=== PATIENT | female | born 1980 | race Caucasian/White ===

== ENCOUNTER 2021-11-08 22:05 | Emergency (ER) | payer OTHER, SELFPAY ==
--- NOTE | ~2021-11-08 | XR_ITS ---
EXAMINATION: XR ankle RT min 3V DATE: 11/09/2021 00:34 INDICATION: Lateral right ankle pain. TECHNIQUE: 4 views of right ankle were obtained. COMPARISON: Right ankle radiographs 05/02/2007 FINDINGS: Bone alignment is normal. No fracture. There is mild midfoot osteoarthritis. There is a sma ll osteochondral lesion of lateral talar dome. There are enthesophytes at the posterior and plantar a spects of calcaneal tuberosity. Ankle soft tissue swelling is noted. IMPRESSION: 1. Polyarticular osteoarthritis. Reviewed, dictated and finalized at location A. TER TRIMMER
--- NOTE | ~2021-11-08 | XR_ITS ---
EXAMINATION: XR foot RT min 3V DATE: 11/09/2021 00:34 INDICATION: Right foot pain. TECHNIQUE: 4 views of right foot were obtained. COMPARISON: None. FINDINGS: There is dorsiflexion of all of the metatarsophalangeal joints. There is mild flattening of head of second metatarsal, consistent with osteonecrosis (Freiberg's infraction). There is mild midf oot osteoarthritis. There are enthesophytes at the posterior and plantar aspects of calcaneal tuberos ity. IMPRESSION: 1. Mild polyarticular osteoarthritis. 2. Freiberg's infraction. Reviewed, dictated and finalized at location A. [employer]
[2021-11-08 22:10] VITALS: BP 139/90; PULSE 104; RESP 18; TEMP 36.3; O2SAT 97
--- NOTE | 2021-11-09 00:51 | ED.GENADULT ---
HPI - General Adult General Chief complaint: Extremity Injury, Lower Stated complaint: Right foot pain Time Seen by Provider: 11/09/21 00:44 History of Present Illness HPI narrative: Patient 41-year-old female presents to emergency department with chief complaint of right foot pain patient states that she twisted her foot this morning reports that she has swelling in the middle aspect of her right foot. Patient states that the pain is worse with trying to put weight on it states that whenever she attempts to put weight on her right foot it hurts so bad that she is unable to put weight on it. Patient states there is an area of swelling on the medial aspect of the foot denies any numbness or tingling denies laceration. Patient denies any other injury Related Data Allergies Allergy/AdvReac Type Severity Reaction Status Date / Time ibuprofen Allergy Swelling Verified 11/08/21 22:09 Review of Systems Review of Systems: A 10 system review of systems was completed on the patient and is negative except for what is stated in the HPI. Nursing and ancillary documentation was reviewed. Exam Narrative: GENERAL: Well-appearing, well-nourished, and in no acute distress. HEAD: Normocephalic, atraumatic. EYES: PERRLA and EOMI. ENT: Nares clear, no rhinorrhea or epistaxis. Mucous membranes moist. NECK: Supple. CHEST: Clear to auscultation. No respiratory distress. HEART: Regular rate and rhythm. No murmur heard. Normal peripheral pulses. ABDOMEN: Soft, nontender, nondistended, normal active bowel sounds. EXTREMITIES: Normal range of motion. No edema. There is mild swelling in the medial aspect of the right foot at the calcaneal area there is swelling there is tenderness to palpation SKIN: Warm, dry, no rash. NEURO: No focal deficits. Alert and oriented x3. PSYCH: Normal mood and affect. Course Course Emergency Course: Plain film x-rays of the foot and ankle showed no evidence of fracture Vital Signs Vital signs: Vital Signs Temperature 36.3 C L 11/08/21 22:10 Pulse Rate 104 H 11/08/21 22:10 Respiratory Rate 18 11/08/21 22:10 Blood Pressure 139/90 11/08/21 22:10 Pulse Oximetry 97 11/08/21 22:10 Temperature 36.3 C L 11/08/21 22:10 Pulse Rate 104 H 11/08/21 22:10 Respiratory Rate 18 11/08/21 22:10 Blood Pressure 139/90 11/08/21 22:10 Pulse Oximetry 97 11/08/21 22:10 Medical Decision Making Vital Signs Vital Signs: Vital Signs Temperature 36.3 C L 11/08/21 22:10 Pulse Rate 104 H 11/08/21 22:10 Respiratory Rate 18 11/08/21 22:10 Blood Pressure 139/90 11/08/21 22:10 Pulse Oximetry 97 11/08/21 22:10 Temperature 36.3 C L 11/08/21 22:10 Pulse Rate 104 H 11/08/21 22:10 Respiratory Rate 18 11/08/21 22:10 Blood Pressure 139/90 11/08/21 22:10 Pulse Oximetry 97 11/08/21 22:10 Discharge Plan Discharge Clinical Impression: Right foot sprain Qualifiers: Encounter type: initial encounter Qualified Code(s): S93.601A - Unspecified sprain of right foot, initial encounter Patient Disposition: Home, Self-Care Condition: Stable Instructions: Antibiotic Form, Foot Sprain (ED), Crutch Instructions (ED) Follow-up/Referrals: Manny,MD Jvaan [Primary Care Provider] - Time of Disposition: 00:53
[2021-11-09] MEDS: HYDROcodone/acetaminophen (*CRX) 5-325 MG TABLET 1 TAB PO (01:01)
[2021-11-09 01:24] VITALS: PULSE 80; RESP 18; O2SAT 100
== END 2021-11-09 01:25 | disposition home or self-care (01) ==
PROVIDERS: Emergency Provider Emergency Medicine; PCP Internal Medicine
DX: S93.601A Unspecified sprain of right foot, initial encounter (principal); X50.9XXA Other and unspecified overexertion or strenuous movements or postures, initial encounter
CPT/HCPCS: 73610; 73630; 99283; A9270

== ENCOUNTER 2023-11-27 21:01 | Emergency (ER) | payer MEDICAID, SELFPAY ==
--- NOTE | ~2023-11-27 | CT_ITS ---
EXAMINATION: CT abdomen pelvis wo con DATE: 11/27/2023 23:35 INDICATION: Right flank pain TECHNIQUE: Computed tomography (CT) of the abdomen and pelvis was performed without intravenous contr ast. The dose-length product (DLP) was 868.17 mGy-cm. Automated exposure control and iterative recons truction technique were employed. COMPARISON: 03/06/2018 FINDINGS: The lung bases are clear. The heart size is normal. Changes of cholecystectomy are noted. T he liver, spleen, pancreas, and adrenal glands are normal. The kidneys are unremarkable. No stones ar e identified in the kidneys, ureters, or bladder. No hydronephrosis or hydroureter. No pathologically enlarged abdominal or pelvic lymph nodes are identified. No free intraperitoneal gas or evidence of bowel obstruction. The appendix is normal. IMPRESSION: 1. No CT correlate for the patient's symptoms. Reviewed, dictated and finalized at location F. CONSERVATION SPECIALIST
[2023-11-27 21:04] VITALS: BP 113/7; PULSE 98; RESP 20; TEMP 36.5; O2SAT 100
[2023-11-27] MEDS: HYDROcodone/acetaminophen (*CRX) 5-325 MG TABLET 1 TAB PO (23:22)
[2023-11-27] MEDS: diazePAM INJ (*CRX) 10 MG/2 ML SYRINGE 2 MG IM (23:22)
[2023-11-27 23:42] LABS: Basophils Percent Auto 0.5 % (0.2-1.2); Eosinophils Absolute Auto 0.4 K/mm3 (0-0.3); Eosinophils Percent Auto 4.5 % (0-4.4); Hematocrit 45.3 % (37.0-47.0); Hemoglobin 15.1 g/dL (12.0-15.0); Immature Granulocyte Absolute 0.01 K/mm3 (0.00-0.031); Immature Granulocyte Percent A 0.1 % (0-0.5); Lymphocytes Absolute Auto 4.23 K/mm3 (0.9-3.2); Lymphocytes Percent Auto 53.1 % (18.3-44.2); Mean Corpuscular HGB Conc 33.3 g/dl (32-36); Mean Corpuscular Volume 98.9 fl (80-100); Mean Platelet Volume 9.5 fl (7.4-10.4); Monocytes Absolute Auto 0.4 K/mm3 (0.1-0.6); Neutrophils Absolute Auto 2.9 K/mm3 (1.3-6.7); Neutrophils Percent Auto 36.8 % (45.5-73.1); Platelet Count Result 197 k/mm3 (150-375); Red Blood Count 4.58 M/mm3 (4.2-5.4); Red Cell Distribution Width 12.9 % (11.5-14.5)
[2023-11-27 23:47] LABS: Appearance Urine Clear (Clear); Bacteria Urine None Seen /hpf; Bilirubin Urine Negative (Negative); Blood Urine 1+ (Negative); Color Urine Yellow (Yellow); Glucose Urine UA Negative (Negative); Ketones Urine Negative (Negative); Leukocyte Esterase Ur Negative LEU/UL (Negative); Nitrate Urine Negative (Negative); Non Pathogenic Casts 0-2; Protein Urine Negative (Negative); Specific Grav Ur 1.006 (1.001-1.035); Squamous Epithelial Cell Urine None seen /hpf (Few); Urobilinogen Urine 0.2 mg/dL (<2.0); WBC Urine 0-5 /hpf; pH Urine 6.5 (5.0-9.0)
[2023-11-27 23:53] LABS: Add Urine Microscopic? YES
[2023-11-27 23:54] LABS: Anion Gap 10 mmol/L (8-16); Blood Urea Nitrogen 18 mg/dL (7-17); Calcium 9.7 mg/dL (8.4-10.2); Carbon Dioxide 27 mmol/L (22-30); Chloride 103 mmol/L (98-107); Estimated CRCL calculation 52 ml/min; Estimated Glomerular Filt Rate 41; Glucose 89 mg/dL (65-110); Potassium 4.1 mmol/L (3.4-5.0); Sodium 140 mmol/L (137-145)
--- NOTE | 2023-11-28 00:18 | ED.BACK ---
HPI - Back Pain/Injury General Chief Complaint: Back Pain/Injury Stated Complaint: R sided lower back pain Time Seen by Provider: 11/27/23 21:49 Source: patient Mode of arrival: ambulatory Limitations: no limitations History of Present Illness HPI Narrative: Patient is a 43 year old female who presents the ED with report of lower back pain. Patient reports she was bending over cleaning her bathtub tonight when she felt a pop in her lower back. This occurred approximately 3 hours ago. Pain has been present through her lower back, extends to her right flank region and mildly around to her right lower abdomen. Patient took Tylenol for the pain at home but denied improvement. Denies nausea, vomiting, numbness, saddle anesthesia, bowel or bladder incontinence. She does report mild dysuria. No previous history of kidney stones. Related Data Allergies Allergy/AdvReac Type Severity Reaction Status Date / Time ibuprofen Allergy Swelling Verified 11/27/23 21:07 Review of Systems Review of Systems: CONSTITUTIONAL: Denies fever, chills, or sweats. GASTROINTESTINAL: See HPI. GENITOURINARY: See HPI. MUSCULOSKELETAL: See HPI. NEUROLOGIC: Denies headache, dizziness, numbness, or weakness. All systems reviewed & are unremarkable except as noted in HPI and below Exam Narrative: GENERAL: Well appearing, obese with BMI of 37.7, non-toxic, in no acute distress. HEAD: Normocephalic, atraumatic. RESPIRATORY: Airway patent, respirations nonlabored. CARDIOVASCULAR: Regular rate and rhythm. ABDOMINAL: Soft, no significant tenderness throughout abdomen, nondistended. Normoactive BS. MUSCULOSKELETAL: Moves all extremities. No gross deformities. No significant appreciable midline lumbar spinal tenderness. Mild tenderness throughout right-sided paraspinal musculature extending to right lumbosacral region. Sensation intact. No palpable bony deformities. SKIN: Warm, dry, normal color. NEURO: A&O X3. Speech clear. Cranial nerves II-XII grossly intact. Steady gait. No ataxic movements. PSYCHIATRIC: Appropriate mood and affect. Normal interaction. Course Vital Signs Vital signs: Vital Signs Temperature 97.7 F 11/27/23 21:04 Pulse Rate 98 11/27/23 21:04 Respiratory Rate 20 11/27/23 21:04 Blood Pressure 113/7 L 11/27/23 21:04 Pulse Oximetry 100 11/27/23 21:04 Oxygen Delivery Room Air 11/27/23 21:04 Temperature 97.7 F 11/27/23 21:04 Pulse Rate 98 11/27/23 21:04 Respiratory Rate 20 11/27/23 21:04 Blood Pressure 113/7 L 11/27/23 21:04 Pulse Oximetry 100 11/27/23 21:04 Oxygen Delivery Room Air 11/27/23 21:04 MDM - Back Pain/Injury MDM Narrative Medical decision making narrative: Patient presented to ED with low back pain, radiating to right flank/right-sided abdomen. Vital stable upon arrival. Differential includes lumbar strain, MSK pain, UTI/pyelonephritis, kidney stone. Patient does admit to mild dysuria. Urinalysis with 6-10 WBC, no other evidence for infection. Patient denying hematuria. Laboratory studies obtained and unremarkable. No leukocytosis. Creatinine 1.4. No records to compare to. CT abdomen pelvis obtained with lumbar spine and without acute abnormality. No ureterolithiasis. Does show degenerative changes of spine, but no acute abnormalities. Patient updated on imaging findings. Discussed likelihood of muscular strain. Discussed management of such. Will send prescription for lidocaine patches and muscle relaxers. Patient advised to follow-up with primary care doctor for further evaluation. Given return precautions. Discharged in stable condition. Medical Records Attestation: I reviewed the patient's medical records. Lab Data Attestation: I reviewed the patient's lab results. 11/27/23 23:29 11/27/23 23:29 Labs: Lab Results 11/27/23 11/27/23 Range/Units 23:29 23:30 WBC 8.0 (4.5-10.0) K/mm3 RBC 4.58 (4.2-5.4) M/mm3 Hgb
== END 2023-11-28 00:30 | disposition home or self-care (01) ==
PROVIDERS: Emergency Provider Physician Assistant; PCP Internal Medicine
DX: S39.012A Strain of muscle, fascia and tendon of lower back, initial encounter (principal); Z90.49 Acquired absence of other specified parts of digestive tract; X50.9XXA Other and unspecified overexertion or strenuous movements or postures, initial encounter
CPT/HCPCS: 36415; 74176; 80048; 81001; 85025; 96372; 99284; A9270; J3360

== ENCOUNTER 2024-07-04 18:13 | Emergency (ER) | payer OTHER, SELFPAY ==
--- NOTE | ~2024-07-04 | CT_ITS ---
EXAMINATION: CT cervical spine wo con DATE: 07/04/2024 22:40 INDICATION: right sided neck pain TECHNIQUE: Computed tomography (CT) of the cervical spine was performed without intravenous contrast. Automated exposure control and iterative reconstruction technique were employed. The dose-length pro duct was 574.66 mGy-cm. COMPARISON: None. FINDINGS: Vertebral Body Alignment: Intact. Reversed cervical lordosis which can occur with positioning or musc le spasm. Craniocervical and atlantoaxial alignment: Mild degenerative change. Alignment intact. Osseous structures/fracture: No evidence of a lytic or blastic process in the visualized spine. No e vidence of acute fracture. Cervical soft tissues: The paraspinal soft tissues planes are maintained. Degenerative changes: Mild degenerative disc and facet changes, without severe neural foraminal or ce ntral canal narrowing. IMPRESSION: No acute fracture or traumatic malalignment in the cervical spine. Reviewed, dictated and finalized at location K.
--- NOTE | ~2024-07-04 | XR_ITS ---
EXAM: XR shoulder RT min 2V DATE: 07/04/2024 18:32 HISTORY: shoulder pain . COMPARISON: None available. FINDINGS: Normal mineralization. No fracture or dislocation. No lytic or blastic lesion. Mild degene rative change at the AC joint and glenohumeral joint. No erosion or periosteal change. Soft tissues w ithin normal limits. IMPRESSION: No acute osseous finding in the right shoulder. Reviewed, dictated and finalized at location K.
[2024-07-04 18:22] VITALS: BP 141/93; PULSE 103; RESP 14; TEMP 36.4; O2SAT 100
--- NOTE | 2024-07-04 18:23 | ED.UPPEXIN ---
HPI - Extremity Injury (Upper) General Chief Complaint: Extremity Injury, Upper <Samuel Moon APRN - Last Filed: 07/04/24 18:25> Stated Complaint: right shoulder and arm pain <Samuel Moon APRN - Last Filed: 07/04/24 18:25> Time Seen by Provider: 07/04/24 18:24 <Samuel Moon APRN - Last Filed: 07/04/24 18:25> Focused HPI: Akin is a 43-year-old female patient presenting to the ER today with complaints of posterior cervical neck, shoulder, and arm pain. She reports she was reaching her arm up to grab out something from the overhead covered and felt a pop in her shoulder and had instant pain. Has tingling pain going down her right arm. GENERAL: Well-appearing, well-nourished, and in no acute distress. HEAD: Normocephalic, atraumatic. CHEST: Clear to auscultation. No respiratory distress. HEART: Regular rate and rhythm. NEURO: Alert and oriented x3. Patient screened in triage and initial orders placed. Additional care and disposition to be based upon diagnostic testing and treatment. <Samuel Moon APRN - Last Filed: 07/04/24 18:25> Source: patient <Samuel Moon APRN - Last Filed: 07/04/24 18:25> Mode of arrival: ambulatory <Samuel Moon APRN - Last Filed: 07/04/24 18:25> Limitations: no limitations <Samuel Moon APRN - Last Filed: 07/04/24 18:25> Related Data Allergies/Adverse Reactions: Allergies Allergy/AdvReac Type Severity Reaction Status Date / Time ibuprofen Allergy Swelling Verified 07/04/24 18:13 <Samuel Moon APRN - Last Filed: 07/04/24 18:25> Review of Systems Review of Systems: CONSTITUTIONAL: Denies fever MUSCULOSKELETAL: Reports joint pain, and myalgia. NEUROLOGIC: Denies weakness. <Venice Lea PA-C - Last Filed: 07/04/24 23:19> All systems reviewed & are unremarkable except as noted in HPI and below <Venice Lea PA-C - Last Filed: 07/04/24 23:19> [facility] Past Medical History Medical History: Medical History (Updated 07/04/24 @ 23:12 by Venice Lea PA-C) History of diabetes mellitus History of hyperlipidemia History of hypertension History of hypothyroidism <Samuel Moon APRN - Last Filed: 07/04/24 18:25> Social History Social History: Social History (Updated 07/04/24 @ 22:42 by Venice Lea PA-C) Substance use: never <Samuel Moon APRN - Last Filed: 07/04/24 18:25> Comments At the time of my signature, I reviewed and agree with the nursing past medical, surgical, social, and family history. There is no relevant family history pertinent to the patient complaint. <Samuel Moon APRN - Last Filed: 07/04/24 18:25> Exam Narrative: GENERAL: Well-appearing, well-nourished, and in no acute distress. HEAD: Normocephalic, atraumatic. EYES: EOMI. NECK: Supple. No adenopathy or masses. Tender to palpation of right trapezius musculature CHEST: Clear to auscultation. No respiratory distress. No wheezes rales or rhonchi HEART: Regular rate and rhythm. No murmur heard. Normal peripheral pulses. EXTREMITIES: Normal range of motion. No edema. Normal radial pulse. Normal strength SKIN: Warm, dry, no rash. NEURO: No focal deficits. Alert and oriented x3. PSYCH: Normal mood and affect <Venice Lea PA-C - Last Filed: 07/04/24 23:19> Course Course Emergency Course: Portions of this record may have been created with voice recognition software. <Samuel Moon APRN - Last Filed: 07/04/24 18:25> Portions of this record may have been created with voice recognition software. patient updated on workup and agrees with plan of care <Venice Lea PA-C - Last Filed: 07/04/24 23:19> Vital Signs Vital signs: Vital Signs Temperature 97.5 F L 07/04/24 18:22 Pulse Rate 103 H 07/04/24 18:22 Respiratory Rate 14 07/04/24 18:22 Blood Pressure 141/93 H 07/04/24 18:22 Pulse Oximetry 100 07/04/24 18:22 O
[2024-07-04] MEDS: ACETAMINOPHEN 500 MG TABLET 1000 MG PO (22:13)
[2024-07-04] MEDS: CYCLOBENZAPRINE HCL 10 MG TABLET PO (22:13)
[2024-07-04 22:15] VITALS: BP 138/72; PULSE 90; RESP 18; TEMP 36.8; O2SAT 99
== END 2024-07-04 23:21 | disposition home or self-care (01) ==
PROVIDERS: Emergency Provider Physician Assistant; PCP Internal Medicine
DX: M54.2 Cervicalgia (principal); I10 Essential (primary) hypertension; E11.9 Type 2 diabetes mellitus without complications; E78.5 Hyperlipidemia, unspecified; E03.9 Hypothyroidism, unspecified
CPT/HCPCS: 72125; 73030; 99284; A9270

== ENCOUNTER 2025-04-15 17:53 | Emergency (ER) | payer OTHER, SELFPAY ==
--- NOTE | ~2025-04-15 | XR_ITS ---
XR shoulder RT min 2V Ordering provider: Chel Tomas APRN History: . R shoulder injury . Comparison: July 04, 2024 FINDINGS: BONES: Highly suggestive undisplaced fracture at the junction of the distal one third and proximal tw o thirds. Follow-up advised. JOINT SPACES: The acromioclavicular joint is normal. The glenohumeral joint is normal. SOFT TISSUES: Normal. IMPRESSION: Highly suggestive undisplaced fracture at the junction of the proximal two thirds and distal one thir d of the right clavicle. Clinical correlation and follow-up advised. Reviewed, dictated and finalized at location A. IMPRESSION: Highly suggestive undisplaced fracture at the junction of the proximal two thir ds and distal one third of the right clavicle. Clinical correlation and follow- up advised.
--- OUTSIDE RECORDS SUMMARY | 2025-04-15 17:55 | XMS_ITS | Patient Health Record ---
Author Organization [facility] Billing Info Address [address] [place] [id number] Care Team Providers Care Systems Support Specialist Name Role Phone Andres Taverasuq Primary Care Provider MAHESH Pisano Unavailable [phone] Allergies Allergen (clinical drug ingredient) Drug/Non Drug Allergy documented on EMR Reaction Allergy Type Onset Date Status ibuprofen Ibuprofen Unknown Drug Allergy Active Reason For Referral No Information Medications Medication SIG (Take, Route, Frequency, Duration) Notes Start Date End Date Status Levothyroxine Sodium 75 MCG TAKE 1 TABLET BY MOUTH ONCE DAILY IN THE MORNING ON AN EMPTY STOMACH FOR 90 DAYS for 90 Active Irbesartan 300 MG 1 tablet Orally Once a day for 90 days Active BuPROPion HCl ER (Smoking Det) 150 MG 1 tablet in the morning Orally twice a day for 30 day(s) 12/01/2022 Not-Taking Simvastatin 40 MG 1 tablet in the evening Orally Once a day for 90 days Active Calcium + Vitamin D3 600-10 MG-MCG 1 tablet with a meal Orally Once a day for 90 days Active Spironolactone 25 MG 1 tablet Orally Onc e a day for 90 days Active Aspir-Low 81 MG 1 tablet Orally Once a day for 30 day(s) Active Omeprazole 20 MG 1 capsule 30 minutes before morning meal Orally Once a day for 30 day(s) Active Spironolactone 50 MG 1 tablet Orally Onc e a day for 30 days Active Voltaren 1 % Apply 4 grams to affected area as needed Externally Twice a day 03/09/2023 Active Ziprasidone HCl 20 MG TAKE 1 CAPSULE BY MOUTH EVERY DAY WITH FOOD FOR 30 DAYS for 30 Active Allopurinol 300 MG 1 tablet Orally Once a day for 90 days Active Atorvastatin Calcium 40 MG 1 tablet Oral ly Once a day for 30 days Active Narcan 4 MG/0.1ML as directed Nasally single dose in one nostril; may repeat every 2 to 3 minutes in alternating nostrils until medical assistance becomes available PRN sedation for 30 day(s) 02/01/2023 Not-Taking Immunizations Vaccine Route Administration Date Status Comme nts PNEUMOCOCCAL (Past vaccine o f unknown type) Unknown 08/12/2022 Administered COVID-19 (Past vaccine of un known type) Unknown 12/03/2021 Administered COVID-19 (Past vaccine of un known type) Unknown 04/09/2022 Administered COVID-19 (Past vaccine of un known type) Unknown 08/25/2022 Administered Social History Tobacco Use: Social History Observation Description Date Details (start date - stop date) Current Smoker NA - NA Tobacco Status: Question Answer Notes Patient is a current every day smoker Smoke s 1/2 PPD Problems Problem Type SNOMED Code ICD Code Onset Dates Problem Status W/U Status Risk Notes Problem 796731438 Mixed hyperlipidemia (E78.2) Active confirmed Problem 337306626 Ventral hernia without obstruction or gangrene (K43.9) Active confirmed Problem 78088004 Essential hypertension (I10) Active confirmed Problem 74219128 BRENDON (obstructive sleep apnea) (G47.33) Active confirmed Problem 782101219 Seasonal allergi es (J30.2) Active confirmed Problem 920114633 Plantar fasciiti s (M72.2) Active confirmed Problem History of migraine (632138542) History of migraine (Z86.69) Active confirmed Problem Thyroid disorder (83000217) Thyroid disorder (E07.9) Active confirmed Problem 54980211 Anxiety (F41.9) Active confirmed Problem 91382084 Primary hypertension (I10) Active confirmed Problem 57652277 Hypothyroidism, unspecified type (E03.9) Active confirmed Problem 290565709 Cardiac arrhythmia, unspecified cardiac arrhythmia type (I49.9) Active confirmed Problem 85885749 Chronic gout of multiple sites, unspecified cause (M1A.09X0) Active confirmed Problem 24924602 Intracranial mas s (R90.0) Active confirmed Problem 93996634 Chronic congesti ve heart failure, unspecified heart failure type (I50.9) Active confirmed Problem 94852923 Depression, unspecified depression type (F32.A) Active confirmed Problem 348022145 Acute right-side d low back pain without sciatica (M54.50) Active confirmed Plan Of Treatment Pending Test Test Name Order Date MRI- MR LOWER EXTREMITY JOINT-RT ([id number]) ([id number]) 02/15/2023 CT- ABD AND PELVIS W/O CONT ()([facility]) 04/13/2023 MRI- MR LOWER EXTREMITY-RT ([id number])([facility]- EXTLO-RT) 02/01/2023 MRI HEAD/BRAIN W/WO CONTRAST([facility]) 11/24/2022 SCREENING MAMMO WITH ADDL VIEWS AND/OR U S FOR INCONCLUSIVE MAMMO (G0202) 11/24/2022 CALCIUM, IONIZED([id number]-[id number]) 12/01/2022 XRAY - KNEE 3 VIEWS RIGHT ([id number]) 2022 Medical (General) History Medical History History ICD Code Primary hypertension I10 Seasonal allergies J30.2 Anxiety F41.9 Depression Hypothyroidism Hyperlipidemia Cardiac Arrthymias Anxiety Congestive Heart Failure Gout Intracranial Mass Plantar Fascitis BRENDON Surgical History Surgery Date(Month/Year) Hysterectomy 2001 Tonsillectomy Cholecystectomy 2001 Hospitalization History Reason Date(Month/Year)
--- OUTSIDE RECORDS SUMMARY | 2025-04-15 17:55 | XMS_ITS | Data Portability ---
Author Organization [place] [facility] [employer], Main Office Address [address] [place] [address] Care Team Providers Care Telecom Coordinator Name Role Phone KAILEE BRYANT Primary Care Provider [phone] KAILEE BRYANT Referring Provider [phone] KAILEE BRYANT Primary Care Provider Assessment Encounter Date Assessment Date Assessment LastModified by Organization Details LastModified Time 12/21/2023 12/21/2023 Periumbilical pain with possible mass. Unremarkable physical exam, CT scan from outside facility does not comment on a ventral hernia. We will obtain images from outside facility to evaluate here and patient will follow up afterwards Not available 12/21/2023 11:13:14 12/28/2023 12/28/2023 No hernias palpable on physical exam, very small periumbilical hernia visualized on CT scan, but sx of nausea/diarrhea/ constipation likely not attributed to this. Recommended f/u with GI and f/u here if bulge re-presents or concerns arise. Pt agreeable. [email or web address] Not available 12/28/2023 13:37:18 05/18/2024 05/18/[address] scan 6 months ago revealed that small fat containing umbilical hernia that I do not believe his source of the issues. we will repeat CT scan to further evaluate Not available 05/18/2024 11:14:05 06/06/2024 06/06/[address] scan shows ventral hernia without significant change compared to 6 months ago. I do not believe this is the source of the GI symptoms. Did inform of hepatic steatosis per CT and patient plans to discuss further with PCP. Recommended f/u with GI as scheduled on Jun 28. [email or web address] Not available 06/06/2024 12:47:24 Plan of Treatment Reminders Order Date Submit Date Provider Last Modified By Organization Details Last Modified Time Details Appointments None record ed. Lab None record ed. Referral None record ed. Procedures None record ed. Surgeries None record ed. Imaging None record ed. Medication Orders None record ed. Patient TargetsNo targets recorded. Patient InstructionsNo instructions recorded. Reason for Referral None Reported. Results Created Date Observation Date Name Description Value Unit Range Abnormal Flag Note LastModifiedBy Organization Detail LastModifiedTime 04/02/20 22 04/02/2022 HEMOG LOBIN A1C HA1C 5.3 % 4.0-6. 0 Diabe modesto Scree eitan Crite chica: <5.7% Consi stent with absen ce of diabe modesto 5.7-6 .4% Consi stent with incre ased risk for diabe modesto (pred iabet es) >OR=6 .5% Consi stent with diabe modesto REFER ENCE: Diabe modesto Care 2016, 39(Mena ppl.1 ):s13 -s22 Not Available [facility] (Lab) [address] [place], [address], 04/02/2022 21:22:14 04/02/20 22 04/02/2022 LIPID PANEL triglyceride s 266 mg/dL 0-150 high NIH EVITA NSUS REPOR T RECOM MENDA TION FOR TRIGL YCERI СЕРГЕЙ: ADULT CHILD LOW RISK: <150 ----- BODER LINE: 150-1 99 ----- HIGH RISK: >200 ----- Not Available [facility] (Lab) [address] [place], [address], 04/02/2022 15:48:40 04/02/20 22 04/02/2022 LIPID PANEL HDL cholesterol 33 mg/dL 40- low Not Available [facility] (Lab) [address] [place], [address], 04/02/2022 15:48:40 04/02/20 22 04/02/2022 LIPID PANEL LDL cholesterol, calculated 68 mg/dL 0-130 NIH EVITA NSUS REPOR T RECOM MENDA TIONS FOR LDL: ADULT CHILD LOW RISK <130 <110 (OPTI MAL LDL) <100 ----- BORDE RLINE : 130-1 59 ----- HIGH RISK: >160 >130 A TRIGL YCERI DE RESUL T >400 INVAL IDATE S THE CALCU LATIO N FOR LDL FRACT IONAT ION - THE LDL RESUL T WILL NOT BE REPOR DINA. Not Available [facility] (Lab) [address] [place], [address], 04/02/2022 15:48:40 04/02/20 22 04/02/2022 LIPID PANEL cholesterol 154 mg/dL 140-19 9 NIH EVITA NSUS RECOM MENDA TION FOR CAMI STERO L: ADULT CHILD LOW RISK: <200 <170 BORDE RLINE : <200- 239 ----- HIGH RISK: >240 >200 Not Available [facility] (Lab) [address] [place], [address], 04/02/2022 15:48:40 04/02/20 22 04/02/2022 COMPR EHENS JULIANNA METAB OLIC PANEL sodium 138 mmol/ L 137-14 5 Not Available [facility] (Lab) [address] [place], [address], 04/02/2022 15:48:34 04/02/20 22 04/02/2022 COMPR EHENS JULIANNA METAB OLIC PANEL potassium 4.2 mmol/ L 3.5-5. 1 Not Available [facility] (Lab) [address] [place], [address], 04/02/2022 15:48:34 04/02/20 22 04/02/2022 COMPR EHENS JULIANNA METAB OLIC PANEL chloride 99 mmol/ L 98-107 Not Available [facility] (Lab) [address] [place], [address], 04/02/2022 15:48:34 04/02/20 22 04/02/2022 COMPR EHENS JULIANNA METAB OLIC PANEL carbon dioxide 35 mmol/ L 22-30 high Not Available [facility] (Lab) [address] [place], [address], 04/02/2022 15:48:34 04/02/20 22 04/02/2022 COMPR EHENS JULIANNA METAB OLIC PANEL anion gap 8.2 mmol/ L 14-22 low Not Available [facility] (Lab) [address] [place], [address], 04/02/2022 15:48:34 04/02/20 22 04/02/2022 COMPR EHENS JULIANNA METAB OLIC PANEL glucose 97 mg/dL 70-99 Not Available [facility] (Lab) [address] [place], [address], 04/02/2022 15:48:34 04/02/20 22 04/02/2022 COMPR EHENS JULIANNA METAB OLIC PANEL BUN 16 mg/dL 8-19 Not Available [facility] (Lab) [address] [place], [address], 04/02/2022 15:48:34 04/02/20 22 04/02/2022 COMPR EHENS JULIANNA METAB OLIC PANEL creatinine 1.45 mg/dL 0.66-1 .25 high Not Available [facility] (Lab) [address] [place], [address], 04/02/2022 15:48:34 04/02/20 22 04/02/2022 COMPR EHENS JULIANNA METAB OLIC PANEL GFR 39 Refer ence Range : [place] ge GFR Healt hy Adult : >60 mL/mi n/1.7 3 m2 Chron ic Kidne y Disea se: 15-60 mL/mi n/1.7 3 m2 Kidne y Failu re: <15/m L/min /1.73 m2 www.n iddk. nih.g ov The MDRD study equat ion has not been valid ated in child timmy <18 years of age; pregn ant women ; the elder ly >85 years of age; or in some racia l or ethni c subgr oups, such as Hispa nics. Outsi de the valid ated william eters , estim ated GFR is less accur ate, requi ring clini perry judgm ent on a case- by-ca se basis . Clini perry inter preta tion for other races and ages must be made by the clini clare. The MDRD study equat ion has not been valid ated for the evalu ation of serum creat inine relat ed to nutri dylon l statu s or medic ation usage . For perso ns <18 years of age, a pedia tric GFR calcu lator is avail able on the [facility] websi te: https ://courtney w.idris gale.o alejandro/pr ofess ional s/kdo qi/gf r_cal culat or Not Available [facility] (Lab) [address] [place], [address], 04/02/2022 15:48:34 04/02/20 22 04/02/2022 COMPR EHENS JULIANNA METAB OLIC PANEL alkaline phosphatase 49 U/L 38-126 Not Available [facility] (Lab) [address] [place], [address], 04/02/2022 15:48:34 04/02/20 22 04/02/2022 COMPR EHENS JULIANNA METAB OLIC PANEL alanine aminotransfe rase 20 U/L 0-35 Not Available [facility] (Lab) [address] [place], [address], 04/02/2022 15:48:34 04/02/20 22 04/02/2022 COMPR EHENS JULIANNA METAB OLIC PANEL aspartate aminotransfe rase 29 U/L 15-37 Not Available [facility] (Lab) [address] [place], [address], 04/02/2022 15:48:34 04/02/20 22 04/02/2022 COMPR EHENS JULIANNA METAB OLIC PANEL bilirubin, total 0.40 mg/dL 0.20-1 .30 Not Available [facility] (Lab) [address] [place], [address], 04/02/2022 15:48:34 04/02/20 22 04/02/2022 COMPR EHENS JULIANNA METAB OLIC PANEL calcium 10.7 mg/dL 8.4-10 .2 high Not Available [facility] (Lab) [address] [place], [address], 04/02/2022 15:48:34 04/02/20 22 04/02/2022 COMPR EHENS JULIANNA METAB OLIC PANEL total protein 6.8 g/dL 6.3-8. 2 Not Available [facility] (Lab) [address] [place], [address], 04/02/2022 15:48:34 04/02/20 22 04/02/2022 COMPR EHENS JULIANNA METAB OLIC PANEL albumin 4.1 g/dL 3.4-5. 0 Not Available [facility] (Lab) [address] [place], [address], 04/02/2022 15:48:34 04/02/20 22 04/02/2022 COMPR EHENS JULIANNA METAB OLIC PANEL globulin 2.7 g/dL 2.6-4. 2 Not Available [facility] (Lab) [address] [place], [address], 04/02/2022 15:48:34 04/02/20 22 04/02/2022 COMPR EHENS JULIANNA METAB OLIC PANEL A/G ratio 1.5 ratio 1.0-2. 0 Not Available [facility] (Lab) [address] [place], [address], 04/02/2022 15:48:34 04/02/20 22 04/02/2022 CBC/C OMPLE TE BLD COUNT W/DIF F hematocrit 49.9 % 35.7-4 5.7 high Not Available [facility] (Lab) [address] [place], [address], 04/02/2022 15:11:52 04/02/20 22 04/02/2022 CBC/C OMPLE TE BLD COUNT W/DIF F white blood cells 7.1 x10'3 /uL 4.2-10 .8 Not Available [facility] (Lab) [address] [place], [address], 04/02/2022 15:11:52 04/02/20 22 04/02/2022 CBC/C OMPLE TE BLD COUNT W/DIF F red blood cells 4.98 x10'6 /uL 3.80-5 .20 Not Available [facility] (Lab) [address] [place], [address], 04/02/2022 15:11:52 04/02/20 22 04/02/2022 CBC/C OMPLE TE BLD COUNT W/DIF F hemoglobin 16.7 g/dL 12.0-1 5.6 high Not Available [facility] (Lab) [address] [place], [address], 04/02/2022 15:11:52 04/02/20 22 04/02/2022 CBC/C OMPLE TE BLD COUNT W/DIF F mean red cell volume 100.2 fL 82.0-9 9.0 high Not Available [facility] (Lab) [address] [place], [address], 04/02/2022 15:11:52 04/02/20 22 04/02/2022 CBC/C OMPLE TE BLD COUNT W/DIF F mean red cell hemoglobin 33.5 pg 27.0-3 3.0 high Not Available [facility] (Lab) [address] [place], [address], 04/02/2022 15:11:52 04/02/20 22 04/02/2022 CBC/C OMPLE TE BLD COUNT W/DIF F mean RBC HGB concentratio n 33.5 g/dL 31.0-3 6.0 Not Available [facility] (Lab) [address] [place], [address], 04/02/2022 15:11:52 04/02/20 22 04/02/2022 CBC/C OMPLE TE BLD COUNT W/DIF F red cell distribution width 13.0 % 11.8-1 5.5 Not Available [facility] (Lab) [address] [place], [address], 04/02/2022 15:11:52 04/02/20 22 04/02/2022 CBC/C OMPLE TE BLD COUNT W/DIF F platelets 187 x10'3 /uL 150-40 0 Not Available [facility] (Lab) [address] [place], [address], 04/02/2022 15:11:52 04/02/20 22 04/02/2022 CBC/C OMPLE TE BLD COUNT W/DIF F mean platelet volume 10.1 fL 9.0-12 .4 Not Available [facility] (Lab) [address] [place], [address], 04/02/2022 15:11:52 04/02/20 22 04/02/2022 CBC/C OMPLE TE BLD COUNT W/DIF F neutrophils 46.7 % 39.0-7 2.0 Not Available [facility] (Lab) [address] [place], [address], 04/02/2022 15:11:52 04/02/20 22 04/02/2022 CBC/C OMPLE TE BLD COUNT W/DIF F lymphocytes 41.8 % 16.0-4 7.0 Not Available [facility] (Lab) [address] [place], [address], 04/02/2022 15:11:52 04/02/20 22 04/02/2022 CBC/C OMPLE TE BLD COUNT W/DIF F monocytes 5.2 % 5.0-12 .0 Not Available [facility] (Lab) [address] [place], [address], 04/02/2022 15:11:52 04/02/20 22 04/02/2022 CBC/C OMPLE TE BLD COUNT W/DIF F eosinophils 5.8 % 1.0-7. 0 Not Available [facility] (Lab) [address] [place], [address], 04/02/2022 15:11:52 04/02/20 22 04/02/2022 CBC/C OMPLE TE BLD COUNT W/DIF F basophils 0.4 % 0.0-2. 0 Not Available [facility] (Lab) [address] [place], [address], 04/02/2022 15:11:52 04/02/20 22 04/02/2022 CBC/C OMPLE TE BLD COUNT W/DIF F immature granulocytes 0.1 % 0.00-0 .50 Not Available [facility] (Lab) [address] [place], [address], 04/02/2022 15:11:52 04/02/20 22 04/02/2022 CBC/C OMPLE TE BLD COUNT W/DIF F neutrophils, absolute count 3.29 x10'3 /uL 1.5-8. 0 Not Available [facility] (Lab) [address] [place], [address], 04/02/2022 15:11:52 04/02/20 22 04/02/2022 CBC/C OMPLE TE BLD COUNT W/DIF F lymphocytes, absolute count 2.95 x10'3 /uL 1.07-3 .43 Not Available [facility] (Lab) [address] [place], [address], 04/02/2022 15:11:52 04/02/20 22 04/02/2022 CBC/C OMPLE TE BLD COUNT W/DIF F monocytes, absolute count 0.37 x10'3 /uL 0.29-0 .99 Not Available [facility] (Lab) [address] [place], [address], 04/02/2022 15:11:52 04/02/20 22 04/02/2022 CBC/C OMPLE TE BLD COUNT W/DIF F eosinophils, absolute count 0.41 x10'3 /uL 0.02-0 .53 Not Available [facility] (Lab) [address] [place], [address], 04/02/2022 15:11:52 04/02/20 22 04/02/2022 CBC/C OMPLE TE BLD COUNT W/DIF F basophils, absolute count 0.03 x10'3 /uL 0.01-0 .08 Not Available [facility] (Lab) [address] [place], [address], 04/02/2022 15:11:52 04/02/20 22 04/02/2022 CBC/C OMPLE TE BLD COUNT W/DIF F immature granulocytes ,absolute 0.01 x10'3 /uL 0.00-0 .05 Not Available [facility] (Lab) [address] [place], [address], 04/02/2022 15:11:52 04/02/20 22 04/02/2022 CBC/C OMPLE TE BLD COUNT W/DIF F nucleated red blood cells 0.0 % -0 Not Available [facility] (Lab) [address] [place], [address], 04/02/2022 15:11:52 04/02/20 22 04/02/2022 CBC/C OMPLE TE BLD COUNT W/DIF F NRBC# 0.00 x10'3 /uL Not Available [facility] (Lab) [address] [place], [address], 04/02/2022 15:11:52 03/16/20 22 03/16/2022 MR, angio gram, brain , w/o contr ast [facility] [address], [place] [address] [phone] Marissa t Name: VAUGHN GOLDBERG Access ion #: [id number] Sex: F : 1979 6 Locati on: RAD Attend ing Physic stephenie: EVANS BRYANT Orderi ng Physic stephenie: EVANS BRYANT Exam Date: 12:56 PM Exam Name: MRA HEAD WO Admitt ing Diagno sis(es ): RADIOL OGY REPORT - FINAL EXAM: MRA HEAD WO HISTOR Y: muscle twitch es headac he 41-yea r-old female with family histor y of AVM. COMPAR ESTELLA: Noncon trast CT scan of the head dated 2018. TECHNI QUE: Noncon trast 3D time-o f-flig ht gradie nt echo MRA images of the [place] were perfor med. 3D MIP rotati onal images were obtain ed. FINDIN GS: See below. IMPRES LINDSEY: 1. No signif icant stenos is or aneury smal dilata tion about the [place] of [place] . Page 1 of 2 [facility] Marissa t Name: VAUGHN GOLDBERG Access ion #: [id number] Sex: F : 1979 6 Exam Date: 12:56 PM Exam Name: MRA HEAD WO Admitt ing Diagno sis(es ): 2. No MRA eviden ce cerebr al AVM. Create d and electr onical ly signed by: Yung hernandez MD Signed Date: 1:28 PM (CT) Dictat ed by: Yung hernandez MD DD: 1:28 PM (CT) DT: 1:28 PM (CT) Page 2 of 2 [id number] [facility] (Imaging) [address] [facility] [place], [place], [address], 01/20/2023 01:59:39 04/09/20 22 04/09/2022 XR, foot No observ ation record ed. MIGRATION. [facility] [place] [address], [place], [address], 01/20/2023 01:59:39 05/06/20 22 05/05/2022 elect roenc ephal ogram No observ ation record ed. [id number] Not Available 01/20/2023 01:59:39 05/07/20 22 05/05/2022 elect roenc ephal ogram No observ ation record ed. [id number] Not Available 01/20/2023 01:59:39 11/28/19 24 11/27/2023 CT, abdom en + pelvi s, w/o contr ast No observ ation record ed. [facility] [address], [place], [address], 11/28/2023 19:03:02 04/04/20 24 04/04/2024 scree eitan breas t adrianna, bilat [facility] [address] [place] [address] [phone] Patien t Name: KIMBERLY GOLDBERGN Access ion #: [id number] Sex: F : 1979 2 Dictat ed By: Mirta Duffy Attend ing Physic stephenie: EVANS BRYANT Orderi Physic stephenie: EVANS BRYANT Exam Date: 2023 07:29 AM Exam Name: MG SCRN BREAST ADRIANNA BILAT Admitt ing Diagno sis(es ): SCREEN ING MAMMOG RICHA WITH TOMOSY NTHESI S: REASON FOR EXAM: screen ing mammog richa COMPAR ESTELLA: 02/29/20 19 TECHNI QUE: Bilate ral CC and MLO views obtain ed. Images were obtain ed using a Digita l Tomosy nthesi s Unit. Standa rd 2D and 3D Tomosy nthesi s images were review ed. FINDIN GS: BREAST COMPOS ITION: The bilate ral breast s are almost entire ly fatty. In the right breast , no asymme trical parenc hymal patter n, urszula ectura l distor tion, pleomo rphic microc alcifi cation s or masses . In the left breast , no asymme trical parenc hymal patter n, urszula ectura l distor tion, pleomo rphic microc alcifi cation s or masses . IMPRES LINDSEY: No findin gs of malign kam. Recomm end annual mammog richa. BIRADS : 1 - Negati ve Electr onical ly Signed by: Mirta Duffy at 2023 10:07: 35 AM Page 1 [email or web address] [facility] (Imaging) [address] [place] [address], [address], 06/06/2024 10:01:57 05/30/20 24 05/29/2024 CT, abdom en + pelvi s, w/ contr ast [facility] [address] [place], [place] [id number] Patien t Name: VAUGHN GOLDBERG Access ion #: [id number] Sex: F : 1979 7 Dictat ed By: Evans knowles Attend ing Physic stephenie: JOSIAS STEWART Orderi Physic stephenie: JOSIAS STEWART Exam Date: 2023 15:14 PM Exam Name: CT ABDOME N PELVIS W Admitt ing Diagno sis(es ): CLINIC AL INFORM ATION: 43 years old, Female ; abd pain. TECHNI QUE: Axial CT images of the abdome n and pelvis were obtain ed after the uneven tful admini strati on of 100 mL Omnipa que [address] Krueger l and sagitt al reform atted images were obtain ed, review ed, and stored . All CT [facility] are perfor med using dose modula tion techni ques as approp riate to a perfor med exam includ ing the follow ing: Automa dina exposu re contro l was utiliz ed; adjust ment of the MA and/or KV accord ing to patien t size; and use of iterat julianna recons tructi on techni que. CTDIvo l = 27.99 mGy DLP = 1468.7 mGy-cm COMPAR ESTELLA: Prior CT dated 2023. FINDIN GS: Lung bases: Lung bases are clear. Liver: Hepati c steato sis. Liver measur es 16.2 cm in cranio caudal dimens ion at approx imatel y the mid clavic ular line, at the upper limits of normal . Biliar y: No calcif ied gallst ones or biliar y ductal dilata tion. Spleen : Cholec ystect keshav. Pancre as: Unrema rkable . No inflam matory change s, ductal dilata tion, or mass identi fied. Adrena l glands : Unrema rkable . No mass. Kidney s: No hydron ephros is or mass. Page 1 [facility] [address] [place] [address] Patien t Name: VAUGHN GOLDBERG Access ion #: [id number] Sex: F : 1979 7 Dictat ed By: Evans knowles Attend ing Physic stephenie: GABRIELA CANTU [facility] Physic stephenie: JOSIAS STEWART Exam Date: 2023 15:14 PM Exam Name: CT ABDOME N PELVIS W Admitt ing Diagno sis(es ): Aorta/ Vascul ar: Scatte red athero sclero tic calcif icatio n. No abdomi nal aortic aneury sm. Retrop eriton eum: No mass or lympha denopa thy. Bowel/ mesent berry: No small bowel obstru ction. No free air or free fluid. Append ix is visual ized and appear s unrema rkable . Pelvic organs : Uterus is surgic ally absent . Bladde r: Unrema rkable . No mass. Abdomi nal wall: Small fat contai eitan ventra l hernia just above the level of the umbili cus measur ing up to 2.6 [address] [facility] ion. Bones: No acute fractu re or focal intrao sseous lesion . IMPRES LINDSEY: 1. Hepati c steato sis. 2. Small fat contai eitan ventra l hernia just above the level of the umbili cus, unchan ged. 3. Otherw ise, no acute abnorm ality identi fied in the abdome n or pelvis . Electr onical ly Signed by: Evans knowles at 2023 07:38: 20 AM Page [address] (Imaging) [address] [place], [address], 05/31/2024 08:50:42 05/30/20 24 05/29/2024 CT, abdom en + pelvi s, w/ contr ast No observ ation record ed. [address] [place], [address], 05/31/2024 08:50:23 11/10/20 24 11/10/2024 XR, chest , 2 view [facility] [address] [place] [address] [phone] Patien t Name: VAUGHN GOLDBERG [facility] ion #: [id number] Sex: F : 1979 1 Dictat ed By: Kennedy Patel Attend ing Physic stephenie: EVANS BRYANT Orderi Physic stephenie: EVANS BRYANT Exam Date: 2023 11:35 AM Exam Name: XR CHEST 2V Admitt ing Diagno sis(es ): XR CHEST 2V CLINIC AL HISTOR Y: Bronch itis COMPAR ESTELLA: XR CHEST 1V on DOS: 4, XR CHEST 1V on DOS: 4, XR CHEST 1V on DOS: 4 TECHNI QUE: Fronta l and latera l view of the chest was obtain ed FINDIN GS: Lines and Tubes: None Lungs: No focal consol idatio n. Pleura : No effusi on. No pneumo thorax . Cardio medias tinal contou rs: Unrema rkable Bones: No acute osseou s abnorm ality. IMPRES LINDSEY: No acute cardio pulmon alisha diseas e. Electr onical ly Signed by: Kennedy Patel at 2023 11:57: 35 AM Page 1 INTERFACE [facility] ([facility]) [address] [place], [address], 11/10/2024 12:59:44 Result Notes None recorded. Problems Name Problem SNOMED Code Status Onset Date Resolution Date Notes Provider Name and Address Organization Details Recorded Time Metatarsal tani 09912459 Active 2021 Not Available [facility] 4 01:21:41 Plantar fasciitis of right foot 2424560703655 9101 Active 2018 Not Available [facility] 4 01:21:41 Plantar fascial fibromatos is 79904559 Active Not Available [facility] 4 01:21:41 Pain in both feet 6158994778220 9102 Active 2021 Not Available [facility] 4 01:21:41 Acute sinusitis 46549317 Active Not Available [facility] 4 01:21:41 Otalgia 72324763 Active Not Available [facility] 4 01:21:41 Right flank pain 799791976 Active Not Available [facility] 4 01:21:41 Asthma 484057876 Active 2018 Not Available [facility] 4 01:21:41 Pain of joint of wrist 301724199 Active Not Available [facility] 4 01:21:41 Tibialis posterior tendinitis 726724155 Active 2020 Not Available [facility] 4 01:21:42 Abdominal pain 55342127 Active Not Available [facility] 4 01:21:42 Gastroesop hageal reflux disease 000369751 Active Not Available [facility] 4 01:21:42 Long-term drug therapy Active 2021 Not Available [facility] 4 01:21:42 Pure hyperchole sterolemia 108375706 Active Not Available [facility] 4 01:21:42 Eruption 002319363 Active Not Available [facility] 4 01:21:42 Hypertrigl yceridemia 007298935 Active Not Available [facility] 4 01:21:42 Type 2 diabetes mellitus without complicati on 231722907 Active 2020 Not Available [facility] 4 01:21:42 Pain in right hand 2071327855477 09 Active Not Available [facility] 4 01:21:42 Blood in urine 51473993 Active Not Available [facility] 4 01:21:42 Sinusitis 48146317 Active 2021 Not Available [facility] 4 01:21:42 Migraine 47599579 Active Not Available [facility] 4 01:21:42 Neuropathy 559692310 Active 2020 Not Available [facility] 4 01:21:42 Hypothyroi dism 86532983 Active Not Available [facility] 4 01:21:42 Obesity 370316724 Active 2017 Not Available [facility] 4 01:21:42 Acute urinary tract infection 048624257 Active 2021 Not Available [facility] 4 01:21:42 Chronic diastolic heart failure 345837843 Active 2020 Not Available [facility] 4 01:21:42 Foot pain 15061285 Active 2021 Not Available [facility] 4 01:21:42 Foot pain 29978665 Active Not Available [facility] 4 01:21:42 Dysuria 52017054 Active 2021 Not Available [facility] 4 01:21:42 Upper respirator y infection 38378524 Active 2021 Not Available [facility] 4 01:21:42 Pain of wrist region 41155068 Active Not Available [facility] 4 01:21:42 Dysfunctio n of eustachian tube 41786891 Active Not Available [facility] 4 01:21:42 Carpal tunnel syndrome 85456875 Active Not Available [facility] 4 01:21:42 Essential hypertensi on 51209641 Active 2016 Not Available [facility] 4 01:21:42 Muscle twitch 16347323 Active 2021 Not Available [facility] 4 01:21:42 Rhinitis 93416813 Active Not Available [facility] [facility] 4 01:21:42 Obstructiv e sleep apnea syndrome [id number] Active 2018 Not Available [facility] 4 01:21:42 Ex-smoker [id number] Active 2019 Not Available [facility] 4 01:21:42 Umbilical hernia [id number] Active 2023 Not Available [facility] 4 01:21:42 Bronchitis [id number] Active 2023 Not Available [facility] 4 01:21:42 Notes:Medical History: Depre ssion Migraine headaches Rhinosinusitis Erythrocytosis Obesity with BRENDON Hypothyroidism Mixed hyperlipidemia Hypertension Diastolic CHF T2DM with neuropathy QUOC Urge urinary incontinence Vit D deficiency Gout Right plantar fasciitis Some problems listed in Document: #[id number] could not be added to this patient's chart. Please review this document and add these problems to the patient's chart manually as needed. Problem Notes None recorded. Procedures Surgical History Date Name Laterality Status Provider Name and Address Organization Details Recorded Time 03/12/20 21 Cardiac Cath completed Not Available [facility] 023 01:18:24 02/08/20 18 Exc [id number] 0.6-1 completed Not Available [facility] 01/20/2023 01:18:24 Gallbladder Surgery completed ESDRAS Garcia [place] [facility] 12/21/2023 10:36:42 Hysterectomy completed ESDRAS Garcia [place] [facility] 12/21/2023 10:36:59 Tonsillectomy completed [facility]RAS Garcia [place] [facility] 12/21/2023 10:37:07 Imaging Results Imaging Date Name Status LastModified by Organization Details LastModified Time 03/16/2022 MR, angiogram, brain , w/o contrast completed [id number] [facility] (Imaging) [address] [place], [address], 01/20/2023 01:59:39 04/09/2022 XR, foot completed [id number] [facility] [place] [address], [place], [address], 01/20/2023 01:59:39 05/05/2022 electroencephalogram completed [id number] Information not available 01/20/2023 01:59:39 05/05/2022 electroencephalogram completed [id number] Information not available 01/20/2023 01:59:39 11/27/2023 CT, abdomen + pelvis , w/o contrast completed [facility] [address], [place], [address], 11/28/2023 19:03:02 04/04/2024 screening breast clay[place] o, bilat completed [email or web address] [facility] (Imaging) [address] [place], [address], 06/06/2024 10:01:57 05/29/2024 CT, abdomen + pelvis , w/ contrast completed [address] (Imaging) [address] [place], [address], 05/31/2024 08:50:42 05/29/2024 CT, abdomen + pelvis , w/ contrast completed [address] [place], [address], 05/31/2024 08:50:23 11/10/2024 XR, chest, 2 view active INTERFACE [facility] (Imaging) [address] [place], [address], 11/10/2024 12:59:44 Procedure Notes None recorded. Medical Equipment None Reported. Allergies Allergen ID Allergen Name Allergen Category Reaction Reaction Severity Criticality Documentation Date Start Date Code Code System Note Provider Name and Address Organization Details Recorded Time 3095 ibuprofen medicatio n edema Not available Not available 01/20/2023 5640 RxNorm legs and ankle s Not Available [facility] 3 01:58:48 Medications Name Sig Start Date Stop Date Status Note LastModified by Organization Details LastModified Time losartan 50 mg tablet 08/06 completed Not Available Not Available Not Available cyclobenz aprine 10 mg tablet TAKE 1 TABLET BY MOUTH EVERY 8 HOURS active Not Available Not Available No t Available ziprasido ne 80 mg capsule Take 1 capsule every day by oral route at bedtime. active Not Available Not Available No t Available amoxicill in 500 mg capsule TAKE 1 CAPSULE BY MOUTH EVERY 8 HOURS FOR 7 DAYS 06/26 completed Not Available Not Available Not Available atorvasta tin 40 mg tablet TAKE 1 TABLET BY MOUTH ONCE DAILY FOR 30 DAYS 12/21 completed Not Available Not Available Not Available metformin 500 mg tablet TAKE 1 TABLET BY MOUTH TWICE A DAY 03/25 completed Not Available Not Available Not Available doxepin 50 mg capsule once daily active Not Available Not Available No t Available prednison e 10 mg tablet PLEASE SEE ATTACHED FOR DETAILED DIRECTIO NS active Not Available Not Available No t Available doxycycli ne hyclate 100 mg capsule TAKE 1 CAPSULE BY MOUTH TWICE A DAY FOR 7 DAYS 06/26 completed Not Available Not Available Not Available venlafaxi ne 75 mg tablet TK 1 T PO TID 07/18 completed Not Available Not Available Not Available nicotine 14 mg/24 hr daily transderm al patch APPLY 1 PATCH EVERY DAY active Not Available Not Available No t Available ipratropi um 0.5 mg-albute rol 3 mg (2.5 mg base)/3 mL nebulizat ion soln Inhale 3 mL 4 times a day by nebuliza tion route for 30 days. 06/19 completed Not Available Not Available Not Available clindamyc in HCl 300 mg capsule 09/20 completed Not Available Not Available Not Available atorvasta tin 10 mg tablet Take 1 tablet every day by oral route. active Not Available Not Available No t Available oxybutyni n chloride ER 10 mg tablet,ex tended release 24 hr Take 2 tablets every day by oral route. 11/04 completed Not Available Not Available Not Available azithromy kwasi 250 mg tablet TAKE 2 TABLETS BY MOUTH TODAY, THEN TAKE 1 TABLET DAILY FOR 4 DAYS DIRECTED active Not Available Not Available No t Available ibuprofen 800 mg tablet Take 1 tablet 3 times a day by oral route. 11/04 completed Not Available Not Available Not Available Lidocaine Viscous 2 % mucosal solution 09/20 completed Not Available Not Available Not Available fluconazo le 150 mg tablet 03/26 completed Not Available Not Available Not Available benzonata te 200 mg capsule TAKE 1 CAPSULE BY MOUTH THREE TIMES A DAY FOR 10 DAYS 06/26 completed Not Available Not Available Not Available doxepin 25 mg capsule 02/25 completed Not Available Not Available Not Available tolterodi ne ER 4 mg capsule,e xtended release 24 hr Take 1 capsule every day by oral route. 11/04 completed Not Available Not Available Not Available hydrocodo ne 5 mg-acetam inophen 325 mg tablet TAKE 1 TABLET BY MOUTH EVERY 6 HOURS NEEDED active Not Available Not Available No t Available meloxicam 15 mg tablet TAKE 1 TABLET BY MOUTH EVERY DAY NEEDED 12/21 completed Not Available Not Available Not Available naltrexon e 50 mg tablet 01/10 completed Not Available Not Available Not Available phenazopy ridine 200 mg tablet 05/08 completed Not Available Not Available Not Available metronida zole 0.75 % (37.5 mg/5 gram) vaginal gel INSERT 1 APPLICAT ORFUL VAGINALL Y ONCE DAILY FOR 5 DAYS active Not Available Not Available No t Available ondansetr on HCl 4 mg tablet 08/16 completed Not Available Not Available Not Available prednison e 20 mg tablet TAKE 1 TABLET BY MOUTH EVERY DAY FOR 7 DAYS active Not Available Not Available No t Available doxepin 75 mg capsule 01/01 completed Not Available Not Available Not Available sertralin e 100 mg tablet TK 1 T PO BID 11/24 completed Not Available Not Available Not Available terconazo le 0.8 % vaginal cream 03/21 completed Not Available Not Available Not Available clindamyc in HCl 150 mg capsule TK 2 C PO Q 6 H TAT 07/18 completed Not Available Not Available Not Available sumatript an 50 mg tablet TAKE 1 TABLET BY MOUTH AT ONSET FOR HEADACHE MAY REPEAT IN 2 HOURS IF NEEDED. MAX 2TABS/24 HOURS. 12/21 completed Not Available Not Available Not Available topiramat e 25 mg tablet TAKE 1 TABLET BY MOUTH TWICE A DAY active Not Available Not Available No t Available metronida zole 500 mg tablet 08/06 completed Not Available Not Available Not Available acetamino phen 300 mg-codein e 30 mg tablet TAKE 1 TABLET BY MOUTH EVERY 6 HOURS NEEDED FOR PAIN 12/21 completed Not Available Not Available Not Available ciproflox acin 250 mg tablet TAKE 1 TABLET BY MOUTH TWICE A DAY FOR 7 DAYS 12/20 completed Not Available Not Available Not Available amlodipin e 5 mg tablet TAKE 1 TABLET BY MOUTH EVERY DAY 08/16 completed Not Available Not Available Not Available sulfameth oxazole 800 mg-trimet hoprim 160 mg tablet 01/24 completed Not Available Not Available Not Available hydrocodo ne 10 mg-acetam inophen 325 mg tablet TAKE 1 TABLET BY MOUTH EVERY 6 HOURS FOR PAIN active Not Available Not Available No t Available aspirin 81 mg tablet,de layed release TAKE 1 TABLET BY MOUTH EVERY DAY active Not Available Not Available No t Available tramadol 50 mg tablet TAKE 1 TABLET BY MOUTH EVERY 6 HOURS NEEDED FOR PAIN active Not Available Not Available No t Available triamcino lone acetonide 0.1 % topical cream APPLY TO RASH ON LEGS ONCE DAILY 12/21 completed Not Available Not Available Not Available spironola ctone 25 mg tablet TAKE 1 TABLET BY MOUTH ONCE DAILY 12/21 completed Not Available Not Available Not Available bupropion HCl SR 100 mg tablet,12 hr sustained -release TAKE 1 TABLET BY MOUTH EVERY DAY active Not Available Not Available No t Available butalbita l-acetami nophen-ca ffeine 50 mg-325 mg-40 mg tablet 08/16 completed Not Available Not Available Not Available simvastat in 40 mg tablet TAKE 1 TABLET BY MOUTH EVERY DAY active Not Available Not Available No t Available acyclovir 800 mg tablet 03/21 completed Not Available Not Available Not Available guaifenes in 200 mg tablet 09/27 completed Not Available Not Available Not Available levothyro xine 25 mcg tablet Take 1 tablet every day by oral route. 01/10 completed Not Available Not Available Not Available levothyro xine 75 mcg tablet TAKE 1 TABLET BY MOUTH EVERY DAY active Not Available Not Available No t Available meloxicam 7.5 mg tablet TAKE 1 TABLET BY MOUTH ONCE DAILY NEEDED 12/21 completed Not Available Not Available Not Available oxycodone -acetamin ophen 5 mg-325 mg tablet 02/25 completed Not Available Not Available Not Available ziprasido ne 20 mg capsule TAKE 1 CAPSULE BY MOUTH WITH FOOD TWICE DAILY FOR 30 DAYS 12/21 completed Not Available Not Available Not Available famotidin e 20 mg tablet TAKE 1 TABLET BY MOUTH EVERY DAY 12/21 completed Not Available Not Available Not Available tolterodi ne 2 mg tablet Take 1 tablet twice a day by oral route. 11/04 completed Not Available Not Available Not Available methocarb ji 750 mg tablet 01/14 completed Not Available Not Available Not Available tamsulosi n 0.4 mg capsule 01/14 completed Not Available Not Available Not Available trazodone 100 mg tablet 01/10 completed Not Available Not Available Not Available meclizine 25 mg tablet 08/16 completed Not Available Not Available Not Available benzonata te 100 mg capsule TAKE 1 CAPSULE BY MOUTH EVERY 8 HOURS NEEDED 06/26 completed Not Available Not Available Not Available levothyro xine 50 mcg tablet TAKE 1 TABLET BY MOUTH EVERY DAY 08/16 completed Not Available Not Available Not Available hydrocodo ne 7.5 mg-acetam inophen 325 mg tablet TAKE 1 TABLET BY MOUTH EVERY 6 HOURS FOR PAIN active Not Available Not Available No t Available cephalexi n 500 mg capsule Take 1 capsule 3 times a day by oral route for 7 days. active Not Available Not Available No t Available simvastat in 20 mg tablet Take 1 tablet every day by oral route. 07/08 completed Not Available Not Available Not Available ferrous sulfate 325 mg (65 mg iron) tablet TAKE 1 TABLET BY MOUTH EVERY DAY 12/21 completed Not Available Not Available Not Available Cipro 500 mg tablet Take 1 tablet every 12 hours by oral route. 01/14 completed Patient tolerate d well with no complain ts Not Available Not Available Not Available ranitidin e 150 mg tablet 08/16 completed Not Available Not Available Not Available hydrocodo ne 7.5 mg-acetam inophen 750 mg tablet TK ONE T PO ONCE A WEEK 12/25 completed Not Available Not Available Not Available prednison e 50 mg tablet 08/16 completed Not Available Not Available Not Available promethaz ine 25 mg tablet 01/10 completed Not Available Not Available Not Available zinc 25 mg tablet Take by oral route. active Not Available Not Available No t Available losartan 25 mg tablet TAKE 1 TABLET BY MOUTH EVERY DAY active Not Available Not Available No t Available nicotine 21 mg/24 hr daily transderm al patch APPLY 1 PATCH DIRECTED ONCE DAILY. 08/06 completed Not Available Not Available Not Available butalbita l-aspirin -caffeine 50 mg-325 mg-40 mg capsule TAKE 1 TO 2 CAPSULES BY MOUTH EVERY 4 HOURS NEEDED 06/19 completed Not Available Not Available Not Available diclofena c potassium 50 mg tablet 08/16 completed Not Available Not Available Not Available gabapenti n 300 mg capsule TAKE 1 CAPSULE BY MOUTH THREE TIMES A DAY active Not Available Not Available No t Available omeprazol e 20 mg capsule,d elayed release Take 1 capsule every day by oral route. active Not Available Not Available No t Available diclofena c sodium 75 mg tablet,de layed release TAKE 1 TABLET BY MOUTH TWICE A DAY NEEDED FOR PAIN 11/05 completed Not Available Not Available Not Available allopurin ol 300 mg tablet TAKE 1 TABLET BY MOUTH ONCE DAILY FOR 90 DAYS 12/21 completed Not Available Not Available Not Available Detrol LA 2 mg capsule,e xtended release Take 1 capsule every day by oral route. 11/04 completed Not Available Not Available Not Available diclofena c sodium 50 mg tablet,de layed release 08/16 completed Not Available Not Available Not Available furosemid e 20 mg tablet TAKE 1 TABLET BY MOUTH EVERY DAY active Not Available Not Available No t Available fluvoxami ne 50 mg tablet 11/24 completed Not Available Not Available Not Available ziprasido ne 40 mg capsule active Not Available Not Available Not Available gabapenti n 100 mg capsule TAKE 2 CAPSULES BY MOUTH EVERY MORNING 1 CAPSULE AT NOON & 2 AT BEDTIME 08/18 completed Not Available Not Available Not Available ergocalci ferol (vitamin D2) 1,250 mcg (50,000 unit) capsule TAKE 1 CAPSULE BY MOUTH ONE TIME PER WEEK active Not Available Not Available No t Available irbesarta n 150 mg tablet TAKE 1 TABLET BY MOUTH EVERY DAY 02/25 completed Not Available Not Available Not Available lorazepam 1 mg tablet 12/26 completed Not Available Not Available Not Available ibuprofen 600 mg tablet 01/24 completed Not Available Not Available Not Available cefuroxim e axetil 500 mg tablet TAKE 1 TABLET BY MOUTH EVERY 12 HOURS FOR 21 DAYS active Not Available Not Available No t Available levofloxa kawsi 500 mg tablet TAKE 1 TABLET BY MOUTH EVERY DAY FOR 7 DAYS 06/26 completed Not Available Not Available Not Available zolpidem 10 mg tablet TK 1 T PO QHS 11/07 completed Not Available Not Available Not Available methylpre dnisolone 4 mg tablets in a dose pack take decreasi ng doses as directed 12/20 completed Not Available Not Available Not Available albuterol sulfate HFA 90 mcg/actua tion aerosol inhaler INHALE 2 PUFFS BY MOUTH EVERY 4 HOURS NEEDED active Not Available Not Available No t Available colchicin e 0.6 mg tablet TAKE 1 TABLET BY MOUTH EVERY DAY 08/16 completed Not Available Not Available Not Available propranol ol 20 mg tablet TAKE 1 TABLET BY MOUTH TWICE A DAY active Not Available Not Available No t Available oxybutyni n chloride 5 mg tablet 11/04 completed Not Available Not Available Not Available ziprasido ne 60 mg capsule 01/14 completed Not Available Not Available Not Available ondansetr on 4 mg disintegr ating tablet DISSOLVE 1 TABLET IN MOUTH EVERY 6 HOURS NEEDED FOR NAUSEA 12/21 completed Not Available Not Available Not Available cefdinir 300 mg capsule Take 1 capsule twice a day by oral route for 7 days. active Not Available Not Available No t Available fluoxetin e 20 mg capsule bid active Not Available Not Available Not Available fluticaso ne propionat e 50 mcg/actua tion nasal spray,blake pension SPRAY TWICE IN EACH NOSTRIL EVERY DAY 11/24 completed Not Available Not Available Not Available doxycycli ne hyclate 100 mg tablet TAKE 1 TABLET BY MOUTH TWICE A DAY X5 DAYS 06/26 completed Not Available Not Available Not Available irbesarta n 300 mg tablet TAKE 1 TABLET BY MOUTH ONCE DAILY FOR 90 DAYS 12/21 completed Not Available Not Available Not Available naproxen 500 mg tablet TAKE 1 TABLET BY MOUTH TWICE A DAY WITH FOOD 08/22 completed Not Available Not Available Not Available spironola ctone 50 mg tablet TAKE 1 TABLET BY MOUTH ONCE DAILY FOR 30 DAYS 12/21 completed Not Available Not Available Not Available metoclopr amide 10 mg tablet TAKE 1 TABLET BY MOUTH EVERY 6 HOURS NEEDED TAKE 30 MINUTES BEFORE MEALS AND AT BEDTIME 06/26 completed Not Available Not Available Not Available amoxicill in 875 mg-potass ium clavulana te 125 mg tablet TAKE 1 TABLET BY MOUTH EVERY 12 HOURS FOR 5 DAYS 12/21 completed Not Available Not Available Not Available hydroxyzi ne pamoate 25 mg capsule 12/21 completed Not Available Not Available Not Available Benadryl 25 mg capsule Take 1 capsule every 4 hours by oral route. active Not Available Not Available No t Available Daily-Vit e tablet TAKE 1 TABLET BY MOUTH EVERY DAY 10/24 completed duplicat e Not Available Not Available Not Available cyclobenz aprine 5 mg tablet TAKE 1 TABLET BY MOUTH THREE TIMES A DAY NEEDED FOR MUSCLE SPASM 12/21 completed Not Available Not Available Not Available Premarin 1.25 mg tablet TK ONE T PO D 11/07 completed Not Available Not Available Not Available rosuvasta tin 40 mg tablet TAKE 1 TABLET BY MOUTH EVERY DAY active Not Available Not Available No t Available nitrofura ntoin monohydra te/macroc rystals 100 mg capsule TAKE 1 CAPSULE BY MOUTH EVERY 12 HOURS FOR 7 DAYS active Not Available Not Available No t Available duloxetin e 20 mg capsule,d elayed release active Not Available Not Available Not Available duloxetin e 30 mg capsule,d elayed release 10/24 completed Not Available Not Available Not Available duloxetin e 60 mg capsule,d elayed release 01/01 completed Not Available Not Available Not Available solifenac in 5 mg tablet TAKE 1 TABLET BY MOUTH EVERY DAY 12/21 completed Not Available Not Available Not Available Contour Test Strips Take 1 strip every day by miscell. route. active Not Available Not Available No t Available calcium 600 mg (as carbonate )-vitamin D3 10 mcg (400 unit) tablet TAKE 1 TABLET BY MOUTH TWICE A DAY active Not Available Not Available No t Available omeprazol e 20 mg tablet,de layed release Take 1 tablet(s ) every day by oral route. 05/08 completed Not Available Not Available Not Available diclofena c 1 % topical gel TO AFFECTED AREA APPLY 4 GRAMS NEEDED TWICE DAILY 12/21 completed Not Available Not Available Not Available Mimvey 1 mg-0.5 mg tablet TAKE 1 TABLET BY MOUTH EVERY DAY 01/14 completed Not Available Not Available Not Available butalbita l-acetami nophen-ca ffeine 50 mg-300 mg-40 mg capsule TAKE 1 CAPSULE BY MOUTH EVERY 4 HOURS NEEDED FOR HEADACHE 12/21 completed Not Available Not Available Not Available Dulera 100 mcg-5 mcg/actua tion HFA aerosol inhaler TAKE 2 PUFFS BY MOUTH TWICE A DAY 12/21 completed Response Requeste d Product on backorde r/unavai lable [facility] pharmacy Not Available Not Available Not Available Banophen 50 mg capsule 08/16 completed Not Available Not Available Not Available Breo Ellipta 100 mcg-25 mcg/dose powder for inhalatio n Inhale 1 puff every day by inhalati on route. 12/11 completed Not Available Not Available Not Available Jardiance 10 mg tablet 12/21 completed Not Available Not Available Not Available naloxone 4 mg/actuat ion nasal spray PLEASE SEE ATTACHED FOR DETAILED DIRECTIO NS 12/21 completed Not Available Not Available Not Available fluticaso ne 113 mcg-salme terol 14 mcg/actua tion breath activated powdr INHALE 1 PUFF BY MOUTH TWICE A DAY 01/14 completed Not Available Not Available Not Available magnesium 400 mg (as magnesium oxide) tablet Take by oral route. active Not Available Not Available No t Available Daily-Vit e (with folic acid) 400 mcg tablet TAKE 1 TABLET BY MOUTH EVERY DAY 06/26 completed Not Available Not Available Not Available Inpefa 200 mg tablet TAKE 1 TABLET BY MOUTH EVERY DAY active Not Available Not Available No t Available Vitals Date Recorded Body mass index (BMI) Body height Body weight Provider Name and Address Organization Details Last Updated DateTime 04/09/2022 43.3 kg/m2 162.56 cm 725591.28 g Not Available [facility] 01/20/2023 01:29:38 Date Recorded Body height Body mass index (BMI) Body weight Respiratory rate Heart rate Body temperature Oxygen saturation Oxygen saturation in Arterial blood by Pulse oximetry Provider Name and Address Organization Details Last Updated DateTime 4 162.56 cm 48.9 kg/m2 782669. 83 g 14 /min 133 /min 98.6 [degF] 97 % 97 % Edna Ott [facility] [employer] [facility] 4 10:34:05 Date Recorded Body height Body mass index (BMI) Body weight Body temperature Heart rate Respiratory rate Oxygen saturation Oxygen saturation in Arterial blood by Pulse oximetry Provider Name and Address Organization Details Last Updated DateTime 4 162.56 cm 48.9 kg/m2 336364. 83 g 98.6 [degF] 100 /min 14 /min 97 % 97 % Jackie Adlernshaw [employer] 4 12:19:47 Date Recorded Body height Body mass index (BMI) Body weight Heart rate Body temperature Respiratory rate Oxygen saturation Oxygen saturation in Arterial blood by Pulse oximetry Systolic blood pressure Diastolic blood pressure Provider Name and Address Organization Details Last Updated DateTime 4 162.56 cm 48.9 kg/m2 481502. 83 g 90 /min 97.4 [degF] 16 /min 97 % 97 % 120 mm[Hg] 80 mm[Hg] Jackie Adlernshaw [employer] 4 10:35:11 Date Recorded Body height Body mass index (BMI) Body weight Body temperature Heart rate Respiratory rate Oxygen saturation Oxygen saturation in Arterial blood by Pulse oximetry Systolic blood pressure Diastolic blood pressure Provider Name and Address Organization Details Last Updated DateTime 4 162.56 cm 48.9 kg/m2 105175. 83 g 97.4 [degF] 90 /min 14 /min 97 % 97 % 120 mm[Hg] 80 mm[Hg] Jackie Adlernshaw [employer] 4 12:38:43 Social History Question Answer Notes LastModified by Organizat ion Details LastModified Time Tobacco Smoking Status Current Every Day Smoker 1/2 cigarettes/d ay; quit 10/11/21; restarted Edna Ott [facility] [employer] [facility] [employer] [facility] 12/21/2023 10:36:08 Do You Have An Advance Directive? No [id number] Information not available 01/20/2023 If You Are , What Was Your Level Of Alcohol Consumption Prior To ? None [id number] Information not available 01/20/2023 What Is Your Level Of Caffeine Consumption? Moderate [id number] Information not available 01/20/2023 How Much Tobacco Do You Chew? None [id number] Information not available 01/20/2023 In The 14 Days Before Symptom Onset, Have You Had Close Contact With A Laboratory-confi rmed COVID-19 While That Case Was Ill? No [id number] Information not available 01/20/2023 In The 14 Days Before Symptom Onset, Have You Had Close Contact With A Person Who Is Under Investigation For COVID-19 While That Person Was Ill? No [id number] Information not available 01/20/2023 What Type Of Diet Are You Following? REGULAR [id number] Information not available 01/20/2023 Which Illicit Or Recreational Drugs Have You Used? None [id number] Information not available 01/20/2023 What Is The Highest Grade Or Level Of School You Have Completed Or The Highest Degree You Have Received? [id number] Information not available 01/20/2023 Have There Been Any Changes To Your Family Or Social Situation? No [id number] Information not available 01/20/2023 What Is The Fluoride Status Of Your Home? Unknown [id number] Information not available 01/20/2023 Are There Any Guns Present In Your Home? No [id number] Information not available 01/20/2023 Do You Use Insect Repellent Routinely? No [id number] Information not available 01/20/2023 [address] Do You Live? Apartment [id number] Information not available 01/20/2023 Do You Have A Medical Power Of Microstrategy Developer? No [id number] Information not available 01/20/2023 What Was The Date Of Your Most Recent Tobacco Screening? 02/25/2022 [id number] Information not available 01/20/2023 Do You Have Any Pets? Yes MIGRATION.45661 47326 Information not available 01/20/2023 Do You Use Your Seat Belt Or Car Seat Routinely? Yes MIGRATION.45871 17225 Information not available 01/20/2023 Do You Have Smoke And Carbon Monoxide Detectors In Your Home? Yes MIGRATION.25588 56789 Information not available 01/20/2023 At What Age Did You Start Smoking Tobacco? 14 MIGRATION.79078 28903 Information not available 01/20/2023 Are You Passively Exposed To Smoke? No MIGRATION.13293 58983 Information not available 01/20/2023 Are There Any Smokers In Your House? Yes MIGRATION.29445 82740 Information not available 01/20/2023 How Much Tobacco Do You Smoke? 1 PPW MIGRATION.70408 04524 Information not available 01/20/2023 What Types Of Sporting Activities Do You Participate In? None MIGRATION.39471 21773 Information not available 01/20/2023 Do You Use Sunscreen Routinely? Yes MIGRATION.14230 47188 Information not available 01/20/2023 Have You Recently Traveled Abroad? No MIGRATION.27069 34835 Information not available 01/20/2023 Do You Have Any Dietary Restrictions? No MIGRATION.06228 37811 Information not available 01/20/2023 Sex: Female Functional Status Question Answer Note LastModified by [facility] ion Details LastModified Time Do you use any illicit or recreational drugs? No MIGRATION.025301 3934 Information not available 01/20/2023 Do you or have you ever used any other forms of tobacco or nicotine? No MIGRATION.873766 5192 Information not available 01/20/2023 What is your level of alcohol consumption? None MIGRATION.932078 6034 Information not available 01/20/2023 Do you or have you ever used smokeless tobacco? 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 Never used electronic cigarettes MIGRATION.476421 7666 Information not available 01/20/2023 What is your exercise level? Occasional MIGRATION.773301 3511 Information not available 01/20/2023 Mental Status Question Answer Note LastModified by [facility] ion Details LastModified Time Do you feel stressed (tense, restless, nervous, or anxious, or unable to sleep at night)? [id number] [id number] Information not available 01/20/2023 Family History Relationship Description Onset Age of this Age Resolved Age Notes LastModified by Organization Details LastModified Time Mother Heart disease [id number] Not available 01/20/2023 01:18:32 Medical History Condition Response NERVE DISEASE N CYSTITIS N BLINDNESS N RHEUMATIC FEVER N KIDNEY STONES N BLADDER PROBLEMS N Enlarged Prostate N MRSA N OTHER # 1 N POLIO N LUNG DISEASE/DISORDER N HISTORY OF DRUG ABUSE N RADIATION / CHEMOTHERAPY N COPD N Other # 2 N BLOOD DISEASES N SURGERY N EAR OR HEARING PROBLEMS N MUMPS N SHINGLES N DEPRESSION (INCLUDING POST ) Y BOWEL PROBLEMS N STROKE/TIA N THYROID DISEASE N ULCERS N BENIGN PROSTATIC HYPERPLASIA N MEASLES N MYOCARDIAL INFARCTION N OBESITY N GERD/NAUSEA Y ANEURYSM Y URINARY/BLADDER/KIDNEY PROBLEMS Y Increased Urination N INPATIENT PSYCH CARE N CORONARY ARTERY DISEASE (CAD) N ADDICTION CONCERNS N Impotence N ENDOMETRIOSIS N USE OF BLOOD THINNERS N SKIN PROBLEMS Y EMPHYSEMA N GASTROINTESTINAL DISORDER N PERIPHERAL VASCULAR DISEASE N MUSCLE,JOINT OR BONE PROBLEMS N GASTROINTESTINAL BLEEDING N BLOOD CLOTS N Difficulty Urinating N ASTHMA Y CATARACTS N Abdominal Pain Y ERECTILE DYSFUNCTION N VARICOSITIES N GI PROBLEMS N Low Testosterone N INFERTILITY N AIDS/HIV N LIVER DISEASE N MALE HYPOGONADISM N HYPERTENSION Y Deficiency N TOURETTE'S N ANXIETY DISORDER Y BLOOD TRANSFUSION N ANEMIA/BLOOD DISORDER N CHRONIC EAR INFECTIONS N BRONCHITIS Y TUBERCULOSIS N GLAUCOMA N FOOT PROBLEM Y DIVERTICULITIS N SLEEP APNEA Y CHICKENPOX N INFECTIOUS DISEASE N PROSTATE N HEART ARRHYTHMIA N INSOMNIA N HIGH CHOLESTEROL / HYPERLIPIDEMIA Y EYE PROBLEMS N HYPERTHYROIDISM N UTI N NEUROLOGICAL PROBLEMS N EDEMA N CHRONIC PAIN SYNDROME N HYPOTHYROIDISM Y CAROTID BLOCKAGE N CONSTIPATION N BACK / NECK PROBLEMS N HAVE YOU BEEN HOSPITALIZED OR SEEN IN [facility] IN THE PAST YEAR ? Y MIGRAINES Y ATHEROSCLEROSIS N BREAST PROBLEMS N DIALYSIS N ECZEMA N OSTEOPOROSIS N ARTHRITIS N NO SIGNIFICANT PAST MEDICAL HISTORY N APPENDICITIS N DIABETES, TYPE N BAD TEETH N PARKINSON N ENT N HEARTBURN / REFLUX N AUTISM SPECTRUM DISORDER (ASD) N HEPATITIS / LIVER DISEASE N PULMONARY DISEASE N GOUT N SLEEP DISORDER N ALZHEIMER'S DISEASE N Brain Problems N DEMENTIA N HERPES N SEIZURES/EPILEPSY N HEADACHES/MIGRAINES Y VASCULAR DISEASE N PACEMAKER N HEART MURMUR N Blood Disorder N DIZZINESS N HEART DISEASE/HEART PROBLEMS N KIDNEY DISEASE N MULTIPLE SCLEROSIS N CANCER: SPECIFY Y CARDIAC ARRHYTHMIA N ANESTHESIA COMPLICATIONS N ATRIAL FIBRILLATION N Gall Stones N PULMONARY EMBOLISM N AUTOIMMUNE DISEASE N Gynecological History Statement/Question Response Date of Last Pap Obstetrics History GPAL:G 1 P 1 0 0 1 Type Value Full Term 1 Living 1 Total 1 Immunizations Vaccine Type Date Status Note Provider Nam e and Address Organization Details Recorded Time COVID-19, mRNA, LNP-S, PF, 100 mcg/0.5mL dose or 50 mcg/0.25mL dose 1 completed Not Available [facility] 12/31/2023 01:21:44 COVID-19, mRNA, LNP-S, PF, 100 mcg/0.5mL dose or 50 mcg/0.25mL dose 1 completed Not Available [facility] 12/31/2023 01:21:44 Influenza, split virus, trivalent, preservative 1 completed Not Available [facility] 12/31/2023 01:21:44 COVID-19, mRNA, LNP-S, PF, 30 mcg/0.3 mL dose 1 completed Not Available [facility] 12/31/2023 01:21:44 pneumococcal polysaccharide PPV23 1 completed Not Available [facility] 12/31/2023 01:21:44 Past Encounters Encounter ID Performer Location Encounter Start Date Encounter Closed Date Diagnosis/Indication Diagnosis SNOMED-CT Code Diagnosis ICD10 Code Diagnosis Note [id number] Kailee Bryant MD S_[facility] Internal Med [facility] [address] [address] 01/21/2021 00:00:00 02/09/2021 11:25:01 [id number] [facility] Pod[facility] [place] [address] [place] [address] 02/17/2021 00:00:00 02/18/2021 10:33:43 [id number] Kailee Bryant MD [facility] Internal Med [facility] 15 [address] [place] [address] 02/25/2021 00:00:00 03/09/2021 10:36:55 [id number] [facility] Pod[facility] [place] [address] [place] [address] 03/17/2021 00:00:00 03/17/2021 14:29:40 [id number] Kailee Bryant MD [facility] Internal Med [facility] [address] [facility] [address] [address] 03/25/2021 00:00:00 03/25/2021 22:26:44 [id number] Kailee Bryant MD [facility] [address] [facility] [place] [address] 04/15/2021 00:00:00 04/15/2021 23:09:28 [id number] Kailee Bryant MD [facility] Internal Med [facility] [address] [address] 05/07/2021 00:00:00 05/11/2021 21:21:02 [id number] [facility] Pulmonolo gy [place] [address] [address], [address] [place] [address] 05/16/2021 00:00:00 05/16/2021 17:02:47 [id number] Kailee Bryant MD [facility] Internal Med [facility] [address] [address] 06/02/2021 00:00:00 06/15/2021 15:07:35 [id number] [facility] Pulmonolo gy [place] [address] [address], [address] [place] [address] 08/18/2021 00:00:00 08/18/2021 21:40:19 [id number] Kailee Bryant MD [facility] Internal Med [facility] 2043 [facility], [address] [address] 08/22/2021 00:00:00 08/23/2021 15:33:42 [id number] Kailee Bryant MD [facility] Internal Med [facility] 2043 [facility], [address] [address] 10/24/2021 00:00:00 11/17/2021 21:57:11 [id number] Marvin Heaton MD AHS[facility] [address] [place] [address] 11/06/2021 00:00:00 11/06/2021 12:51:44 [id number] Kailee Bryant MD [facility] Internal Med [facility] [address] [place] [address] 12/22/2021 00:00:00 12/25/2021 20:32:54 [id number] Kailee Bryant MD [facility] Internal Med [facility] [address] [place] [address] 1 12/31/2021 00:00:00 01/06/2022 21:23:13 [id number] Marvin Heaton MD [facility] [address] [address] 01/01/2022 00:00:00 01/01/2022 11:28:37 [id number] Kailee Bryant MD [facility] Internal Med [facility] [address] [place] [address] 01/14/2022 00:00:00 01/17/2022 21:42:51 [id number] Kailee Bryant MD [facility] Internal Med [facility] [address] [place] [address] 1 02/25/2022 00:00:00 03/08/2022 12:25:19 [id number] Kailee Bryant MD [facility] Internal Med [facility] [address] [place] [address] 1 03/25/2022 00:00:00 04/12/2022 18:47:18 [id number] [facility] Podiatry [place] [address] [place] [address] 04/09/2022 00:00:00 04/12/2022 13:50:10 [id number] Aakash freeman MD [facility] General Surgery [address] [place] [address] 1 12/21/2023 09:31:36 12/21/2023 12:30:15 [id number] Aakash freeman MD [facility] General Surgery [address] [address] 12/28/2023 11:13:00 12/28/2023 16:18:51 Umbilical hernia [id number] K42.9 [id number] Aakash freeman MD [facility] General Surgery [address] [address] 05/18/2024 10:31:22 06/19/2024 14:51:33 Abdominal pain [id number] R10.9 [id number] Aakash freeman MD [facility] General Surgery [address] [address] 06/06/2024 12:36:56 06/08/2024 11:28:29 Abdominal pain [id number] R10.9 Health Concerns Section Related Observation LastModified by Organization Detai ls LastModified Time None Recorded Concern Status LastModified by Organization Details LastModified Time None Recorded Advance Directives Directive N: Payers Encounter Date Sequence Insurance Name Policy Number Policy Crenshaw Covered Member ID Crenshaw Member ID Guarantor Name 12/21/2023 2 [place] [employer] Vaughn Goldberg [id number] Vaughn Goldberg 12/28/2023 2 [place] [employer] Vaughn Goldberg [id number] Vaughn Goldberg 12/28/2023 1 [facility] (MEDICAID HMO) [id number] Vaughn Goldberg [id number] Vaughn Goldberg 05/18/2024 2 [place] [employer] Vaughn Goldberg [id number] Vaughn Goldberg 05/18/2024 1 [facility] (MEDICAID HMO) [id number] Vaughn Goldberg [id number] Vaughn Goldberg 06/06/2024 2 [place] [employer] Vaughn Goldberg [id number] Vaughn Goldberg 06/06/2024 1 [facility] (MEDICAID HMO) [id number] Vaughn Goldberg [id number] Vaughn Goldberg Notes Date Note Type Note Provider Name and Address Organization Details Recorded Time 12/21/2023 text/html Patient complain s of pain around her umbilicus for the last several months. Feels a lump at times but not today. Denies nausea or vomiting. Does admit to constipation. No fevers or chills. Aakash Palm MD [address], [place], [address], [employer] 12/21/2023 11:13:18 12/28/2023 text/html Patient complain s of pain around her umbilicus and nausea/diarrhea intermittently for the last several months. States she feels a lump at times but not today. Does admit to constipation at times also. No fevers or chills. Aakash Palm MD [address], [place], [address], [employer] 12/29/2023 12:15:34 05/18/2024 text/html patient continue s to have mid abdominal pain occasional nausea. Has small fat containing umbilical hernia seen on CT 6 months ago. Denies other constitutional symptoms Aakash Palm MD [address], [place], [address], [employer] 05/18/2024 14:53:26 06/06/2024 text/html patient continue s to have mid abdominal pain occasional nausea. Has small fat containing umbilical hernia seen on CT 6 months ago. Denies other constitutional symptoms Aakash Palm MD [address], [place], [address], [employer] 06/08/2024 13:01:15 OBGyn Episode No OBEpisode recorded.
--- OUTSIDE RECORDS SUMMARY | 2025-04-15 17:56 | XMS_ITS | Data Portability ---
Author Organization [facility]ITALRaineluis alberto Carter Address [address] [place] [address] Care Team Providers Care Delivery Director Name Role Phone KAILEE BRYANT Primary Care Provider ДМИТРИЙ KWAN Alarm Signaler Assessment Encounter Date Assessment Date Assessment LastModified by Organization Details LastModified Time 02/10/2024 02/10/2024 Mammogram colonoscopy will continue current therapy weight reduction strategies have been hard incomplete database get records she needs to bring an accurate medication list and see me in 3 months [email or web address] Not available 02/10/2024 21:01:15 06/06/2024 06/06/2024 handout for obesity discussed blood work ordered tobacco cessation highly recommended tobacco cessation care instructions follow up 4 months [email or web address] Not available 06/11/2024 13:22:42 10/10/2024 10/10/2024 bronchitis resolving. Reviewed her chest x-ray we will repeat that in about 3-4 weeks. Smoker she denies that right now but I think that is because of her acute illness we will get quitting tobacco care instructions obesity healthy lifestyle care instructions continue with her thyroid medication follow up with me in 3 months [email or web address] Not available 10/10/2024 20:18:09 01/30/2025 01/30/2025 nerve conduction test EMG legs continue with the gabapentin. Increase propranolol 20 b.i.d. follow up 6 weeks. Needs colonoscopy [email or web address] Not available 01/30/2025 22:07:59 Plan of Treatment Reminders Order Date Submit Date Provider Last Modified By Organization Details Last Modified Time Details Appointments None record ed. Lab cytolo gy report , thin prep, smear or scrapi ng, cervic al or vagina l 2023 024 [facility], [address], [place], [address], 4 14:08:13 urinal ysis, dipsti ck 2023 024 In-Office Order, Internal Use Only DO Not Attach Compendium DO Not Attach Compendium, Do Not Delete/merge, [id number] 4 12:29:32 vagina l pathog ens panel, KO+pr obe, vagina l fluid 2023 024 [facility], [address], [place], [address], 4 07:07:38 lipid panel, serum 2023 024 [facility], [address], [place], [address], 4 13:13:12 CBC w/ auto diff 2023 024 [facility], [address], [place], [address], 4 13:13:15 CMP, serum or plasma 2023 024 [facility], [address], [place], [address], 4 13:13:13 HbA1c (hemog lobin A1c), blood 2023 024 [facility], [address], [place], [address], 4 13:13:14 T4, free, serum 2023 024 [facility], [address], [place], [address], 4 13:13:17 T3, free, serum or plasma 2023 024 [facility], [address], [place], [address], 4 13:13:16 TSH, ultra- sensit julianna, serum 2023 024 [facility], [address], [place], [address], 4 13:13:14 BMP, serum or plasma 2023 024 [facility], [address], [place], [address], 4 08:22:27 Referral None record ed. Procedures nerve conduc tion study/ EMG, lower extrem ity (PROC) - B/L lower extrem ity 2024 025 [facility] (Cardiology & Emg), [address], [place], [address], 5 12:37:11 colono scopy screen ing (PROC) 2024 025 [email or web address] Colten Bush MD, [address] [facility], [address], [place], [address], 5 09:55:45 colono scopy screen ing (PROC) 2023 024 [email or web address], [address] [facility], [address], [place], [address], 5 10:46:17 Surgeries None record ed. Imaging XR, chest, 2 view 2023 024 [facility] ([facility]), [address] [place], [address], 4 13:03:49 MAMMO, screen ing, digita l, bilate ral 2023 024 [facility] ([facility]), [address], [place], [address], 4 11:17:05 Medication Orders gabape ntin 300 mg capsul e [address]/[facility] #[id number], [address], [place], [address], 5 12:03:16 propra nolol 20 mg tablet [address]/Pharmacy #[id number], [address], [place], [address], 5 12:03:16 buprop ion HCl SR 100 mg tablet ,12 hr sustai rogerio-re lease 2023 024 [facility]/Pharmacy #[id number], [address], [place], [address], 4 12:29:30 Patient TargetsNo targets recorded. Patient Instructions Encounter Date Encounter Id Patient Instructions Last Modified By Organization Details Last Modified Time 06/06/2024 [id number] A healthy lifest yle: care instructions [email or web address] Not available 06/06/2024 15:01:56 Quitting Tobacco : Care Instructions [email or web address] Not available 06/06/2024 15:01:56 07/20/2024 [id number] hot flashes duri ng menopause: care instructions Not available 07/20/2024 12:29:28 gastroesophageal reflux disease (GERD): care instructions [email or web address] Not available 07/24/2024 21:12:11 chronic obstruct julianna pulmonary disease (COPD): care instructions Not available 07/20/2024 12:29:29 learning about c opd and how to prevent lung infections Not available 07/20/2024 12:29:28 high cholesterol : care instructions Not available 07/20/2024 12:29:29 When You Want to Lose Weight: Care Instructions Not available 07/20/2024 12:29:28 learning about h igh blood pressure Not available 07/20/2024 12:29:29 migraine aura without a headache: care instructions Not available 07/20/2024 12:29:28 learning about m ood disorders Not available 07/20/2024 12:29:28 hypothyroidism: care instructions Not available 07/20/2024 12:29:29 On the date of t his encounter, I saw and examined the patient, personally verifying the freeman and critical findings in the resident s note. I reviewed and agree with the resident/fellow s findings and plan. ~MD jimmy [email or web address] Not available 07/25/2024 10:28:02 10/10/2024 [id number] Quitting Tobacco : Care Instructions [email or web address] Not available 10/10/2024 19:52:47 A healthy lifest yle: care instructions [email or web address] Not available 10/10/2024 19:52:47 Reason for Referral None Reported. Results Created Date Observation Date Name Description Value Unit Range Abnormal Flag Note LastModifiedBy Organization Detail LastModifiedTime 02/11/20 24 02/12/2024 BASIC METAB OLIC PANEL (8) glucose 107 mg/dL 70-99 above high normal Not Available [facility] ([facility]) [address] [place], [address], 02/12/2024 08:22:27 02/11/2002/12/2024 BASIC METAB OLIC PANEL (8) BUN 17 mg/dL 6-24 Not Available [facility] ([facility]) [address] [place], [address], 02/12/2024 08:22:27 02/11/20 24 02/12/2024 BASIC METAB OLIC PANEL (8) creatinine 1.35 mg/dL 0.57-1 .00 above high normal Not Available [facility] ([facility]) [address] [place], [address], 02/12/2024 08:22:27 02/11/20 24 02/12/2024 BASIC METAB OLIC PANEL (8) eGFR 49 mL/mi n/1.7 3 >59 below low normal Not Available [facility] ([facility]) [address] [facility], [place], [address], 02/12/2024 08:22:27 02/11/20 24 02/12/2024 BASIC METAB OLIC PANEL (8) BUN/creatini ne ratio 13 9-23 Not Available [facility] ([facility]) [address] [facility], [place], [address], 02/12/2024 08:22:27 02/11/20 24 02/12/2024 BASIC METAB OLIC PANEL (8) sodium 144 mmol/ L 134-14 4 Not Available [facility] ([facility]) [address] [facility], [place], [address], 02/12/2024 08:22:27 02/11/20 24 02/12/2024 BASIC METAB OLIC PANEL (8) potassium 4.3 mmol/ L 3.5-5. 2 Not Available [facility] ([facility]) [address] [facility], [place], [address], 02/12/2024 08:22:27 02/11/20 24 02/12/2024 BASIC METAB OLIC PANEL (8) chloride 102 mmol/ L 96-106 Not Available [facility] ([facility]) [address] [facility], [place], [address], 02/12/2024 08:22:27 02/11/20 24 02/12/2024 BASIC METAB OLIC PANEL (8) carbon dioxide, total 28 mmol/ L 20-29 Not Available [facility] ([facility]) [address] [facility], [place], [address], 02/12/2024 08:22:27 02/11/20 24 02/12/2024 BASIC METAB OLIC PANEL (8) calcium 9.7 mg/dL 8.7-10 .2 Not Available [facility] ([facility]) [address] [place], [address], 02/12/2024 08:22:27 06/06/20 24 06/07/2024 LIPID PANEL cholesterol, total 185 mg/dL 100-19 9 Not Available [facility] ([facility]) [address] [place], [address], 06/07/2024 13:13:12 06/06/20 24 06/07/2024 LIPID PANEL triglyceride s 259 mg/dL 0-149 above high normal Not Available [facility] ([facility]) [address] [place], [address], 06/07/2024 13:13:12 06/06/20 24 06/07/2024 LIPID PANEL HDL cholesterol 37 mg/dL >39 below low normal Not Available [facility] ([facility]) [address] [place], [address], 06/07/2024 13:13:12 06/06/20 24 06/07/2024 LIPID PANEL VLDL cholesterol perry 44 mg/dL 5-40 above high normal Not Available [facility] ([facility]) [address] [place], [address], 06/07/2024 13:13:12 06/06/20 24 06/07/2024 LIPID PANEL LDL chol calc ([facility]) 104 mg/dL 0-99 above high normal Not Available [facility] ([facility]) [address] [place], [address], 06/07/2024 13:13:12 06/06/20 24 06/07/2024 COMP. METAB OLIC PANEL (14) glucose 65 mg/dL 70-99 below low normal Not Available [facility] ([facility]) [address] [place], [address], 06/07/2024 13:13:13 06/06/20 24 06/07/2024 COMP. METAB OLIC PANEL (14) BUN 14 mg/dL 6-24 Not Available [facility] ([facility]) [address] [place], [address], 06/07/2024 13:13:13 06/06/20 24 06/07/2024 COMP. METAB OLIC PANEL (14) creatinine 1.32 mg/dL 0.57-1 .00 above high normal Not Available [facility] ([facility]) [address] [facility], [place], [address], 06/07/2024 13:13:13 06/06/20 24 06/07/2024 COMP. METAB OLIC PANEL (14) eGFR 51 mL/mi n/1.7 3 >59 below low normal Not Available [facility] ([facility]) [address] [facility], [place], [address], 06/07/2024 13:13:13 06/06/20 24 06/07/2024 COMP. METAB OLIC PANEL (14) BUN/creatini ne ratio 11 9-23 Not Available [facility] ([facility]) [address] [facility], [place], [address], 06/07/2024 13:13:13 06/06/20 24 06/07/2024 COMP. METAB OLIC PANEL (14) sodium 141 mmol/ L 134-14 4 Not Available [facility] ([facility]) [address] [place], [address], 06/07/2024 13:13:13 06/06/20 24 06/07/2024 COMP. METAB OLIC PANEL (14) potassium 4.6 mmol/ L 3.5-5. 2 Not Available [facility] ([facility]) [address] [place], [address], 06/07/2024 13:13:13 06/06/20 24 06/07/2024 COMP. METAB OLIC PANEL (14) chloride 102 mmol/ L 96-106 Not Available [facility] ([facility]) [address] [place], [address], 06/07/2024 13:13:13 06/06/20 24 06/07/2024 COMP. METAB OLIC PANEL (14) carbon dioxide, total 24 mmol/ L 20-29 Not Available [facility] ([facility]) [address] [place], [address], 06/07/2024 13:13:13 06/06/20 24 06/07/2024 COMP. METAB OLIC PANEL (14) calcium 9.7 mg/dL 8.7-10 .2 Not Available [facility] ([facility]) [address] [place], [address], 06/07/2024 13:13:13 06/06/20 24 06/07/2024 COMP. METAB OLIC PANEL (14) protein, total 6.6 g/dL 6.0-8. 5 Not Available [facility] ([facility]) [address] [place], [address], 06/07/2024 13:13:13 06/06/20 24 06/07/2024 COMP. METAB OLIC PANEL (14) albumin 4.5 g/dL 3.9-4. 9 Not Available [facility] ([facility]) [address] [place], [address], 06/07/2024 13:13:13 06/06/20 24 06/07/2024 COMP. METAB OLIC PANEL (14) globulin, total 2.1 g/dL 1.5-4. 5 Not Available [facility] ([facility]) [address] [place], [address], 06/07/2024 13:13:13 06/06/20 24 06/07/2024 COMP. METAB OLIC PANEL (14) bilirubin, total <0.2 mg/dL 0.0-1. 2 Not Available [facility] ([facility]) [address] [place], [address], 06/07/2024 13:13:13 06/06/20 24 06/07/2024 COMP. METAB OLIC PANEL (14) alkaline phosphatase 58 IU/L 44-121 Not Available [facility] ([facility]) [address] [facility], [place], [address], 06/07/2024 13:13:13 06/06/20 24 06/07/2024 COMP. METAB OLIC PANEL (14) AST (SGOT) 17 IU/L 0-40 Not Available [facility] ([facility]) [address] [facility], [place], [address], 06/07/2024 13:13:13 06/06/20 24 06/07/2024 COMP. METAB OLIC PANEL (14) ALT (SGPT) 17 IU/L 0-32 Not Available [facility] ([facility]) [address] [facility], [place], [address], 06/07/2024 13:13:13 06/06/20 24 06/07/2024 HEMOG LOBIN A1C hemoglobin A1C 5.5 % 4.8-5. 6 Predi abete s: 5.7 - 6.4 Diabe modesto: >6.4 Glyce merrick contr ol for adult s with diabe modesto: <7.0 Not Available [facility] ([facility]) [address] [facility], [place], [address], 06/07/2024 13:13:14 06/06/20 24 06/07/2024 TSH TSH 1.650 uIU/m L 0.450- 4.500 Not Available [facility] ([facility]) [address] [facility], [place], [address], 06/07/2024 13:13:14 06/06/20 24 06/07/2024 CBC WITH DIFFE RENTI AL/PL ATELE T WBC 7.0 x10e3 /uL 3.4-10 .8 Not Available [facility] ([facility]) [address] [facility], [place], [address], 06/07/2024 13:13:15 06/06/20 24 06/07/2024 CBC WITH DIFFE RENTI AL/PL ATELE T RBC 4.96 x10e6 /uL 3.77-5 .28 Not Available [facility] ([facility]) [address] [facility], [place], [address], 06/07/2024 13:13:15 06/06/20 24 06/07/2024 CBC WITH DIFFE RENTI AL/PL ATELE T hemoglobin 15.7 g/dL 11.1-1 5.9 Not Available [facility] ([facility]) [address] [place], [address], 06/07/2024 13:13:15 06/06/20 24 06/07/2024 CBC WITH DIFFE RENTI AL/PL ATELE T hematocrit 46.1 % 34.0-4 6.6 Not Available [facility] ([facility]) [address] [place], [address], 06/07/2024 13:13:15 06/06/20 24 06/07/2024 CBC WITH DIFFE RENTI AL/PL ATELE T MCV 93 fL 79-97 Not Available [facility] ([facility]) [address] [place], [address], 06/07/2024 13:13:15 06/06/20 24 06/07/2024 CBC WITH DIFFE RENTI AL/PL ATELE T MCH 31.7 pg 26.6-3 3.0 Not Available [facility] ([facility]) [address] [place], [address], 06/07/2024 13:13:15 06/06/20 24 06/07/2024 CBC WITH DIFFE RENTI AL/PL ATELE T MCHC 34.1 g/dL 31.5-3 5.7 Not Available [facility] ([facility]) [address] [facility], [place], [address], 06/07/2024 13:13:15 06/06/20 24 06/07/2024 CBC WITH DIFFE RENTI AL/PL ATELE T RDW 14.2 % 11.7-1 5.4 Not Available [facility] ([facility]) [address] [facility], [place], [address], 06/07/2024 13:13:15 06/06/20 24 06/07/2024 CBC WITH DIFFE RENTI AL/PL ATELE T platelets 246 x10e3 /uL 150-45 0 Not Available [facility] ([facility]) [address] [facility], [place], [address], 06/07/2024 13:13:15 06/06/20 24 06/07/2024 CBC WITH DIFFE RENTI AL/PL ATELE T neutrophils 44 % notest ab. Not Available [facility] ([facility]) [address] [facility], [place], [address], 06/07/2024 13:13:15 06/06/20 24 06/07/2024 CBC WITH DIFFE RENTI AL/PL ATELE T lymphs 43 % notest ab. Not Available [facility] ([facility]) [address] [facility], [place], [address], 06/07/2024 13:13:15 06/06/20 24 06/07/2024 CBC WITH DIFFE RENTI AL/PL ATELE T monocytes 7 % notest ab. Not Available [facility] ([facility]) [address] [facility], [place], [address], 06/07/2024 13:13:15 06/06/20 24 06/07/2024 CBC WITH DIFFE RENTI AL/PL ATELE T eos 5 % notest ab. Not Available [facility] ([facility]) [address] [facility], [place], [address], 06/07/2024 13:13:15 06/06/20 24 06/07/2024 CBC WITH DIFFE RENTI AL/PL ATELE T basos 1 % notest ab. Not Available [facility] ([facility]) [address] [facility], [place], [address], 06/07/2024 13:13:15 06/06/20 24 06/07/2024 CBC WITH DIFFE RENTI AL/PL ATELE T neutrophils (absolute) 3.1 x10e3 /uL 1.4-7. 0 Not Available [facility] ([facility]) [address] [facility], [place], [address], 06/07/2024 13:13:15 06/06/20 24 06/07/2024 CBC WITH DIFFE RENTI AL/PL ATELE T lymphs (absolute) 3.0 x10e3 /uL 0.7-3. 1 Not Available [facility] ([facility]) [address] [facility], [place], [address], 06/07/2024 13:13:15 06/06/20 24 06/07/2024 CBC WITH DIFFE RENTI AL/PL ATELE T monocytes(ab solute) 0.5 x10e3 /uL 0.1-0. 9 Not Available [facility] ([facility]) [address] [facility], [place], [address], 06/07/2024 13:13:15 06/06/20 24 06/07/2024 CBC WITH DIFFE RENTI AL/PL ATELE T eos (absolute) 0.3 x10e3 /uL 0.0-0. 4 Not Available [facility] ([facility]) [address] [facility], [place], [address], 06/07/2024 13:13:15 06/06/20 24 06/07/2024 CBC WITH DIFFE RENTI AL/PL ATELE T baso (absolute) 0.0 x10e3 /uL 0.0-0. 2 Not Available [facility] ([facility]) [address] [place], [address], 06/07/2024 13:13:15 06/06/20 24 06/07/2024 CBC WITH DIFFE RENTI AL/PL ATELE T immature granulocytes 0 % notest ab. Not Available [facility] ([facility]) [address] [place], [address], 06/07/2024 13:13:15 06/06/20 24 06/07/2024 CBC WITH DIFFE RENTI AL/PL ATELE T immature grans (abs) 0.0 x10e3 /uL 0.0-0. 1 Not Available [facility] ([facility]) [address] [place], [address], 06/07/2024 13:13:15 06/06/20 24 06/07/2024 TRIIO DOTHY PUSHPA E (T3), FREE triiodothyro nine (T3), free 2.4 pg/mL 2.0-4. 4 Not Available [facility] ([facility]) [address] [place], [address], 06/07/2024 13:13:16 06/06/20 24 06/07/2024 T4,FR EE(DI RECT) T4,free(dire ct) 1.13 NG/dL 0.82-1 .77 Not Available [facility] ([facility]) [address] [place], [address], 06/07/2024 13:13:17 07/20/20 24 07/22/2024 NUSWA B VAGIN ITIS PLUS (VG+) atopobium vaginae LOW - 0 score Not Available [facility] ([facility]) [address] [place], [address], 07/23/2024 07:07:38 07/20/20 24 07/22/2024 NUA B VAGIN ITIS PLUS (VG+) bvab 2 LOW - 0 score Not Available [facility] ([facility]) [address] [place], [address], 07/23/2024 07:07:38 07/20/20 24 07/22/2024 NUA B VAGIN ITIS PLUS (VG+) megasphaera 1 LOW - 0 score Calcu late total score by shade mckenna the 3 indiv idual bacte rial vagin osis (BV) marke r score s toget her. Total score is inter prete d as follo ws: Total score 0-1: Indic ates the absen ce of BV. Total score 2: Indet ermin ate for BV. Addit ional clini perry data shoul d be evalu ated to estab kamron a diagn osis. Total score 3-6: Indic ates the prese nce of BV. Not Available [facility] ([facility]) [address] [facility], [place], [address], 07/23/2024 07:07:38 07/20/20 24 07/22/2024 NUA B VAGIN ITIS PLUS (VG+) matthieu albicans, KO NEGATI VE negati ve Not Available [facility] ([facility]) [address] [place], [address], 07/23/2024 07:07:38 07/20/20 24 07/22/2024 NUA B VAGIN ITIS PLUS (VG+) matthieu glabrata, KO NEGATI VE negati ve Not Available [facility] ([facility]) [address] [place], [address], 07/23/2024 07:07:38 07/20/20 24 07/23/2024 NUA B VAGIN ITIS PLUS (VG+) trich vag by KO NEGATI VE negati ve Not Available [facility] ([facility]) [address] [place], [address], 07/23/2024 07:07:38 07/20/20 24 07/23/2024 NUSWA B VAGIN ITIS PLUS (VG+) chlamydia trachomatis, KO NEGATI VE negati ve Not Available [facility] ([facility]) [address] [facility], [place], [address], 07/23/2024 07:07:38 07/20/20 24 07/23/2024 NUSWA B VAGIN ITIS PLUS (VG+) neisseria gonorrhoeae, KO NEGATI VE negati ve Not Available [facility] ([facility]) [address] [facility], [place], [address], 07/23/2024 07:07:38 07/20/20 24 07/21/2024 IGP, APTIM A HPV, RFX 16/18 ,45 HPV aptima NEGATI VE negati ve This nucle ic acid ampli ficat ion test detec ts fourt een high- risk HPV types (16,1 8,31, 33,35 ,39,4 5,51, 52,56 ,58,5 9,66, 68) witho ut diffe renti ation . Not Available [facility] ([facility]) [address] [facility], [place], [address], 07/24/2024 14:08:13 07/20/20 24 07/24/2024 IGP, APTIM A HPV, RFX 16/18 ,45 diagnosis: COMMEN T NEGAT JULIANNA FOR INTRA EPITH ELIAL LESIO N OR MALSHA TIPTON . Not Available [facility] ([facility]) [address] [facility], [place], [address], 07/24/2024 14:08:13 07/20/2007/24/2024 IGP, APTIM A HPV, RFX 16/18 ,45 specimen adequacy: COMMEN T Satis facto ry for evalu ation . No endoc ervic al compo nent is ident ified . Not Available [facility] ([facility]) [address] [place], [address], 07/24/2024 14:08:13 07/20/20 24 07/24/2024 IGP, APTIM A HPV, RFX 16/18 ,45 clinician provided ICD10: AVIVA Whitley Z01.4 19 Not Available [facility] ([facility]) [address] [place], [address], 07/24/2024 14:08:13 07/20/20 24 07/24/2024 IGP, APTIM A HPV, RFX 16/18 ,45 performed by: Michael Isaacs (ASCP ) Not Available [facility] ([facility]) [address] [place], [address], 07/24/2024 14:08:13 07/20/20 24 07/24/2024 IGP, APTIM A HPV, RFX 16/18 ,45 . . Not Available [facility] ([facility]) [address] [place], [address], 07/24/2024 14:08:13 07/20/20 24 07/24/2024 IGP, APTIM A HPV, RFX 16/18 ,45 note: AVIVA Whitley The Pap smear is a scree eitan test desig rogerio to aid in the detec tion of karolina ligna nt and malig nant condi tions of the uteri ne cervi x. It is not a diagn ostic proce dure and shoul d not be used as the sole means of detec ting cervi perry cance r. Both false -posi tive and false -nega tive repor ts do occur . Not Available [facility] ([facility]) [address] [place], [address], 07/24/2024 14:08:13 07/20/20 24 07/24/2024 IGP, APTIM A HPV, RFX 16/18 ,45 test methodology: AVIVA Whitley This liqui d based ThinP rep(R ) pap test was scree rogerio with the use of an image guide jessica burgos. Not Available [facility] ([facility]) [address] [facility], [place], [address], 07/24/2024 14:08:13 07/20/20 24 07/24/2024 IGP, APTIM A HPV, RFX 16/18 ,45 HPV genotype reflex COMMEN T Crite chica not met, HPV Genot ype not perfo rmed. Not Available [facility] ([facility]) [address] [facility], [place], [address], 07/24/2024 14:08:13 07/20/20 24 07/20/2024 urina lysis , dipst ick Leukocytes Negati ve Not Available In-Office Order Internal Use Only DO Not Attach Compendium DO Not Attach Compendium, Do Not Delete/merge, 07/20/2024 10:51:20 07/20/20 24 07/20/2024 urina lysis , dipst ick Nitrite negati ve Not Available In-Office Order Internal Use Only DO Not Attach Compendium DO Not Attach Compendium, Do Not Delete/merge, 07/20/2024 10:51:20 07/20/20 24 07/20/2024 urina lysis , dipst ick Urobilinogen .2 Not Available In-Of fice Order Internal Use Only DO Not Attach Compendium DO Not Attach Compendium, Do Not Delete/merge, 07/20/2024 10:51:20 07/20/20 24 07/20/2024 urina lysis , dipst ick Protein Negati ve Not Available In-Office Order Internal Use Only DO Not Attach Compendium DO Not Attach Compendium, Do Not Delete/merge, 07/20/2024 10:51:20 07/20/20 24 07/20/2024 urina lysis , dipst ick pH 6.0 Not Available In-Office Order Internal Use Only DO Not Attach Compendium DO Not Attach Compendium, Do Not Delete/merge, 07/20/2024 10:51:20 07/20/20 24 07/20/2024 urina lysis , dipst ick Blood Modera te Not Available In-Office Order Internal Use Only DO Not Attach Compendium DO Not Attach Compendium, Do Not Delete/merge, 07/20/2024 10:51:20 07/20/20 24 07/20/2024 urina lysis , dipst ick Specific [place] 1.030 Not Available In-Off ice Order Internal Use Only DO Not Attach Compendium DO Not Attach Compendium, Do Not Delete/merge, 07/20/2024 10:51:20 07/20/20 24 07/20/2024 urina lysis , dipst ick Ketone Negati ve Not Available In-Office Order Internal Use Only DO Not Attach Compendium DO Not Attach Compendium, Do Not Delete/merge, 07/20/2024 10:51:20 07/20/20 24 07/20/2024 urina lysis , dipst ick Bilirubin Negati ve Not Available In-Office Order Internal Use Only DO Not Attach Compendium DO Not Attach Compendium, Do Not Delete/merge, 07/20/2024 10:51:20 07/20/20 24 07/20/2024 urina lysis , dipst ick Glucose Negati ve Not Available In-Office Order Internal Use Only DO Not Attach Compendium DO Not Attach Compendium, Do Not Delete/merge, 07/20/2024 10:51:20 01/28/20 25 01/27/2025 Eryth rocyt e sedim entat ion rate erythrocyte sedimentatio n rate 5 mm/HR low: 0mm/HR high: 20mm/H R normal Not Available Not Available 01/27/2025 02:05:20 02/07/20 25 02/06/2025 CBC W Auto Diffe renti al panel - Blood leukocytes [#/volume] in blood by automated count 8 x10'3 /uL low: 4.2x10 '3/uLh igh: 10.8x1 0'3/uL normal Not Available Not Available 02/07/2025 04:06:45 02/07/20 25 02/06/2025 CBC W Auto Diffe renti al panel - Blood erythrocytes [#/volume] in blood by automated count 4.65 x10'6 /uL low: 3.8x10 '6/uLh igh: 5.2x10 '6/uL normal Not Available Not Available 02/07/2025 04:06:45 02/07/2002/06/2025 CBC W Auto Diffe renti al panel - Blood hemoglobin [mass/volume ] in blood 14.8 g/dL low: 12g/dL high: 15.6g/ dL normal Not Available Not Available 02/07/2025 04:06:45 02/07/2002/06/2025 CBC W Auto Diffe renti al panel - Blood hematocrit [volume fraction] of blood by automated count 44 % low: 35.7%h igh: 45.7% normal Not Available Not Available 02/07/2025 04:06:45 02/07/2002/06/2025 CBC W Auto Diffe renti al panel - Blood MCV [entitic volume] by automated count 94.6 fL low: 82fLhi gh: 99fL normal Not Available Not Available 02/07/2025 04:06:45 02/07/2002/06/2025 CBC W Auto Diffe renti al panel - Blood MCH [entitic mass] by automated count 31.8 pg low: 27pghi gh: 33pg normal Not Available Not Available 02/07/2025 04:06:45 02/07/2002/06/2025 CBC W Auto Diffe renti al panel - Blood MCHC [mass/volume ] by automated count 33.6 g/dL low: 31g/dL high: 36g/dL normal Not Available Not Available 02/07/2025 04:06:45 02/07/2002/06/2025 CBC W Auto Diffe renti al panel - Blood erythrocyte distribution width [ratio] 14.7 % low: 11.8%h igh: 15.5% normal Not Available Not Available 02/07/2025 04:06:45 02/07/2002/06/2025 CBC W Auto Diffe renti al panel - Blood platelets [#/volume] in blood by automated count 217 x10'3 /uL low: 150x10 '3/uLh igh: 400x10 '3/uL normal Not Available Not Available 02/07/2025 04:06:45 02/07/2002/06/2025 CBC W Auto Diffe renti al panel - Blood platelet mean volume [entitic volume] in blood by automated count 9.6 fL low: 9fLhig h: 12.4fL normal Not Available Not Available 02/07/2025 04:06:45 02/07/2002/06/2025 CBC W Auto Diffe renti al panel - Blood neutrophils/ 100 leukocytes in blood 44 % low: 39%hig h: 72% normal Not Available Not Available 02/07/2025 04:06:45 02/07/2002/06/2025 CBC W Auto Diffe renti al panel - Blood lymphocytes/ 100 leukocytes in blood 46.7 % low: 16%hig h: 47% normal Not Available Not Available 02/07/2025 04:06:45 02/07/2002/06/2025 CBC W Auto Diffe renti al panel - Blood monocytes/10 0 leukocytes in blood 5.5 % low: 5%high : 12% normal Not Available Not Available 02/07/2025 04:06:45 02/07/2002/06/2025 CBC W Auto Diffe renti al panel - Blood eosinophils [#/volume] in blood 3.1 % low: 1%high : 7% normal Not Available Not Available 02/07/2025 04:06:45 02/07/2002/06/2025 CBC W Auto Diffe renti al panel - Blood basophils/10 0 leukocytes in blood 0.4 % low: 0%high : 2% normal Not Available Not Available 02/07/2025 04:06:45 02/07/2002/06/2025 CBC W Auto Diffe renti al panel - Blood immature granulocytes /100 leukocytes in blood 0.3 % low: 0%high : 0.5% normal Not Available Not Available 02/07/2025 04:06:45 02/07/2002/06/2025 CBC W Auto Diffe renti al panel - Blood neutrophils [#/volume] in blood 3.52 x10'3 /uL low: 1.5x10 '3/uLh igh: 8x10'3 /uL normal Not Available Not Available 02/07/2025 04:06:45 02/07/2002/06/2025 CBC W Auto Diffe renti al panel - Blood lymphocytes [#/volume] in blood 3.73 x10'3 /uL low: 1.07x1 0'3/uL high: 3.43x1 0'3/uL high Not Available Not Available 02/07/2025 04:06:45 02/07/2002/06/2025 CBC W Auto Diffe renti al panel - Blood monocytes [#/volume] in blood 0.44 x10'3 /uL low: 0.29x1 0'3/uL high: 0.99x1 0'3/uL normal Not Available Not Available 02/07/2025 04:06:45 02/07/2002/06/2025 CBC W Auto Diffe renti al panel - Blood eosinophils [#/volume] in blood 0.25 x10'3 /uL low: 0.02x1 0'3/uL high: 0.53x1 0'3/uL normal Not Available Not Available 02/07/2025 04:06:45 02/07/20 25 02/06/2025 CBC W Auto Diffe renti al panel - Blood basophils [#/volume] in blood 0.03 x10'3 /uL low: 0.01x1 0'3/uL high: 0.08x1 0'3/uL normal Not Available Not Available 02/07/2025 04:06:45 02/07/2002/06/2025 CBC W Auto Diffe renti al panel - Blood immature granulocytes [#/volume] in blood 0.02 x10'3 /uL low: 0x10'3 /uLhig h: 0.05x1 0'3/uL normal Not Available Not Available 02/07/2025 04:06:45 02/07/20 25 02/06/2025 CBC W Auto Diffe renti al panel - Blood nucleated erythrocytes /100 leukocytes [ratio] in blood 0 % high: 0% normal Not Available Not Available 02/07/2025 04:06:45 02/07/2002/06/2025 CBC W Auto Diffe renti al panel - Blood nucleated erythrocytes [#/volume] in blood by automated count 0 x10'3 /uL normal Not Available Not Available 02/08/20 04:06:45 02/08/20 25 02/07/2025 Lacta te [Mole s/vol ume] in Serum or Plasm a lactate [moles/volum e] in serum or plasma 0.8 mmol/ L low: 0.7mmo l/Lhig h: 1.9mmo l/L normal Not Available Not Available 02/07/2025 04:06:46 02/08/20 25 02/07/2025 Drugs ident ified in Urine by Scree n metho d amphetamines [presence] in urine Negati ve normal Not Available Not Available 04:06:46 02/08/20 25 02/07/2025 Drugs ident ified in Urine by Scree n metho d barbiturates [presence] in urine Negati ve normal Not Available Not Available 04:06:46 02/08/20 25 02/07/2025 Drugs ident ified in Urine by Scree n metho d benzodiazepi layo [presence] in urine Negati ve normal Not Available Not Available 04:06:46 02/08/20 25 02/07/2025 Drugs ident ified in Urine by Scree n metho d cocaine [presence] in urine Negati ve normal Not Available Not Available 04:06:46 02/08/20 25 02/07/2025 Drugs ident ified in Urine by Scree n metho d fentanyl Negati ve normal Not Available Not Available 04:06:46 02/08/20 25 02/07/2025 Drugs ident ified in Urine by Scree n metho d methadone [presence] in urine Negati ve normal Not Available Not Available 04:06:46 02/08/20 25 02/07/2025 Drugs ident ified in Urine by Scree n metho d opiates [presence] in urine Negati ve normal Not Available Not Available 04:06:46 02/08/20 25 02/07/2025 Drugs ident ified in Urine by Scree n metho d oxycodone [presence] in urine Negati ve normal Not Available Not Available 04:06:46 02/08/20 25 02/07/2025 Drugs ident ified in Urine by Scree n metho d phencyclidin e [presence] in urine Negati ve normal Not Available Not Available 04:06:46 02/08/20 25 02/07/2025 Drugs ident ified in Urine by Scree n metho d cannabinoids [presence] in urine Negati ve normal Not Available Not Available 04:06:46 02/08/20 25 02/07/2025 Natri ureti c pepti de.B proho rmone N-Ter frances [Mass /volu me] in Serum or Plasm a natriuretic peptide.B prohormone N-terminal [mass/volume ] in serum or plasma 57.8 pg/mL low: 0pg/mL high: 95.3pg /mL normal Not Available Not Available 02/07/2025 04:06:46 02/08/20 25 02/07/2025 Tropo itzel I.car diac [Mass /volu me] in Serum or Plasm a by Detec tion limit <= 0.01 ng/mL troponin I.cardiac [mass/volume ] in serum or plasma by detection limit <= 0.01 NG/mL <0.012 low: 0NG/mL high: 0.034N G/mL normal Not Available Not Available 02/07/2025 04:06:46 02/08/20 25 02/07/2025 Compr ehens julianna metab olic 1999 panel - Serum or Plasm a sodium [moles/volum e] in blood 139 mmol/ L low: 137mmo l/Lhig h: 145mmo l/L normal Not Available Not Available 02/07/2025 04:06:46 02/08/20 25 02/07/2025 Compr ehens julianna metab olic 1999 panel - Serum or Plasm a potassium [moles/volum e] in serum or plasma 4 mmol/ L low: 3.5mmo l/Lhig h: 5.1mmo l/L normal Not Available Not Available 02/07/2025 04:06:46 02/08/20 25 02/07/2025 Compr ehens julianna metab olic 1999 panel - Serum or Plasm a chloride [moles/volum e] in serum or plasma 109 mmol/ L low: 98mmol /Lhigh : 107mmo l/L high Not Available Not Available 02/07/2025 04:06:46 02/08/20 25 02/07/2025 Compr ehens julianna metab olic 1999 panel - Serum or Plasm a carbon dioxide, total [moles/volum e] in serum or plasma 29 mmol/ L low: 22mmol /Lhigh : 30mmol /L normal Not Available Not Available 02/07/2025 04:06:46 02/08/20 25 02/07/2025 Compr ehens julianna metab olic 1999 panel - Serum or Plasm a anion gap in serum or plasma 5 mmol/ L low: 14mmol /Lhigh : 22mmol /L low Not Available Not Available 02/07/2025 04:06:46 02/08/20 25 02/07/2025 Compr [employer] julianna metab olic 1999 panel - Serum or Plasm a glucose [mass/volume ] in serum or plasma 107 mg/dL low: 70mg/d Lhigh: 99mg/d L high Not Available Not Available 02/07/2025 04:06:46 02/08/20 25 02/07/2025 Compr ehens julianna metab olic 1999 panel - Serum or Plasm a urea nitrogen [mass or moles/volume ] in serum or plasma 17 mg/dL low: 8mg/dL high: 19mg/d L normal Not Available Not Available 02/07/2025 04:06:46 02/08/20 25 02/07/2025 Compr ehens julianna metab olic 1999 panel - Serum or Plasm a creatinine [mass/volume ] in serum or plasma 1.29 mg/dL low: 0.66mg /dLhig h: 1.25mg /dL high Not Available Not Available 02/07/2025 04:06:46 02/08/20 25 02/07/2025 Compr ehens julianna metab olic 2000 panel - Serum or Plasm a glomerular filtration rate/1.73 sq M.predicted [volume rate/area] in serum, plasma or blood 44 1 normal Not Available Not Available 01/20 04:06:46 02/08/20 25 02/07/2025 Compr ehens julianna metab olic 2000 panel - Serum or Plasm a alkaline phosphatase [enzymatic activity/vol ume] in serum or plasma 51 U/L low: 38U/Lh igh: 126U/L normal Not Available Not Available 02/07/2025 04:06:46 02/08/20 25 02/07/2025 [facility] [employer] julianna [employer] [facility] 1999 panel - Serum or Plasm a alanine aminotransfe rase [enzymatic activity/vol ume] in serum or plasma 33 U/L low: 0U/Lhi gh: 35U/L normal Not Available Not Available 02/07/2025 04:06:46 02/08/20 25 02/07/2025 [facility] [employer] julianna [employer] [facility] 1999 panel - Serum or Plasm a aspartate aminotransfe rase [enzymatic activity/vol ume] in serum or plasma 42 U/L low: 15U/Lh igh: 37U/L high Not Available Not Available 02/07/2025 04:06:46 02/08/20 25 02/07/2025 [facility] [employer] [facility] 1999 panel - Serum or Plasm a bilirubin.to len [mass/volume ] in serum or plasma 0.6 mg/dL low: 0.2mg/ dLhigh : 1.3mg/ dL normal Not Available Not Available 02/07/2025 04:06:46 02/08/20 25 02/07/2025 [facility] [employer] [facility] 1999 panel - Serum or Plasm a calcium [mass/volume ] in serum or plasma 9.8 mg/dL low: 8.4mg/ dLhigh : 10.2mg /dL normal Not Available Not Available 02/07/2025 04:06:46 02/08/2002/07/2025 [facility] [employer] [facility] 1999 panel - Serum or Plasm a protein [mass/volume ] in serum or plasma 6.6 g/dL low: 6.3g/d Lhigh: 8.2g/d L normal Not Available Not Available 02/07/2025 04:06:46 02/08/20 25 02/07/2025 [facility] [employer]ianna [employer] [facility] 1999 panel - Serum or Plasm a albumin [mass/volume ] in serum or plasma 4.4 g/dL low: 3.4g/d Lhigh: 5g/dL normal Not Available Not Available 02/07/2025 04:06:46 02/08/20 25 02/07/2025 Compr ehens julianna metab olic 1999 panel - Serum or Plasm a globulin [mass/volume ] in serum 2.2 g/dL low: 2.6g/d Lhigh: 4.2g/d L low Not Available Not Available 02/07/2025 04:06:46 02/08/20 25 02/07/2025 Compr ehens julianna metab olic 1999 panel - Serum or Plasm a albumin/glob ulin [mass ratio] in serum or plasma 2 ratio low: 1ratio high: 2ratio normal Not Available Not Available 02/07/2025 04:06:46 02/08/20 25 02/07/2025 Urina lysis compl ete W Refle x Cultu re panel - Urine color of urine by auto Color of urine normal Not Available Not Available 04:06:46 02/08/2002/07/2025 Urina lysis compl ete W Refle x Cultu re panel - Urine appearance of urine Urine specim en Not Available Not Available 04:06:46 02/08/20 25 02/07/2025 Urina lysis compl ete W Refle x Cultu re panel - Urine specific gravity of urine by test strip 1.01 1 low: 1.001h igh: 1.03 normal Not Available Not Available 02/07/2025 04:06:46 02/08/20 25 02/07/2025 Urina lysis compl ete W Refle x Cultu re panel - Urine pH of urine by test strip 6.5 pH_un its low: 5pH unitsh igh: 9pH units normal Not Available Not Available 02/07/2025 04:06:46 02/08/2002/07/2025 Urina lysis compl ete W Refle x Cultu re panel - Urine leukocytes [#/volume] in urine by test strip Leukoc yte estera se measur ement text: negati ve normal Not Available Not Available 02/07/2025 04:06:46 02/08/20 25 02/07/2025 Urina lysis compl ete W Refle x Cultu re panel - Urine nitrite [presence] in urine by test strip Labora tory test findin g text: negati ve normal Not Available Not Available 02/07/2025 04:06:46 02/08/2002/07/2025 Urina lysis compl ete W Refle x Cultu re panel - Urine protein [mass/volume ] in urine by test strip 10 mg/dL text: negati ve Not Available Not Available 02/07/2025 04:06:46 02/08/20 25 02/07/2025 Urina lysis compl ete W Refle x Cultu re panel - Urine glucose [moles/volum e] in urine by test strip 50 mg/dL text: normal Not Available Not Available 02/07/2025 04:06:46 02/08/20 25 02/07/2025 Urina lysis compl ete W Refle x Cultu re panel - Urine ketones [moles/volum e] in urine by test strip Labora tory test findin g text: negati ve normal Not Available Not Available 02/07/2025 04:06:46 02/08/20 25 02/07/2025 Urina lysis compl ete W Refle x Cultu re panel - Urine urobilinogen [mass/volume ] in urine by test strip Urobil inogen measur ement, urine text: normal normal Not Available Not Available 02/07/2025 04:06:46 02/08/20 25 02/07/2025 Urina lysis compl ete W Refle x Cultu re panel - Urine bilirubin.to len [mass/volume ] in urine by test strip Urine dipsti ck for biliru bin text: negati ve normal Not Available Not Available 02/07/2025 04:06:46 02/08/20 25 02/07/2025 Urina lysis compl ete W Refle x Cultu re panel - Urine erythrocytes [#/volume] in urine by test strip 0.5 mg/dL text: negati ve Not Available Not Available 02/07/2025 04:06:46 02/08/20 25 02/07/2025 Urina lysis compl ete W Refle x Cultu re panel - Urine leukocytes [#/area] in urine sediment by automated count Leukoc ytes in urine low: 0/[hpf ]high: 8/[hpf ] normal Not Available Not Available 02/07/2025 04:06:46 02/08/20 25 02/07/2025 Urina lysis compl ete W Refle x Cultu re panel - Urine erythrocytes [#/area] in urine sediment by automated count Blood in urine low: 0/[hpf ]high: 4/[hpf ] Not Available Not Available 02/07/2025 04:06:46 02/08/20 25 02/07/2025 Urina lysis compl ete W Refle x Cultu re panel - Urine bacteria [presence] in urine by automated Urine findin g Not Available Not Available 04:06:46 02/08/2002/07/2025 Urina lysis compl ete W Refle x Cultu re panel - Urine mucus [#/area] in urine sediment by automated count Urine findin g Not Available Not Available 04:06:46 02/08/20 25 02/07/2025 Urina lysis compl ete W Refle x Cultu re panel - Urine epithelial cells.[place] us [#/area] in urine sediment by automated count Urine findin g Not Available Not Available 04:06:46 02/08/2002/07/2025 Urina lysis compl ete W Refle x Cultu re panel - Urine crystals [#/area] in urine sediment by automated count Urine findin g Not Available Not Available 04:06:46 02/08/20 25 02/07/2025 Proth rombi n time (PT) prothrombin time (PT) 10.3 secon ds low: 9.7sec ondshi gh: 12.2se conds normal Not Available Not Available 02/07/2025 04:06:46 02/08/20 25 02/07/2025 Proth rombi n time (PT) INR in platelet poor plasma by coagulation assay 0.9 1 normal Not Available Not Available 01/20 04:06:46 02/08/20 25 02/07/2025 aPTT in Plate let poor plasm a by Coagu latio n assay APTT in platelet poor plasma by coagulation assay 24.6 secon ds low: 22.7se condsh igh: 30.2se conds normal Not Available Not Available 02/07/2025 04:06:46 02/08/20 24 02/08/2024 XR, chest No observ ation record ed. [facility] [address] [place], [address], 02/14/2024 15:00:35 02/11/20 24 02/10/2024 US, echoc ardio gram No observ ation record ed. [facility] [address], [place], [address], 02/14/2024 15:02:39 02/15/20 24 02/15/2024 jesus r monit or No observ ation record ed. [facility] [address], [place], [address], 02/21/2024 09:00:22 04/04/20 24 04/04/2024 MAMMO , scree eitan, digit al, bilat eral No observ ation record ed. [facility] [address] [place], [address], 04/06/2024 16:53:50 04/21/20 24 04/21/2024 XR, chest No observ ation record ed. [email or web address] [facility] [address] [place], [address], 04/24/2024 22:32:38 05/05/20 24 05/04/2024 CT, abdom en + pelvi s, w/ contr ast No observ ation record ed. [facility] [address] [place], [address], 05/12/2024 11:59:50 05/30/20 24 05/29/2024 CT, abdom en + pelvi s, w/ contr ast No observ ation record ed. [facility] [address] [place], [address], 06/06/2024 17:13:36 06/08/20 24 06/08/2024 XR, chest No observ ation record ed. [facility] [address] [place], [address], 06/09/2024 16:28:34 06/13/20 24 06/09/2024 NM, myoca rdial perfu evert scan No observ [facility]. [facility] [address], [place], [address], 06/23/2024 09:55:22 07/04/20 24 07/04/2024 XR, shoul margaret, 2 or more view No observ ation record ed. [address], [place], [address], 07/10/2024 17:21:37 07/04/20 24 07/04/2024 CT, cervi perry spine , w/o contr ast No observ ation record ed. [address], [place], [address], 07/10/2024 17:22:41 09/03/20 24 09/03/2024 XR, ankle No observ ation record ed. [facility] [address] [place], [address], 09/04/2024 17:30:08 09/03/20 24 09/03/2024 XR, foot No observ ation record ed. [facility] [address] [place], [address], 09/04/2024 17:30:20 09/25/20 24 09/25/2024 XR, chest No observ ation record ed. [facility] [address] [place], [address], 09/27/2024 12:15:10 10/06/20 24 10/05/2024 XR, chest , 2 view No observ ation record ed. [address] [place], [address], 10/10/2024 13:49:32 10/17/20 24 10/17/2024 PFT, compl ete No observ ation record ed. [facility] [address], [place], [address], 10/18/2024 13:25:20 11/10/20 24 11/10/2024 XR, chest , 2 view No observ ation record ed. [facility] [address] [place], [address], 11/29/2024 22:44:03 02/03/20 25 02/02/2025 XR, ankle No observ ation record ed. [address] [place], [address], 02/07/2025 15:30:39 02/08/20 25 02/06/2025 CT, abdom en + pelvi s, w/ contr ast No observ ation record ed. [address] [place], [address], 02/07/2025 16:27:53 02/17/20 25 02/15/2025 XR, ribs, unila teral No observ ation record ed. [facility] [address] [place], [address], 02/19/2025 10:58:03 Result Notes None recorded. Problems Name Problem SNOMED Code Status Onset Date Resolution Date Notes Provider Name and Address Organization Details Recorded Time Anxiety 57670045 Active 2017 Reva Swift MD Attn: Accounting, [address] [facility], [place], [address], [facility] 4 20:21:54 Depressive disorder 49313075 Active 2017 Reva Swift MD Attn: Accounting, [address] [facility], [place], [address], [facility] 4 20:21:36 Bacterial vaginosis 574912356 Active 2018 Дмитрий Kwan MD Attn: Accounting, [address] [facility], [place], [place], [address] [place] [address], [place] - [facility] 9 14:55:16 Candidiasis of vagina 13691409 Active 2018 Дмитрий Kwan MD Attn: Accounting, [address] [facility], [place], [place], [address] [place] [address], [place] - [facility] 9 14:55:23 Essential hypertension 32309435 Active 2023 Reva Swift MD Attn: Accounting, [address] [facility], [place], [place], [address] [place] [address], [place] [facility] 4 20:21:32 Screening mammography Active 2023 [place], [place] - [facility] 4 14:20:33 Screening for malignant neoplasm of colon Active 2023 [place], [place] - [facility] 4 14:20:34 Hypothyroidi sm 93744165 Active 2023 Reva Swift MD Attn: Accounting, [address] [facility], [place], [place], [address] [place] [address], [place] - [facility] 4 20:21:49 Obesity 016728467 Active 2023 Reva Swift MD Attn: Accounting, [address] [facility], [place], [place], [address] [place] [address], [place] - [facility] 4 20:21:44 Paresthesia of lower extremity 921719703 Active 2024 [place], [place] - [facility] 5 10:51:59 Notes:Some problems listed i n Documents: #[id number], #[id number], #[id number] could not be added to this patient's chart. Please review these documents and add these problems to the patient's chart manually as needed. Problem Notes None recorded. Procedures Surgical History Date Name Laterality Status Provider Name and Address Organization Details Recorded Time 03/15/20 17 Date of Last Pap Smear completed Paradise Gagnon [place] - [facility] 02/03/2017 16:15:37 11/22/19 03 Total hysterectomy completed Paradise Gagnon MA [facility] 02/03/2017 16:15:12 11/22/19 03 Cholecystectomy completed Paradise Gagnon [place] - [facility] 02/03/2017 16:15:24 11/22/18 89 Tonsillectomy completed Paradise Gagnon MA [facility] 02/03/2017 16:14:45 Imaging Results Imaging Date Name Status LastModified by Organization Details LastModified Time 02/08/2024 XR, chest completed [facility] [address] [place], [address], 02/14/2024 15:00:35 02/10/2024 US, echocardiogram completed [facility] [address], [place], [address], 02/14/2024 15:02:39 02/15/2024 holter monitor completed [facility] [address], [place], [address], 02/21/2024 09:00:22 04/04/2024 MAMMO, screening, digital, bilateral completed [facility] [address] [place], [address], 04/06/2024 16:53:50 04/21/2024 XR, chest completed [address] [place], [address], 04/24/2024 22:32:38 05/04/2024 CT, abdomen + pelvis, w/ contrast completed [facility] [address] [place], [address], 05/12/2024 11:59:50 05/29/2024 CT, abdomen + pelvis, w/ contrast completed [facility] [address] [place], [address], 06/06/2024 17:13:36 06/08/2024 XR, chest completed [facility] [address] [place], [address], 06/09/2024 16:28:34 06/09/2024 NM, myocardial perfusion scan completed [address] [facility] [address], [place], [address], 06/23/2024 09:55:22 07/04/2024 XR, shoulder, 2 or more view completed [address], [address], 07/10/2024 17:21:37 07/04/2024 CT, cervical spine, w/o contrast completed [address] [address], [place], [address], 07/10/2024 17:22:41 09/03/2024 XR, ankle completed [facility] [address] [place], [address], 09/04/2024 17:30:08 09/03/2024 XR, foot completed [facility] [address] [place], [address], 09/04/2024 17:30:20 09/25/2024 XR, chest completed [facility] [address] [place], [address], 09/27/2024 12:15:10 10/05/2024 XR, chest, 2 view completed [address] [place], [address], 10/10/2024 13:49:32 10/17/2024 PFT, complete completed [facility] [address], [place], [address], 10/18/2024 13:25:20 11/10/2024 XR, chest, 2 view completed JASMINE [facility] [address] [place], [address], 11/29/2024 22:44:03 02/02/2025 XR, ankle completed [address] [place], [address], 02/07/2025 15:30:39 02/06/2025 CT, abdomen + pelvis, w/ contrast completed [address] [place], [place], [id number], 02/07/2025 16:27:53 02/15/2025 XR, ribs, unilateral completed cyahlma [facility] [address] [place], [address], 02/19/2025 10:58:03 Procedure Notes None recorded. Medical Equipment None Reported. Allergies Allergen ID Allergen Name Allergen Category Reaction Reaction Severity Criticality Documentation Date Start Date Code Code System Note Provider Name and Address Organization Details Recorded Time [id number] ibuprofen medicatio n edema severe Not available 01/17/2020 5640 RxNorm makes legs swell Desiree Monterroso MA null, [place] - [facility] 0 15:58:28 228202 losartan medicatio n rash moderate low 06/21/2024 89211 RxNorm Bharti Pablo LPN null, [place] - [facility] 4 15:01:04 Medications Name Sig Start Date Stop Date Status Note LastModified by Organization Details LastModified Time losartan 50 mg tablet 02/01 completed Not Available Not Available Not Available cyclobenzap rine 10 mg tablet TAKE 1 TABLET BY MOUTH EVERY 8 HOURS active Not Available Not Available No t Available ziprasidone 80 mg capsule 02/01 completed Not Available Not Available Not Available amoxicillin 500 mg capsule TAKE 1 CAPSULE BY MOUTH EVERY 8 HOURS FOR 7 DAYS active Not Available Not Available No t Available atorvastati n 40 mg tablet TAKE 1 TABLET BY MOUTH ONCE DAILY FOR 30 DAYS 02/15 completed Not Available Not Available Not Available metformin 500 mg tablet TAKE 1 TABLET BY MOUTH TWICE A DAY 02/01 completed Not Available Not Available Not Available doxepin 50 mg capsule Take 1 capsule every day by oral route at bedtime for 30 days. active Not Available Not Available No t Available prednisone 10 mg tablet PLEASE SEE ATTACHED FOR DETAILED DIRECTION S 12/22 completed Not Available Not Available Not Available doxycycline hyclate 100 mg capsule TAKE 1 CAPSULE BY MOUTH TWICE A DAY FOR 7 DAYS 07/20 completed Not Available Not Available Not Available nicotine 14 mg/24 hr daily transdermal patch 02/01 completed Not Available Not Available Not Available ipratropium 0.5 mg-albutero l 3 mg (2.5 mg base)/3 mL nebulizatio n soln 02/01 completed Not Available Not Available Not Available clindamycin HCl 300 mg capsule 02/21 completed Not Available Not Available Not Available azithromyci n 250 mg tablet TAKE 2 TABLETS BY MOUTH TODAY, THEN TAKE 1 TABLET DAILY FOR 4 DAYS DIRECTED 12/22 completed Not Available Not Available Not Available ibuprofen 800 mg tablet 01/17 completed Not Available Not Available Not Available Lidocaine Viscous 2 % mucosal solution 02/21 completed Not Available Not Available Not Available fluconazole 150 mg tablet Take 1 tablet by oral route for 1 day. 02/21 completed Not Available Not Available Not Available benzonatate 200 mg capsule TAKE 1 CAPSULE BY MOUTH THREE TIMES A DAY FOR 10 DAYS 07/20 completed Not Available Not Available Not Available doxepin 25 mg capsule 02/01 completed Not Available Not Available Not Available hydrocodone 5 mg-acetamin ophen 325 mg tablet TAKE 1 TABLET BY MOUTH EVERY 6 HOURS NEEDED active Not Available Not Available No t Available meloxicam 15 mg tablet TAKE 1 TABLET BY MOUTH EVERY DAY NEEDED 02/01 completed Not Available Not Available Not Available phenazopyri dine 200 mg tablet 02/21 completed Not Available Not Available Not Available metronidazo le 0.75 % (37.5 mg/5 gram) vaginal gel Insert 1 applicato rful every day by vaginal route for 5 days. 02/01 completed Not Available Not Available Not Available ondansetron HCl 4 mg tablet 02/01 completed Not Available Not Available Not Available prednisone 20 mg tablet TAKE 1 TABLET BY MOUTH EVERY DAY FOR 7 DAYS active Not Available Not Available No t Available doxepin 75 mg capsule 02/01 completed Not Available Not Available Not Available sertraline 100 mg tablet 02/21 completed Not Available Not Available Not Available terconazole 0.8 % vaginal cream Insert 1 applicato rful every day by vaginal route for 3 days. 01/17 completed Not Available Not Available Not Available sumatriptan 50 mg tablet TAKE 1 TABLET BY MOUTH AT ONSET OF HEADACHE. MAY REPEAT IN 2 HOURS IF NEEDED. MAX 2 TABS/24 HOURS 02/01 completed Not Available Not Available Not Available topiramate 25 mg tablet TAKE 1 TABLET BY MOUTH TWICE A DAY active Not Available Not Available No t Available metronidazo le 500 mg tablet Take 1 tablet every 12 hours by oral route for 7 days. 02/01 completed Not Available Not Available Not Available acetaminoph en 300 mg-codeine 30 mg tablet TAKE 1 TABLET BY MOUTH EVERY 6 HOURS NEEDED FOR PAIN 02/09 completed Not Available Not Available Not Available ciprofloxac in 250 mg tablet 02/01 completed Not Available Not Available Not Available amlodipine 5 mg tablet 02/01 completed Not Available Not Available Not Available sulfamethox azole 800 mg-trimetho prim 160 mg tablet 01/17 completed Not Available Not Available Not Available hydrocodone 10 mg-acetamin ophen 325 mg tablet TAKE 1 TABLET BY MOUTH EVERY 6 HOURS FOR PAIN active Not Available Not Available No t Available aspirin 81 mg tablet,james yed release TAKE 1 TABLET BY MOUTH EVERY DAY 02/09 completed Not Available Not Available Not Available tramadol 50 mg tablet TAKE 1 TABLET BY MOUTH EVERY 8 HOURS NEEDED 12/22 completed Not Available Not Available Not Available triamcinolo ne acetonide 0.1 % topical cream APPLY 1 APPLICATI ON ONTO THE RASH ONCE DAILY 02/01 completed Not Available Not Available Not Available spironolact one 25 mg tablet TAKE 1 TABLET BY MOUTH ONCE DAILY 02/09 completed Not Available Not Available Not Available bupropion HCl SR 100 mg tablet,12 hr sustained-r elease TAKE 1 TABLET BY MOUTH EVERY DAY active Not Available Not Available No t Available butalbital- acetaminoph en-caffeine 50 mg-325 mg-40 mg tablet 02/01 completed Not Available Not Available Not Available simvastatin 40 mg tablet TAKE 1 TABLET BY MOUTH EVERY DAY 12/22 completed Not Available Not Available Not Available acyclovir 800 mg tablet 02/01 completed Not Available Not Available Not Available guaifenesin 200 mg tablet 02/01 completed Not Available Not Available Not Available levothyroxi ne 75 mcg tablet TAKE 1 TABLET BY MOUTH EVERY DAY active Not Available Not Available No t Available meloxicam 7.5 mg tablet 02/01 completed Not Available Not Available Not Available oxycodone-a cetaminophe n 5 mg-325 mg tablet 02/21 completed Not Available Not Available Not Available ziprasidone 20 mg capsule TAKE 1 CAPSULE BY MOUTH WITH FOOD TWICE DAILY FOR 30 DAYS 02/09 completed Not Available Not Available Not Available meclizine 25 mg tablet 01/17 completed Not Available Not Available Not Available benzonatate 100 mg capsule 02/15 completed Not Available Not Available Not Available levothyroxi ne 50 mcg tablet 02/01 completed Not Available Not Available Not Available hydrocodone 7.5 mg-acetamin ophen 325 mg tablet TAKE 1 TABLET BY MOUTH EVERY 6 HOURS FOR PAIN 12/22 completed Not Available Not Available Not Available cephalexin 500 mg capsule TAKE 1 CAPSULE BY MOUTH THREE TIMES A DAY FOR 7 DAYS 02/01 completed Not Available Not Available Not Available ferrous sulfate 325 mg (65 mg iron) tablet TAKE 1 TABLET BY MOUTH EVERY DAY 02/09 completed Not Available Not Available Not Available ranitidine 150 mg tablet 01/17 completed Not Available Not Available Not Available prednisone 50 mg tablet 01/17 completed Not Available Not Available Not Available zinc 25 mg tablet Take 1 tablet by mouth daily active Not Available Not Available No t Available losartan 25 mg tablet TAKE 1 TABLET BY MOUTH EVERY DAY 12/22 completed Not Available Not Available Not Available nicotine 21 mg/24 hr daily transdermal patch 02/01 completed Not Available Not Available Not Available diclofenac potassium 50 mg tablet 02/01 completed Not Available Not Available Not Available gabapentin 300 mg capsule TAKE 1 CAPSULE BY MOUTH THREE TIMES A DAY active Not Available Not Available No t Available omeprazole 20 mg capsule,del ayed release Take 1 capsule every day by oral route. active Not Available Not Available No t Available diclofenac sodium 75 mg tablet,james yed release 03/13 /2024 completed Not Available Not Available Not Available allopurinol 300 mg tablet TAKE 1 TABLET BY MOUTH ONCE DAILY FOR 90 DAYS 02/09 completed Not Available Not Available Not Available diclofenac sodium 50 mg tablet,james yed release 02/01 completed Not Available Not Available Not Available furosemide 20 mg tablet TAKE 1 TABLET BY MOUTH EVERY DAY active Not Available Not Available No t Available fluvoxamine 50 mg tablet 02/21 completed Not Available Not Available Not Available ziprasidone 40 mg capsule take 1 capsule by mouth twice daily w food active Not Available Not Available No t Available gabapentin 100 mg capsule TAKE 2 CAPSULES BY MOUTH EVERY MORNING 1 CAPSULE AT NOON & 2 AT BEDTIME 02/15 completed Not Available Not Available Not Available ergocalcife rol (vitamin D2) 1,250 mcg (50,000 unit) capsule TAKE 1 CAPSULE BY MOUTH ONE TIME PER WEEK active Not Available Not Available No t Available irbesartan 150 mg tablet TAKE 1 TABLET BY MOUTH EVERY DAY 02/01 completed Not Available Not Available Not Available lorazepam 1 mg tablet 02/01 completed Not Available Not Available Not Available ibuprofen 600 mg tablet 02/21 completed Not Available Not Available Not Available cefuroxime axetil 500 mg tablet TAKE 1 TABLET BY MOUTH EVERY 12 HOURS FOR 21 DAYS 12/22 completed Not Available Not Available Not Available levofloxaci n 500 mg tablet TAKE 1 TABLET BY MOUTH EVERY DAY FOR 7 DAYS 12/22 completed Not Available Not Available Not Available methylpredn isolone 4 mg tablets in a dose pack 02/01 completed Not Available Not Available Not Available albuterol sulfate HFA 90 mcg/actuati on aerosol inhaler INHALE 2 PUFFS BY MOUTH EVERY 4 HOURS NEEDED active Not Available Not Available No t Available colchicine 0.6 mg tablet 02/01 completed Not Available Not Available Not Available propranolol 20 mg tablet TAKE 1 TABLET BY MOUTH TWICE A DAY active Not Available Not Available No t Available oxybutynin chloride 5 mg tablet 02/21 completed Not Available Not Available Not Available ziprasidone 60 mg capsule 02/01 completed Not Available Not Available Not Available ondansetron 4 mg disintegrat ing tablet DISSOLVE 1 TABLET IN MOUTH EVERY 6 HOURS NEEDED FOR NAUSEA 02/09 completed Not Available Not Available Not Available cefdinir 300 mg capsule TAKE 1 CAPSULE BY MOUTH TWICE A DAY FOR 7 DAYS 02/01 completed Not Available Not Available Not Available Gabo Aspirin 325 mg tablet Take 1 tablet every day by oral route. active Not Available Not Available No t Available fluoxetine 20 mg capsule Take 1 capsule by mouth every day active Not Available Not Available No t Available doxycycline hyclate 100 mg tablet 02/15 completed Not Available Not Available Not Available irbesartan 300 mg tablet TAKE 1 TABLET BY MOUTH ONCE DAILY FOR 90 DAYS 02/15 completed Not Available Not Available Not Available naproxen 500 mg tablet TAKE 1 TABLET BY MOUTH TWICE A DAY WITH FOOD 02/01 completed Not Available Not Available Not Available spironolact one 50 mg tablet TAKE 1 TABLET BY MOUTH ONCE DAILY FOR 30 DAYS 02/09 completed Not Available Not Available Not Available metoclopram hina 10 mg tablet TAKE 1 TABLET BY MOUTH EVERY 6 HOURS NEEDED TAKE 30 MINUTES BEFORE MEALS AND AT BEDTIME 12/22 completed Not Available Not Available Not Available amoxicillin 875 mg-potassiu m clavulanate 125 mg tablet 02/01 completed Not Available Not Available Not Available Benadryl Allergy 25 mg tablet Take 1 tablet every 4 hours by oral route as needed. active Not Available Not Available No t Available Daily-Sariah tablet TAKE 1 TABLET BY MOUTH ONCE DAILY 02/01 completed Not Available Not Available Not Available valsartan 40 mg tablet Take 1 tablet every day by oral route. 2023 active Not Available Not Available Not Avai lable cyclobenzap rine 5 mg tablet TAKE 1 TABLET BY MOUTH THREE TIMES A DAY NEEDED FOR MUSCLE SPASM 02/09 completed Not Available Not Available Not Available rosuvastati n 40 mg tablet TAKE 1 TABLET BY MOUTH EVERY DAY active Not Available Not Available No t Available nitrofurant oin monohydrate /macrocryst als 100 mg capsule TAKE 1 CAPSULE BY MOUTH EVERY 12 HOURS FOR 7 DAYS active Not Available Not Available No t Available duloxetine 20 mg capsule,del ayed release Take 1 tablet by mouth twice daily active Not Available Not Available No t Available duloxetine 30 mg capsule,del ayed release 02/01 completed Not Available Not Available Not Available duloxetine 60 mg capsule,del ayed release 02/01 completed Not Available Not Available Not Available solifenacin 5 mg tablet 02/01 completed Not Available Not Available Not Available Excedrin Migraine active Not Available Not Available Not Available calcium 600 mg (as carbonate)- vitamin D3 10 mcg (400 unit) tablet TAKE 1 TABLET BY MOUTH TWICE A DAY 02/09 completed Not Available Not Available Not Available diclofenac 1 % topical gel TO AFFECTED AREA APPLY 4 GRAMS NEEDED TWICE DAILY 02/09 completed Not Available Not Available Not Available Mimvey 1 mg-0.5 mg tablet TAKE 1 TABLET BY MOUTH EVERY DAY 02/01 completed Not Available Not Available Not Available butalbital- acetaminoph en-caffeine 50 mg-300 mg-40 mg capsule TAKE 1 CAPSULE BY MOUTH EVERY 4 HOURS NEEDED FOR HEADACHE 02/09 completed Not Available Not Available Not Available Dulera 100 mcg-5 mcg/actuati on HFA aerosol inhaler TAKE 2 PUFFS BY MOUTH TWICE A DAY 02/01 completed Not Available Not Available Not Available Banophen 50 mg capsule 02/01 completed Not Available Not Available Not Available naloxone 4 mg/actuatio n nasal spray PLEASE SEE ATTACHED FOR DETAILED DIRECTION S active Not Available Not Available No t Available Fyavolv 1 mg-5 mcg tablet 02/09 completed Not Available Not Available Not Available fluticasone 113 mcg-salmete rol 14 mcg/actuati on breath activated powdr 02/01 completed Not Available Not Available Not Available magnesium 400 mg (as magnesium oxide) tablet Take 1 tablet by mouth daily active Not Available Not Available No t Available Daily-Sariah (with folic acid) 400 mcg tablet TAKE 1 TABLET BY MOUTH EVERY DAY 02/01 completed Not Available Not Available Not Available calcium 1,000 mg (as calcium carbonate 2,500 mg) effervescen t tablet Take 1 tablet by mouth daily active Not Available Not Available No t Available Inpefa 200 mg tablet TAKE 1 TABLET BY MOUTH EVERY DAY active Not Available Not Available No t Available Vitals Date Recorded Body height Body mass index (BMI) Body weight Heart rate Oxygen saturation Oxygen saturation in Arterial blood by Pulse oximetry Systolic blood pressure Diastolic blood pressure Provider Name and Address Organization Details Last Updated DateTime 4 162.56 cm 45.3 kg/m2 167839. 39 g 97 /min 97 % 97 % 120 mm[Hg] 72 mm[Hg] ALBAN Valentine [place] - [facility] 16:45:38 Date Recorded Body height Body mass index (BMI) Body weight Heart rate Oxygen saturation Oxygen saturation in Arterial blood by Pulse oximetry Systolic blood pressure Diastolic blood pressure Provider Name and Address Organization Details Last Updated DateTime 4 162.56 cm 46.6 kg/m2 299937. 69 g 77 /min 99 % 99 % 138 mm[Hg] 70 mm[Hg] Mariann Harmon MA [facility] 4 13:45:02 Date Recorded Body height Body mass index (BMI) Body weight Heart rate Oxygen saturation Oxygen saturation in Arterial blood by Pulse oximetry Systolic blood pressure Diastolic blood pressure Provider Name and Address Organization Details Last Updated DateTime 4 162.56 cm 48.4 kg/m2 839605. 05 g 84 /min 98 % 98 % 118 mm[Hg] 84 mm[Hg] Brandy Mesa MA [facility] 4 10:57:57 Date Recorded Body height Body mass index (BMI) Body weight Heart rate Oxygen saturation Oxygen saturation in Arterial blood by Pulse oximetry Systolic blood pressure Diastolic blood pressure Provider Name and Address Organization Details Last Updated DateTime 4 162.56 cm 47.7 kg/m2 126232. 6 g 111 /min 97 % 97 % 128 mm[Hg] 66 mm[Hg] Mariann Harmon MA [facility] 4 17:01:24 Date Recorded Body height Body mass index (BMI) Body weight Heart rate Oxygen saturation Oxygen saturation in Arterial blood by Pulse oximetry Systolic blood pressure Diastolic blood pressure Provider Name and Address Organization Details Last Updated DateTime 5 162.56 cm 49.1 kg/m2 674954. 06 g 92 /min 95 % 95 % 128 mm[Hg] 86 mm[Hg] Elen Carrion MA [facility] 5 11:16:55 Date Recorded Body height Body mass index (BMI) Body weight Heart rate Oxygen saturation Oxygen saturation in Arterial blood by Pulse oximetry Systolic blood pressure Diastolic blood pressure Provider Name and Address Organization Details Last Updated DateTime 5 162.56 cm 49.3 kg/m2 601982. 37 g 122 /min 95 % 95 % 142 mm[Hg] 102 mm[Hg] Niru Ferraro [place] [facility] 10:18:42 Social History Question Answer Notes LastModified by Organizat ion Details LastModified Time Tobacco Smoking Status Former Smoker Elen Carrion [facility] [place], [place] - [facility] 12/22/2024 11:20:30 Do You Have An Advance Directive? No Information n ot available 02/03/2017 Are You Blind Or Do You Have Difficulty Seeing? No Information n ot available 06/06/2024 Is Blood Transfusion Acceptable In An Emergency? Yes Information not available 02/03/2017 What Is Your Level Of Caffeine Consumption? Moderate Information not available 02/03/2017 How Much Tobacco Do You Chew? None Information not available 02/03/2017 In The 14 Days Before Symptom Onset, Have You Had Close Contact With A Laboratory-confirm ed COVID-19 While That Case Was Ill? No Information n ot available 06/06/2024 In The 14 Days Before Symptom Onset, Have You Had Close Contact With A Person Who Is Under Investigation For COVID-19 While That Person Was Ill? No Information not available 06/06/2024 Have You Been To An Area Known To Be High Risk For COVID-19? No Information not available 06/06/2024 Are You Deaf Or Do You Have Serious Difficulty Hearing? No Information not available 06/06/2024 What Type Of Diet Are You Following? REGULAR Information n ot available 02/03/2017 Which Illicit Or Recreational Drugs Have You Used? None Information not available 02/03/2017 Education 12 Information no t available 02/03/2017 Are There Any Guns Present In Your Home? No Information not available 06/06/2024 Live Alone Or With Others? With Others Information not available 02/03/2017 What Was The Date Of Your Most Recent Tobacco Screening? 01/30/2025 Information not available 01/30/2025 How Many Children Do You Have? 1 Information not available 02/03/2017 Performs Monthly Self-breast Exam? Yes Information no t available 02/03/2017 Do You Use Protection During Sex? Usually Information not available 02/03/2017 What Is Your Relationship Status? Information not available 02/03/2017 Do You Use Your Seat Belt Or Car Seat Routinely? Yes Information not available 06/06/2024 Seat Belts Used Routinely Yes Information not available 02/03/2017 Are You Sexually Active? Yes Information not available 02/03/2017 Do You Have Smoke And Carbon Monoxide Detectors In Your Home? Yes Information not available 06/06/2024 At What Age Did You Start Smoking Tobacco? 14 Information not available 02/03/2017 How Much Tobacco Do You Smoke? 0.5 PPD Information not available 02/03/2017 General Stress Level Low [email or web address] Information not available 02/02/2018 Do You Use Sunscreen Routinely? Yes Information not available 02/03/2017 Has Tobacco Cessation Counseling Been Provided? Yes [email or web address] Information not available 02/21/2019 On What Date Was Tobacco Cessation Counseling Provided? 01/30/2025 Information not available 01/30/2025 How Many Years Have You Smoked Tobacco? 22 Information not available 02/03/2017 Sex: Female Functional Status Question Answer Note LastModified by Organizat ion Details LastModified Time Do you use any illicit or recreational drugs? No Information not available 12/22/2024 Do you or have you ever used any other forms of tobacco or nicotine? No Information not available 12/22/2024 What is your level of alcohol consumption? None Information not available 02/03/2017 Do you or have you ever used smokeless tobacco? Never used smokeless tobacco Information not available 01/16/2020 Are you currently employed? Yes Information not available 02/03/2017 Are you able to care for yourself? 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 Never used electronic cigarettes Information not available 01/16/2020 What is your exercise level? Occasional Information not available 02/03/2017 Mental Status Question Answer Note LastModified by Organization D etails LastModified Time Do you feel stressed (tense, restless, nervous, or anxious, or unable to sleep at night)? [id number] Information not available 06/06/2024 Family History Relationship Description Onset Age of this Age Resolved Age Notes LastModified by Organization Details LastModified Time Mother Hypertensive disorder Not available 02/03 16:12:08 Medical History Condition Response Coronary Artery Disease N Other N High Blood Pressure Y Atrial Fibrillation N Breast Cancer N Lung Disease N Depression Y COPD Y Blood Clots N Breast Problem N Anesthesia Complications N Headaches/Migraines N Anxiety Disorder N Muscle, Joint, or Bone Problems N Infertility N Polyps N Acid Reflux (GERD) N Cancer N Stroke N Endometriosis N High Cholesterol N Liver Disease N Headaches Y Thyroid Problems Y Kidney or Bladder Problems N GI Problems N Acne N Eating Disorder N Skin Problems N Anemia N Heart Attack ([place]) N Diabetes N Ovarian Cancer N Blood Transfusions N Seizures/Epilepsy N Abuse/Domestic Violence N Asthma Y Allergies Y Hepatitis N Heart Disease N Pre-Eclampsia N Heart Failure N Osteoporosis N Gynecological History Statement/Question Response Abnormal Pap Y On BCP's at Conception? Y STIs/STDs N HPV Vaccine N Age at Menarche 9 Current Control Method Hysterectom y Age at First Child 2002 If Post Menopausal, Age at Menopause 23 Sexually Active? Y Menses Monthly N Date of Last Pap Smear 02/03/2017 Sexual Problems? N LMP Approximate Desired Control Method None Obstetrics History GPAL:G 1 P 1 0 0 1 Type Value Multiple Births 0 Full Term 1 Induced 0 Spontaneous 0 Premature 0 Living 1 Ectopics 0 Total 1 Immunizations Vaccine Type Date Status Note Provider Nam e and Address Organization Details Recorded Time COVID-19, mRNA, LNP-S, PF, 100 mcg/0.5mL dose or 50 mcg/0.25mL dose 1 completed [facility] [place], [place] - [facility] 12/22/2024 11:10:39 COVID-19, mRNA, LNP-S, PF, 100 mcg/0.5mL dose or 50 mcg/0.25mL dose 1 completed [facility] [place] [facility] 12/22/2024 11:10:39 COVID-19, mRNA, LNP-S, PF, 30 mcg/0.3 mL dose 1 [place] [facility] [place] [facility] 12/22/2024 11:10:39 pneumococcal polysaccharide PPV23 1 [place] [facility] [place] [facility] 12/22/2024 11:10:39 Tdap 2 completed [facility] [place] [facility] 12/22/2024 11:10:39 Influenza, split virus, quadrivalent, PF 1 completed [facility] [place] [facility] 12/22/2024 11:10:39 Past Encounters Encounter ID Performer Location Encounter Start Date Encounter Closed Date Diagnosis/Indication Diagnosis SNOMED-CT Code Diagnosis ICD10 Code Diagnosis Note [id number] MD Josep Chun ([employer]OD [employer]ANK TECHNICIAN) [address] [place] [address] [id number] 02/03/2017 15:02:05 02/04/2017 14:50:16 Gynecologic examination 52618544 Z01.419 Body mass index 40+ - severely obese 345104027 Z68.41 Essential hypertension 11002971 I10 COUNSELED ABOUT HTN. ADVISED TO GO TO ER.patient refused to go to ER. COUNSELED ABOUT RISK OF STROKE, CEREBRAL HEMORRHAGE , , [place] --ETC. SHE VERBALIZED UNDERSTAND ING. Smoker [id number] F17.200 Pain in pelvis 03567480 R10.2 COUNSELED ABOUT IT. Bacterial vaginosis 4197 83417 N76.0 [id number] MD Josep Chun ([employer]OOD BANK TECHNICIAN) [address] [place] [address] [id number] 02/22/2017 14:36:59 02/23/2017 16:32:50 Blood in urine 14023115 R31.9 Pain in pelvis 95832521 R10.2 d/w patient ultrasound result which is normal. Since pelvic pain improved will expectant management [id number] MD Josep Chun ([employer]OOD BANK TECHNICIAN) [address] [place] [address] [id number] 02/02/2018 15:39:15 02/03/2018 11:24:51 Gynecologic examination 65355764 Z01.419 Age appropriat e counseling done. s/p hysterecto my. Venereal d isease screening [id number] Z11.3 Patient refused. Morbid obesity 109164952 E66.01 Counseled About weight loss, diet and excercise. Patient refused plum packer consult. Bacterial vaginosis 4197 99029 N76.0 Counseled about it Microscopic hematuria 19 8264361 R31.21 Advised to f/u with PCP. Recently treated for UTI. [id number] Дмитрий Kwan MD [facility] (BLOOD BANK TECHNICIAN) [address] [place] [address] [phone] 02/21/2019 13:45:02 02/22/2019 12:50:57 Gynecologic examination 40622391 Z01.419 Age appropriat e counseling done. s/p hysterecto my. Screening mammography 24 872475 Z12.31 Venereal d isease screening 815678428 Z11.3 Patient refused blood work. Mixed urin alisha incontinence 881572721 N39.46 Counseled about it and kegel exercises. Patient say she is seeing urogyn and scheduled for surgery.Of fered oxybutynin for urge incontinen ce. Patient refused. Morbid obesity 164741262 E66.01 Counseled About weight loss, diet and excercise. Advised patient to f/u with plum packer. Cystocele 258481843 N81. 10 Counseled about it and kegel exercises. Patient say she is seeing urogyn and scheduled for surgery. [id number] MD Josep Chun (BLOOD BANK TECHNICIAN) [address] [place] [address] [phone] 03/01/2019 14:42:05 03/02/2019 13:13:07 Vaginal Papanicolaou smear unsatisfactory for evaluation [id number] 49623 R87.625 Counseled about it. Bacterial vaginosis 4196 06829 N76.0 Counseled about it. Candidiasis of vagina 72 309774 B37.3 Counseled about it. [id number] MD Josep Vasquez (BLOOD BANK TECHNICIAN) [address] [place] [address] [phone] 01/17/2020 15:19:07 01/17/2020 16:39:51 Screening mammography 12655436 Z12.31 Exposure t o sexually transmissible disorder 664693358 Z20.2 Bacterial vaginosis 4197 15063 N76.0 Morbid obesity 403583936 E66.01 Postsurgic al menopause 510652681 E89.41 [id number] MD Josep Thornton (Adult Med) [address] [place] [address] [phone] 02/10/2024 15:14:10 02/11/2024 12:59:14 Essential hypertension 81381709 I10 Screening mammography 24 267701 Z12.31 Screening for malignant neoplasm of colon 849379299 Z12.11 Hypothyroidism 67380582 E03.9 Obesity 942996871 E66.9 [id number] MD Josep Thornton (Adult Med) [address] [place] [address] [phone] 06/06/2024 13:23:37 06/06/2024 14:19:08 Essential hypertension 33197854 I10 Screening mammography 24 911969 Z12.31 Hypothyroidism 50586286 E03.9 Obesity 993531807 E66.8 Diabetes m ellitus screening 877993199 Z13.1 Smoker 63388278 F17.200 Chronic di astolic heart failure 819423731 I50.32 [id number] MD Josep Max (BLOOD BANK TECHNICIAN) [address] [place] [address] [phone] 07/20/2024 10:02:58 07/25/2024 12:05:30 Menopausal flushing 957323207 N95.1 Assessment :The patient is experienci ng menopausal flushing, and bupropion is being used as part of the management plan.Plan: -Continue taking bupropion 100 mg help manage menopausal flushing.- Follow up if the flushing persists or worsens.- Consider additional therapies if bupropion alone does not adequately control symptoms. Essential hypertension 27147497 I10 Assessment :The patient has a history of hypertensi on, currently managed with valsartan 40 mg daily. Today her BP is 118/84.Nomi n:- Continue taking valsartan 40 mg daily as prescribed .- Monitor your blood pressure regularly at home.- Continue with lifestyle changes, including a low-sodium diet and regular exercise.- Follow up with your primary care provider to ensure blood pressure remains controlled . Obesity 452945332 E66.9 Assessment :The patient has a history of obesity. Her BMI today is 48.4Plan:- Continue with lifestyle changes, focusing on diet and exercise to aid weight loss.- Consider seeing a nutritioni st or joining a weight management program.- Follow up regularly to monitor weight and any associated conditions . Hypothyroidism 91131381 E03.9 Assessment :The patient is on levothyrox ine 75 mcg for hypothyroi dism.Plan: -Continue taking levothyrox ine 75 mcg daily on an empty stomach.- Follow up with your primary care provider to adjust dosage if necessary. Anxiety 05544521 F41.9 Assessment :The patient is on bupropion, for anxiety. She reports decreased libido.Nomi n:- Continue taking bupropion 100 mg as prescribed .- Consider discussing with your psychiatri st or primary care provider if the decreased libido persists or worsens.- Follow up with mental health profession als regularly for medication management . Depressive disorder 3548 9007 F32.A Assessment :The patient is on doxepin, and duloxetine for depression . She reports decreased libido.Nomi n:- Continue taking bupropion 100 mg, doxepin 50 mg, and duloxetine 20 mg as prescribed .- Consider discussing with your psychiatri st or primary care provider if the decreased libido persists or worsens.- Follow up with mental health profession als regularly for medication management . Chronic ob structive pulmonary disease 45441114 J44.9 Assessment :The patient has a history of COPD and is using an albuterol inhaler for symptom management . Patient does not report shortness of breath or chest tightness today.Plan :- Continue using the albuterol inhaler as needed for shortness of breath or wheezing.- Avoid smoking and exposure to lung irritants. - Monitor your symptoms, and if you notice any increase in frequency or severity, follow up with your pulmonolog ist.- Consider regular follow-ups to evaluate your COPD management plan.- Consider Low dose chest CT Migraine with aura 27642 06 G43.109 Assessment :The patient has a history of migraine with aura.Plan: -Continue taking prescribed medication s for migraine prevention or treatment. - Avoid known triggers and manage stress levels.- Follow up if migraine frequency or severity increases. Cardiac arrhythmia 68102 7007 I49.9 Assessment : Patient has history of heart arrhythmia .Plan:- Continue healthy practice to manage your BP and body weight- Avoid smoking and any triggers that lead to cardiac problems Gynecologi c examination 79140056 Z01.419 Patient tolerated physical exam very well. Hyperlipidemia 11082437 E78.5 Assessment :The patient is on simvastati n 40 mg for hyperlipid emia.Plan: -Continue taking simvastati n 40 mg as prescribed .- Follow up with lipid panels as advised to monitor cholestero l levels.- Maintain a diet low in saturated fats and cholestero l. Perimenopausal state 912 9270965 93457 Z78.0 Assessment :Patient reports flushing, irritabili ty and night sweat.Plan :- Continue taking bupropion 100 mg as prescribed to help manage menopausal flushing.- Follow up with your gynecologi st or primary care provider if the flushing persists or worsens. At [facility] risk of sexually transmitted infection 960265207 Z20.2 Specimen collected for STD screen. Gastroesop hageal reflux disease 715481799 K21.9 Assessment :The patient is on omeprazole 20 mg for GERD. Patient is going to see GI and have colonoscop y in the upcoming appts.Plan :- Continue taking omeprazole 20 mg daily.- Avoid or minimize triggers like spicy foods, caffeine, and alcohol.- Follow up if symptoms of heartburn or reflux worsen. [id number] Kailee Bryant MD [facility] (Adult Med) [address] [place] [address] [phone] 10/10/2024 16:47:18 10/10/2024 17:16:47 Smoker 13882004 F17.200 Morbid obesity 533783945 E66.01 Bronchitis 84922282 J40 Essential hypertension 32817109 I10 Hypothyroidism 96473662 E03.9 [id number] MD Josep Thornton (Adult Med) [address] [place] [address] [phone] 01/30/2025 09:46:47 01/30/2025 11:08:47 Body mass index 40+ - severely obese 122243888 Z68.42 Severe obesity 597897323 1 9104 E66.01 Paresthesi a of lower extremity 983345716 R20.2 Screening for malignant neoplasm of colon 044251809 Z12.11 Essential hypertension 20329805 I10 Health Concerns Section Related Observation LastModified by Organization Detai ls LastModified Time None Recorded Concern Status LastModified by Organization Details LastModified Time None Recorded Advance Directives Directive N: Payers Encounter Date Sequence Insurance Name Policy Number Policy Crenshaw Covered Member ID Crenshaw Member ID Guarantor Name 02/10/2024 1 [facility] (MEDICAID HMO) [id number] Chel Fierro [id number] Chel Fierro 06/06/2024 1 [facility] (MEDICAID HMO) [id number] Chel Fierro [id number] Chel Fierro 07/20/2024 1 [facility] (MEDICAID HMO) [id number] Chel Fierro [id number] Chel Fierro 10/10/2024 1 [facility] (MEDICAID HMO) [id number] 0003 Chel Fierro [id number] Chel Fierro 01/30/2025 1 [facility] (MEDICAID HMO) [id number] Chel Fierro [id number] Chel Fierro Notes Date Note Type Note Provider Name and Address Organization Details Recorded Time 4 text/html Bronchitis. ER. Antibiotic steroids. Feeling better. Depression stable sees psychiatry. Headaches have been doing reasonably well. Hypertension no chest pain hypothyroid no heat or cold intolerance hypertension no chest pain no dizzy spells Kailee Bryant MD Attn: [address] [place], [address], [facility] 02/10/2024 21:01:36 4 text/html Several issues obesity struggles with weight diet is not that great. Smoking she still struggles with that. Diabetes she needs an A1c but her diet is poor hypothyroid some heat and cold intolerance need to check levels hypertension no headache no dizziness. Chronic diastolic heart failure she denies any chest pain or shortness of breath. She states her psychiatric issues are stable Kailee Bryant MD Attn: [address] [place], [address], [facility] 06/11/2024 13:23:34 4 text/html Chel is 43 year old woman with PMH of hypothyroidism, COPD, HTN, obesity, arrhythmia, and anxiety, depression, and migraine who comes for pap smear. Otherwise patient denies fevers, chills, headache, vision changes, chest pain, shortness of breath, diarrhea, blood in stool or blood in urine. Denies hx of kidney stones. She reports hot flashes, sweating, and irritability. HX of hysterectomy in 2000. mammogram done this year. Pap smear will be done today. She had mammogram also done this year. Patient had STD screening including HIV done in 2022. Patient intends to follow-up with GI and get colonoscopy done. Qian Roslaes MD Attn: [address] [place], [address], [facility] 07/25/2024 10:28:28 4 text/html cough congestion wheezing went to the emergency room Augmentin and prednisone she is feeling a lot better states she is not smokinghypertension no dizziness blood pressure looks goodobesity struggles can not get GLP 1. Hypothyroid no heat or cold intolerance Kailee Bryant MD Attn: [address] [place], [address], [facility] 10/10/2024 20:18:57 5 text/html she was given gabapentin and it works also she is up to b.i.d. on the propranolol Kailee Bryant MD Attn: [address] [place], [address], [facility] 01/30/2025 22:08:22 OBGyn Episode Ob Episode Information Episode Created Date Number of Fetuses Patient Bloodtype Patient rh Status Prepregnancy Weight lbs Domestic Partner Domestic Partner Phone Father Name Game Programer Status 02/04/20 17 1 CLOSED Fetus Data First Name Last Name Admitted to NICU Weight (g) Sex Living Outcome Pediatric Complications Fetus ID Race Codes Race Delivery Type 4365.82 3 M Full Term [id number] Vaginal Zack Calculation Initial Zack Date Initial Exam Date Initial Exam Provider Initial Ultrasound Date Last Menstrual Period Date Ultra Sound Weeks Gestation 0 Eighteen To Twenty Week Zack Update Ultra Sound Date Fundal Height At Umbil Quickening Date Ultra Sound Latest Weeks Gestation Final Zack Confirmed By Final Zack Confirmed Date Final Zack Date Ultra Sound Latest Days Gestation 0 0 Menstrual History Last Menstrual Date Menses Monthly On Bcp Conception Prior Menses Frequency Hcg Plus Date Menarche Onset Age Delivery Information Delivery Date Delivery Type Labor Anesthesia Weeks Gestation Incision Type Labor Labor Length Hrs Delivered By Post Complications Tubal Sterilization Discharge Date Comments 1 None 42 Discharge Information Feeding Method Contraceptive Method Maternal HG B and HCT Levels
--- OUTSIDE RECORDS SUMMARY | 2025-04-15 17:56 | XMS_ITS | CONTINUITY OF CARE DOCUMENT ---
Author Name joel maldonado Address Unknown Organization [facility] Address [address] [place] [address] Phone [phone] Care Team Providers Care Director Of Casework Name Role Phone Harsha LEGER, Ronald Unavailable KAILEE NICHOLE MD Unavailable KAILEE NICHOLE MD Unavailable PROBLEMS Condition Status Date Provider Notes Aortic atherosclerosis active Ronald Mcleod MD fatty liver active Ronald Mcleod MD PREDIABETES; active Ronald Mcleod MD Aortic regurgitation, mild active Ronald mejía MD Hypertriglyceridemia active Ronald Angeles IRON DEFICIENCY active Ronald Mcleod MD Depression, chronic active Ronald Mcleod MD HTN essential;NEG DUPLEX active Ronald perez MD Asthma completed - Ronald Mcleod MD Tobacco use, quit active Ronald Mcleod MD Obesity active Ronald Mcleod MD coudl no t get wegoby Hyperlipidemia;with high crp and neg lpa active Ronald Mcleod MD Hypothyroidism active Ronald Mcleod MD FAMILY HISTORY OF HEART DISEASE active Ronald Mcleod MD MOM HAS HEART D Z Migraine headaches active Ronald Mcleod MD SLEEP APNEA;on rx active Ronald Mcleod MD CAD completed - Ronald Mcleod MD Dyspnea on exertion completed - Ronald Mcleod MD Venous insufficiency active Ronald AGUIRREUNE BY IVUS OR VENOGRAM Screening active Ronald Mcleod MD cannot a ffored perry scxore, VITAMIN D DEFICIENCY;on rx active Ronald mejía MD Diastolic CHF active Ronald Mcleod MD COPD active Ronald Mcleod MD Macrocytosis active Ronald Mcleod MD ng b12 and folkate Exposure to SARS-associated coronavirus;neg swab and igg and had vaccine active Ronald Mcleod MD Long-term (current) use of other medications completed - Ronald Mcleod MD Pulmonary hypertension active Ronald Mcleod MD Neuropathy active Ronald Mcleod MD Renal disease, chronic, mild;neg us and duplex active Ronald Mcleod MD neg uacr had reaxaon to arb o n inpefa Sinus tachycardia active Ronald Mcleod MD t sh on rx ok on rx ventral hernia active Ronald Mcleod MD ENCOUNTERS Date Type Provider Location Encounter Diag nosis - In-person encounter Office Visit [facility] Renal disease, chronic, mild;neg us and duplex - In-person encounter Office Visit Ronald Mcleod MD [facility] ObesityScreeningRenal disease, chronic, mild;neg us and duplex - In-person encounter Office Visit Ronald Mcleod MD [facility] ventral hernia - In-person encounter Office Visit Ronald Mcleod MD [facility] CADScreeningDiastolic CHFRenal disease, chronic, mild;neg us and duplexSinus tachycardia - In-person encounter Office Visit Ronald Mcleod MD [facility] Tobacco use, quitDiastolic CHF - In-person encounter Office Visit Ronald Mcleod MD [facility] ScreeningDiastolic CHF - In-person encounter Office Visit Ronald Mcleod MD [facility] Tobacco use, quitDiastolic CHFMacrocytosis - In-person encounter Office Visit Ronald Mcleod MD [facility] - In-person encounter Office Visit Ronald Mcleod MD [facility] Renal disease, chronic, mild;neg us and duplex - In-person encounter Office Visit Ronald Mcleod MD [facility] Venous insufficiencyDiastolic CHFExposure to SARS-associated coronavirus;neg swab and igg and had vaccineLong-term (current) use of other medicationsPulmonary hypertensionNeuropathyRenal disease, chronic, mild;neg us and duplex - In-person encounter Office Visit Ronald Mcledo MD [facility] Screening - In-person encounter Office Visit Ronald Mcleod MD [facility] AsthmaTobacco use, quitSLEEP APNEA;on rxVenous insufficiencyCOPD - In-person encounter Office Visit Faheem Sandoval [facility] - In-person encounter Office Visit Faheem Sandoval [facility] - In-person encounter Office Visit Faheem Sandoval MD [facility] - In-person encounter Office Visit Ronald Mcleod MD [facility] CADDyspnea on exertionScreeningVITAMIN D DEFICIENCY;on rx - In-person encounter Office Visit Ronald Mcleod MD [facility] Depression, chronicHTN essential;NEG DUPLEXTobacco use, quitObesityHyperlipidemia;with high crp and neg lpaHypothyroidismFAMILY HISTORY OF HEART DISEASEMigraine headachesSLEEP APNEA;on rxCADVenous insufficiency VITAL SIGNS Date Observation Value Provider Body Mass Index (Ratio) 47.95 kg/m2 Ely Mcleod MD blood pressure, diastolic 87 mm[Hg] Carmelo cantu Last blood pressure, systolic 115 mm[Hg] Mya purcell Last blood pressure, cuff size regular Carmelo pepe Last oxygen saturation, oximetry 97 % [facility] Last pulse rate 116 /min [facility] Last weight E&M 279.4 [lb_av] [facility] Last height E&M 64 [in_i] [facility] Last Body Mass Index (Ratio) 46.68 kg/m2 Ely Mcleod MD blood pressure, diastolic 90 mm[Hg] Mary nkLog blood pressure, systolic 122 mm[Hg] Ayah kLog blood pressure, cuff size large Brad chakraborty Arion oxygen saturation, oximetry 99 % [facility] pulse rate 89 /min Eleni Moa blood pressure, diastolic 90 mm[Hg] Ta paulha Mao blood pressure, systolic 122 mm[Hg] Tab itha Arion weight E&M 272 [lb_av] Eleni Mao respiratory rate E&M 12 /min Eleni Mao height E&M 64 [in_i] [facility] (Ratio) 47.37 kg/m2 Ely Mcleod MD blood pressure, diastolic 86 mm[Hg] Ja rret blood pressure, systolic 117 mm[Hg] Jar ret pulse rate 85 /min Jeff y blood pressure, cuff size regular Tom rret oxygen saturation, oximetry 97 % Jeff respiratory rate E&M 16 /min Jeff weight E&M 276 [lb_av] Jeff er y height E&M 64 [in_i] Jeff y Body Mass Index (Ratio) 46.86 kg/m2 Ely Mcleod MD blood pressure, diastolic 87 mm[Hg] Li nkLogic blood pressure, systolic 115 mm[Hg] Ayah kLogic blood pressure, cuff size regular Ja rret blood pressure, diastolic 87 mm[Hg] Ja rret blood pressure, systolic 115 mm[Hg] Jar ret pulse rate 116 /min Jeff oxygen saturation, oximetry 95 % Jeff respiratory rate E&M 16 /min Jeff weight E&M 273 [lb_av] Jeff height E&M 64 [in_i] Jeff y Body Mass Index (Ratio) 44.80 kg/m2 Ely Mcleod MD blood pressure, diastolic 90 mm[Hg] Li Logic blood pressure, systolic 118 mm[Hg] Ayah pulse rate 89 /min Jeff blood pressure, cuff size large Ja rret blood pressure, diastolic 90 mm[Hg] Ja rret blood pressure, systolic 118 mm[Hg] Jar ret respiratory rate E&M 16 /min Jeff oxygen saturation, oximetry 97 % Jeff weight E&M 261 [lb_av] Jeff y height E&M 64 [in_i] Jeff erda y Body Mass Index (Ratio) 42.91 kg/m2 Ely Mcleod MD weight E&M 250 [lb_av] Ronald Angeles blood pressure, diastolic 90 mm[Hg] Louie Mcleod MD blood pressure, systolic 140 mm[Hg] Antwan susu Mcleod MD Body Mass Index (Ratio) 43.42 kg/m2 Ely Mcleod MD blood pressure, diastolic 77 mm[Hg] Te ri Loving blood pressure, systolic 97 mm[Hg] Ter i [place] oxygen saturation, oximetry 96 % Phoebe [place] respiratory rate E&M 16 /min Phoebe Pi [facility] pulse rate, standing 96 /min Phoebe Pi [facility] weight E&M 253 [lb_av] Phoebe [place] Body Mass Index (Ratio) 32.95 kg/m2 Ely Mcleod MD blood pressure, diastolic 74 mm[Hg] Tr adam Lawrence blood pressure, systolic 98 mm[Hg] Try madai Lawrence oxygen saturation, oximetry 98 % Amarilys [place] respiratory rate E&M 18 /min [facility] pulse rate 95 /min [facility] Lawrence weight E&M 192 [lb_av] Amarilys Lawrence height E&M 64 [in_i] Amarilys Lawrence Body Mass Index (Ratio) 50.97 kg/m2 Ely Mcleod MD blood pressure, cuff size large Ke rri Nadya blood pressure, diastolic 72 mm[Hg] Ke rri Gomezuenesandra blood pressure, systolic 110 mm[Hg] Pierre ri Nadya oxygen saturation, oximetry 93 % Qian [place] respiratory rate E&M 16 /min Qian vaughan pulse rate 88 /min Qian Dontae luis weight E&M 297 [lb_av] Qian Gruenenfe lder height E&M 64 [in_i] Qian Gruenenfe lder Body Mass Index (Ratio) 50.63 kg/m2 Ely Mcleod MD blood pressure, cuff size large Ke rri Gruenenfelder blood pressure, diastolic 90 mm[Hg] Ke rri Gruenenfelder blood pressure, systolic 130 mm[Hg] Ker ri Gruenenfelder oxygen saturation, oximetry 97 % Qian Gruenenfelder respiratory rate E&M 16 /min Qian G ruenenfelder pulse rate 91 /min Qian Gruenenfe lder weight E&M 295 [lb_av] Qian Gruenenfe lder height E&M 64 [in_i] Qian Gruenenfe lder Body Mass Index (Ratio) 49.94 kg/m2 Ely Mcleod MD blood pressure, cuff size large Ke rri Gruenenfelder blood pressure, diastolic 100 mm[Hg] Ke rri Gruenenfelder blood pressure, systolic 150 mm[Hg] Ker ri Gruenenfelder oxygen saturation, oximetry 96 % Qian Gruenenfelder respiratory rate E&M 16 /min Qian G ruenenfelder pulse rate 100 /min Qian Gruenenfe lder weight E&M 291 [lb_av] Qian Gruenenfe lder height E&M 64 [in_i] Qian Gruenenfe lder Body Mass Index (Ratio) 43.77 kg/m2 Joie Sandoval MD blood pressure, diastolic 70 mm[Hg] Sunil Nguyen blood pressure, systolic 108 mm[Hg] Ashlee Nguyen blood pressure, cuff size regular Cy misbah Nguyen pulse rate 88 /min Katherine marquez respiratory rate E&M 18 /min Katherine Nguyen oxygen saturation, oximetry 92 % Katherine Nguyen weight E&M 255 [lb_av] Katherine marquez height E&M 64 [in_i] Katherine marquez Body Mass Index (Ratio) 49.43 kg/m2 Joie Sandoval MD respiratory rate E&M 16 /min [facility] blood pressure, diastolic 88 mm[Hg] [facility], [facility] 133 mm[Hg] Ton [facility] oxygen saturation, oximetry 94 % [facility] pulse rate 88 /min [facility] weight E&M 288 [lb_av] [facility] height E&M 64 [in_i] [facility] Body Mass Index (Ratio) 49.43 kg/m2 Joie Sandoval MD blood pressure, diastolic 74 mm[Hg] Leonel Marcus blood pressure, systolic 128 mm[Hg] Sandra Marcus oxygen saturation, oximetry 98 % Melinda Marcus pulse rate 74 /min Melinda Hendricks weight E&M 288 [lb_av] Melinda Hendricks height E&M 64 [in_i] Melinda Hendricks weight E&M 289 [lb_av] Carolann More Body Mass Index (Ratio) 49.26 kg/m2 Ely Mcleod MD blood pressure, diastolic 80 mm[Hg] Rogers Vazquez blood pressure, systolic 130 mm[Hg] Miguel Vazquez pulse rate 121 /min Suni Marsh oxygen saturation, oximetry 96 % Suni respiratory rate E&M 17 /min Suni blood pressure, cuff size regular Rogers baldwin weight E&M 287 [lb_av] Suni height E&M 64 [in_i] Suni blood pressure, diastolic 98 mm[Hg] Libby reagan blood pressure, systolic 130 mm[Hg] Samra naranjo Body Mass Index (Ratio) 49.60 kg/m2 Ely Mcleod MD blood pressure, diastolic 70 mm[Hg] [facility], systolic 120 mm[Hg] Shaggy rojas Mode oxygen saturation, oximetry 97 % [facility] respiratory rate E&M 20 /min [facility] pulse rate 86 /min [facility] blood pressure, resting Yes Kill servando Mode weight E&M 289 [lb_av] [facility] height E&M 64 [in_i] [facility] ALLERGIES Allergy Name Onset Date Reaction Criticality Status COZAAR itch Low Criticality active METFORMIN HCL low sugar Low Criticality active NORVASC edema edema Low Criticality active IBUPROFEN Edema of feet Low Criticality active RESULTS Date Observation Value Provider Reference Range Interpretation Location rapid plasma reagin antibody screen Non Reactive Link[facility] Non Reactive folate, serum 12.3 ng/mL [facility] >3.0 hemoglobin A1C, blood, as % of total hemoglobin 5.5 % [facility] 4.8-5.6 microalbumin/creatin ine ratio, urine 40 MG/G CREAT [facility] 0-29 High microalbumin, random, urine 2.99 mg/dL [facility] Units converted. See lab report for original value. creatinine, random, urine 75.6 mg/dL [facility] Not Estab. ferritin, serum 106 ng/mL [facility] 15-150 pro brain natriuretic peptide 103 pg/mL [facility] 0-130 c-reactive protein, quantitative, serum 6.62 mg/L [facility] 0.00-3.00 High iron saturation percent, serum 20 % [facility] 15-55 iron, serum 77 ug/dL [facility] 27-159 iron binding capacity, unsaturated 310 ug/dL [facility] 416-152 6029/03/ 26 iron binding capacity, total 387 ug/dL [facility] 425-651 8064/03/ 26 free thyroxine index 1.6 [facility] 1.2-4.9 triiodothyronine resin uptake 24 % [facility] 24-39 thyroxine, serum, total 6.7 ug/dL [facility] 4.5-12.0 thyroid stimulating hormone, serum 4.050 u[IU]/mL [facility] 0.450-4.500 basophil count, absolute 0.0 x10E3/uL [facility] 0.0-0.2 Eosinophil Absolute Count 0.3 X10E3/UL [facility] 0.0-0.4 monocyte count, blood, automated 0.4 X10E3/UL [facility] 0.1-0.9 lymphocyte count, blood, automated 2.6 X10E3/UL [facility] 0.7-3.1 Absolute Neutrophils 3.3 X10E3/UL [facility] 1.4-7.0 basophils as percent of blood leukocytes 0 % [facility] Not Estab. eosinophils as percent of blood leukocytes 5 % [facility] Not Estab. monocytes as percent of blood leukocytes 6 % [facility] Not Estab. lymphocytes as percent of blood leukocytes 39 % [facility] Not Estab. neutrophils as percent of blood leukocytes 50 % [facility] Not Estab. platelet count 214 X10E3/UL [facility] [phone]/03/ 26 red blood cell distribution width 13.7 % [facility] 11.7-15.4 mean corpuscular hemoglobin concentration, RBC 34.9 G/DL [facility] 31.5-35.7 mean corpuscular hemoglobin, RBC 34.1 pg [facility] 26.6-33.0 High mean corpuscular volume, RBC 98 fL [facility] 79-97 High hematocrit, blood 45.0 % [facility] 34.0-46.6 hemoglobin, blood 15.7 g/dL [facility] 11.1-15.9 erythrocyte (RBC) count 4.60 X10E6/UL [facility] 3.77-5.28 leukocyte count, blood 6.6 X10E3/UL [facility] 3.4-10.8 prothrombin time (patient) 10.2 s [facility] 9.1-12.0 international normalized ratio (INR) 1.0 [facility] 0.9-1.2 lipoprotein, beta, serum, point, quantitative, calculated 65 mg/dL [facility] 0-99 HDL cholesterol, serum 28 mg/dL [facility] >39 Low triglyceride, serum, random 362 mg/dL [facility] 0-149 High cholesterol, serum 150 mg/dL [facility] [phone]/03/ 26 alanine aminotransferase (SGPT), serum 20 1/L [facility] 0-32 aspartate aminotransferase (SGOT), serum 19 1/L [facility] 0-40 alkaline phosphatase, serum 51 1/L [facility] 39-117 bilirubin, serum, total 0.3 mg/dL [facility] 0.0-1.2 albumin/globulin ratio, serum 2.0 [facility] 1.2-2.2 globulin, serum 2.1 [facility] 1.5-4.5 albumin, serum 4.2 g/dL [facility] 3.8-4.8 protein, total, serum 6.3 g/dL [facility] 6.0-8.5 calcium, serum 9.4 mg/dL [facility] 8.7-10.2 carbon dioxide, venous blood 27 mmol/L [facility] 20-29 chloride, serum 100 mmol/L [facility] 96-106 potassium, serum 4.4 mmol/L [facility] 3.5-5.2 sodium, serum 142 mmol/L [facility] 344-044 3996/03/ 26 urea nitrogen/creatinine ratio, serum 14 [facility] 9-23 eGFR if 69 mL/min/{1.7 3_m2} [facility]ic >59 eGFR if not 59 mL/min/{1.7 3_m2} Link[facility]ic >59 Low creatinine, serum 1.14 mg/dL [facility]ic 0.57-1.00 High urea nitrogen, blood 16 mg/dL Link[facility]ic 6-24 blood glucose, random 93 mg/dL [facility] 65-99 pro brain natriuretic peptide 24 pg/mL [facility] 0-130 D-dimer quantitative mcg/mL 0.31 MG/L FEU Link[facility]ic 0.00-0.49 microalbumin/creatin ine ratio, urine 5.5 MG/G CREAT [facility] 0.0-30.0 microalbumin, random, urine 0.34 mg/dL [facility] Units converted. See lab report for original value. creatinine, random, urine 61.3 mg/dL [facility] Not Estab. ferritin, serum 72 ng/mL [facility] 15-150 B-12, serum 472 pg/mL [facility] 232-1245 iron saturation percent, serum 22 % [facility] 15-55 iron, serum 86 ug/dL [facility] 27-159 iron binding capacity, unsaturated 309 ug/dL [facility] [phone]/07/ 19 iron binding capacity, total 395 ug/dL [facility] [phone]/07/ 19 hemoglobin A1C, blood, as % of total hemoglobin 5.9 % [facility] 4.8-5.6 High free thyroxine index 1.3 [facility] 1.2-4.9 triiodothyronine resin uptake 20 % [facility] 24-39 Low thyroxine, serum, total 6.5 ug/dL [facility] 4.5-12.0 thyroid stimulating hormone, serum 5.290 u[IU]/mL [facility]ic 0.450-4.500 High lipoprotein, beta, serum, point, quantitative, calculated 71 mg/dL [facility] 0-99 very low density lipoproteins 78 mg/dL [facility] 5-40 High HDL cholesterol, serum 35 mg/dL [facility]ic >39 Low triglyceride, serum, random 389 mg/dL [facility] 0-149 High cholesterol, serum 184 mg/dL [facility] [phone]/07/ 19 basophil count, absolute 0.0 x10E3/uL [facility] 0.0-0.2 Eosinophil Absolute Count 0.3 X10E3/UL [facility] 0.0-0.4 monocyte count, blood, automated 0.2 X10E3/UL [facility] 0.1-0.9 lymphocyte count, blood, automated 2.1 X10E3/UL [facility] 0.7-3.1 Absolute Neutrophils 2.6 X10E3/UL [facility] 1.4-7.0 basophils as percent of blood leukocytes 0 % [facility] Not Estab. eosinophils as percent of blood leukocytes 6 % [facility] Not Estab. monocytes as percent of blood leukocytes 4 % [facility] Not Estab. lymphocytes as percent of blood leukocytes 39 % [facility] Not Estab. neutrophils as percent of blood leukocytes 51 % [facility] Not Estab. platelet count 205 X10E3/UL [facility] 111-066 6547/07/ 19 red blood cell distribution width 13.9 % [facility] 12.3-15.4 mean corpuscular hemoglobin concentration, RBC 33.5 G/DL [facility] 31.5-35.7 mean corpuscular hemoglobin, RBC 32.2 pg [facility] 26.6-33.0 mean corpuscular volume, RBC 96 fL [facility] 79-97 hematocrit, blood 43.9 % [facility] 34.0-46.6 hemoglobin, blood 14.7 g/dL [facility] 11.1-15.9 erythrocyte (RBC) count 4.57 X10E6/UL [facility] 3.77-5.28 leukocyte count, blood 5.2 X10E3/UL [facility] 3.4-10.8 alanine aminotransferase (SGPT), serum 39 1/L [facility] 0-32 High aspartate aminotransferase (SGOT), serum 21 1/L [facility] 0-40 alkaline phosphatase, serum 50 1/L [facility] 39-117 bilirubin, serum, total <0.2 mg/dL [facility] 0.0-1.2 albumin/globulin ratio, serum 2.3 [facility] 1.2-2.2 High globulin, serum 2.0 [facility] 1.5-4.5 albumin, serum 4.5 g/dL [facility] 3.5-5.5 protein, total, serum 6.5 g/dL [facility] 6.0-8.5 calcium, serum 9.6 mg/dL [facility] 8.7-10.2 carbon dioxide, venous blood 25 mmol/L [facility] 20-29 chloride, serum 100 mmol/L [facility] 96-106 potassium, serum 4.1 mmol/L [facility] 3.5-5.2 sodium, serum 143 mmol/L [facility] [phone]/07/ 19 urea nitrogen/creatinine ratio, serum 10 [facility] 9-23 eGFR if 80 mL/min/{1.7 3_m2} Link[facility]ic >59 eGFR if not 69 mL/min/{1.7 3_m2} [facility]ic >59 creatinine, serum 1.02 mg/dL [facility] 0.57-1.00 High urea nitrogen, blood 10 mg/dL [facility] 6-24 blood glucose, random 108 mg/dL [facility] 65-99 High HISTORY OF MEDICATION USE Medication Status Instructions Dates Provider Indications Com ments albuterol sulfate 90 mcg/actuation HFA aerosol inhaler active Ronald Mcleod MD propranolol 20 mg tablet active TAKE 1/2 TABLET BY MOUTH TWICE A DAY Jose Armendariz rosuvastatin 40 mg tablet active Ronald Mcleod MD Crestor 40 mg tablet completed TAKE 1 TABLET BY MOUTH EVERY DAY 07/18 - 08/04 Ronald Shipmangovy 0.25 mg/0.5 mL pen injector completed Inject 1/4 mg subcutaneously once a week 07/18 - 08/04 Ronald Mcleod MD Inpefa 200 mg tablet active Take 1 tablet by mouth once a day 07/18 Ronald Mcelod MD tramadol 50 mg tablet completed 1 tablet every six hours for pain 07/07 - 08/04 Ronald Mcleod MD hydrocodone-acet aminophen 10-325 mg tablet active Take 1 tablet by mouth every six hours for pain 06/19 Ronald Mcleod MD tramadol 50 mg tablet completed TAKE 1 TABLET BY MOUTH EVERY 8 HOURS NEEDED 05/03 - 06/16 Ronald Mcleod MD Jardiance 10 mg tablet completed TAKE 1 TABLET BY MOUTH EVERY DAY 04/06 - 04/06 Ronald Mcleod MD simvastatin 40 mg tablet completed TAKE 1 TABLET BY MOUTH EVERY DAY 04/06 - 07/18 Ronald Mcleod MD hydrocodone-acet aminophen 7.5-325 mg tablet completed Take 1 tablet by mouth every six hours for pain 02/01 - 06/19 Ronald Mcleod MD propranolol 20 mg tablet completed Take 1/2 (one-half) tablet by mouth twice daily 01/18 - Jose Armendariz hydrocodone-acet aminophen 7.5-325 mg tablet completed Take 1 1/2 tablet by mouth every four hours as needed 12/21 - 02/01 Ronald Mcleod MD losartan 25 mg tablet completed Take 1 tablet by mouth once a day 12/21 - 08/04 Ronald Mcleod MD fluoxetine 20 mg capsule active Ronald Mcleod MD aspirin 81 mg tablet,delayed release (DR/EC) active TAKE 1 TABLET BY MOUTH EVERY DAY 01/09 Qian Covington ergocalciferol (vitamin D2) 1,250 mcg (50,000 unit) capsule active TAKE 1 CAPSULE BY MOUTH ONE TIME PER WEEK 01/06 Adrienne Rushing aspirin 81 mg tablet,delayed release (DR/EC) completed Take 1 tablet by mouth once a day TAKE 1 TABLET BY MOUTH EVERY DAY 12/17 - 01/09 Qian Covington Farxiga 10 mg tablet completed 1 tablet by mouth once a day 08/19 - 12/21 Ronald Mcleod MD Jardiance 10 mg tablet completed 1 tablet by mouth once a day 04/17 - 08/19 Ronald Mcleod MD ferrous sulfate 325 mg (65 mg iron) tablet completed TAKE 1 TABLET BY MOUTH EVERY DAY 02/26 - 12/21 Ronald Mcleod MD ergocalciferol (vitamin D2) 1,250 mcg (50,000 unit) capsule completed TAKE 1 CAPSULE BY MOUTH EVERY WEEK 02/26 - 01/06 Adrienne Rushing calcium carbonate-vitami n D3 600 mg-10 mcg (400 unit) tablet completed TAKE 1 TABLET BY MOUTH TWICE A DAY 02/10 - 12/21 Ronald Mcleod MD Daily-Sariah (with folic acid) 400 mcg tablet completed TAKE 1 TABLET BY MOUTH EVERY DAY 02/10 - 12/21 Ronald Mcleod MD irbesartan 300 mg tablet completed TAKE 1 TABLET BY MOUTH EVERY DAY 01/07 - 12/21 Ronald Mcleod MD spironolactone 25 mg tablet completed TAKE 1 TABLET BY MOUTH EVERY DAY 01/07 - 01/04 Ronald Mcleod MD furosemide 20 mg tablet completed TAKE 1 TABLET BY MOUTH ONCE DAILY NEEDED 01/07 - 12/21 Ronald Mcleod MD aspirin 81 mg tablet,delayed release (DR/EC) completed TAKE 1 TABLET BY MOUTH EVERY DAY 12/31 - 12/17 Phoebe Loving tramadol 50 mg tablet completed TAKE 1 TABLET BY MOUTH EVERY 6 HOURS NEEDED 01/11 - 12/21 Ronald Mcleod MD hydrocodone-acet aminophen 7.5-325 mg tablet completed Take 1 1/2 tablet by mouth every four hours as needed 11/26 - 12/21 Ronald Mcleod MD Vicodin HP 10-300 mg tablet completed Take 1 tablet by mouth three times a day as needed 11/25 - 11/26 Ronald Mcleod MD gabapentin 300 mg capsule completed - 12/21 Ronald Mcleod MD tramadol 50 mg tablet completed Take 2 tablet by mouth every six hours as needed for pain 08/02 - 01/11 Ronald Mcleod MD tramadol 100 mg tablet completed Take 1 tablet by mouth every six hours as needed for pain 07/24 - 08/02 Ronald Mcleod MD Daily-Sariah (with folic acid) 400 mcg tablet completed - 02/10 Ronald Mcleod MD duloxetine 30 mg capsule,delayed release(DR/EC) active Ronald Mcleod MD ziprasidone HCl 20 mg capsule completed - 04/17 Ronald Mcleod MD triamcinolone acetonide 0.1% cream completed APPLY 1 APPLICATION ONTO THE RASH ONCE DAILY - 12/21 Ronald Mcleod MD multivitamin tablet completed - 08/19 Ronald Mcleod MD ziprasidone HCl 60 mg capsule active Ronald Mcleod MD gabapentin 100 mg capsule completed - 11/24 Ronald Mcleod MD sumatriptan succinate 50 mg tablet completed - 11/24 Ronald Mcleod MD doxepin 75 mg capsule completed - 12/21 Ronald Mcleod MD tramadol 50 mg tablet completed Take 1 tablet by mouth every six hours as needed 07/10 - 07/24 Ronald Mcleod MD Aldactone 25 mg tablet completed 1 tablet by mouth once a day 03/27 - 01/07 Ronald Mcleod MD allopurinol 300 mg tablet completed Take 1 tablet by mouth once a day 01/16 - 12/21 Ronald Mcleod MD #30, 30 days supply, Prescribed by KAILEE NICHOLE, Filled 01/18/2021 Mimvey 1-0.5 mg tablet completed Take 1 tablet by mouth once a day 01/20 - 01/04 Ronald Mcleod MD #28, 28 days supply, Prescribed by ALEX HERNÁNDEZ, Filled 01/20/2021 Calcium with Vitamin D 600 mg-10 mcg (400 unit) tablet completed Take 1 tablet by mouth twice a day 01/23 - 02/10 Ronald Mcleod MD #60, 30 days supply, Prescribed by ALEX HERNÁNDEZ, Filled 01/23/2021 DULERA 100-5 MCG/ACT INHALATION AEROSOL completed INHALE 2 PUFFS BY MOUTH TWICE A DAY 11/25 - 07/02 Qian Covington #13, 30 days supply, Prescribed by CANDELARIO DIETRICH, Filled 01/24/2021 MELOXICAM 15 MG ORAL TABLET completed TAKE 1 TABLET BY MOUTH EVERY DAY NEEDED 01/28 - 07/02 Qian [place] #30, 30 days supply, Prescribed by KAILEE NICHOLE, Filled 01/28/2021 furosemide 20 mg tablet completed Take 2 tablet by mouth once a day as directed 01/31 - 01/07 Ronald Mcleod MD #30, 30 days supply, Prescribed by KAILEE NICHOLE, Filled 02/01/2021 aspirin 81 mg tablet,delayed release (/EC) completed Take 1 tablet by mouth once a day 05/31 - 12/31 Fernando Leos irbesartan 300 mg tablet completed 1/2 tablet by mouth once a day 02/10 - 01/07 Ronald Mcleod MD AVAPRO 150 MG ORAL TABLET completed ONE TAB. DAILY - 07/02 Qian Covington COLCHICINE 0.6 MG ORAL TABLET completed one tab twice daily 07/03 - 07/02 Qian Covington LOSARTAN POTASSIUM 50 MG ORAL TABLET completed Take one tablet daily 06/22 - 02/12 Ronald Mcleod MD metformin 500 mg tablet completed Take 1 by mouth once a day 06/01 - 04/17 Qian Covington ferrous sulfate 325 mg (65 mg iron) tablet completed Take 1 tablet by mouth once a day 05/31 - 07/24 Ronald Mcleod MD ergocalciferol (vitamin D2) 1,250 mcg (50,000 unit) capsule completed Take 1 capsule by mouth once a week 04/04 - 02/26 Fernando Leos ASPIRIN ADULT LOW DOSE 81 MG ORAL TABLET DELAYED RELEASE completed One Tab By Mouth Daily 06/08 - Ronald Mcleod MD ziprasidone HCl 80 mg capsule completed take 20 in am 80 at bedtime 06/08 - 07/24 Katherine Nguyen fluoxetine 20 mg capsule completed Take 3 capsule by mouth once a day 06/08 - 11/24 Ronald Mcleod MD doxepin 50 mg capsule completed Take 1 capsule by mouth every night 06/08 - 07/24 Ronald Mcleod MD Ventolin HFA 90 mcg/actuation HFA aerosol inhaler completed Take 2 puff by mouth every four hours 03/02 - 07/24 Ronald Mcleod MD #18, 25 days supply, Prescribed by KAILEE NICHOLE, Filled 04/01/2019 AMLODIPINE BESYLATE 5 MG ORAL TABLET completed TAKE 1 TABLET BY MOUTH EVERY DAY 03/07 - 06/22 Ronald Mcleod MD #30, 30 days supply, Prescribed by KAILEE NICHOLE, Filled 04/02/2019 omeprazole 20 mg capsule,delayed release(DR/EC) active Take 1 capsule by mouth once a day 05/01 Ronald Mcleod MD #30, 30 days supply, Prescribed by KAILEE NICHOLE, Filled 05/19/2019 simvastatin 40 mg tablet completed Take 1 tablet by mouth once a day 05/01 - 04/06 Ronald Mcleod MD #30, 30 days supply, Prescribed by KAILEE NICHOLE, Filled 05/28/2019 propranolol 20 mg tablet completed Take 1/2 tablet by mouth twice a day 05/01 - 01/18 Dinora Leone #60, 30 days supply, Prescribed by KAILEE NICHOLE, Filled 05/28/2019 meclizine 25 mg tablet completed Take 1 tablet by mouth every six hours as needed 05/28 - 12/21 Ronald Mcleod MD #120, 30 days supply, Prescribed by IBRAHIMA GOMEZ, Filled 05/28/2019 levothyroxine 75 mcg tablet active Take 1 tablet by mouth once a day 05/31 Ronald Mcleod MD BUTALBITAL-ASPIR IN-CAFFEINE 50-325-40 MG ORAL CAPSULE completed TAKE 1 TO 2 CAPSULES BY MOUTH EVERY 4 HOURS NEEDED 05/28 - 07/02 Qian C[place] #24, 2 days supply, Prescribed by IBRAHIMA GOMEZ, Filled 05/28/2019 ipratropium-albu terol 0.5 mg-3 mg(2.5 mg base)/3 mL solution for nebulization completed Inhale 1 vial four times a day 04/19 - 08/19 Ronald Mcleod MD #360, 30 days supply, Prescribed by KAILEE NICHOLE, Filled 05/31/2019 SOCIAL HISTORY Date Observation Value Provider drug use no Ronald Serota M D alcohol use no Ronald Serota M D passive cigarette sm stella exposure no Ronald Mcleod MD chewing tobacco use Former Ronald sadler MD number of years as a smoker 30 a Ronald Mcleod MD smoking, date started 20 Ronald Mcleod MD smoking history, tot al pack/year 2000 Ronald Mcleod MD smoking history, tot al pack/day 1/2 ppd Ronald Serotjl LEGER cigarette use yes Ronald Serotjl LEGER smoking status Former smoker Ronald parikh MD drug use no Ronald Serota M D alcohol use no Ronald Serota M D passive cigarette sm stella exposure no Ronald Mcleod MD chewing tobacco use Former Ronald sadler MD number of years as a smoker 30 a Ronald Mcleod MD smoking, date started 20 Ronald Mcleod MD smoking history, tot al pack/year 2000 Ronald Mcleod MD smoking history, tot al pack/day 1/2 ppd Ronald Mcleod MD cigarette use yes Ronald Mcleod MD smoking status Former smoker Ronald parikh MD drug use no Ronald Serota M D alcohol use no Ronald Serota M D passive cigarette sm stella exposure no Ronald Serota chewing tobacco use Former Ronald sadler MD number of years as a smoker 30 a Ronald Mcleod MD smoking, date started 20 Ronald Mcleod MD smoking history, tot al pack/year 2000 Ronald Mcleod MD smoking history, tot al pack/day 1/2 ppd Ronald Mcleod MD cigarette use yes Ronald Mcleod MD smoking status Former smoker Ronald parikh MD drug use no Ronald Serota Kris D alcohol use no Ronald Serota Kris [place] passive cigarette sm stella exposure no Ronald Mcleod MD chewing tobacco use Former Ronald sadler MD number of years as a smoker 30 a Ronald Mcleod MD smoking, date started 20 Ronald Mcleod MD smoking history, tot al pack/year 2000 Ronald Mcleod MD smoking history, tot al pack/day 1/2 ppd Ronald Mcleod MD cigarette use yes Ronald Mcleod MD smoking status Former smoker Ronald parikh MD drug use no Ronald [place] alcohol use no Ronald [place] passive cigarette sm stella exposure no Ronald Mcleod MD chewing tobacco use Former Ronald sadler MD number of years as a smoker 30 a Ronald Mcleod MD smoking, date started 20 Ronald Mcleod MD smoking history, tot al pack/year 2000 Ronald Mcleod MD smoking history, tot al pack/day 1/2 ppd Ronald Mcleod MD cigarette use yes Ronald Mcleod MD smoking status Former smoker Ronald parikh MD social history E&M Smoking Histo ry: Monalisa galvez is a former smoker. Ronald Mcleod MD social history reviewed E&M revi ewed - no changes required Ronald Mcleod MD social history E&M S moking History: Monalisa galvez is a former smoker. Ronald Mcleod MD social history reviewed E&M revi ewed - no changes required Ronald Mcleod MD passive cigarette sm stella exposure no Phoebe Loving seatbelt usage 100 % Phoebe Loving exercise type walking Phoebe Loving physical exercise, f requency, days per week 7 /wk Phoebe Loving caffeine use, averag e drinks per day 4+ Phoebe Loving drug use no Phoebe Loving alcohol use no Phoebe Loving chewing tobacco use Former Phoebe wesley smoking status Former smoker Phoebe Loving smoking history, tot al pack/year 2000 Ronald Mcleod MD social history E&M S moking History: P atient currently smokes every day. P atient has been counseled to quit. Ronald Mcleod MD social history reviewed E&M revi ewed - no changes required Ronald Mcleod MD smoking/tobacco cess ation, patient education and counseling yes Jianmadai Lawrence number of years as a smoker 30 a Amarilys Lawrence smoking, date started 20 Trylibby miroslava Lawrence smoking history, tot al pack/year 2000 Amarilys Lawrence smoking history, tot al pack/day 1/2 ppd Amarilys Lawrence cigarette use yes Amarilys Plascenciaadrian reilly smoking status Current every day smoker T alana Lawrence social history E&M S moking History: P atmarc currently smokes every day. P atient has been counseled to quit. Ronald Mcleod MD social history reviewed E&M revi ewed - no changes required Ronald Mcleod MD smoking/tobacco cess ation, patient education and counseling yes Qian Covington number of years as a smoker 30 a Qian C[place] smoking, date started 20 Qian Nadya smoking history, tot al pack/year 2000 Qian C[place] smoking history, tot al pack/day 1/2 ppd Qian [place] cigarette use yes Qian costa smoking status Current every day smoker Zachary [place] smoking history, tot al pack/year 2000 Mayito Land RN number of years as a smoker 30 a Qian [place] smoking history, tot al pack/day 1/2 ppd Qian [place] cigarette use yes Qian costa smoking status Current every day smoker Zachary [place] social history E&M S moking History: P atmarc is a former smoker. Ronald Mcleod MD social history reviewed E&M revi ewed - no changes required Ronald Mcleod MD smoking, date started 20 Qian Covington smoking history, tot al pack/day 1 Qian [place] cigarette use yes Qian costa smoking status Former smoker Qian flores social history E&M S moking History: Monalisa galvez is a former smoker. Faheem Sandoval MD social history reviewed E&M revi ewed - no changes required Faheem Sandoval MD smoking, date started 20 Murphy Nguyen smoking history, tot al pack/day 1 Katherine Nguyen cigarette use yes Katherine darnell smoking status Former smoker Katherine marsh social history E&M S moking History: Monalisa galvez is a former smoker. Faheem Sandoval MD social history reviewed E&M revi ewed - no changes required Faheem Sandoval MD smoking, date started 20 Tonsha Duarte smoking history, tot al pack/day 1 Tonsha Duarte cigarette use yes Tonsha Duarte smoking status Former smoker Faheem Sandoval MD number of grandchildren Faheem Sandoval MD U morelia Sandoval MD social history E&M S moking History: P leonor currently smokes every day. P atient has been counseled to quit. Faheem Sandoval MD smoking/tobacco cess ation, patient education and counseling yes Melinda Marcus smoking, date started 20 Melinda Marcus smoking history, tot al pack/day 1 Melinda Marcus cigarette use yes Melinda Penaloza smoking status Current every day smoker E merna Angeline social history reviewed E&M revi ewed - no changes required Melinda Marcus social history E&M S moking History: P atmarc currently smokes every day. P leonor has been counseled to quit. Ronald Mcleod MD social history reviewed E&M revi ewed - no changes required Ronald Mcleod MD smoking/tobacco cess ation, patient education and counseling yes Suni Marshby smoking, date started 20 Suni Taylor smoking history, tot al pack/day 1 Suni [place] cigarette use yes Suni Taylor smoking status Current every day smoker Zachary Vazquez smoking/tobacco cess ation, patient education and counseling yes Ronald Mcleod MD social history E&M S moking History: Monalisa galvez currently smokes every day. Ronald Mcleod MD social history reviewed E&M revi ewed - no changes required Ronald Mcleod MD smoking, date started 20 Sienna Sadler smoking history, tot al pack/day 1 Avi Sadler cigarette use yes Avi Sadler smoking status Current every day smoker Zachary lei Viktoriya number of grandchildren Ronald Cárdenas Sadler FUNCTIONAL STATUS Date Observation Value Provider HRA, CV Assess/Plan, Angina (inactive) Management Plan continue current therapy Ronald Mcleod MD periodic limb movement index present (1) Carolann More FAMILY HISTORY Family Member Condition Father [place] male <55 Mother [place] female <65 INSURANCE PROVIDERS Payer name Policy type / Coverage type Jaquan red green party ID SELF PAY ADVANCE DIRECTIVES Name Date DISCUSSED - NO DECISION MADE TREATMENT PLAN Date Name Performer [id number],SRonald MD [id number],S, Ronald parikh MD [id number],S, 5 .8 Ronald Mcleod MD [id number],C, n eeds narcoties n eg rpr and b12 Ronald Mcleod MD [id number],Ronald Reilly MD [id number],S, n eg dd and crystal and neg aaa n eg monae thjrien Ronald Mcleod MD [id number],S, H er updated medication list for this problem includes: Simvastatin 40 Mg Tablet (Simvastatin) ..... Take 1 tablet by mouth once a day C HOL: 150 (02/14/2021) HDL: 28 (02/14/2021) Ronald Mcleod MD [id number],S, H er updated medication list for this problem includes: Propranolol 20 Mg Tablet (Propranolol) ..... Take 1/2 tablet by mouth twice a day Irbesartan 300 Mg Tablet (Irbesartan) ..... Take 1 tablet by mouth every day Spironolactone 25 Mg Tablet (Spironolactone) ..... Take 1 tablet by mouth every day Furosemide 20 Mg Tablet (Furosemide) ..... Take 1 tablet by mouth once daily as needed Aspirin 81 Mg Tablet,delayed Release (dr/ec) (Aspirin) ..... Take 1 tablet by mouth every day Prior BP: 140/90 (08/19/2022) Prior 10 Yr Risk Heart Disease: Not enough information (06/22/2019) Labs Reviewed: C reat: 1.14 (02/14/2021) C hol: 150 (02/14/2021) HDL: 28 (02/14/2021) Ronald Mcleod [id number],S, n ml pro but high pcwp 22 Ronald Mcleod [id number],S, n eg stress Ronald Mcleod [id number],S, Ronald Serot a [id number],S, Ronald Serot a [id number],S, n eg stress Ronald Mcleod [id number],S, n eg dd and crystal and neg aaa n eg monae thjrien Ronaldnell Perezjl LEGER [id number],B, H er updated medication list for this problem includes: Irbesartan 300 Mg Tablet (Irbesartan) ..... Take 1 tablet by mouth every day Spironolactone 25 Mg Tablet (Spironolactone) ..... Take 1 tablet by mouth every day Furosemide 20 Mg Tablet (Furosemide) ..... Take 1 tablet by mouth once daily as needed Aspirin 81 Mg Tablet,delayed Release (dr/ec) (Aspirin) ..... Take 1 tablet by mouth every day Propranolol 20 Mg Tablet (Propranolol) ..... Take 1/2 tablet by mouth twice a day Ronaldnell Perezjl LEGER [id number],B, Ronald Serot a [id number],S,n eeds narcoties n eg rpr and b12 Ronald Mcleod [id number],S, Ronald Serot a [id number],S, 4 0 Ronaldnell Mcleod [id number],S, n eg stress Ronald Mcleod [id number],B, Ronald Serot a [id number],S, Ronald parikh MD [id number],S, n eg b12 and folatre Ronaldnell Perezjl LEGER [id number],S, n ml pro but high pcwp 22 Ronald Harsha LEGER [id number],S, n eg b12 and folatre Ronald Mcleod MD [id number],S, 4 0 Ronald Mcleod MD [id number],B, c orrected Ronald Mcleod MD [id number],B, H er updated medication list for this problem includes: Levothyroxine 75 Mcg Tablet (Levothyroxine) ..... Take 1 tablet by mouth once a day Labs Reviewed: T SH: 4.050 (02/14/2021) Total T4: 6.7 (02/14/2021) H gBA1c: 5.5 (02/14/2021) C hol: 150 (02/14/2021) HDL: 28 (02/14/2021) Ronald Mcleod MD [id number],B, H er updated medication list for this problem includes: Simvastatin 40 Mg Tablet (Simvastatin) ..... Take 1 tablet by mouth once a day C HOL: 150 (02/14/2021) HDL: 28 (02/14/2021) Ronald Mcleod MD [id number],B, Ronald Mcleod MD [id number],S, H er updated medication list for this problem includes: Irbesartan 300 Mg Tablet (Irbesartan) ..... Take 1 tablet by mouth every day Spironolactone 25 Mg Tablet (Spironolactone) ..... Take 1 tablet by mouth every day Furosemide 20 Mg Tablet (Furosemide) ..... Take 1 tablet by mouth once daily as needed Aspirin 81 Mg Tablet,delayed Release (dr/ec) (Aspirin) ..... Take 1 tablet by mouth every day Propranolol 20 Mg Tablet (Propranolol) ..... Take 1/2 tablet by mouth twice a day BP today: 97/77 P rior BP: 98/74 (09/24/2021) Prior 10 Yr Risk Heart Disease: Not enough information (06/22/2019) Labs Reviewed: C reat: 1.14 (02/14/2021) C hol: 150 (02/14/2021) HDL: 28 (02/14/2021) Ronald Mcleod MD [id number],S, n ml pro but high pcwp 22 i n trial CHOL: 150 (02/14/2021) HDL: 28 (02/14/2021) Hgb: 15.7 (02/14/2021) HCT: 45.0 (02/14/2021) Platelets: 214 X10E3/UL (02/14/2021) R BC: 4.60 X10E6/UL (02/14/2021) WBC: 6.6 X10E3/UL (02/14/2021) B UN: 16 (02/14/2021) Creat: 1.14 (02/14/2021) Na+: 142 (02/14/2021) K+: 4.4 (02/14/2021) Cl: 100 (02/14/2021) PT: 10.2 (02/14/2021) INR: 1.0 (02/14/2021) T SH: 4.050 (02/14/2021) T4 (total): 6.7 (02/14/2021) Ronald Mcleod MD [id number],S, n eg stress Ronald Mcleod MD [id number],S, Ronald Mcleod MD [id number],SRonald MD [id number],SRonald MD [id number],B, Ronald parikh MD [id number],SRonald MD [id number],SRonald MD [id number],S, 4 0 Ronald Mcleod MD [id number],B,n eg monae thrune O N COMPRESSION Ronald Mcleod MD [id number],B, Ronald parikh MD [id number],S, 5 0 DUE TO DIAST[place] CHF Ronald Mcleod MD [id number],W, n eg rpr and b12 Ronald Mcleod MD [id number],W, n ml pro but high pcwp 22 Ronald Mcleod MD [id number],B, n eg dd and crystal and neg aaa n eg richard crowleyjrien Ronald Mcleod MD [id number],B, H er updated medication list for this problem includes: Aspirin 81 Mg Tablet,delayed Release (dr/ec) (Aspirin) ..... Take 1 tablet by mouth once a day Furosemide 20 Mg Tablet (Furosemide) ..... Take 1 tablet by mouth once a day as needed Propranolol 20 Mg Tablet (Propranolol) ..... Take 1 tablet by mouth twice a day Aldactone 25 Mg Tablet (Spironolactone) ..... 1 tablet by mouth once a day Irbesartan 300 Mg Tablet (Irbesartan) ..... 1 tablet by mouth once a day BP today: 98/74 P rior BP: 110/72 (07/24/2021) Prior 10 Yr Risk Heart Disease: Not enough information (06/22/2019) Labs Reviewed: C reat: 1.14 (02/14/2021) C hol: 150 (02/14/2021) HDL: 28 (02/14/2021) Ronald Mcleod MD [id number],B,5.8 Ronald mejía MD [id number],C,neg dd and ab i and neg aaa Ronald Mcleod MD [id number],C,neg dd and ab i Ronald Serota [id number],C,5.8 Ronald Se rota [id number],C,neg rpr and b 12 Ronald Serota [id number],S,NML B12 Harvdavid y Serotjl LEGER [id number],S, n ml pro but high pcwp 22 Ronald Serota [id number],S,50 DUE TO TOYIN STOC CHF Ronald Serota [id number],S,ON COMPRESSIO N Ronald Serotjl LEGER [id number],B, c orrected Ronald Serota [id number],B, 5 .5 on metorfimin Ronald Serotjl LEGER [id number],S, Ronald Serot a [id number],S, Ronald Serot a [id number],S, nmml dd Ronald Serota [id number],S, 4 0 Ronald Serota [id number],S, Ronald Serot a [id number],S, Ronald Serot a [id number],S, n eg b12 and folatre Ronald Serotjl LEGER :41 Ronald Serotjl LEGER Cardiology Ronald Serota Cardiology Ronald Serotjl LEGER Cardiology: p os nuc neg cath n eg dd and crystal and neg aaa n eg monae thjrien n eg a1c and senslae Ronald Serotjl LEGER Cardiology Ronald Serotjl LEGER Cardiology Ronald Serotjl LEGER Cardiology: 4 5 Ronald Serotjl LEGER Cardiology: 4 03/20 mean 36 Ronald Mcleod MD Cardiology: H er updated medication list for this problem includes: Propranolol 20 Mg Tablet (Propranolol) ..... Take 1/2 tablet by mouth twice a day Aspirin 81 Mg Tablet,delayed Release (dr/ec) (Aspirin) ..... Take 1 tablet by mouth every day BP today: 115/87 P rior BP: 122/90 (08/04/2024) Prior 10 Yr Risk Heart Disease: Not enough information (06/22/2019) & #13;Labs Reviewed: C reat: 1.14 (02/14/2021) C hol: 150 (02/14/2021) HDL: 28 (02/14/2021) LDL: 65 (02/14/2021) T (02/14/2021) Ronald Mcleod MD Cardiology: n eg rpr and b12 Ronald Mcleod MD Cardiology: 5 .7 Ronald Mcleod MD Cardiology Ronald Mcleod MD Cardiology Ronald Mcleod MD Cardiology: e f 60 nml pro pcwp 25 lvep 25 Ronald Mcleod MD Cardiology:pos nuc n eg cath n eg dd and crystal and neg aaa n eg monae thjrien n eg a1c and senslae Ronald Mcleod MD Cardiology: i binh def correctwed due for colon Ronald Mcleod MD Cardiology:mild Ronald Mcleod MD Cardiology Ronald Mcleod MD Cardiology Ronald Mcleod MD Cardiology: 4 03/20 mean 36 Ronald Mcleod MD Cardiology: n eg rpr and b12 Ronald Mcleod MD Cardiology: 4 5 Ronald Mcleod MD Cardiology: 5 .7 Ronald Mcleod MD Cardiology Ronald Mcleod MD Cardiology Ronald Mcleod MD Cardiology Ronald Mcleod MD :ef 60 nml pro pcwp 25 lvep 25 H candace Mcleod MD :44/29 mean 36 Ronald Mcleod MD :on cath aortic root Ronald perez MD :pos nuc 24 Ronald Mcleod MD first rhhc with root :45 Ronald Mcleod MD Cardiology: e g 65%, nml pro pwcp 22 Ronald Mcleod MD Cardiology: 5 0 DUE TO DIASTOC CHF Ronald Mcleod MD Cardiology Ronald Serotjl LEGER Cardiology: n eg rpr and b12 Ronald Mcleod MD Cardiology:with mils ai Ronald sadler MD Cardiology: n eg stress remoteey Ronald Mcleod MD Cardiology: n eg dd and crystal and neg aaa n eg monae thjrien n eg a1c and senslae Ronald Mcleod MD Cardiology: 4 1 Ronald Mcleod MD Cardiology:iron def correctwed due for colon Ronald Mcleod MD Cardiology: 5 .7 Ronald Serotjl LEGER Cardiology Ronald Serotjl LEGER :5.7 Ronald Mcleod MD :41 Ronald Mcleod MD Cardiology Ronald Serotjl LEGER Cardiology Ronald Serotjl LEGER Cardiology Ronald Serotjl LEGER Cardiology: 5 0 DUE TO DIASTOC CHF Ronald Mcleod MD Cardiology: 4 8 Ronald Serotjl LEGER Cardiology: n eg stress remoteey Ronald Serotjl LEGER Cardiology Ronald Serotjl LEGER Cardiology Ronald Serotjl LEGER Cardiology: e g 65%, nml pro pwcp 22 Ronald Serotjl LEGER Cardiology: n eg stress Ronald Serotjl LEGER Cardiology: n eg dd and crystal and neg aaa n eg monae thjrien n eg a1c and senslae Ronald Mcleod MD :eg 65%, nml pro pwcp 22 Ronald Mcleod MD Ronald Serotjl LEGER :48 Ronald Mcleod MD Cardiology Ronald Serotjl LEGER Cardiology Ronald Serotjl LEGER Cardiology Ronald Serotjl LEGER Cardiology: 5 0 DUE TO DIASTOC CHF Ronald Mcleod MD Cardiology: n eg stress Ronald Mcleod MD Cardiology Ronald Serotjl LEGER Cardiology Ronald Serota Cardiology: 4 0 Ronald Serotjl LEGER Cardiology: n eg rpr and b12 Ronald Mcleod MD Cardiology: c orrected Ronald Mcleod MD Cardiology: n eg dd and crystal and neg aaa n eg monae sebastián Mcleod MD Cardiology:59 Ronald Mcleod MD TeleHealth Ronald Mcleod MD TeleHealth Ronald Serotjl LEGER TeleHealth: 5 .8 Ronald Mcleod MD TeleHealth: n eeds narcoties n eg rpr and b12 Ronald Mcleod MD TeleHealth Ronald Mcleod MD TeleHealth: n eg dd and crystal and neg aaa n eg richard Mcleod MD TeleHealth: H er updated medication list for this problem includes: Simvastatin 40 Mg Tablet (Simvastatin) ..... Take 1 tablet by mouth once a day C HOL: 150 (02/14/2021) HDL: 28 (02/14/2021) Ronald Mcleod MD TeleHealth: H er updated medication list for this problem includes: Propranolol 20 Mg Tablet (Propranolol) ..... Take 1/2 tablet by mouth twice a day Irbesartan 300 Mg Tablet (Irbesartan) ..... Take 1 tablet by mouth every day Spironolactone 25 Mg Tablet (Spironolactone) ..... Take 1 tablet by mouth every day Furosemide 20 Mg Tablet (Furosemide) ..... Take 1 tablet by mouth once daily as needed Aspirin 81 Mg Tablet,delayed Release (dr/ec) (Aspirin) ..... Take 1 tablet by mouth every day Prior BP: 140/90 (08/19/2022) Prior 10 Yr Risk Heart Disease: Not enough information (06/22/2019) Labs Reviewed: C reat: 1.14 (02/14/2021) C hol: 150 (02/14/2021) HDL: 28 (02/14/2021) Ronald Mcleod MD TeleHealth: n ml pro but high pcwp 22 Ronald Mcleod MD TeleHealth: n eg stress Ronald Mcleod MD TeleHealth Ronald Mcleod MD TeleHealth Ronald Mcleod MD TeleHealth: n eg stress Ronald Mcleod MD TeleHealth: n eg dd and crystal and neg aaa n eg monae carlinejioana Mcleod MD TeleHealth: H er updated medication list for this problem includes: Irbesartan 300 Mg Tablet (Irbesartan) ..... Take 1 tablet by mouth every day Spironolactone 25 Mg Tablet (Spironolactone) ..... Take 1 tablet by mouth every day Furosemide 20 Mg Tablet (Furosemide) ..... Take 1 tablet by mouth once daily as needed Aspirin 81 Mg Tablet,delayed Release (dr/ec) (Aspirin) ..... Take 1 tablet by mouth every day Propranolol 20 Mg Tablet (Propranolol) ..... Take 1/2 tablet by mouth twice a day Ronald Mcleod MD TeleHealth Ronald Mcleod MD TeleHealth:needs garcia pena n eg rpr and b12 Ronald Mcleod MD TeleHealth Ronald Mcleod MD TeleHealth: 4 0 Ronald Mcleod MD TeleHealth: n eg stress Ronald Mcleod MD TeleHealth Ronald Mcleod MD TeleHealth Ronald Mcleod MD TeleHealth: n eg b12 and christie Mcleod MD TeleHealth: n ml pro but high pcwp 22 Ronald Mcleod MD Cardiology: n eg b12 and christie Mcleod MD Cardiology: 4 0 Ronald Mcleod MD Cardiology: c orrected Ronald Mcleod MD Cardiology: H er updated medication list for this problem includes: Levothyroxine 75 Mcg Tablet (Levothyroxine) ..... Take 1 tablet by mouth once a day Labs Reviewed: T SH: 4.050 (02/14/2021) Total T4: 6.7 (02/14/2021) H gBA1c: 5.5 (02/14/2021) C hol: 150 (02/14/2021) HDL: 28 (02/14/2021) Ronald Mcleod MD Cardiology: H er updated medication list for this problem includes: Simvastatin 40 Mg Tablet (Simvastatin) ..... Take 1 tablet by mouth once a day C HOL: 150 (02/14/2021) HDL: 28 (02/14/2021) Ronald Mcleod MD Cardiology Ronald Mcleod MD Cardiology: H er updated medication list for this problem includes: Irbesartan 300 Mg Tablet (Irbesartan) ..... Take 1 tablet by mouth every day Spironolactone 25 Mg Tablet (Spironolactone) ..... Take 1 tablet by mouth every day Furosemide 20 Mg Tablet (Furosemide) ..... Take 1 tablet by mouth once daily as needed Aspirin 81 Mg Tablet,delayed Release (dr/ec) (Aspirin) ..... Take 1 tablet by mouth every day Propranolol 20 Mg Tablet (Propranolol) ..... Take 1/2 tablet by mouth twice a day BP today: 97/77 P rior BP: 98/74 (09/24/2021) Prior 10 Yr Risk Heart Disease: Not enough information (06/22/2019) Labs Reviewed: C reat: 1.14 (02/14/2021) C hol: 150 (02/14/2021) HDL: 28 (02/14/2021) Ronald Mcleod MD Cardiology: n ml pro but high pcwp 22 i n trial CHOL: 150 (02/14/2021) HDL: 28 (02/14/2021) Hgb: 15.7 (02/14/2021) HCT: 45.0 (02/14/2021) Platelets: 214 X10E3/UL (02/14/2021) R BC: 4.60 X10E6/UL (02/14/2021) WBC: 6.6 X10E3/UL (02/14/2021) B UN: 16 (02/14/2021) Creat: 1.14 (02/14/2021) Na+: 142 (02/14/2021) K+: 4.4 (02/14/2021) Cl: 100 (02/14/2021) PT: 10.2 (02/14/2021) INR: 1.0 (02/14/2021) T SH: 4.050 (02/14/2021) T4 (total): 6.7 (02/14/2021) Ronald Mcleod MD Cardiology: n eg stress Ronald Mcleod MD Cardiology Ronald Mcleod MD Cardiology Ronald Mcleod MD Cardiology Ronald Mcleod MD Cardiology Ronald Mcleod MD Cardiology Ronald Mcleod MD Cardiology Ronald Mcleod MD Cardiology: 4 0 Ronald Mcleod MD Cardiology:neg monae t hrune O N COMPRESSION Ronald Mcleod MD Cardiology Ronald Mcleod MD Cardiology: 5 0 DUE TO DIASTOC CHF Ronald Mcleod MD Cardiology: n eg rpr and b12 Ronald Mcleod MD Cardiology: n ml pro but high pcwp 22 Ronald Mcleod MD Cardiology: n eg dd and crystal and neg aaa n eg monae thjrien Ronald Mcleod MD Cardiology: H er updated medication list for this problem includes: Aspirin 81 Mg Tablet,delayed Release (dr/ec) (Aspirin) ..... Take 1 tablet by mouth once a day Furosemide 20 Mg Tablet (Furosemide) ..... Take 1 tablet by mouth once a day as needed Propranolol 20 Mg Tablet (Propranolol) ..... Take 1 tablet by mouth twice a day Aldactone 25 Mg Tablet (Spironolactone) ..... 1 tablet by mouth once a day Irbesartan 300 Mg Tablet (Irbesartan) ..... 1 tablet by mouth once a day BP today: 98/74 P rior BP: 110/72 (07/24/2021) Prior 10 Yr Risk Heart Disease: Not enough information (06/22/2019) Labs Reviewed: C reat: 1.14 (02/14/2021) C hol: 150 (02/14/2021) HDL: 28 (02/14/2021) Ronald Mcleod MD Cardiology:5.8 Ronald Mcleod MD :neg dd and crystal and neg aaa Ely Mcleod MD :neg dd and crystal Ronald Mcleod MD :5.8 Ronald Mcleod MD :neg rpr and b12 Ronald [place] Cardiology:NML B12 Ronald Mcleod MD Cardiology: n ml pro but high pcwp 22 Ronald Mcelod MD Cardiology:50 DUE TO DIASTOC CHF Ronald Mcleod MD Cardiology:ON COMPRESSION Ronald Mcleod MD Cardiology: c orrected Ronald Mcleod MD Cardiology: 5 .5 on metorfimin Ronald Mcleod MD Cardiology Ronald Mcleod MD Cardiology Ronald Mcleod MD Cardiology: nmml dd Ronald Mcleod MD Cardiology: 4 0 Ronald Mcleod MD Cardiology Ronald Mcleod MD Cardiology Ronald Mcleod MD Cardiology: n eg b12 and folatre Ronald Mcleod MD :neg b12 and folatre Ronald perez MD Cardiology Hospital Follow up :Consider enrollment in HepStep trial Madai Alcarazmann JUAREZ [facility] Follow up :Continue diuretics and compression Madaifarnaz Chung ANN [facility] Follow up :Continue current meds H er updated medication list for this problem includes: Simvastatin 40 Mg Oral Tablet (Simvastatin) ..... Take 1 tablet by mouth every day Madaifarnaz Chung ANN [facility] Follow up :Added aldactone H er updated medication list for this problem includes: Aldactone 25 Mg Oral Tablet (Spironolactone) ..... One tab daily Furosemide 20 Mg Oral Tablet (Furosemide) ..... Take 1 tablet by mouth once daily as needed Aspirin Low Dose 81 Mg Tbec (Aspirin) ..... Take 1 tablet by mouth every day Irbesartan 300 Mg Oral Tablet (Irbesartan) ..... One by mouth daily Propranolol Hcl 20 Mg Oral Tablet (Propranolol hcl) ..... Take 1 tablet by mouth twice a day Madai Alcarazmann JUAREZ [facility] Follow up :n ml pro but high pcwp Ronald Mcleod MD :nml b12 needs folate Ronald etienne MD :corrected Ronald Mcleod MD :40 Ronald Mcleod MD :5.5 on metorfimin Ronald Mcleod MD Cardiology Follow up Ronald perez MD Cardiology Follow up Ronald perez MD Cardiology Follow up : nmml dd and nml uacr, nml b12 Ronald Mcleod MD Cardiology Follow up Ronald perez MD Cardiology Follow up Ronald perez MD Cardiology Follow up Ronald perez MD Cardiology Follow up : D ue to venous insufficiency but doing well with weight loss and swelling. would continue compression SUSUPECT MONAE THERUNER Ronald Mcleod MD Cardiology Follow up Ronald perez MD Cardiology Follow up:NM PRO Ely Mcleod MD Cardiology Follow up : n eg stress Ronald Mcleod MD Cardiology follow up :Due to venous insufficiency but doing well with weight loss and swelling. would continue compression and can come back if needed. Faheem Sandoval MD Cardiology: H er updated medication list for this problem includes: Simvastatin 40 Mg Oral Tablet (Simvastatin) ..... Take 1 tablet by mouth every day Faheem Sandoval MD Cardiology: B P today: 133/88 P rior BP: 128/74 (07/03/2019) Prior 10 Yr Risk Heart Disease: Not enough information (06/22/2019) Labs Reviewed: C reat: 1.02 (06/09/2019) C hol: 184 (06/09/2019) HDL: 35 (06/09/2019) Faheem Sandoval MD Cardiology:Has not smoked for tw o weeks. Faheem Sandoval MD Cardiology:Continue compression stockings for venous insufficiency. She seems to have responded well and as such, I think this is the only therapy she currently requires. Faheem Sandoval MD Cardiology:Continue statin. Joie Sandoval MD Cardiology: B P today: 128/74 P rior BP: 130/80 (06/22/2019) Prior 10 Yr Risk Heart Disease: Not enough information (06/22/2019) Labs Reviewed: C reat: 1.02 (06/09/2019) C hol: 184 (06/09/2019) HDL: 35 (06/09/2019) Faheem Sandoval MD Cardiology:The Patient was reenc ouraged to stop smoking. Faheem Sandoval MD Cardiology:Probably at least partly due to superficial venous reflux. Also has COPD, sleep apnea, and so it is probably multifactorial. I would recommend knee-high compression stockings. Faheem Sandoval MD Cardiology;cookie gutierrez vd pemgodn: H er updated medication list for this problem includes: Simvastatin 40 Mg Oral Tablet (Simvastatin) ..... Take 1 tablet by mouth every day C HOL: 184 (06/09/2019) HDL: 35 (06/09/2019) Ronald Mcleod MD Cardiology;echopeimnialfredg, vd pem godn Ronald Mcleod MD Cardiology;echopeimnidng, vd pem godn Ronald Serotjl LEGER Cardiology;echopeimnidng, vd pem godn Ronald Serotjl LEGER Cardiology;echopeimn idng, vd pemgodn:nml pro, nmml dd and nml uacr, nml b12 Ronald Mcleod MD Cardiology;echopeimnidng, vd pem godn Ronald Mcleod MD Cardiology;echopeimnidnclarisa, vd pem godn:neg stress Ronald Mcleod MD Cardiology;echopeimn idng, vd pemgodn: a waitie machine Ronald Mcleod MD Cardiology;echopeimnidng, vd pem godn Ronald Serotjl LEGER Cardiology;echopeimnidng, vd pem godn Ronald Serota Cardiology;echopeimn idng, vd pemgodn:due ot tishac, see artemio Mcleod MD Cardiology;echopeimn idng, vd pemgodn: H er updated medication list for this problem includes: Levothyroxine Sodium 75 Mcg Oral Tablet (Levothyroxine sodium) ..... One tab. daily Labs Reviewed: T SH: 5.290 (06/09/2019) Total T4: 6.5 (06/09/2019) H gBA1c: 5.9 (06/09/2019) C hol: 184 (06/09/2019) HDL: 35 (06/09/2019) Ronald Mcleod MD Cardiology Ronald Mcleod MD Cardiology Ronald Mcleod MD Cardiology Ronald Mcleod MD Cardiology Ronald Mcleod MD Cardiology Ronald Mcleod MD Cardiology Ronald Mcleod MD Cardiology:does not wnat pills o r surgery Ronald Mcleod MD Cardiology Ronald Mcleod MD Cardiology Ronald Mcleod MD Cardiology: H er updated medication list for this problem includes: Amlodipine Besylate 5 Mg Oral Tablet (Amlodipine besylate) ..... Take 1 tablet by mouth every day Propranolol Hcl 20 Mg Oral Tablet (Propranolol hcl) ..... Take 1 tablet by mouth twice a day BP today: 120/70 Ronald Mcleod MD Cardiology Ronald Mcleod MD Cardiology:awaitie machine Juanito Mcleod MD Date Name Lipoprotein (a) LIPID PANEL Holter Monitor 24 Hr DLCO - 75692 FRC - 39617 FVC - 60752 Complete Echo DLCO - 53970 FRC - 27624 FVC - 18652 Complete Echo PROTHROMBIN TIME WIT H INR LIPID PANEL CBC (INCLUDES DIFF/P LT) BASIC METABOLIC PANE L W/EGFR DLCO - 17675 FRC - 89883 FVC - 08035 Complete Echo Holter Monitor 24 Hr DLCO - 53404 FRC - 13933 FVC - 08990 Complete Echo Stress Regadenoson Holter Monitor 24 Hr Complete Echo Vitamin D, 25-Hydrox y IRON AND TOTAL IRON BINDING CAPACITY FERRITIN CBC (INCLUDES DIFF/P LT) HEMOGLOBIN A1c Microalb/Creatinine Urine, Random COMPREHENSIVE METABO LIC PANEL, W/EGFR PROBNP, N TERMINAL Arterial - SENSILASE Complete Echo DLCO - 49436 FRC - 11037 FVC - 77612 PROBNP, N TERMINAL BASIC METABOLIC PANE L W/EGFR Microalb/Creatinine Urine, Random Arterial - SENSILASE Complete Echo DLCO - 30410 FRC - 52888 FVC - 70938 DLCO - 15037 FRC - 18781 FVC - 42193 Arterial - SENSILASE Complete Echo Arterial - SENSILASE DLCO - 79802 FRC - 39014 FVC - 92951 Complete Echo DLCO - 96771 FRC - 48002 FVC - 07302 Complete Echo Complete Echo Complete Echo Renal Artery Duplex Kidney Ultrasound Arterial Duplex Bi-L ower EX Arterial - SENSILASE CT, Coronary Calcium Score DLCO - 70021 FRC - 26683 FVC - 33912 Complete Echo RPR (MONITOR) W/REFL TITER FOLATE, SERUM Complete Echo COVID19 High Affinit y Antibodies (LC) CXR- PA/Lat Venogram w/ IVUS - G C Cardiac Cath - Right - GC PROBNP, N TERMINAL TSH, free T4, total T3 C-REACTIVE PROTEIN IRON AND TOTAL IRON BINDING CAPACITY FERRITIN PROTHROMBIN TIME WIT H INR LIPID PANEL CBC (INCLUDES DIFF/P LT) BASIC METABOLIC PANE L W/EGFR HEMOGLOBIN A1c Microalb/Creatinine Urine, Random COMPREHENSIVE METABO LIC PANEL, W/EGFR CT, Coronary Calcium Score DLCO - 42642 FRC - 75400 FVC - 18917 CT, Coronary Calcium Score DLCO - 85699 FRC - 45958 FVC - 42404 Venous Doppler Bilat eral LE - Reflux COMPREHENSIVE METABO LIC PANEL, W/EGFR THYROID PANEL WITH T SH, 3RD GENERATION Stress Routine VITAMIN B12 Vitamin D, 25-Hydrox y IRON AND TOTAL IRON BINDING CAPACITY FERRITIN CBC (INCLUDES DIFF/P LT) LIPID PANEL D-DIMER, QUANTITATIV E URINALYSIS, RANDOM, MICROALB/CREATININE HEMOGLOBIN A1c PROBNP, N TERMINAL DLCO - 54627 FRC - 94019 FVC - 13808 Complete Echo HISTORY OF PROCEDURES Procedure Date Procedure Name Provider Procedure Notes S tatus Spirometry Ronald Mcleod MD complete d FVC / MVV with bronchodilator - 93559 Ronald Mcleod MD completed SpO2 w/o 6min walk/titration Ronald Mcleod MD completed SVC - 58989 Ronald Mcleod MD complet ed DLCO - 35553 Ronald Mcleod MD comple john Complex e/m visit add on Ronald Mcleod MD completed EKG Ronald Mcleod MD complete d EKG Mayito Land RN completed EKG Ronald Mcleod MD complete d EKG Ronald Mcleod MD complete d EKG Ronald Mcleod MD complete d EKG Faheem Sandoval MD completed FVC / MVV with bronchodilator - 60359 Ronald Mcleod MD completed BLOOD COUNT HEMOGLOBIN Ronald Mcleod MD completed FRC - 16982 Ronald Mcleod MD complet ed SpO2 w/o 6min walk/titration Ronald Mcleod MD completed DLCO - 58337 Ronald Mcleod MD comple john Stress EKG Ronald Mcleod MD complete d FVC / MVV with bronchodilator - 24637 Ronald Mcleod MD completed BLOOD COUNT HEMOGLOBIN Ronald Mcleod MD completed FRC - 06921 Ronald Mcleod MD complet ed SpO2 w/o 6min walk/titration Ronald Mcleod MD completed DLCO - 18607 Ronald Mcleod MD comple john EKG Ronald Mcleod MD complete d
[2025-04-15 18:01] VITALS: BP 154/109; PULSE 105; RESP 18; TEMP 36.2; O2SAT 98
--- OUTSIDE RECORDS SUMMARY | 2025-04-15 18:47 | XMS_ITS | CONTINUITY OF CARE DOCUMENT ---
Author Name joel maldonado Address Unknown Organization [facility] Address [address] [place] [address] Phone [phone] Care Team Providers Care Assurance Services Manager Health Care Name Role Phone Harsha LEGER, Ronald Unavailable KAILEE NICHOLE MD Unavailable KAILEE NICHOLE MD Unavailable [phone] PROBLEMS Condition Status Date Provider Notes Aortic [...] active Ronald Mcleod MD Hypothyroidism active Ronald Mcloed MD FAMILY HISTORY OF HEART DISEASE active [...] active Ronald Mcleod MD Macrocytosis active Ronald Mcledo MD ng b12 and folkate Exposure to [...] In-person encounter Office Visit Ronald Mcleod MD [facility] Renal disease, chronic, mild;neg us and duplex - In-person encounter Office Visit Ronald Mcleod MD [facility] ObesityScreeningRenal disease, chronic, mild;neg us and duplex - In-person encounter Office Visit Ronald Mcleod MD [facility] ventral hernia - In-person encounter Office Visit Ronald Mcleod MD [facility] CADScreeningDiastolic CHFRenal disease, chronic, mild;neg us and duplexSinus tachycardia - In-person encounter Office Visit Ronald Mcleod MD [facility] Tobacco use, quitDiastolic CHF - In-person encounter Office Visit Ronald Mcleod MD [facility] ScreeningDiastolic CHF - In-person encounter Office Visit Ronald Mcleod MD [facility] Tobacco use, quitDiastolic CHFMacrocytosis - In-person encounter Office Visit Ronald Mcleod MD [facility] - In-person encounter Office Visit Ronald Mcleod MD [facility] Renal disease, chronic, mild;neg us and duplex - In-person encounter Office Visit Ronald Mcleod MD [facility] Venous insufficiencyDiastolic CHFExposure to SARS-associated coronavirus;neg swab and igg and had vaccineLong-term (current) use of other medicationsPulmonary hypertensionNeuropathyRenal disease, chronic, mild;neg us and duplex - In-person encounter Office Visit Ronald Mcleod MD [facility] Screening - In-person encounter Office Visit Ronald Mcleod MD [facility] AsthmaTobacco use, quitSLEEP APNEA;on rxVenous insufficiencyCOPD - In-person encounter Office Visit Faheem Sandoval MD [facility] - In-person encounter Office Visit Faheem Sandoval MD [facility] - In-person encounter Office Visit Faheem Sandoval MD [facility] - In-person encounter Office Visit Ronald Mcleod MD [facility] CADDyspnea on exertionScreeningVITAMIN D DEFICIENCY;on rx - In-person encounter Office Visit Ronald Mcleod MD [facility] Depression, chronicHTN essential;NEG DUPLEXTobacco use, quitObesityHyperlipidemia;with [...] pepe Last oxygen saturation, oximetry 97 % [facility] Last pulse rate 116 /min [facility] Last weight E&M 279.4 [lb_av] [facility] Last height E&M 64 [in_i] [facility] Last Body Mass Index (Ratio) 46.68 kg/m2 Ely Mcleod MD blood pressure, diastolic 90 mm[Hg] Mary nkLog blood pressure, systolic 122 mm[Hg] Ayah kLog blood pressure, cuff size large Brad chakraborty [place] oxygen saturation, oximetry 99 % [facility] pulse rate 89 /min Eleni Mao blood pressure, diastolic 90 mm[Hg] Ta paulha Mao blood pressure, systolic 122 mm[Hg] Tab itha [place] weight E&M 272 [lb_av] Eleni Mao respiratory rate E&M 12 /min Eleni Mao height E&M 64 [in_i] [facility] Body [facility] Index (Ratio) 47.37 [...] blood pressure, systolic 97 mm[Hg] Ter i [place] oxygen saturation, oximetry 96 % Phoebe [place] respiratory rate E&M 16 /min Phoebe [facility] pulse rate, standing 96 /min Phoebe [facility] weight E&M 253 [lb_av] Phoebe [place] Body Mass Index (Ratio) 32.95 kg/m2 Ely Mcleod MD blood pressure, diastolic 74 mm[Hg] Tr adam [place] blood pressure, systolic 98 mm[Hg] Try madai [place] oxygen saturation, oximetry 98 % Amarilys [place] respiratory rate E&M 18 /min [facility] [place] pulse rate 95 /min [facility] [place] weight E&M 192 [lb_av] Amarilys [...] Sandoval MD respiratory rate E&M 16 /min [facility] blood pressure, diastolic 88 mm[Hg] [facility], [facility] 133 mm[Hg] Ton [facility] oxygen saturation, oximetry 94 % [facility] pulse rate 88 /min [facility] weight E&M 288 [lb_av] [facility] height E&M 64 [in_i] [facility] Body Mass Index (Ratio) 49.43 kg/m2 [...] Mcleod MD blood pressure, diastolic 70 mm[Hg] [facility], systolic 120 mm[Hg] Shaggy rojas [place] oxygen saturation, oximetry 97 % [facility] respiratory rate E&M 20 /min [facility] pulse rate 86 /min [facility] blood pressure, resting Yes Kill servando [place] weight E&M 289 [lb_av] [facility] height E&M 64 [in_i] [facility] ALLERGIES Allergy Name Onset Date Reaction Criticality [...] iron binding capacity, unsaturated 310 ug/dL [employer] 208-757 2000/03/ 26 iron binding capacity, total 387 ug/dL [facility] [phone]/03/ 26 free thyroxine index 1.6 [employer] 1.2-4.9 [...] Not Estab. platelet count 214 X10E3/UL [facility] 748-455 5419/03/ 26 red blood cell distribution width 13.7 [...] 0-149 High cholesterol, serum 150 mg/dL [facility] [phone]/03/ 26 alanine aminotransferase (SGPT), serum 20 1/L [...] [employer] 3.5-5.2 sodium, serum 142 mmol/L [facility] 635-535 0482/03/ 26 urea nitrogen/creatinine ratio, serum 14 [employer] [...] iron binding capacity, unsaturated 309 ug/dL [employer] 626-092 4580/07/ 19 iron binding capacity, total 395 ug/dL [facility] 489-101 7356/07/ 19 hemoglobin A1C, blood, as % of [...] 0-149 High cholesterol, serum 184 mg/dL [facility] 874-686 4552/07/ 19 basophil count, absolute 0.0 x10E3/uL [facility] [...] Not Estab. platelet count 205 X10E3/UL [facility] 205-752 2225/07/ 19 red blood cell distribution width 13.9 [...] [facility] 3.5-5.2 sodium, serum 143 mmol/L [facility] [phone]/07/ 19 urea nitrogen/creatinine ratio, serum 10 [employer] [...] by mouth once a day 07/18 Ronald Mcleod MD tramadol 50 mg tablet completed 1 [...] yes Katherine darnell smoking status Former smoker aKtherine marsh social history E&M S moking History: [...] smoking history, tot al pack/day 1 Suni Hurst cigarette use yes Suni Taylor smoking status [...] More FAMILY HISTORY Family Member Condition Father CT male <[address] female <65 INSURANCE PROVIDERS Payer name Policy type / Coverage type Jaquan red green party ID SELF PAY ADVANCE DIRECTIVES Name Date DISCUSSED - NO DECISION MADE TREATMENT PLAN Date Name Performer [id number],SRonald MD [id number],S, Ronald parikh MD [id number],S, 5 .8 Ronald Mcleod MD [id number],C, n eeds narcoties n eg rpr and b12 Ronald Mcleod MD [id number],Ronald Reilly MD [id number],S, n eg dd and crystal and neg aaa n eg monae thjrien Ronald Mcleod MD [id number],S, H er updated medication list for this problem includes: Simvastatin 40 Mg Tablet (Simvastatin) ..... Take 1 tablet by mouth once a day C HOL: 150 (02/14/2021) HDL: 28 (02/14/2021) Ronald Mcleod MD [id number],S, H er updated medication list for this [...] 150 (02/14/2021) HDL: 28 (02/14/2021) Ronald Mcleod [id number],S, n ml pro but high pcwp 22 Ronald Mcleod [id number],S, n eg stress Ronald Mcleod [id number],S, Ronald Serot a [id number],S, Ronald Serot a [id number],S, n eg stress Ronald Mcleod [id number],S, n eg dd and crystal and neg aaa n eg monae thjrien Ronaldnell Perezjl LEGER [id number],B, H er updated medication list for this [...] mouth twice a day Ronaldnell Perezjl LEGER [id number],B, Ronald Serot a [id number],S,n eeds narcoties n eg rpr and b12 Ronald Mcleod [id number],S, Ronald Serot a [id number],S, 4 0 Ronaldnell Mcleod [id number],S, n eg stress Ronald Mcleod [id number],B, Ronald Serot a [id number],S, Ronald parikh MD [id number],S, n eg b12 and folatre Ronaldnell Perezjl LEGER [id number],S, n ml pro but high pcwp 22 Ronald Harsha LEGER [id number],S, n eg b12 and folatre Ronald Mcleod MD [id number],S, 4 0 Ronald Mcleod MD [id number],B, c orrected Ronald Mcleod MD [id number],B, H er updated medication list for this problem includes: Levothyroxine 75 Mcg Tablet (Levothyroxine) ..... Take 1 tablet by mouth once a day Labs Reviewed: T SH: 4.050 (02/14/2021) Total T4: 6.7 (02/14/2021) H gBA1c: 5.5 (02/14/2021) C hol: 150 (02/14/2021) HDL: 28 (02/14/2021) Ronald Mcleod MD [id number],B, H er updated medication list for this problem includes: Simvastatin 40 Mg Tablet (Simvastatin) ..... Take 1 tablet by mouth once a day C HOL: 150 (02/14/2021) HDL: 28 (02/14/2021) Ronald Mcleod MD [id number],B, Ronald Mcleod MD [id number],S, H er updated medication list for this [...] (02/14/2021) HDL: 28 (02/14/2021) Ronald Mcleod MD [id number],S, n ml pro but high pcwp 22 [...] T4 (total): 6.7 (02/14/2021) Ronald Mcleod MD [id number],S, n eg stress Ronald Mcleod MD [id number],S, Ronald Mcleod MD [id number],SRonald MD [id number],SRonald MD [id number],B, Ronald parikh MD [id number],SRonald MD [id number],SRonald MD [id number],S, 4 0 Ronald Mcleod MD [id number],B,n eg monae thrune O N COMPRESSION Ronald Mcleod MD [id number],B, Ronald parikh MD [id number],S, 5 0 DUE TO DIASTOC CHF Ronald Mcleod MD [id number],W, n eg rpr and b12 Ronald Mcleod MD [id number],W, n ml pro but high pcwp 22 Ronald Mcleod MD [id number],B, n eg dd and crystal and neg aaa n eg richard crowleyjrien Ronald Mcleod MD [id number],B, H er updated medication list for this [...] (02/14/2021) HDL: 28 (02/14/2021) Ronald Mcleod MD [id number],B,5.8 Ronald mejía MD [id number],C,neg dd and ab i and neg aaa Ronald Mcleod MD [id number],C,neg dd and ab i Ronald Serota [id number],C,5.8 Ronald Se rota [id number],C,neg rpr and b 12 Ronald Serota [id number],S,NML B12 Harvdavid y Serotjl LEGER [id number],S, n ml pro but high pcwp 22 Ronald Serota [id number],S,50 DUE TO TOYIN STOC CHF Ronald Serota [id number],S,ON COMPRESSIO N Ronald Serotjl LEGER [id number],B, c orrected Ronald Serota [id number],B, 5 .5 on metorfimin Ronald Serotjl LEGER [id number],S, Ronald Serot a [id number],S, Ronald Serot a [id number],S, nmml dd Ronald Serota [id number],S, 4 0 Ronald Serota [id number],S, Ronald Serot a [id number],S, Ronald Serot a [id number],S, n eg b12 and folatre Ronald Serotjl [...] 28 (02/14/2021) LDL: 65 (02/14/2021) T (02/14/2021) Rnoald Mcleod MD Cardiology: n eg rpr and [...] but high pcwp 22 Ronald Mcleod MD Cardiology:50 DUE TO DIASTOC CHF Ronald [...] enrollment in HepStep trial Madai Alcarazmann JUAREZ [facility] Follow up :Continue diuretics and compression Madaifarnaz Chung ANN [facility] Follow up :Continue current meds H er updated medication list for this problem includes: Simvastatin 40 Mg Oral Tablet (Simvastatin) ..... Take 1 tablet by mouth every day Madaifarnaz Chung ANN [facility] Follow up :Added aldactone H er [...] mouth twice a day Madai Alcarazmann JUAREZ [facility] Follow up :n ml pro but [...] PANEL Holter Monitor 24 Hr DLCO - 52624 FRC - 33546 FVC - 07170 Complete Echo DLCO - 45776 FRC - 53269 FVC - 28817 Complete Echo PROTHROMBIN TIME WIT H INR LIPID PANEL CBC (INCLUDES DIFF/P LT) BASIC METABOLIC PANE L W/EGFR DLCO - 17748 FRC - 21216 FVC - 21091 Complete Echo Holter Monitor 24 Hr DLCO - 71474 FRC - 62372 FVC - 94292 Complete Echo Stress Regadenoson Holter Monitor 24 Hr Complete Echo Vitamin D, 25-Hydrox y IRON AND TOTAL IRON BINDING CAPACITY FERRITIN CBC (INCLUDES DIFF/P LT) HEMOGLOBIN A1c Microalb/Creatinine Urine, Random COMPREHENSIVE METABO LIC PANEL, W/EGFR PROBNP, N TERMINAL Arterial - SENSILASE Complete Echo DLCO - 51314 FRC - 12856 FVC - 77141 PROBNP, N TERMINAL BASIC METABOLIC PANE L W/EGFR Microalb/Creatinine Urine, Random Arterial - SENSILASE Complete Echo DLCO - 62336 FRC - 67582 FVC - 86829 DLCO - 37886 FRC - 51491 FVC - 77115 Arterial - SENSILASE Complete Echo Arterial - SENSILASE DLCO - 45359 FRC - 58563 FVC - 54620 Complete Echo DLCO - 73896 FRC - 78758 FVC - 97933 Complete Echo Complete Echo Complete Echo Renal Artery Duplex Kidney Ultrasound Arterial Duplex Bi-L ower EX Arterial - SENSILASE CT, Coronary Calcium Score DLCO - 42267 FRC - 09465 FVC - 31330 Complete Echo RPR (MONITOR) W/REFL TITER FOLATE, [...] W/EGFR CT, Coronary Calcium Score DLCO - 52462 FRC - 11417 FVC - 42189 CT, Coronary Calcium Score DLCO - 36109 FRC - 24918 FVC - 75179 Venous Doppler Bilat eral LE - Reflux COMPREHENSIVE METABO LIC PANEL, W/EGFR THYROID PANEL WITH T SH, 3RD GENERATION Stress Routine VITAMIN B12 Vitamin D, 25-Hydrox y IRON AND TOTAL IRON BINDING CAPACITY FERRITIN CBC (INCLUDES DIFF/P LT) LIPID PANEL D-DIMER, QUANTITATIV E URINALYSIS, RANDOM, MICROALB/CREATININE HEMOGLOBIN A1c PROBNP, N TERMINAL DLCO - 32518 FRC - 13954 FVC - 90295 Complete Echo HISTORY OF PROCEDURES Procedure Date Procedure Name Provider Procedure Notes S tatus Spirometry Ronald Mcleod MD complete d FVC / MVV with bronchodilator - 88774 Ronald Mcleod MD completed SpO2 w/o 6min walk/titration Ronald Mcleod MD completed SVC - 43537 Ronald Mcleod MD complet ed DLCO - 15712 Ronald Mcleod MD comple john Complex e/m visit add on Ronald Mcleod MD completed EKG Ronald Mcleod MD complete d EKG Mayito Land RN completed EKG Ronald Mcleod MD complete d EKG Ronald Mcleod MD complete d EKG Ronald Mcleod MD complete d EKG Faheem Sandoval MD completed FVC / MVV with bronchodilator - 41011 Ronald Mcleod MD completed BLOOD COUNT HEMOGLOBIN Ronald Mcleod MD completed FRC - 83692 Ronald Mcleod MD complet ed SpO2 w/o 6min walk/titration Ronald Mcleod MD completed DLCO - 28036 Ronald Mcleod MD comple john Stress EKG Ronald Mcleod MD complete d FVC / MVV with bronchodilator - 13210 Ronald Mcleod MD completed BLOOD COUNT HEMOGLOBIN Ronald Mcleod MD completed FRC - 38683 Ronald Mcleod MD complet ed SpO2 w/o 6min walk/titration Ronald Mcleod MD completed DLCO - 36245 Ronald Mcleod MD comple john EKG Ronald Mcleod MD complete d
--- OUTSIDE RECORDS SUMMARY | 2025-04-15 18:47 | XMS_ITS | Clinical Summary ---
Author Organization [facility] Address [address] [place] [address] Phone Care Team Providers Care Welder Shielded Metal Arc Name Role Phone Javan Bryant MD Primary Care Provider [phone] Allergies Active Allergy Reactions Criticality Noted Date Comments Ibuprofen Unknown 01/15/2022 Medications sertraline (ZOLOFT) 100 MG PO TABS Take 200 mg by mouth daily. Active propranolol 10 MG PO TABS Take 10 mg by mouth 2 times daily. Active IBUPROFEN by Does not apply route. Active Acetaminophen (TYLENOL EXTRA STRENGTH PO) Take by mouth. Ac tive DiphenhydrAMINE HCl (BENADRYL PO) Take by mouth. Activ e allopurinol (ZYLOPRIM) 300 MG Tablet Take 300 mg by mouth daily. Active aspirin 81 MG Chewable Tablet Take 81 mg by mouth daily. Active calcium carbonate-vitam in D 600-400 MG-UNIT Tablet Take by mouth. 1 Active folic acid (FOLVITE) 400 MCG Tablet Take 400 mcg by mouth daily. Active doxepin (SINEQUAN) 100 MG Capsule Take 50 mg by mouth nightly. Active Mometasone Furo-Formoterol Fum (Dulera) 100-5 MCG/ACT Aerosol take 2 Puffs by inhalation every 12 hours. Active DULoxetine (CYMBALTA) [address] Particles Take 20 mg by mouth nightly. Active ferrous sulfate 325 (65 Fe) MG Tablet Take 325 mg by mouth daily. Active FLUoxetine (PROzac) 20 MG Capsule Take 20 mg by mouth daily. Active Fluticasone-Tai meterol,sensor, 113-14 MCG/ACT AEROSOL POWDER, BREATH ACTIVATED take by inhalation. Active furosemide (LASIX) 20 MG Tablet Take 20 mg by mouth daily. Active gabapentin (NEURONTIN) 300 MG Capsule Take 300 mg by mouth 3 times daily. Active HYDROcodone-catarino taminophen (NORCO) 7.5-325 MG Tablet Take 1 Tablet by mouth every 6 hours as needed. Active hydrOXYzine (ATARAX) 25 MG Tablet Take 25 mg by mouth every 6 hours as needed. Active irbesartan (AVAPRO) 300 MG Tablet Take 300 mg by mouth nightly. Active levothyroxine (SYNTHROID) 75 MCG Tablet Take 75 mcg by mouth daily. Active meloxicam (MOBIC) 15 MG Tablet Take 15 mg by mouth daily. Active metFORMIN (GLUCOPHAGE) 500 MG Tablet Take 500 mg by mouth 2 times daily (with meals). Active methocarbamol (ROBAXIN) 750 MG Tablet Take 750 mg by mouth 4 times daily. Active predniSONE (DELTASONE) 20 MG Tablet Take 20 mg by mouth daily. Active simvastatin (ZOCOR) 40 MG Tablet Take 40 mg by mouth every evening. Active solifenacin (VESICARE) 5 MG Tablet Take 5 mg by mouth daily. Active spironolactone (ALDACTONE) 25 MG Tablet Take 25 mg by mouth daily. Active SUMAtriptan (IMITREX) 50 MG Tablet Take 50 mg by mouth once as needed. Use as directed. May repeat dose in 2 hours if headache recurs. Active tamsulosin (FLOMAX) 0.4 MG Capsule Take 0.4 mg by mouth daily. Active traMADol (ULTRAM) 50 MG Tablet Take 50 mg by mouth every 6 hours as needed. Active triamcinolone (KENALOG) 0.1 % Cream Apply 2 times daily. Application Site: (Description and Location) Active ziprasidone (GEODON) 20 MG Capsule Take 20 mg by mouth 2 times daily (with meals). Active ziprasidone (GEODON) 40 MG Capsule Take 40 mg by mouth 2 times daily (with meals). Active ziprasidone (GEODON) 60 MG Capsule Take 60 mg by mouth 2 times daily (with meals). Active Active Problems No known active problems Family History Medical History Relation Name Comments Heart Disease Mother Relation Name Status Comments Mother Social History Tobacco Use Types Packs/Day Years Used Date Smoking Tobacco: Every Day Smokeless Tobacco: Never Alcohol Use Standard Drinks/Week Comments Not Currently 0 (1 standard drink = 0.6 oz pur e alcohol) Comments Unknown Sex and Gender Information Value Date Recorded Sex Assigned at Not on file Legal Sex Female 10:45 AM HEARING SCREEN COORDINATOR Gender Identity Not on file Sexual Orientation Not on file Last Filed Vital Signs Vital Sign Reading Time Taken Comments Blood Pressure 126/92 11/17/2013 10:58 AM HEARING SCREEN COORDINATOR Pulse 88 11/17/2013 10:58 AM HEARING SCREEN COORDINATOR Temperature 36.7 C (98.1 F) 11/17/2013 10:58 AM HEARING SCREEN COORDINATOR Respiratory Rate 20 11/17/2013 10:58 AM HEARING SCREEN COORDINATOR Oxygen Saturation 99% 11/17/2013 10:58 AM HEARING SCREEN COORDINATOR Inhaled Oxygen Concentration - - Weight 95.3 kg (210 lb) 11/17/2013 10:58 AM HEARING SCREEN COORDINATOR Height 162.6 cm (5' 4 ) 11/17/2013 10:58 AM HEARING SCREEN COORDINATOR Body Mass Index 36.05 11/17/2013 10:58 AM HEARING SCREEN COORDINATOR Plan of Treatment Health Maintenance Due Date Last Done Comments Hepatitis C Virus (HCV) Screening 1978 Hepatitis B Immunization (1 of 3 - 19+ 3-dose series) 1997 Discussion re Starting/Frequency of Mammograms 2018 Colonoscopy 2023 Colorectal Cancer Screening 2023 Influenza Immunization (#1) 07/23/202402/2021, 10/25/2021 SARS-COV-2 Immunization ( season) 2024 10/25/2021, 04/01/2021, 03/04/2021 Respiratory Syncytial Virus (RSV) Immunization (Adult) (1 - 1-dose 75+ series) 2053 Pneumococcal Immunization Combined Aged Out 10/11/2021 No longer eligible based on patient's age to complete this topic DTaP/Tdap/Td Immunization Discontinued 01/28/2022 TdaP Immunization Completed 01/28/2022 Meningococcal Immunization (ACWY) Aged Out No longer eligible based on patient's age to complete this topic Rotavirus Immunization Aged Out No lo nger eligible based on patient's age to complete this topic Insurance [place] Care Teams Wel[employer] Relationship Specialty Start Date End Date Javan Bryant MD PCP - General Internal Medicine 01/23/21
--- NOTE | 2025-04-15 18:55 | ED.GENADULT ---
HPI - General Adult General Chief complaint: Unspecified Stated complaint: RIGHT SHOULDER PAIN Time Seen by Provider: 04/15/25 18:08 History of Present Illness HPI narrative: Patient is a 44-year-old female who presents to the ER with right shoulder pain. She reports yesterday she was picking up part of a soda machine at work when it started to slip and she injured her R shoulder trying to catch it. Patient reports last night she was unable to sleep due to her pain. She reports she is unable to move her right arm due to pain. Patient reports pain starts near her right collarbone and radiates to her right scapula. She denies any back pain, decreased range of motion in her right elbow, previous injury to the right shoulder or chest pain. Patient endorses a history of high blood pressure, depression, CHF, and COPD. Related Data Allergies Allergy/AdvReac Type Severity Reaction Status Date / Time ibuprofen Allergy Swelling Verified 04/15/25 18:17 Review of Systems Review of Systems: All systems reviewed & are unremarkable except as noted in HPI and below PMFSH Past Medical History Medical History History of diabetes mellitus History of hypertension History of hyperlipidemia History of hypothyroidism Social History Social History Substance use: never Exam Narrative: GENERAL: Well appearing, well-nourished, non-toxic, in no acute distress. HEAD: Normocephalic, atraumatic. NECK: Supple. No adenopathy, no masses. RESPIRATORY: Airway patent, respirations nonlabored. Clear to auscultation bilaterally, no rales, rhonchi, wheezing. CARDIOVASCULAR: Regular rate and rhythm without murmurs, rubs, or gallops. Peripheral pulses 2+ and equal bilaterally. ABDOMINAL: Soft, nontender, nondistended, no hepatosplenomegaly. Normoactive BS. MUSCULOSKELETAL: Moves all extremities. Strength/ROM intact without gross deformities. + drop arm test, increased pain with abduction of R shoulder and extension SKIN: Warm, dry, normal color. No rashes. NEURO: A&O X3. Speech clear. Cranial nerves II-XII intact. No ataxic movements. PSYCHIATRIC: Appropriate mood and affect. Normal interaction. Course Vital Signs Vital signs: Vital Signs Temperature 36.2 C L 04/15/25 18:01 Pulse Rate 105 H 04/15/25 18:01 Respiratory Rate 18 04/15/25 18: Blood Pressure 154/109 H 04/15/25 18:01 Pulse Oximetry 98 04/15/25 18:01 Temperature 36.2 C L 04/15/25 18:01 Pulse Rate 105 H 04/15/25 18:01 Respiratory Rate 18 04/15/25 18:01 Blood Pressure 154/109 H 04/15/25 18:01 Pulse Oximetry 98 04/15/25 18:01 Medical Decision Making MDM Narrative Medical decision making narrative: Patient is a 44-year-old female who presents to the ER with right shoulder pain. She reports yesterday she was picking up part of a soda machine at work when it started to slip and she injured her R shoulder trying to catch it. Patient reports last night she was unable to sleep due to her pain. She reports she is unable to move her right arm due to pain. Patient reports pain starts near her right collarbone and radiates to her right scapula. She denies any back pain, decreased range of motion in her right elbow, previous injury to the right shoulder or chest pain. Patient endorses a history of high blood pressure, depression, CHF, and COPD. Imaging Ordered: Right shoulder x-ray Medications Ordered: Prednisone 40 mg p.o., Guild p.o. Results: Pt's R shoulder indicates Highly suggestive undisplaced fracture at the junction of the proximal two thirds and distal one third of the right clavicle. Clinical correlation and follow-up advised. Diagnosis: R clavicle fracture Consults: orthopedic surgeon (outpatient) Patient Education/Shared MDM: Results of imaging shared with patient. She endorses mild improvement of symptoms following medication administration. Patient strongly advised to follow-up with orthopedic surgery as soon as possible. She will be discharged home with a prescription for Guild. Patient's right arm will be placed in a sling prior to her being discharged. Strict return precautions provided. Patient verbalized understanding and is in agreement with plan. Vital signs stable at time of discharge. All questions answered. Differential Diagnosis Differential Diagnosis: Right clavicle fracture, right rotator cuff tear, right shoulder sprain Vital Signs Vital Signs: Vital Signs Temperature 36.2 C L 04/15/25 18:01 Pulse Rate 105 H 04/15/25 18:01 Respiratory Rate 18 04/15/25 18:01 Blood Pressure 154/109 H 04/15/25 18:01 Pulse Oximetry 98 04/15/25 18:01 Temperature 36.2 C L 04/15/25 18:01 Pulse Rate 105 H 04/15/25 18:01 Respiratory Rate 18 04/15/25 18:01 Blood Pressure 154/109 H 04/15/25 18:01 Pulse Oximetry 98 04/15/25 18:01 Imaging Data Attestation: I personally reviewed and interpreted this imaging study as follows: Radiologist's impression: Impressions Shoulder X-Ray 04/15/25 19:16 IMPRESSION: Highly suggestive undisplaced fracture at the junction of the proximal two thirds and distal one third of the right clavicle. Clinical correlation and follow-up advised. Discharge Plan Discharge Clinical Impression: Fracture of right clavicle Patient Disposition: Home Condition: Stable Instructions: Antibiotic Form Additional Instructions: Please return to the ER with any worsening symptoms. Follow-up with Orthopedic surgery as soon as possible. Take all medications as prescribed. Please keep your right arm in a sling until you are evaluated by Orthopedics. Patient Language: Citizen Of [place] Prescriptions: New hydrocodone-acetaminophen 5-325 mg tablet 1 tablet PO Q6H PRN (Reason: pain) Qty: 14 0RF No Action cyclobenzaprine 5 mg tablet 5 mg PO TID PRN (Reason: muscle spasm) Qty: 15 0RF lidocaine 5 % adhesive patch,medicated 1 patch topical DAILY Qty: 15 0RF Rx Instructions: leave on most painful area for up to 12 hrs cyclobenzaprine 10 mg tablet 10 mg PO TID PRN (Reason: muscle spasm) Qty: 14 0RF Follow-up/Referrals: Manny,MD Javan [Primary Care Provider] - Ranjit Espinoza MD [Physician] - (orthopedic surgery) Stand Alone Forms: Work/School Release IP Time of Disposition: 19:57
[2025-04-15] MEDS: predniSONE 20 MG TABLET 40 MG PO (19:09)
[2025-04-15] MEDS: HYDROcodone/acetaminophen (*CRX) 5-325 MG TABLET 1 TAB PO (19:09)
[2025-04-15 20:11] VITALS: BP 118/86; PULSE 76; RESP 16; TEMP 36.6; O2SAT 98
== END 2025-04-15 20:13 | disposition home or self-care (01) ==
PROVIDERS: Emergency Provider Registered Nurse; PCP Internal Medicine
DX: S42.001A Fracture of unspecified part of right clavicle, initial encounter for closed fracture (principal); E11.9 Type 2 diabetes mellitus without complications; I10 Essential (primary) hypertension; E78.5 Hyperlipidemia, unspecified; E03.9 Hypothyroidism, unspecified; X50.0XXA Overexertion from strenuous movement or load, initial encounter
CPT/HCPCS: 73030; 99284; A4565; A9270; J7512

== ENCOUNTER 2025-04-23 20:25 | Emergency (ER) | payer OTHER, SELFPAY ==
--- NOTE | ~2025-04-23 | XR_ITS ---
EXAM: XR shoulder RT min 2V DATE: 04/23/2025 20:57 HISTORY: fall pain . COMPARISON: 04/19/2025, images only. FINDINGS: Normal mineralization. No fracture or dislocation. No lytic or blastic lesion. Mild degene rative change at the AC joint. No erosion or periosteal change. Soft tissues within normal limits. IMPRESSION: No acute osseous finding in the right shoulder. Reviewed, dictated and finalized at location K.
--- NOTE | ~2025-04-23 | XR_ITS ---
EXAM: XR elbow RT 2V DATE: 04/23/2025 20:57 HISTORY: fall pain . COMPARISON: None available. FINDINGS: Normal mineralization. No fracture or dislocation. No lytic or blastic lesion. Mild degene rative change in the elbow joint. No erosion or periosteal change. Soft tissues within normal limits. IMPRESSION: No acute osseous finding in the right elbow. Reviewed, dictated and finalized at location K.
--- OUTSIDE RECORDS SUMMARY | 2025-04-23 20:27 | XMS_ITS | Continuity of Care Document ---
Author Organization [facility]. If a dditional information is needed, contact Health Information Management at [phone] [address] [place] [address] Phone Care Team Providers Care Mobile Ui Developer Name Role Phone Unavailable Unavailable Unavailable Unavailable Unavailable Unavailable Unavailable Unavailable Unavailable Unavailable Unavailable Unavailable Unavailable Unavailable Unavailable Unavailable Unavailable Unavailable Unavailable Unavailable Unavailable Unavailable Unavailable Unavailable Unavailable Unavailable Unavailable Unavailable Unavailable Unavailable Unavailable Unavailable Unavailable Unavailable Unavailable Unavailable Problems Migraine Onset:09-Oct-2023 Gretel Hillman MD Sprain of wrist Onset:09-Oct-2023 Gretel Hillman MD Sprain of wrist Onset:29-Sep-2023 Fletcher Ku HEAD OPERATOR Sprain of ligament of right hand Onset:26-Apr-2023 SEDLU Sprain of ligament of right ring finger Onset:26-Apr-2023 SEDLU Sprain of knee Onset:21-Feb-2023 Ngoc Rome PA Sprain of knee Onset:26-Jan-2023 Markel Shaw APRNNP Pain of knee region Onset:26-Jan-2023 Markel Shaw APRNNP Acute bronchitis Onset:20-Dec-2022 Fletcher Ku HEAD OPERATOR Cellulitis Onset:26-Aug-2022 Yoandy Angeles APRN Hypovolemia Onset:27-Jun-2022 Omid Angeles MD Diarrhea and vomiting Onset:27-Jun-2022 Omid Angeles MD Opioid withdrawal Onset:27-Jun-2022 Omid Angeles MD Allergies and Adverse Reactions ibuprofen(Allergy) Onset: 29-Sep-2023 Reaction:SWELLING Ibuprofen(Allergy) Medications Voltaren;1 % Externally Twic e a day, Apply 4 grams to affected area as needed Quantity:1 DOYLE RUSSELL Start:09-Mar-2023 Comments:1 % Externally Twice a day, Apply 4 grams to affected area as needed Hydrocodone-Acetaminophen;5- 325 MG Orally every 6 hrs prn severe pain, 1 tablet as needed Quantity:20 DOYLE WELLS Start:05-Feb-2023 Status:Inactive Comments:5-325 MG Orally every 6 hrs prn severe pain, 1 tablet as needed Narcan;4 MG/0.1ML Nasally si ngle dose in one nostril; may repeat every 2 to 3 minutes in alternating nostrils until medical assistance becomes available PRN sedation, as directed Quantity:1 DOYLE WELLS Start:01-Feb-2023 Status:Inactive Comments:4 MG/0.1ML Nasally single dose in one nostril; may repeat every 2 to 3 minutes in alternating nostrils until medical assistance becomes available PRN sedation, as directed Amoxicillin 875 MG / Clavula kassy 125 MG Oral Tablet;875-125 MG Orally every 12 hrs, 1 tablet Quantity:10 DOYLE WELLS Start:18-Jan-2023 Status:Inactive Comments:875-125 MG Orally every 12 hrs, 1 tablet 12 HR buPROPion Hydrochlorid e 150 MG Extended Release Oral Tablet;150 MG Orally twice a day, 1 tablet in the morning Quantity:60 DOYLE WELLS Start:01-Dec-2022 Status:Inactive Comments:150 MG Orally twice a day, 1 tablet in the morning Ozempic DOYLE WELLS Status:Inactive Calcium DOYLE WELLS Status:Inactive Ziprasidone HCl;20 MG , TAKE 1 CAPSULE BY MOUTH EVERY DAY WITH FOOD FOR 30 DAYS Quantity:30 DOYLE LOGANOSTA Comments:20 MG , TAKE 1 CAPS ULE BY MOUTH EVERY DAY WITH FOOD FOR 30 DAYS Doxepin HCl;75 MG , 1 CAPSUL E AT BEDTIME ORALLY ONCE A DAY 90 DAY(S) Quantity:90 DOYLE WELLS Status:Inactive Comments:75 MG , 1 CAPSULE AT BEDTIME ORALLY ONCE A DAY 90 DAY(S) Geodon;20 MG Orally once a d ay, 1 capsule with food Quantity:30 DOYLE WELLS Status:Inactive Comments:20 MG Orally once a day, 1 capsule with food Gabapentin;300 MG Orally Onc e a day, 1 capsule Quantity:30 DOYLE LOGANOSTA Status:Inactive Comments:300 MG Orally Once a day, 1 capsule traMADol hydrochloride 50 MG Oral Tablet;50 MG Orally Once a day, 1 tablet as needed DOYLE WELLS Status:Inactive Comments:50 MG Orally Once a day, 1 tablet as needed Omeprazole;20 MG Orally Once a day, 1 capsule 30 minutes before morning meal Quantity:30 DOYLE LOGANOSTA Comments:20 MG Orally Once a day, 1 capsule 30 minutes before morning meal Aspir-Low;81 MG Orally Once a day, 1 tablet Quantity:30 DOYLE WELLS Comments:81 MG Orally Once a day, 1 tablet pantoprazole 20 MG Delayed R elease Oral Tablet [Protonix];20 MG Orally Once a day, 1 tablet Quantity:30 DOYLE WELLS Comments:20 MG Orally Once a day, 1 tablet DULoxetine 30 MG (as DULoxet ine hydrochloride 33.7 MG) Delayed Release Oral Capsule;30 MG Orally Once a day, 1 capsule Quantity:30 DOYLE WELLS Status:Inactive Comments:30 MG Orally Once a day, 1 capsule Atorvastatin Calcium;40 MG O rally Once a day, 1 tablet Quantity:90 DOYLE WELLS Comments:40 MG Orally Once a day, 1 tablet Solifenacin Succinate;5 MG O rally Once a day, 1 tablet Quantity:30 DOYLE WELLS Status:Inactive Comments:5 MG Orally Once a day, 1 tablet Allopurinol 300 MG Oral Tabl et;300 MG Orally Once a day, 1 tablet Quantity:90 DOYLE WELLS Comments:300 MG Orally Once a day, 1 tablet Spironolactone 50 MG Oral Ta blet;50 MG Orally Once a day, 1 tablet Quantity:90 DOYLE LOGANOSTA Comments:50 MG Orally Once a day, 1 tablet irbesartan 300 MG Oral Table t;300 MG Orally Once a day, 1 tablet Quantity:90 DOYLE LOGANOSTA Comments:300 MG Orally Once a day, 1 tablet Simvastatin 40 MG Oral Table t;40 MG Orally Once a day, 1 tablet in the evening Quantity:90 DOYLE LOGANOSTA Comments:40 MG Orally Once a day, 1 tablet in the evening Levothyroxine Sodium 0.075 M G Oral Tablet;75 MCG Orally Once a day, 1 tablet in the morning on an empty stomach Quantity:90 DOYLE LOGANOSTA Comments:75 MCG Orally Once a day, 1 tablet in the morning on an empty stomach Calcium + Vitamin D3;600-10 MG-MCG Orally Once a day, 1 tablet with a meal Quantity:90 DOYLE LOGANOSTA Comments:600-10 MG-MCG Orall y Once a day, 1 tablet with a meal Social History Smoking Status Ex-smoker Recorded: 09-Oct-2023 Never smoked tobacco Recorded: 29-Sep-2023 Smokes tobacco daily Recorded: 26-Apr-2023 Never smoked tobacco Recorded: 21-Feb-2023 Ex-smoker Recorded: 26-Jan-2023 Smokes tobacco daily Recorded: 20-Dec-2022 Smokes tobacco daily Recorded: 26-Aug-2022 Smokes tobacco daily Recorded: 27-Jun-2022 Encounters pre-admission 05-May-2023 10:00 Kenny De La Vega MD (Attending) [facility] Ambulatory 08-Feb-2023 17:11 Max Weiss MD (Attending) [facility]
--- OUTSIDE RECORDS SUMMARY | 2025-04-23 20:27 | XMS_ITS | Clinical Summary ---
Author Organization [facility] Address [address] [place] [address] Phone Care Team Providers Care Wash House Supervisor Name Role Phone Javan Bryant MD Primary Care Provider [phone] Allergies Active Allergy Reactions Criticality Noted Date [...] on file Legal Sex Female 10:45 AM STEAM AND POWER SUPERINTENDENT Gender Identity Not on file Sexual Orientation Not on file Last Filed Vital Signs Vital Sign Reading Time Taken Comments Blood Pressure 126/92 11/17/2013 10:58 AM STEAM AND POWER SUPERINTENDENT Pulse 88 11/17/2013 10:58 AM STE[employer] AND POWER SUPERINTENDENT Temperature 36.7 C (98.1 F) 11/17/2013 10:58 AM STEAM AND POWER SUPERINTENDENT Respiratory Rate 20 11/17/2013 10:58 AM STEAM AND POWER SUPERINTENDENT Oxygen Saturation 99% 11/17/2013 10:58 AM STEAM AND POWER SUPERINTENDENT Inhaled Oxygen Concentration - - Weight 95.3 kg (210 lb) 11/17/2013 10:58 AM STE[employer] AND POWER SUPERINTENDENT Height 162.6 cm (5' 4) 11/17/2013 10:58 AM STEAM AND POWER SUPERINTENDENT Body Mass Index 36.05 11/17/2013 10:58 AM STE[employer] AND POWER SUPERINTENDENT Plan of Treatment Health Maintenance Due Date [...] this topic Insurance [place] Care Teams Wash House Supervisor Relationship Specialty Start Date End Date Javan Bryant MD PCP - General Internal Medicine 01/23/21
--- OUTSIDE RECORDS SUMMARY | 2025-04-23 20:28 | XMS_ITS | Data Portability ---
Author Organization [place] - [employer], Main Office Address [address] [place] [address] Care Team Providers Care Manager Application Development Name Role Phone KAILEE BRYANT Primary Care Provider [phone] KAILEE BRYANT Referring Provider [phone] KAILEE BRYANT Primary Care Provider [phone] Assessment Encounter Date Assessment Date Assessment LastModified by Organization Details LastModified Time 12/21/2023 12/21/2023 Periumbilical pain with possible mass. Unremarkable physical exam, CT scan from outside facility does not comment on a ventral hernia. We will obtain images from outside facility to evaluate here and patient will follow up afterwards [email or web address] Not available 12/21/2023 11:13:14 12/28/2023 12/28/2023 No [...] with GI as scheduled on Jun 28. Not available 06/06/2024 12:47:24 Plan of Treatment [...] 2016, 39(Mena ppl.1 ):s13 -s22 Not Available [facility] (Lab) [address] [place], [address], 04/02/2022 21:22:14 04/02/20 22 04/02/2022 LIPID PANEL triglyceride s 266 mg/dL 0-150 high NIH EVITA NSUS REPOR T RECOM MENDA TION FOR TRIGL YCERI СЕРГЕЙ: ADULT CHILD LOW RISK: <150 ----- BODER LINE: 150-1 99 ----- HIGH RISK: >200 ----- Not Available [facility] (Lab) [address] [place], [address], 04/02/2022 15:48:40 04/02/20 22 04/02/2022 LIPID PANEL HDL cholesterol 33 mg/dL 40- low Not Available [facility] (Lab) [address] [place], [address], 04/02/2022 15:48:40 04/02/20 22 04/02/2022 LIPID PANEL [...] WILL NOT BE REPOR DINA. Not Available [facility] (Lab) [address] [place], [address], 04/02/2022 15:48:40 04/02/20 22 04/02/2022 LIPID PANEL cholesterol 154 mg/dL 140-19 9 NIH EVITA NSUS RECOM MENDA TION FOR CAMI STERO L: ADULT CHILD LOW RISK: <200 <170 BORDE RLINE : <200- 239 ----- HIGH RISK: >240 >200 Not Available [facility] (Lab) [address] [place], [address], 04/02/2022 15:48:40 04/02/20 22 04/02/2022 COMPR EHENS JULIANNA METAB OLIC PANEL sodium 138 mmol/ L 137-14 5 Not Available [facility] (Lab) [address] [place], [address], 04/02/2022 15:48:34 04/02/20 22 04/02/2022 COMPR EHENS JULIANNA METAB OLIC PANEL potassium 4.2 mmol/ L 3.5-5. 1 Not Available [facility] (Lab) [address] [place], [address], 04/02/2022 15:48:34 04/02/20 22 04/02/2022 COMPR EHENS JULIANNA METAB OLIC PANEL chloride 99 mmol/ L 98-107 Not Available [facility] (Lab) [address] [place], [address], 04/02/2022 15:48:34 04/02/20 22 04/02/2022 COMPR EHENS JULIANNA METAB OLIC PANEL carbon dioxide 35 mmol/ L 22-30 high Not Available [facility] (Lab) [address] [place], [address], 04/02/2022 15:48:34 04/02/20 22 04/02/2022 COMPR EHENS JULIANNA METAB OLIC PANEL anion gap 8.2 mmol/ L 14-22 low Not Available [facility] (Lab) [address] [place], [address], 04/02/2022 15:48:34 04/02/20 22 04/02/2022 COMPR EHENS JULIANNA METAB OLIC PANEL glucose 97 mg/dL 70-99 Not Available [facility] (Lab) [address] [place], [address], 04/02/2022 15:48:34 04/02/20 22 04/02/2022 COMPR EHENS JULIANNA METAB OLIC PANEL BUN 16 mg/dL 8-19 Not Available [facility] (Lab) [address] [place], [address], 04/02/2022 15:48:34 04/02/20 22 04/02/2022 COMPR EHENS JULIANNA METAB OLIC PANEL creatinine 1.45 mg/dL 0.66-1 .25 high Not Available [facility] (Lab) [address] [place], [address], 04/02/2022 15:48:34 04/02/20 22 04/02/2022 COMPR EHENS JULIANNA METAB OLIC PANEL GFR 39 Refer ence Range : Tennga ge GFR Healt hy Adult : >60 [...] calcu lator is avail able on the [facility] websi te: [email or web address] :[email or web address] [email or web address]/gf r_cal culat or Not Available [facility] (Lab) [address] [place], [address], 04/02/2022 15:48:34 04/02/20 22 04/02/2022 COMPR EHENS JULIANNA METAB OLIC PANEL alkaline phosphatase 49 U/L 38-126 Not Available [facility] (Lab) [address] [place], [address], 04/02/2022 15:48:34 04/02/20 22 04/02/2022 COMPR EHENS JULIANNA METAB OLIC PANEL alanine aminotransfe rase 20 U/L 0-35 Not Available [facility] (Lab) [address] [place], [address], 04/02/2022 15:48:34 04/02/20 22 04/02/2022 COMPR EHENS JULIANNA METAB OLIC PANEL aspartate aminotransfe rase 29 U/L 15-37 Not Available [facility] (Lab) [address] [place], [address], 04/02/2022 15:48:34 04/02/20 22 04/02/2022 COMPR EHENS JULIANNA METAB OLIC PANEL bilirubin, total 0.40 mg/dL 0.20-1 .30 Not Available [facility] (Lab) [address] [place], [address], 04/02/2022 15:48:34 04/02/20 22 04/02/2022 COMPR EHENS JULIANNA METAB OLIC PANEL calcium 10.7 mg/dL 8.4-10 .2 high Not Available [facility] (Lab) [address] [place], [address], 04/02/2022 15:48:34 04/02/20 22 04/02/2022 COMPR EHENS JULIANNA METAB OLIC PANEL total protein 6.8 g/dL 6.3-8. 2 Not Available [facility] (Lab) [address] [place], [address], 04/02/2022 15:48:34 04/02/20 22 04/02/2022 COMPR EHENS JULIANNA METAB OLIC PANEL albumin 4.1 g/dL 3.4-5. 0 Not Available [facility] (Lab) [address] [place], [address], 04/02/2022 15:48:34 04/02/20 22 04/02/2022 COMPR EHENS JULIANNA METAB OLIC PANEL globulin 2.7 g/dL 2.6-4. 2 Not Available [facility] (Lab) [address] [place], [address], 04/02/2022 15:48:34 04/02/20 22 04/02/2022 COMPR EHENS JULIANNA METAB OLIC PANEL A/G ratio 1.5 ratio 1.0-2. 0 Not Available [facility] (Lab) [address] [place], [address], 04/02/2022 15:48:34 04/02/20 22 04/02/2022 CBC/C OMPLE TE BLD COUNT W/DIF F hematocrit 49.9 % 35.7-4 5.7 high Not Available [facility] (Lab) [address] [place], [address], 04/02/2022 15:11:52 04/02/20 22 04/02/2022 CBC/C OMPLE TE BLD COUNT W/DIF F white blood cells 7.1 x10'3 /uL 4.2-10 .8 Not Available [facility] (Lab) [address] [place], [address], 04/02/2022 15:11:52 04/02/20 22 04/02/2022 CBC/C OMPLE TE BLD COUNT W/DIF F red blood cells 4.98 x10'6 /uL 3.80-5 .20 Not Available [facility] (Lab) [address] [place], [address], 04/02/2022 15:11:52 04/02/20 22 04/02/2022 CBC/C OMPLE TE BLD COUNT W/DIF F hemoglobin 16.7 g/dL 12.0-1 5.6 high Not Available [facility] (Lab) [address] [place], [address], 04/02/2022 15:11:52 04/02/20 22 04/02/2022 CBC/C OMPLE TE BLD COUNT W/DIF F mean red cell volume 100.2 fL 82.0-9 9.0 high Not Available [facility] (Lab) [address] [place], [address], 04/02/2022 15:11:52 04/02/20 22 04/02/2022 CBC/C OMPLE TE BLD COUNT W/DIF F mean red cell hemoglobin 33.5 pg 27.0-3 3.0 high Not Available [facility] (Lab) [address] [place], [address], 04/02/2022 15:11:52 04/02/20 22 04/02/2022 CBC/C OMPLE TE BLD COUNT W/DIF F mean RBC HGB concentratio n 33.5 g/dL 31.0-3 6.0 Not Available [facility] (Lab) [address] [place], [address], 04/02/2022 15:11:52 04/02/20 22 04/02/2022 CBC/C OMPLE TE BLD COUNT W/DIF F red cell distribution width 13.0 % 11.8-1 5.5 Not Available [facility] (Lab) [address] [place], [address], 04/02/2022 15:11:52 04/02/20 22 04/02/2022 CBC/C OMPLE TE BLD COUNT W/DIF F platelets 187 x10'3 /uL 150-40 0 Not Available [facility] (Lab) [address] [place], [address], 04/02/2022 15:11:52 04/02/20 22 04/02/2022 CBC/C OMPLE TE BLD COUNT W/DIF F mean platelet volume 10.1 fL 9.0-12 .4 Not Available [facility] (Lab) [address] [place], [address], 04/02/2022 15:11:52 04/02/20 22 04/02/2022 CBC/C OMPLE TE BLD COUNT W/DIF F neutrophils 46.7 % 39.0-7 2.0 Not Available [facility] (Lab) [address] [place], [address], 04/02/2022 15:11:52 04/02/20 22 04/02/2022 CBC/C OMPLE TE BLD COUNT W/DIF F lymphocytes 41.8 % 16.0-4 7.0 Not Available [facility] (Lab) [address] [place], [address], 04/02/2022 15:11:52 04/02/20 22 04/02/2022 CBC/C OMPLE TE BLD COUNT W/DIF F monocytes 5.2 % 5.0-12 .0 Not Available [facility] (Lab) [address] [place], [address], 04/02/2022 15:11:52 04/02/20 22 04/02/2022 CBC/C OMPLE TE BLD COUNT W/DIF F eosinophils 5.8 % 1.0-7. 0 Not Available [facility] (Lab) [address] [place], [address], 04/02/2022 15:11:52 04/02/20 22 04/02/2022 CBC/C OMPLE TE BLD COUNT W/DIF F basophils 0.4 % 0.0-2. 0 Not Available [facility] (Lab) [address] [place], [address], 04/02/2022 15:11:52 04/02/20 22 04/02/2022 CBC/C OMPLE TE BLD COUNT W/DIF F immature granulocytes 0.1 % 0.00-0 .50 Not Available [facility] (Lab) [address] [place], [address], 04/02/2022 15:11:52 04/02/20 22 04/02/2022 CBC/C OMPLE TE BLD COUNT W/DIF F neutrophils, absolute count 3.29 x10'3 /uL 1.5-8. 0 Not Available [facility] (Lab) [address] [place], [address], 04/02/2022 15:11:52 04/02/20 22 04/02/2022 CBC/C OMPLE TE BLD COUNT W/DIF F lymphocytes, absolute count 2.95 x10'3 /uL 1.07-3 .43 Not Available [facility] (Lab) [address] [place], [address], 04/02/2022 15:11:52 04/02/20 22 04/02/2022 CBC/C OMPLE TE BLD COUNT W/DIF F monocytes, absolute count 0.37 x10'3 /uL 0.29-0 .99 Not Available [facility] (Lab) [address] [place], [address], 04/02/2022 15:11:52 04/02/20 22 04/02/2022 CBC/C OMPLE TE BLD COUNT W/DIF F eosinophils, absolute count 0.41 x10'3 /uL 0.02-0 .53 Not Available [facility] (Lab) [address] [place], [address], 04/02/2022 15:11:52 04/02/20 22 04/02/2022 CBC/C OMPLE TE BLD COUNT W/DIF F basophils, absolute count 0.03 x10'3 /uL 0.01-0 .08 Not Available [facility] (Lab) [address] [place], [address], 04/02/2022 15:11:52 04/02/20 22 04/02/2022 CBC/C OMPLE TE BLD COUNT W/DIF F immature granulocytes ,absolute 0.01 x10'3 /uL 0.00-0 .05 Not Available [facility] (Lab) [address] [place], [address], 04/02/2022 15:11:52 04/02/20 22 04/02/2022 CBC/C OMPLE TE BLD COUNT W/DIF F nucleated red blood cells 0.0 % -0 Not Available [facility] (Lab) [address] [place], [address], 04/02/2022 15:11:52 04/02/20 22 04/02/2022 CBC/C OMPLE TE BLD COUNT W/DIF F NRBC# 0.00 x10'3 /uL Not Available [facility] (Lab) [address] [place], [address], 04/02/2022 15:11:52 03/16/20 22 03/16/2022 MR, angio gram, brain , w/o contr ast [facility] [address], [place] [address] [phone] Marissa t Name: VAUGHN GOLDBERG Access ion #: [id number] Sex: F : 1979 6 Locati [...] gradie nt echo MRA images of the [place] were perfor med. 3D MIP rotati onal images were obtain ed. FINDIN GS: See below. IMPRES LINDSEY: 1. No signif icant stenos is or aneury smal dilata tion about the [place] . Page 1 of 2 [facility] Marissa t Name: VAUGHN GOLDBERG Access ion #: [id number] Sex: F : 1979 6 Exam Date: 12:56 PM Exam Name: MRA HEAD WO Admitt ing Diagno sis(es ): 2. No MRA eviden ce cerebr al AVM. Create d and electr onical ly signed by: Yung hernandez MD Signed Date: 1:28 PM (CT) Dictat ed by: Yung hernandez MD DD: 1:28 PM (CT) DT: 1:28 PM (CT) Page 2 of 2 [id number] [facility] (Imaging) [address] [facility], [place], [address], 01/20/2023 01:59:39 04/09/20 22 04/09/2022 XR, foot No observ ation record ed. MIGRATION. [facility] [address], [place], [address], 01/20/2023 01:59:39 05/06/20 22 05/05/2022 elect roenc ephal ogram No observ ation record ed. [id number] Not Available 01/20/2023 01:59:39 05/07/20 22 05/05/2022 elect roenc ephal ogram No observ ation record ed. [id number] Not Available 01/20/2023 01:59:39 11/28/19 24 11/27/2023 CT, abdom en + pelvi s, w/o contr ast No observ ation record ed. [facility] [address], [place], [address], 11/28/2023 19:03:02 04/04/20 24 04/04/2024 scree eitan breas t adrianna, bilat [facility] [address] [place] [address] [phone] Patien t Name: KIMBERLY GOLDBERGN Access ion #: [id number] Sex: F : 1979 2 Dictat [...] 2023 10:07: 35 AM Page 1 [email or web address] [facility] (Imaging) [address] [place] [address], [address], 06/06/2024 10:01:57 05/30/20 24 05/29/2024 CT, abdom en + pelvi s, w/ contr ast [facility] [address] [place], [place] [address] Patien t Name: VAUGHN GOLDBERG Access ion #: [id number] Sex: F : 1979 7 Dictat [...] and stored . [facility] perfor med using [...] hydron ephros is or mass. Page 1 [facility] [address] [place] [address] [phone] Patien t Name: VAUGHN GOLDBERG Access ion #: [id number] Sex: F : 1979 7 Dictat ed By: Evans knowles Attend ing Physic stephenie: GABRIELA CANTU [facility] Physic stephenie: JOSIAS STEWART Exam Date: [...] measur ing up to 2.6 cm in [facility] ion. Bones: No acute fractu re [...] at 2023 07:38: 20 AM Page [address] (Imaging) [address] [place], [address], 05/31/2024 08:50:42 05/30/20 24 05/29/2024 CT, abdom en + pelvi s, w/ contr ast No observ ation record ed. [address] [place], [address], 05/31/2024 08:50:23 11/10/20 24 11/10/2024 XR, chest , 2 view [facility] [address] [place] [address] [phone] Patien t Name: VAUGHN GOLDBERG [facility] ion #: [id number] Sex: F : 1979 1 Dictat ed By: Knenedy Patel Attend ing Physic stephenie: EVANS BRYANT [...] 2023 11:57: 35 AM Page 1 INTERFACE [facility] ([facility]) [address] [place], [address], 11/10/2024 12:59:44 Result Notes None recorded. Problems Name Problem SNOMED Code Status Onset Date Resolution Date Notes Provider Name and Address Organization Details Recorded Time Metatarsal tani 54268532 Active 2021 Not Available [facility] 4 01:21:41 Plantar fasciitis of right foot 1215624878752 9101 Active 2018 Not Available [facility] 4 01:21:41 Plantar fascial fibromatos is 06214115 Active Not Available [facility] 4 01:21:41 Pain in both feet 2700351692262 9102 Active 2021 Not Available [facility] 4 01:21:41 Acute sinusitis 48993778 Active Not Available [facility] 4 01:21:41 Otalgia 67135056 Active Not Available [facility] 4 01:21:41 Right flank pain 822686646 Active Not Available [facility] 4 01:21:41 Asthma 175237767 Active 2018 Not Available [facility] 4 01:21:41 Pain of joint of wrist 502668153 Active Not Available [employer] 4 01:21:41 Tibialis posterior tendinitis 936688455 Active 2020 Not Available [facility] 4 01:21:42 Abdominal pain 68034764 Active Not Available [facility] 4 01:21:42 Gastroesop hageal reflux disease 272460279 Active Not Available [facility] 4 01:21:42 Long-term drug therapy Active 2021 Not Available [facility] 4 01:21:42 Pure hyperchole sterolemia 339072066 Active Not Available [facility] 4 01:21:42 Eruption 166066183 Active Not Available [facility] 4 01:21:42 Hypertrigl yceridemia 708947700 Active Not Available [facility] 4 01:21:42 Type 2 diabetes mellitus without complicati on 726347879 Active 2020 Not Available [facility] 4 01:21:42 Pain in right hand 9227435038118 09 Active Not Available [facility] 4 01:21:42 Blood in urine 62946448 Active Not Available [facility] 4 01:21:42 Sinusitis 45892197 Active 2021 Not Available [facility] 4 01:21:42 Migraine 10667693 Active Not Available [facility] 4 01:21:42 Neuropathy 720993114 Active 2020 Not Available [facility] 4 01:21:42 Hypothyroi dism 56897064 Active Not Available [facility] 4 01:21:42 Obesity 169737991 Active 2017 Not Available [facility] 4 01:21:42 Acute urinary tract infection 946893322 Active 2021 Not Available [facility] 4 01:21:42 Chronic diastolic heart failure 332540761 Active 2020 Not Available [facility] 4 01:21:42 Foot pain 42432964 Active 2021 Not Available [facility] 4 01:21:42 Foot pain 32123955 Active Not Available [facility] 4 01:21:42 Dysuria 39658429 Active 2021 Not Available [facility] 4 01:21:42 Upper respirator y infection 46704418 Active 2021 Not Available [facility] 4 01:21:42 Pain of wrist region 03547309 Active Not Available [facility] 4 01:21:42 Dysfunctio n of eustachian tube 43359827 Active Not Available [facility] 4 01:21:42 Carpal tunnel syndrome 89002871 Active Not Available [facility] 4 01:21:42 Essential hypertensi on 54459158 Active 2016 Not Available [facility] 4 01:21:42 Muscle twitch 05639212 Active 2021 Not Available [facility] 4 01:21:42 Rhinitis 51205056 Active Not Available [facility] 4 01:21:42 Obstructiv e sleep apnea syndrome 44185604 Active 2018 Not Available [facility] 4 01:21:42 Ex-smoker 4036398 Active 2019 Not Available [facility] 4 01:21:42 Umbilical hernia 115085273 Active 2023 Not Available [facility] 4 01:21:42 Bronchitis 63369392 Active 2023 Not Available [facility] 4 01:21:42 Notes:Medical History: Depre ssion Migraine headaches Rhinosinusitis Erythrocytosis Obesity with BRENDON Hypothyroidism Mixed hyperlipidemia Hypertension Diastolic CHF T2DM with neuropathy QUOC Urge urinary incontinence Vit D deficiency Gout Right plantar fasciitis Some problems listed in Document: #[id number] could not be added to this patient's chart. Please review this document and add these problems to the patient's chart manually as needed. Problem Notes None recorded. Procedures Surgical History Date Name Laterality Status Provider Name and Address Organization Details Recorded Time 03/12/20 21 Cardiac Cath completed Not Available [facility] 023 01:18:24 02/08/20 18 Exc h-f-nk-sp b9+jimmy 0.6-1 completed Not Available [facility] 01/20/2023 01:18:24 Gallbladder Surgery completed ESDRAS Garcia [place] [facility] [employer] [facility] 12/21/2023 10:36:42 Hysterectomy completed ESDRAS Garcia [place] [facility] [employer] [facility] 12/21/2023 10:36:59 Tonsillectomy completed ESDRAS [place] [employer] 12/21/2023 10:37:07 Imaging Results None recorded. Procedure Notes None recorded. Medical Equipment None Reported. Allergies Allergen ID Allergen Name Allergen Category Reaction Reaction Severity Criticality Documentation Date Start Date Code Code System Note Provider Name and Address Organization Details Recorded Time 3095 ibuprofen medicatio n edema Not available Not available 01/20/2023 5640 RxNorm legs and ankle s Not Available [facility] 3 01:58:48 Medications Name Sig Start Date [...] Available Not Available No t Available levofloxa kwasi 500 mg tablet TAKE 1 TABLET BY [...] Requeste d Product on backorde r/unavai lable [facility] pharmacy Not Available Not Available Not [...] Updated DateTime 4 162.56 cm 48.9 kg/m2 332545. 83 g 14 /min 133 /min 98.6 [degF] 97 % 97 % Edna Ott MA [employer] 4 10:34:05 Date Recorded Body height Body mass index (BMI) Body weight Body temperature Heart rate Respiratory rate Oxygen saturation Oxygen saturation in Arterial blood by Pulse oximetry Provider Name and Address Organization Details Last Updated DateTime 4 162.56 cm 48.9 kg/m2 412530. 83 g 98.6 [degF] 100 /min 14 /min 97 % 97 % Jackie Adlernshaw [employer] 4 12:19:47 Date Recorded Body mass index (BMI) Body height Body weight Provider Name and Address Organization Details Last Updated DateTime 04/09/2022 43.3 kg/m2 162.56 cm 759440.28 g Not Available [facility] 01/20/2023 01:29:38 Date Recorded Body height Body mass index (BMI) Body weight Heart rate Body temperature Respiratory rate Oxygen saturation Oxygen saturation in Arterial blood by Pulse oximetry Systolic blood pressure Diastolic blood pressure Provider Name and Address Organization Details Last Updated DateTime 4 162.56 cm 48.9 kg/m2 109530. 83 g 90 /min 97.4 [degF] 16 /min 97 % 97 % 120 mm[Hg] 80 mm[Hg] Jackie Tahira [employer] 4 10:35:11 Date Recorded Body height Body mass index (BMI) Body weight Body temperature Heart rate Respiratory rate Oxygen saturation Oxygen saturation in Arterial blood by Pulse oximetry Systolic blood pressure Diastolic blood pressure Provider Name and Address Organization Details Last Updated DateTime 4 162.56 cm 48.9 kg/m2 874406. 83 g 97.4 [degF] 90 /min 14 /min 97 % 97 % 120 mm[Hg] 80 mm[Hg] Jackie Adlernshaw [employer] 4 12:38:43 Social History Question Answer Notes LastModified by Organizat ion Details LastModified Time Tobacco Smoking Status Current Every Day Smoker 1/2 cigarettes/d ay; quit 10/11/21; restarted Edna Ott MA [facility] [employer] 12/21/2023 10:36:08 Do You Have An Advance Directive? No [id number] Information not available 01/20/2023 If You Are , What Was Your Level Of Alcohol Consumption Prior To ? None [id number] Information not available 01/20/2023 What Is Your Level Of Caffeine Consumption? Moderate [id number] Information not available 01/20/2023 How Much Tobacco Do You Chew? None [id number] Information not available 01/20/2023 In The 14 Days Before Symptom Onset, Have You Had Close Contact With A Laboratory-confi rmed COVID-19 While That Case Was Ill? No [id number] Information not available 01/20/2023 In The 14 Days Before Symptom Onset, Have You Had Close Contact With A Person Who Is Under Investigation For COVID-19 While That Person Was Ill? No [id number] Information not available 01/20/2023 What Type Of Diet Are You Following? REGULAR MIGRATION.[id number] Information not available 01/20/2023 Which Illicit Or Recreational Drugs Have You Used? None MIGRATION.71001 29308 Information not available 01/20/2023 What Is The Highest Grade Or Level Of School You Have Completed Or The Highest Degree You Have Received? [id number] MIGRATION.00595 27587 Information not available 01/20/2023 Have There Been Any Changes To Your Family Or Social Situation? No MIGRATION.65291 99401 Information not available 01/20/2023 What Is The Fluoride Status Of Your Home? Unknown MIGRATION.12450 18171 Information not available 01/20/2023 Are There Any Guns Present In Your Home? No MIGRATION.63924 05932 Information not available 01/20/2023 Do You Use Insect Repellent Routinely? No MIGRATION.10641 33729 Information not available 01/20/2023 Where Do You Live? Apartment MIGRATION.07313 64751 Information not available 01/20/2023 Do You Have A Medical Power Of Framing Inspector? No MIGRATION.62185 13646 Information not available 01/20/2023 What Was The Date Of Your Most Recent Tobacco Screening? 02/25/2022 MIGRATION.07226 18639 Information not available 01/20/2023 Do You Have Any Pets? Yes MIGRATION.03300 82172 Information not available 01/20/2023 Do You Use Your Seat Belt Or Car Seat Routinely? Yes MIGRATION.37186 30812 Information not available 01/20/2023 Do You Have Smoke And Carbon Monoxide Detectors In Your Home? Yes MIGRATION.28686 83140 Information not available 01/20/2023 At What Age Did You Start Smoking Tobacco? 14 MIGRATION.65695 77621 Information not available 01/20/2023 Are You Passively Exposed To Smoke? No MIGRATION.32487 19717 Information not available 01/20/2023 Are There Any Smokers In Your House? Yes MIGRATION.26997 25116 Information not available 01/20/2023 How Much Tobacco Do You Smoke? 1 PPW MIGRATION.92753 27358 Information not available 01/20/2023 What Types Of Sporting Activities Do You Participate In? None MIGRATION.97009 41956 Information not available 01/20/2023 Do You Use Sunscreen Routinely? Yes MIGRATION.24998 59103 Information not available 01/20/2023 Have You Recently Traveled Abroad? No MIGRATION.61346 57550 Information not available 01/20/2023 Do You Have Any Dietary Restrictions? No MIGRATION.87716 97136 Information not available 01/20/2023 Sex: Female Functional Status Question Answer Note LastModified by [employer] Details LastModified Time Do you use any illicit or recreational drugs? No MIGRATION.901309 8659 Information not available 01/20/2023 Do you or have you ever used any other forms of tobacco or nicotine? No MIGRATION.723135 6640 Information not available 01/20/2023 What is your level of alcohol consumption? None MIGRATION.024857 3060 Information not available 01/20/2023 Do you or have you ever used smokeless tobacco? 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 Never used electronic cigarettes MIGRATION.740045 7785 Information not available 01/20/2023 What is your exercise level? Occasional MIGRATION.567412 8620 Information not available 01/20/2023 Mental Status Question Answer Note LastModified by [employer] Details LastModified Time Do you feel stressed (tense, restless, nervous, or anxious, or unable to sleep at night)? [id number] MIGRATION.[id number] 6 Information not available 01/20/2023 Family History Relationship Description Onset Age of this Age Resolved Age Notes LastModified by Organization Details LastModified Time Mother Heart disease MIGRATION.[id number] Not available 01/20/2023 01:18:32 Medical History Condition Response NERVE DISEASE N BLINDNESS N CYSTITIS N RHEUMATIC FEVER N KIDNEY STONES N BLADDER PROBLEMS N Enlarged Prostate N MRSA N OTHER # 1 N POLIO N LUNG DISEASE/DISORDER N HISTORY OF DRUG ABUSE N RADIATION / CHEMOTHERAPY N COPD N Other # 2 N BLOOD DISEASES N SURGERY N EAR OR HEARING PROBLEMS N MUMPS N SHINGLES N BOWEL PROBLEMS N DEPRESSION (INCLUDING POST ) Y STROKE/TIA N THYROID DISEASE N ULCERS N [...] N CHRONIC PAIN SYNDROME N HYPOTHYROIDISM Y CONSTIPATION N CAROTID BLOCKAGE N BACK / NECK PROBLEMS N HAVE YOU BEEN HOSPITALIZED OR SEEN IN [facility] IN THE PAST YEAR ? Y MIGRAINES [...] 50 mcg/0.25mL dose 1 completed Not Available [facility] 12/31/2023 01:21:44 COVID-19, mRNA, LNP-S, PF, 100 mcg/0.5mL dose or 50 mcg/0.25mL dose 1 completed Not Available [facility] 12/31/2023 01:21:44 Influenza, split virus, trivalent, preservative 1 completed Not Available [facility] 12/31/2023 01:21:44 COVID-19, mRNA, LNP-S, PF, 30 mcg/0.3 mL dose 1 completed Not Available [facility] 12/31/2023 01:21:44 pneumococcal polysaccharide PPV23 1 completed Not Available [facility] 12/31/2023 01:21:44 Past Encounters Encounter ID Performer Location Encounter Start Date Encounter Closed Date Diagnosis/Indication Diagnosis SNOMED-CT Code Diagnosis ICD10 Code Diagnosis Note [id number] Kailee Bryant MD S[facility] Internal Med [facility] [address] [facility] [address] 01/21/2021 00:00:00 02/09/2021 11:25:01 [id number] [facility] Pod[facility] [place] [address] [place] [address] 02/17/2021 00:00:00 02/18/2021 10:33:43 [id number] Kailee Bryant MD [facility] Internal Med [facility] [address] [facility] [address] [address] 02/25/2021 00:00:00 03/09/2021 10:36:55 [id number] [facility] [place] [address] [place] [address] 03/17/2021 00:00:00 03/17/2021 14:29:40 [id number] Kailee Bryant MD [facility] Internal Med [facility] [address] [facility], [facility] 15 [place] [address] 03/25/2021 00:00:00 03/25/2021 22:26:44 [id number] Kailee Bryant MD [facility] Internal Med [place] [facility] [address] [facility] [place], [facility] [place] [address] 04/15/2021 00:00:00 04/15/2021 23:09:28 [id number] Kailee Bryant MD [facility] Internal Med [facility] [address] [facility], [address] [address] 05/07/2021 00:00:00 05/11/2021 21:21:02 [id number] [facility] Pulmonolo gy [place] [address] [address] 05/16/2021 00:00:00 05/16/2021 17:02:47 [id number] Kailee Bryant MD [facility] Internal Med [facility] [address] [address] 06/02/2021 00:00:00 06/15/2021 15:07:35 [id number] [facility] Pulmonolo gy [place] [address] [address] 08/18/2021 00:00:00 08/18/2021 21:40:19 [id number] Kailee Bryant MD [facility] Internal Med [facility] [address] [address] 08/22/2021 00:00:00 08/23/2021 15:33:42 [id number] Kailee Bryant MD [facility] Internal Med [facility] [address] [address] 10/24/2021 00:00:00 11/17/2021 21:57:11 [id number] Marvin Heaton MD A[facility] [address] [place] [address] 11/06/2021 00:00:00 11/06/2021 12:51:44 [id number] Kailee Bryant MD S_[facility] Internal Med [facility] 2043 [facility] [address] [address] 12/22/2021 00:00:00 12/25/2021 20:32:54 [id number] Kailee Bryant MD S_[facility] Internal Med [facility] 2043 [facility] [address] [address] 12/31/2021 00:00:00 01/06/2022 21:23:13 [id number] Marvin Heaton MD [facility] [address] [place] [address] 01/01/2022 00:00:00 01/01/2022 11:28:37 [id number] Kailee Bryant MD S[facility] Internal Med [facility] [address] [facility], [address] [address] 01/14/2022 00:00:00 01/17/2022 21:42:51 [id number] Kailee Bryant MD S[facility] Internal Med [facility] [address] [facility], [address] [address] 02/25/2022 00:00:00 03/08/2022 12:25:19 [id number] Kailee Bryant MD S[facility] Internal Med [facility] 2043 [facility] [address] [address] 03/25/2022 00:00:00 04/12/2022 18:47:18 [id number] [facility] Podiatry [place] [address] [facility] [address] [place] [address] 04/09/2022 00:00:00 04/12/2022 13:50:10 [id number] Aakash freeman MD [facility] General Surgery [address] [facility], [address] [place] [address] 12/21/2023 09:31:36 12/21/2023 12:30:15 [id number] Aakash freeman MD [facility] General Surgery [address] [address] 12/28/2023 11:13:00 12/28/2023 16:18:51 Umbilical hernia [id number] K42.9 [id number] Aakash freeman MD [facility] General Surgery [address] [address] 05/18/2024 10:31:22 06/19/2024 14:51:33 Abdominal pain [id number] R10.9 [id number] Aakash freeman MD [facility] General Surgery [address] [address] 06/06/2024 12:36:56 06/08/2024 11:28:29 Abdominal pain [id number] R10.9 Health Concerns Section Related Observation LastModified by Organization Detai ls LastModified Time None Recorded Concern Status LastModified by Organization Details LastModified Time None Recorded Advance Directives Directive N: Payers Encounter Date Sequence Insurance Name Policy Number Policy Crenshaw Covered Member ID Crenshaw Member ID Guarantor Name 12/21/2023 2 [place] [facility] Vaughn Goldberg [id number] Vaughn Goldberg 12/28/2023 2 [place] [facility] Vaughn Goldberg [id number] Vaughn Goldberg 12/28/2023 1 [facility] (MEDICAID HMO) [id number] Vaughn Goldberg [id number] Vaughn Goldberg 05/18/2024 2 [place] [facility] Vaughn Goldberg [id number] Vaughn Goldberg 05/18/2024 1 [facility] (MEDICAID HMO) [id number] Vaughn Goldberg [id number] Vaughn Goldberg 06/06/2024 2 [place] [facility] Vaughn Goldberg [id number] Vaughn Goldberg 06/06/2024 1 [facility] (MEDICAID HMO) [id number] Vaughn Goldberg [id number] Vaughn Goldberg Notes Date Note Type Note Provider Name and Address Organization Details Recorded Time 12/21/2023 text/html Patient complain s of pain around her umbilicus for the last several months. Feels a lump at times but not today. Denies nausea or vomiting. Does admit to constipation. No fevers or chills. Aakash Palm MD [address], [place], [address], [place] [facility] [employer] 12/21/2023 11:13:18 12/28/2023 text/html Patient complain s of pain around her umbilicus and nausea/diarrhea intermittently for the last several months. States she feels a lump at times but not today. Does admit to constipation at times also. No fevers or chills. Aakash Palm MD [address], [address], [place], [address], [place] [facility] [employer] 12/29/2023 12:15:34 05/18/2024 text/html patient continue s to have mid abdominal pain occasional nausea. Has small fat containing umbilical hernia seen on CT 6 months ago. Denies other constitutional symptoms Aakash Palm MD [address], [address], [place], [address], [place] [facility] [employer] 05/18/2024 14:53:26 06/06/2024 text/html patient continue s to have mid abdominal pain occasional nausea. Has small fat containing umbilical hernia seen on CT 6 months ago. Denies other constitutional symptoms Aakash Palm MD [address], [address], [place], [address], [place] [facility] [employer] 06/08/2024 13:01:15 OBGyn Episode No OBEpisode recorded.
--- OUTSIDE RECORDS SUMMARY | 2025-04-23 20:28 | XMS_ITS | Data Portability ---
Author Organization [facility] NETWORKRaineluis alberto Carter Address [address] [place] [address] Care Team Providers Care Crystal Gazer Name Role Phone KAILEE BRYANT Primary Care Provider [phone] ДМИТРИЙ KWAN Nozzleman [phone] Assessment Encounter Date Assessment Date Assessment LastModified by Organization Details LastModified Time 02/10/2024 02/10/2024 Mammogram colonoscopy will continue current therapy weight reduction strategies have been hard incomplete database get records she needs to bring an accurate medication list and see me in 3 months [email or web address] Not available 02/10/2024 21:01:15 06/06/2024 06/06/2024 handout for obesity discussed blood work ordered tobacco cessation highly recommended tobacco cessation care instructions follow up 4 months [email or web address] Not available 06/11/2024 13:22:42 10/10/2024 10/10/2024 bronchitis resolving. Reviewed her chest x-ray we will repeat that in about 3-4 weeks. Smoker she denies that right now but I think that is because of her acute illness we will get quitting tobacco care instructions obesity healthy lifestyle care instructions continue with her thyroid medication follow up with me in 3 months Not available 10/10/2024 20:18:09 01/30/2025 01/30/2025 nerve conduction test EMG legs continue with the gabapentin. Increase propranolol 20 b.i.d. follow up 6 weeks. Needs colonoscopy [email or web address] Not available 01/30/2025 22:07:59 Plan of Treatment Reminders Order Date Submit Date Provider Last Modified By Organization Details Last Modified Time Details Appointments None record ed. Lab cytolo gy report , thin prep, smear or scrapi ng, cervic al or vagina l 2023 024 [facility], [address], [place], [address], 4 14:08:13 urinal ysis, dipsti ck 2023 024 In-Office Order, Internal Use Only DO Not Attach Compendium DO Not Attach Compendium, Do Not Delete/merge, [id number] 4 12:29:32 vagina l pathog ens panel, KO+pr obe, vagina l fluid 2023 024 [facility], [address], [address], [place], [address], 4 07:07:38 lipid panel, serum 2023 024 [facility], [address], [address], [place], [address], 4 13:13:12 CBC w/ auto diff 2023 024 [facility], [address], [place], [address], 4 13:13:15 CMP, serum or plasma 2023 024 [facility], [address], [place], [address], 4 13:13:13 HbA1c (hemog lobin A1c), blood 2023 024 [facility], [address], [place], [address], 4 13:13:14 T4, free, serum 2023 024 [facility], [address], [place], [address], 4 13:13:17 T3, free, serum or plasma 2023 024 [facility] [address], [place], [address], 4 13:13:16 TSH, ultra- sensit julianna, serum 2023 024 [facility], [address], [place], [address], 4 13:13:14 BMP, serum or plasma 2023 024 [facility], [address], [address], [place], [address], 4 08:22:27 Referral None record ed. Procedures nerve conduc tion study/ EMG, lower extrem ity (PROC) - B/L lower extrem ity 2024 025 [facility] (Cardiology [facility]), [address], [place], [address], 5 12:37:11 colono scopy screen ing (PROC) 2024 025 [email or web address] Colten Bush MD, [address] [facility], [address], [place], [address], 5 09:55:45 colono scopy screen ing (PROC) 2023 024 [email or web address], [address] [facility], [address], [place], [address], 5 10:46:17 Surgeries None record ed. Imaging XR, chest, 2 view 2023 024 [facility] ([facility]), [address] [place], [address], 4 13:03:49 MAMMO, screen ing, digita l, bilate ral 2023 024 [facility] ([facility]), [address], [place], [address], 4 11:17:05 Medication Orders gabape ntin 300 mg capsul e [address]/Pharmacy #[id number], [address], [place], [address], 5 12:03:16 propra nolol 20 mg tablet [address]/Pharmacy #[id number], [address], [place], [address], 5 12:03:16 buprop ion HCl SR 100 mg tablet ,12 hr sustai rogerio-re lease 2023 024 [facility]/Pharmacy #[id number], [address], [place], [address], 4 12:29:30 Patient TargetsNo targets recorded. Patient Instructions Encounter Date Encounter Id Patient Instructions Last Modified By Organization Details Last Modified Time 06/06/2024 [id number] A healthy lifest yle: care instructions [email or web address] Not available 06/06/2024 15:01:56 Quitting Tobacco : Care Instructions [email or web address] Not available 06/06/2024 15:01:56 07/20/2024 [id number] hot flashes duri ng menopause: care instructions [...] [email or web address] Not available 07/25/2024 10:28:02 10/10/2024 [id number] Quitting Tobacco : Care Instructions [email or web address] Not available 10/10/2024 19:52:47 A healthy lifest yle: care instructions [email or web address] Not available 10/10/2024 19:52:47 Reason for Referral None Reported. Results Created Date Observation Date Name Description Value Unit Range Abnormal Flag Note LastModifiedBy Organization Detail LastModifiedTime 02/11/20 24 02/12/2024 BASIC METAB OLIC PANEL (8) glucose 107 mg/dL 70-99 above high normal Not Available [facility] ([facility]) [address] [place], [address], 02/12/2024 08:22:27 02/11/2002/12/2024 BASIC METAB OLIC PANEL (8) BUN 17 mg/dL 6-24 Not Available [facility] ([facility]) [address] [place], [address], 02/12/2024 08:22:27 02/11/20 24 02/12/2024 BASIC METAB OLIC PANEL (8) creatinine 1.35 mg/dL 0.57-1 .00 above high normal Not Available [facility] ([facility]) [address] [place], [address], 02/12/2024 08:22:27 02/11/20 24 02/12/2024 BASIC METAB OLIC PANEL (8) eGFR 49 mL/mi n/1.7 3 >59 below low normal Not Available [facility] ([facility]) [address] [facility], [place], [address], 02/12/2024 08:22:27 02/11/20 24 02/12/2024 BASIC METAB OLIC PANEL (8) BUN/creatini ne ratio 13 9-23 Not Available [facility] ([facility]) [address] [facility], [place], [address], 02/12/2024 08:22:27 02/11/20 24 02/12/2024 BASIC METAB OLIC PANEL (8) sodium 144 mmol/ L 134-14 4 Not Available [facility] ([facility]) [address] [facility], [place], [address], 02/12/2024 08:22:27 02/11/20 24 02/12/2024 BASIC METAB OLIC PANEL (8) potassium 4.3 mmol/ L 3.5-5. 2 Not Available [facility] ([facility]) [address] [facility], [place], [address], 02/12/2024 08:22:27 02/11/20 24 02/12/2024 BASIC METAB OLIC PANEL (8) chloride 102 mmol/ L 96-106 Not Available [facility] ([facility]) [address] [facility], [place], [address], 02/12/2024 08:22:27 02/11/20 24 02/12/2024 BASIC METAB OLIC PANEL (8) carbon dioxide, total 28 mmol/ L 20-29 Not Available [facility] ([facility]) [address] [facility], [place], [address], 02/12/2024 08:22:27 02/11/20 24 02/12/2024 BASIC METAB OLIC PANEL (8) calcium 9.7 mg/dL 8.7-10 .2 Not Available [facility] ([facility]) [address] [place], [address], 02/12/2024 08:22:27 06/06/20 24 06/07/2024 LIPID PANEL cholesterol, total 185 mg/dL 100-19 9 Not Available [facility] ([facility]) [address] [place], [address], 06/07/2024 13:13:12 06/06/20 24 06/07/2024 LIPID PANEL triglyceride s 259 mg/dL 0-149 above high normal Not Available [facility] ([facility]) [address] [place], [address], 06/07/2024 13:13:12 06/06/20 24 06/07/2024 LIPID PANEL HDL cholesterol 37 mg/dL >39 below low normal Not Available [facility] ([facility]) [address] [place], [address], 06/07/2024 13:13:12 06/06/20 24 06/07/2024 LIPID PANEL VLDL cholesterol perry 44 mg/dL 5-40 above high normal Not Available [facility] ([facility]) [address] [place], [address], 06/07/2024 13:13:12 06/06/20 24 06/07/2024 LIPID PANEL LDL chol calc ([facility]) 104 mg/dL 0-99 above high normal Not Available [facility] ([facility]) [address] [place], [address], 06/07/2024 13:13:12 06/06/20 24 06/07/2024 COMP. METAB OLIC PANEL (14) glucose 65 mg/dL 70-99 below low normal Not Available [facility] ([facility]) [address] [place], [address], 06/07/2024 13:13:13 06/06/20 24 06/07/2024 COMP. METAB OLIC PANEL (14) BUN 14 mg/dL 6-24 Not Available [facility] ([facility]) [address] [facility] [place], [address], 06/07/2024 13:13:13 06/06/20 24 06/07/2024 COMP. METAB OLIC PANEL (14) creatinine 1.32 mg/dL 0.57-1 .00 above high normal Not Available [facility] ([facility]) [address] [facility], [place], [address], 06/07/2024 13:13:13 06/06/20 24 06/07/2024 COMP. METAB OLIC PANEL (14) eGFR 51 mL/mi n/1.7 3 >59 below low normal Not Available [facility] ([facility]) [address] [facility], [place], [address], 06/07/2024 13:13:13 06/06/20 24 06/07/2024 COMP. METAB OLIC PANEL (14) BUN/creatini ne ratio 11 9-23 Not Available [facility] ([facility]) [address] [facility], [place], [address], 06/07/2024 13:13:13 06/06/20 24 06/07/2024 COMP. METAB OLIC PANEL (14) sodium 141 mmol/ L 134-14 4 Not Available [facility] ([facility]) [address] [place], [address], 06/07/2024 13:13:13 06/06/20 24 06/07/2024 COMP. METAB OLIC PANEL (14) potassium 4.6 mmol/ L 3.5-5. 2 Not Available [facility] ([facility]) [address] [place], [address], 06/07/2024 13:13:13 06/06/20 24 06/07/2024 COMP. METAB OLIC PANEL (14) chloride 102 mmol/ L 96-106 Not Available [facility] ([facility]) [address] [facility] [place], [address], 06/07/2024 13:13:13 06/06/20 24 06/07/2024 COMP. METAB OLIC PANEL (14) carbon dioxide, total 24 mmol/ L 20-29 Not Available [facility] ([facility]) [address] [facility] [place], [address], 06/07/2024 13:13:13 06/06/20 24 06/07/2024 COMP. METAB OLIC PANEL (14) calcium 9.7 mg/dL 8.7-10 .2 Not Available [facility] ([facility]) [address] [facility] [place], [address], 06/07/2024 13:13:13 06/06/20 24 06/07/2024 COMP. METAB OLIC PANEL (14) protein, total 6.6 g/dL 6.0-8. 5 Not Available [facility] ([facility]) [address] [facility] [place], [address], 06/07/2024 13:13:13 06/06/20 24 06/07/2024 COMP. METAB OLIC PANEL (14) albumin 4.5 g/dL 3.9-4. 9 Not Available [facility] ([facility]) [address] [facility] [place], [address], 06/07/2024 13:13:13 06/06/20 24 06/07/2024 COMP. METAB OLIC PANEL (14) globulin, total 2.1 g/dL 1.5-4. 5 Not Available [facility] ([facility]) [address] [facility] [place], [address], 06/07/2024 13:13:13 06/06/20 24 06/07/2024 COMP. METAB OLIC PANEL (14) bilirubin, total <0.2 mg/dL 0.0-1. 2 Not Available [facility] ([facility]) [address] [place], [address], 06/07/2024 13:13:13 06/06/20 24 06/07/2024 COMP. METAB OLIC PANEL (14) alkaline phosphatase 58 IU/L 44-121 Not Available [facility] ([facility]) [address] [facility], [place], [address], 06/07/2024 13:13:13 06/06/20 24 06/07/2024 COMP. METAB OLIC PANEL (14) AST (SGOT) 17 IU/L 0-40 Not Available [facility] ([facility]) [address] [facility], [place], [address], 06/07/2024 13:13:13 06/06/20 24 06/07/2024 COMP. METAB OLIC PANEL (14) ALT (SGPT) 17 IU/L 0-32 Not Available [facility] ([facility]) [address] [facility], [place], [address], 06/07/2024 13:13:13 06/06/20 24 06/07/2024 HEMOG LOBIN A1C hemoglobin A1C 5.5 % 4.8-5. 6 Predi abete s: 5.7 - 6.4 Diabe modesto: >6.4 Glyce merrick contr ol for adult s with diabe modesto: <7.0 Not Available [facility] ([facility]) [address] [facility], [place], [address], 06/07/2024 13:13:14 06/06/20 24 06/07/2024 TSH TSH 1.650 uIU/m L 0.450- 4.500 Not Available [facility] ([facility]) [address] [facility], [place], [address], 06/07/2024 13:13:14 06/06/20 24 06/07/2024 CBC WITH DIFFE RENTI AL/PL ATELE T WBC 7.0 x10e3 /uL 3.4-10 .8 Not Available [facility] ([facility]) [address] [facility], [place], [address], 06/07/2024 13:13:15 06/06/20 24 06/07/2024 CBC WITH DIFFE RENTI AL/PL ATELE T RBC 4.96 x10e6 /uL 3.77-5 .28 Not Available [facility] ([facility]) [address] [facility], [place], [address], 06/07/2024 13:13:15 06/06/20 24 06/07/2024 CBC WITH DIFFE RENTI AL/PL ATELE T hemoglobin 15.7 g/dL 11.1-1 5.9 Not Available [facility] ([facility]) [address] [place], [address], 06/07/2024 13:13:15 06/06/20 24 06/07/2024 CBC WITH DIFFE RENTI AL/PL ATELE T hematocrit 46.1 % 34.0-4 6.6 Not Available [facility] ([facility]) [address] [place], [address], 06/07/2024 13:13:15 06/06/20 24 06/07/2024 CBC WITH DIFFE RENTI AL/PL ATELE T MCV 93 fL 79-97 Not Available [facility] ([facility]) [address] [place], [address], 06/07/2024 13:13:15 06/06/20 24 06/07/2024 CBC WITH DIFFE RENTI AL/PL ATELE T MCH 31.7 pg 26.6-3 3.0 Not Available [facility] ([facility]) [address] [place], [address], 06/07/2024 13:13:15 06/06/20 24 06/07/2024 CBC WITH DIFFE RENTI AL/PL ATELE T MCHC 34.1 g/dL 31.5-3 5.7 Not Available [facility] ([facility]) [address] [facility], [place], [address], 06/07/2024 13:13:15 06/06/20 24 06/07/2024 CBC WITH DIFFE RENTI AL/PL ATELE T RDW 14.2 % 11.7-1 5.4 Not Available [facility] ([facility]) [address] [facility], [place], [address], 06/07/2024 13:13:15 06/06/20 24 06/07/2024 CBC WITH DIFFE RENTI AL/PL ATELE T platelets 246 x10e3 /uL 150-45 0 Not Available [facility] ([facility]) [address] [facility], [place], [address], 06/07/2024 13:13:15 06/06/20 24 06/07/2024 CBC WITH DIFFE RENTI AL/PL ATELE T neutrophils 44 % notest ab. Not Available [facility] ([facility]) [address] [facility], [place], [address], 06/07/2024 13:13:15 06/06/20 24 06/07/2024 CBC WITH DIFFE RENTI AL/PL ATELE T lymphs 43 % notest ab. Not Available [facility] ([facility]) [address] [facility], [place], [address], 06/07/2024 13:13:15 06/06/20 24 06/07/2024 CBC WITH DIFFE RENTI AL/PL ATELE T monocytes 7 % notest ab. Not Available [facility] ([facility]) [address] [facility], [place], [address], 06/07/2024 13:13:15 06/06/20 24 06/07/2024 CBC WITH DIFFE RENTI AL/PL ATELE T eos 5 % notest ab. Not Available [facility] ([facility]) [address] [facility], [place], [address], 06/07/2024 13:13:15 06/06/20 24 06/07/2024 CBC WITH DIFFE RENTI AL/PL ATELE T basos 1 % notest ab. Not Available [facility] ([facility]) [address] [facility], [place], [address], 06/07/2024 13:13:15 06/06/20 24 06/07/2024 CBC WITH DIFFE RENTI AL/PL ATELE T neutrophils (absolute) 3.1 x10e3 /uL 1.4-7. 0 Not Available [facility] ([facility]) [address] [facility], [place], [address], 06/07/2024 13:13:15 06/06/20 24 06/07/2024 CBC WITH DIFFE RENTI AL/PL ATELE T lymphs (absolute) 3.0 x10e3 /uL 0.7-3. 1 Not Available [facility] ([facility]) [address] [facility], [place], [address], 06/07/2024 13:13:15 06/06/20 24 06/07/2024 CBC WITH DIFFE RENTI AL/PL ATELE T monocytes(ab solute) 0.5 x10e3 /uL 0.1-0. 9 Not Available [facility] ([facility]) [address] [facility], [place], [address], 06/07/2024 13:13:15 06/06/20 24 06/07/2024 CBC WITH DIFFE RENTI AL/PL ATELE T eos (absolute) 0.3 x10e3 /uL 0.0-0. 4 Not Available [facility] ([facility]) [address] [facility], [place], [address], 06/07/2024 13:13:15 06/06/20 24 06/07/2024 CBC WITH DIFFE RENTI AL/PL ATELE T baso (absolute) 0.0 x10e3 /uL 0.0-0. 2 Not Available [facility] ([facility]) [address] [place], [address], 06/07/2024 13:13:15 06/06/20 24 06/07/2024 CBC WITH DIFFE RENTI AL/PL ATELE T immature granulocytes 0 % notest ab. Not Available [facility] ([facility]) [address] [place], [address], 06/07/2024 13:13:15 06/06/20 24 06/07/2024 CBC WITH DIFFE RENTI AL/PL ATELE T immature grans (abs) 0.0 x10e3 /uL 0.0-0. 1 Not Available [facility] ([facility]) [address] [place], [address], 06/07/2024 13:13:15 06/06/20 24 06/07/2024 TRIIO DOTHY PUSHPA E (T3), FREE triiodothyro nine (T3), free 2.4 pg/mL 2.0-4. 4 Not Available [facility] ([facility]) [address] [place], [address], 06/07/2024 13:13:16 06/06/20 24 06/07/2024 T4,FR EE(DI RECT) T4,free(dire ct) 1.13 NG/dL 0.82-1 .77 Not Available [facility] ([facility]) [address] [place], [address], 06/07/2024 13:13:17 07/20/20 24 07/22/2024 NUSWA B VAGIN ITIS PLUS (VG+) atopobium vaginae LOW - 0 score Not Available [facility] ([facility]) [address] [place], [address], 07/23/2024 07:07:38 07/20/20 24 07/22/2024 NUA B VAGIN ITIS PLUS (VG+) bvab 2 LOW - 0 score Not Available [facility] ([facility]) [address] [place], [address], 07/23/2024 07:07:38 07/20/20 24 07/22/2024 NUA B [...] prese nce of BV. Not Available [facility] ([facility]) [address] [facility], [place], [address], 07/23/2024 07:07:38 07/20/20 24 07/22/2024 NUA B VAGIN ITIS PLUS (VG+) matthieu albicans, KO NEGATI VE negati ve Not Available [facility] ([facility]) [address] [place], [address], 07/23/2024 07:07:38 07/20/20 24 07/22/2024 NUA B VAGIN ITIS PLUS (VG+) matthieu glabrata, KO NEGATI VE negati ve Not Available [facility] ([facility]) [address] [place], [address], 07/23/2024 07:07:38 07/20/20 24 07/23/2024 NUA B VAGIN ITIS PLUS (VG+) trich vag by KO NEGATI VE negati ve Not Available [facility] ([facility]) [address] [place], [address], 07/23/2024 07:07:38 07/20/20 24 07/23/2024 NUSWA B VAGIN ITIS PLUS (VG+) chlamydia trachomatis, KO NEGATI VE negati ve Not Available [facility] ([facility]) [address] [facility], [place], [address], 07/23/2024 07:07:38 07/20/20 24 07/23/2024 NUSWA B VAGIN ITIS PLUS (VG+) neisseria gonorrhoeae, KO NEGATI VE negati ve Not Available [facility] ([facility]) [address] [facility], [place], [address], 07/23/2024 07:07:38 07/20/20 24 07/21/2024 IGP, APTIM A HPV, RFX 16/18 ,45 HPV aptima NEGATI VE negati ve This nucle ic acid ampli ficat ion test detec ts fourt een high- risk HPV types (16,1 8,31, 33,35 ,39,4 5,51, 52,56 ,58,5 9,66, 68) witho ut diffe renti ation . Not Available [facility] ([facility]) [address] [facility], [place], [address], 07/24/2024 14:08:13 07/20/20 24 07/24/2024 IGP, APTIM A HPV, RFX 16/18 ,45 diagnosis: COMMEN T NEGAT JULIANNA FOR INTRA EPITH ELIAL LESIO N OR MALSHA TIPTON . Not Available [facility] ([facility]) [address] [facility], [place], [address], 07/24/2024 14:08:13 07/20/2007/24/2024 IGP, APTIM A HPV, RFX 16/18 ,45 specimen adequacy: COMMEN T Satis facto ry for evalu ation . No endoc ervic al compo nent is ident ified . Not Available [facility] ([facility]) [address] [facility] [place], [address], 07/24/2024 14:08:13 07/20/20 24 07/24/2024 IGP, APTIM A HPV, RFX 16/18 ,45 clinician provided ICD10: AVIVA Whitley Z01.4 19 Not Available [facility] ([facility]) [address] [place], [address], 07/24/2024 14:08:13 07/20/20 24 07/24/2024 IGP, APTIM A HPV, RFX 16/18 ,45 performed by: Michael Isaacs (ASCP ) Not Available [facility] ([facility]) [address] [place], [address], 07/24/2024 14:08:13 07/20/20 24 07/24/2024 IGP, APTIM A HPV, RFX 16/18 ,45 . . Not Available [facility] ([facility]) [address] [place], [address], 07/24/2024 14:08:13 07/20/20 24 07/24/2024 IGP, APTIM [...] ts do occur . Not Available [facility] ([facility]) [address] [place], [address], 07/24/2024 14:08:13 07/20/20 24 07/24/2024 IGP, APTIM A HPV, RFX 16/18 ,45 test methodology: AIVVA Whitley This liqui d based ThinP rep(R ) pap test was scree rogerio with the use of an image guide jessica burgos. Not Available [facility] ([facility]) [address] [facility], [place], [address], 07/24/2024 14:08:13 07/20/20 24 07/24/2024 IGP, APTIM A HPV, RFX 16/18 ,45 HPV genotype reflex COMMEN T Crite chica not met, HPV Genot ype not perfo rmed. Not Available [facility] ([facility]) [address] [facility], [place], [address], 07/24/2024 14:08:13 07/20/20 24 07/20/2024 urina lysis [...] 07/20/2024 urina lysis , dipst ick Specific [place] 1.030 Not Available In-Off ice Order Internal [...] Available 02/07/2025 04:06:46 02/08/20 25 02/07/2025 Compr [employer] julianna metab olic 1999 panel - Serum [...] Not Available 02/07/2025 04:06:46 02/08/20 25 02/07/2025 [facility] [employer] julianna Hoblee [facility] 1999 panel - Serum or Plasm a alanine aminotransfe rase [enzymatic activity/vol ume] in serum or plasma 33 U/L low: 0U/Lhi gh: 35U/L normal Not Available Not Available 02/07/2025 04:06:46 02/08/20 25 02/07/2025 [facility] [employer] julianna Hoblee [facility] 1999 panel - Serum or Plasm a aspartate aminotransfe rase [enzymatic activity/vol ume] in serum or plasma 42 U/L low: 15U/Lh igh: 37U/L high Not Available Not Available 02/07/2025 04:06:46 02/08/20 25 02/07/2025 [facility] [employer] Hoblee [facility] 1999 panel - Serum or Plasm a bilirubin.to len [mass/volume ] in serum or plasma 0.6 mg/dL low: 0.2mg/ dLhigh : 1.3mg/ dL normal Not Available Not Available 02/07/2025 04:06:46 02/08/20 25 02/07/2025 [facility] [employer] [facility] 1999 panel - Serum or Plasm a calcium [mass/volume ] in serum or plasma 9.8 mg/dL low: 8.4mg/ dLhigh : 10.2mg /dL normal Not Available Not Available 02/07/2025 04:06:46 02/08/2002/07/2025 [facility] [employer] Hoblee [facility] 1999 panel - Serum or Plasm a protein [mass/volume ] in serum or plasma 6.6 g/dL low: 6.3g/d Lhigh: 8.2g/d L normal Not Available Not Available 02/07/2025 04:06:46 02/08/20 25 02/07/2025 [facility] [employer] julianna Hoblee [facility] 1999 panel - Serum or Plasm a [...] XR, chest No observ ation record ed. [facility] [address] [place], [address], 02/14/2024 15:00:35 02/11/20 24 02/10/2024 US, echoc ardio gram No observ ation record ed. [facility] [address], [place], [address], 02/14/2024 15:02:39 02/15/20 24 02/15/2024 jesus r monit or No observ ation record ed. [facility] [address], [place], [address], 02/21/2024 09:00:22 04/04/20 24 04/04/2024 MAMMO , scree eitan, digit al, bilat eral No observ ation record ed. [facility] [address] [place], [address], 04/06/2024 16:53:50 04/21/20 24 04/21/2024 XR, chest No observ ation record ed. [facility] [address] [place], [address], 04/24/2024 22:32:38 05/05/20 24 05/04/2024 CT, abdom en + pelvi s, w/ contr ast No observ ation record ed. [facility] [address] [place], [address], 05/12/2024 11:59:50 05/30/20 24 05/29/2024 CT, abdom en + pelvi s, w/ contr ast No observ ation record ed. [facility] [address] [place], [address], 06/06/2024 17:13:36 06/08/20 24 06/08/2024 XR, chest No observ ation record ed. [facility] [address] [place], [address], 06/09/2024 16:28:34 06/13/20 24 06/09/2024 NM, myoca rdial perfu evert scan No observ ation record ed. [facility] [address], [place], [address], 06/23/2024 09:55:22 07/04/20 24 07/04/2024 XR, shoul margaret, 2 or more view No observ ation record ed. [address], [place], [address], 07/10/2024 17:21:37 07/04/20 24 07/04/2024 CT, cervi perry spine , w/o contr ast No observ ation record ed. [address], [place], [address], 07/10/2024 17:22:41 09/03/20 24 09/03/2024 XR, ankle No observ ation record ed. [facility] [address] [place], [address], 09/04/2024 17:30:08 09/03/20 24 09/03/2024 XR, foot No observ ation record ed. [facility] [address] [place], [address], 09/04/2024 17:30:20 09/25/20 24 09/25/2024 XR, chest No observ ation record ed. [facility] [address] [place], [address], 09/27/2024 12:15:10 10/06/20 24 10/05/2024 XR, chest , 2 view No observ ation record ed. [address] [place], [address], 10/10/2024 13:49:32 10/17/20 24 10/17/2024 PFT, compl ete No observ ation record ed. [facility] [address], [place], [address], 10/18/2024 13:25:20 11/10/20 24 11/10/2024 XR, chest , 2 view No observ ation record ed. [facility] [address] [place], [address], 11/29/2024 22:44:03 02/03/20 25 02/02/2025 XR, ankle No observ ation record ed. [address] [place], [address], 02/07/2025 15:30:39 02/08/20 25 02/06/2025 CT, abdom en + pelvi s, w/ contr ast No observ ation record ed. [address] [place], [address], 02/07/2025 16:27:53 02/17/20 25 02/15/2025 XR, ribs, unila teral No observ ation record ed. [facility] [address] [place], [address], 02/19/2025 10:58:03 04/15/20 25 04/15/2025 XR, shoul margaret, 2 or more view No observ ation record ed. [facility] [address], [place], [address], 04/17/2025 17:20:31 04/19/20 25 04/19/2025 XR, clavi aleisha No observ ation record ed. cyahlma Not Available 2024 09:13:55 Result Notes None recorded. Problems Name Problem SNOMED Code Status Onset Date Resolution Date Notes Provider Name and Address Organization Details Recorded Time Anxiety 17941867 Active 2017 Reva Swift MD Attn: Accounting, [address] [facility], [place], [address], [place] [facility] 4 20:21:54 Depressive disorder 13538581 Active 2017 Reva Swift MD Attn: Accounting, [address] [facility], [place], [address], [place] [facility] 4 20:21:36 Bacterial vaginosis 366946288 Active 2018 Дмитрий Kwan MD Attn: Accounting, [address] [facility], [place], [address], [place] [facility] 9 14:55:16 Candidiasis of vagina 88057190 Active 2018 Дмитрий Kwan MD Attn: Accounting, [address] [facility], [place], [address], [place] [facility] 9 14:55:23 Essential hypertension 86202837 Active 2023 Reva Swift MD Attn: Accounting, [address] [facility], [place], [address], [place] [facility] 4 20:21:32 Screening mammography Active 2023 True Guajardo [place] null, [place] [facility] 4 14:20:33 Screening for malignant neoplasm of colon Active 2023 True Guajardo [place], [place] [facility] 4 14:20:34 Hypothyroidi sm 31198258 Active 2023 Reva Swift MD Attn: Accounting, [address] [facility], [place], [address], [place] [facility] 4 20:21:49 Obesity 713529203 Active 2023 Reva Swift MD Attn: Accounting, [address] [facility], [place], [address], [place] [facility] 4 20:21:44 Paresthesia of lower extremity 120127584 Active 2024 True Guajardo MA [facility], [facility] 5 10:51:59 Notes:Some problems listed i n Documents: #[id number], #[id number], #[id number] could not be added to this patient's chart. Please review these documents and add these problems to the patient's chart manually as needed. Problem Notes None recorded. Procedures Surgical History Date Name Laterality Status Provider Name and Address Organization Details Recorded Time 02/04/20 17 Date of Last Pap Smear completed Paradise Gagnon MA [facility] 02/03/2017 16:15:37 11/22/19 03 Total hysterectomy completed Paradise Gagnon MA [facility] 02/03/2017 16:15:12 11/22/19 03 Cholecystectomy completed Paradise Gagnon MA [facility] 02/03/2017 16:15:24 11/22/18 89 Tonsillectomy completed Paradise Gagnon MA [facility] 02/03/2017 16:14:45 Imaging Results None recorded. Procedure Notes None recorded. Medical Equipment None Reported. Allergies Allergen ID Allergen Name Allergen Category Reaction Reaction Severity Criticality Documentation Date Start Date Code Code System Note Provider Name and Address Organization Details Recorded Time 333509 ibuprofen medicatio n edema severe Not available 01/17/2020 5640 RxNorm makes legs swell Desiree Monterroso MA [facility], [facility] 0 15:58:28 068017 losartan medicatio n rash moderate low 06/21/2024 59626 RxNorm Bharti Pablo LPN [facility], [facility] 4 15:01:04 Medications Name Sig Start Date Stop Date Status Note LastModified by Organization Details LastModified Time losartan 50 mg tablet 02/01 completed Not Available Not Available Not Available cyclobenza sherron 10 mg tablet TAKE 1 TABLET BY MOUTH EVERY 8 HOURS active Not Available Not Available No t Available ziprasidon e 80 mg capsule 02/01 completed Not Available Not Available Not Available amoxicilli n 500 mg capsule TAKE 1 CAPSULE BY MOUTH EVERY 8 HOURS FOR 7 DAYS active Not Available Not Available No t Available atorvastat in 40 mg tablet TAKE 1 TABLET [...] PLEASE SEE ATTACHED FOR DETAILED DIRECTIO NS 12/22 completed Not Available Not Available Not Available doxycyclin e hyclate 100 mg capsule TAKE 1 CAPSULE BY MOUTH TWICE A DAY FOR 7 DAYS 07/20 completed Not Available Not Available Not Available nicotine 14 mg/24 hr daily transderma l patch 02/01 completed Not Available Not Available Not Available ipratropiu m 0.5 mg-albuter ol 3 mg (2.5 mg base)/3 mL nebulizati on soln 02/01 completed Not Available Not Available Not Available clindamyci n HCl 300 mg capsule 02/21 completed Not Available Not Available Not Available azithromyc in 250 mg tablet TAKE 2 TABLETS BY MOUTH TODAY, THEN TAKE 1 TABLET DAILY FOR 4 DAYS DIRECTED 12/22 completed Not Available Not Available Not Available ibuprofen 800 mg tablet 01/17 completed Not Available Not Available Not Available Lidocaine Viscous 2 % mucosal solution 02/21 completed Not Available Not Available Not Available fluconazol e 150 mg tablet Take 1 tablet by oral route for 1 day. 02/21 completed Not Available Not Available Not Available benzonatat e 200 mg capsule TAKE 1 CAPSULE BY MOUTH THREE TIMES A DAY FOR 10 DAYS 07/20 completed Not Available Not Available Not Available doxepin 25 mg capsule 02/01 completed Not Available Not Available Not Available hydrocodon e 5 mg-acetami nophen 325 mg tablet TAKE 1 TABLET BY MOUTH EVERY 6 HOURS NEEDED active Not Available Not Available No t Available meloxicam 15 mg tablet TAKE 1 TABLET BY MOUTH EVERY DAY NEEDED 02/01 completed Not Available Not Available Not Available phenazopyr idine 200 mg tablet 02/21 completed Not Available Not Available Not Available metronidaz ole 0.75 % (37.5 mg/5 gram) vaginal gel Insert 1 applicat orful every day by vaginal route for 5 days. 02/01 completed Not Available Not Available Not Available ondansetro n HCl 4 mg tablet 02/01 completed Not Available Not Available Not Available prednisone 20 mg tablet TAKE 1 TABLET BY MOUTH EVERY DAY FOR 7 DAYS active Not Available Not Available No t Available doxepin 75 mg capsule 02/01 completed Not Available Not Available Not Available sertraline 100 mg tablet 02/21 completed Not Available Not Available Not Available terconazol e 0.8 % vaginal cream Insert 1 applicat orful every day by vaginal route for 3 days. 01/17 completed Not Available Not Available Not Available sumatripta n 50 mg tablet TAKE 1 TABLET BY MOUTH AT ONSET OF HEADACHE . MAY REPEAT IN 2 HOURS IF NEEDED. MAX 2 TABS/24 HOURS 02/01 completed Not Available Not Available Not Available topiramate 25 mg tablet TAKE 1 TABLET BY MOUTH TWICE A DAY active Not Available Not Available No t Available metronidaz ole 500 mg tablet Take 1 tablet every 12 hours by oral route for 7 days. 02/01 completed Not Available Not Available Not Available acetaminop hen 300 mg-codeine 30 mg tablet TAKE 1 TABLET BY MOUTH EVERY 6 HOURS NEEDED FOR PAIN 02/09 completed Not Available Not Available Not Available ciprofloxa kwasi 250 mg tablet 02/01 completed Not Available Not Available Not Available amlodipine 5 mg tablet 02/01 completed Not Available Not Available Not Available sulfametho xazole 800 mg-trimeth oprim 160 mg tablet 01/17 completed Not Available Not Available Not Available hydrocodon e 10 mg-acetami nophen 325 mg tablet TAKE 1 TABLET BY MOUTH EVERY 6 HOURS FOR PAIN active Not Available Not Available No t Available aspirin 81 mg tablet,del ayed release TAKE 1 TABLET BY MOUTH EVERY DAY 02/09 completed Not Available Not Available Not Available tramadol 50 mg tablet TAKE 1 TABLET BY MOUTH EVERY 8 HOURS NEEDED 12/22 completed Not Available Not Available Not Available triamcinol one acetonide 0.1 % topical cream APPLY 1 APPLICAT ION ONTO THE RASH ONCE DAILY 02/01 completed Not Available Not Available Not Available spironolac tone 25 mg tablet TAKE 1 TABLET BY MOUTH ONCE DAILY 02/09 completed Not Available Not Available Not Available bupropion HCl SR 100 mg tablet,12 hr sustained- release TAKE 1 TABLET BY MOUTH EVERY DAY active Not Available Not Available No t Available butalbital -acetamino phen-caffe ine 50 mg-325 mg-40 mg tablet 02/01 completed Not Available Not Available Not Available simvastati n 40 mg tablet TAKE 1 TABLET BY MOUTH EVERY DAY 12/22 completed Not Available Not Available Not Available acyclovir 800 mg tablet 02/01 completed Not Available Not Available Not Available guaifenesi n 200 mg tablet 02/01 completed Not Available Not Available Not Available levothyrox ine 75 mcg tablet TAKE 1 TABLET BY MOUTH EVERY DAY active Not Available Not Available No t Available meloxicam 7.5 mg tablet 02/01 completed Not Available Not Available Not Available oxycodone- acetaminop hen 5 mg-325 mg tablet 02/21 completed Not Available Not Available Not Available ziprasidon e 20 mg capsule TAKE 1 CAPSULE BY MOUTH WITH FOOD TWICE DAILY FOR 30 DAYS 02/09 completed Not Available Not Available Not Available meclizine 25 mg tablet 01/17 completed Not Available Not Available Not Available benzonatat e 100 mg capsule 02/15 completed Not Available Not Available Not Available levothyrox ine 50 mcg tablet 02/01 completed Not Available Not Available Not Available hydrocodon e 7.5 mg-acetami nophen 325 mg tablet TAKE 1 TABLET BY [...] Not Available nicotine 21 mg/24 hr daily transderma l patch 02/01 completed Not Available Not Available Not Available diclofenac potassium 50 mg tablet 02/01 completed Not Available Not Available Not Available gabapentin 300 mg capsule TAKE 1 CAPSULE BY MOUTH THREE TIMES A DAY active Missed appt 02/26/25 Not Available Not Available Not Available omeprazole 20 mg capsule,de layed release Take 1 capsule every day by oral route. active Not Available Not Available No t Available diclofenac sodium 75 mg tablet,del ayed release 02/01 completed Not Available Not Available Not Available allopurino l 300 mg tablet TAKE 1 TABLET BY MOUTH ONCE DAILY FOR 90 DAYS 02/09 completed Not Available Not Available Not Available diclofenac sodium 50 mg tablet,del ayed release 02/01 completed Not Available Not Available Not Available furosemide 20 mg tablet TAKE 1 TABLET BY MOUTH EVERY DAY active Not Available Not Available No t Available fluvoxamin e 50 mg tablet 02/21 completed Not Available Not Available Not Available ziprasidon e 40 mg capsule take 1 capsule by mouth twice daily w food active Not Available Not Available No t Available gabapentin 100 mg capsule TAKE 2 CAPSULES BY MOUTH EVERY MORNING 1 CAPSULE AT NOON & 2 AT BEDTIME 02/15 completed Not Available Not Available Not Available ergocalcif lynn (vitamin D2) 1,250 mcg (50,000 unit) capsule [...] completed Not Available Not Available Not Available levofloxac in 500 mg tablet TAKE 1 TABLET BY MOUTH EVERY DAY FOR 7 DAYS 12/22 completed Not Available Not Available Not Available methylpred nisolone 4 mg tablets in a dose pack 02/01 completed Not Available Not Available Not Available albuterol sulfate HFA 90 mcg/actuat ion aerosol inhaler INHALE 2 PUFFS BY MOUTH EVERY 4 HOURS NEEDED 2024 active Not Available Not Available Not Avai lable colchicine 0.6 mg tablet 02/01 completed Not Available Not Available Not Available propranolo l 20 mg tablet TAKE 1 TABLET BY MOUTH TWICE A DAY active Not Available Not Available No t Available oxybutynin chloride 5 mg tablet 02/21 completed Not Available Not Available Not Available ziprasidon e 60 mg capsule 02/01 completed Not Available Not Available Not Available ondansetro n 4 mg disintegra ting tablet DISSOLVE 1 TABLET IN MOUTH EVERY [...] Not Available Not Available No t Available doxycyclin e hyclate 100 mg tablet 02/15 completed Not Available Not Available Not Available irbesartan 300 mg tablet TAKE 1 TABLET BY MOUTH ONCE DAILY FOR 90 DAYS 02/15 completed Not Available Not Available Not Available naproxen 500 mg tablet TAKE 1 TABLET BY MOUTH TWICE A DAY WITH FOOD 02/01 completed Not Available Not Available Not Available spironolac tone 50 mg tablet TAKE 1 TABLET BY MOUTH ONCE DAILY FOR 30 DAYS 02/09 completed Not Available Not Available Not Available metoclopra mide 10 mg tablet TAKE 1 TABLET BY MOUTH EVERY 6 HOURS NEEDED TAKE 30 MINUTES BEFORE MEALS AND AT BEDTIME 12/22 completed Not Available Not Available Not Available amoxicilli n 875 mg-potassi um clavulanat e 125 mg tablet 02/01 completed Not Available [...] Not Available Not Available Not Avai lable cyclobenza sherron 5 mg tablet TAKE 1 TABLET BY MOUTH THREE TIMES A DAY NEEDED FOR MUSCLE SPASM 02/09 completed Not Available Not Available Not Available rosuvastat in 40 mg tablet TAKE 1 TABLET BY MOUTH EVERY DAY active Not Available Not Available No t Available nitrofuran toin monohydrat e/macrocry stals 100 mg capsule TAKE 1 CAPSULE BY MOUTH EVERY 12 HOURS FOR 7 DAYS active Not Available Not Available No t Available duloxetine 20 mg capsule,de layed release Take 1 tablet by mouth twice daily active Not Available Not Available No t Available duloxetine 30 mg capsule,de layed release 02/01 completed Not Available Not Available Not Available duloxetine 60 mg capsule,de layed release 02/01 completed Not Available Not Available Not Available solifenaci n 5 mg tablet 02/01 completed Not Available Not Available Not Available Excedrin Migraine active Not Available Not Available Not Available calcium 600 mg (as carbonate) -vitamin D3 10 mcg (400 unit) tablet TAKE [...] completed Not Available Not Available Not Available butalbital -acetamino phen-caffe ine 50 mg-300 mg-40 mg capsule TAKE 1 CAPSULE BY MOUTH EVERY 4 HOURS NEEDED FOR HEADACHE 02/09 completed Not Available Not Available Not Available Dulera 100 mcg-5 mcg/actuat ion HFA aerosol inhaler TAKE 2 PUFFS BY MOUTH TWICE A DAY 02/01 completed Not Available Not Available Not Available Banophen 50 mg capsule 02/01 completed Not Available Not Available Not Available naloxone 4 mg/actuati on nasal spray PLEASE SEE ATTACHED FOR DETAILED DIRECTIO NS active Not Available Not Available No t Available Fyavolv 1 mg-5 mcg tablet 02/09 completed Not Available Not Available Not Available fluticason e 113 mcg-salmet lynn 14 mcg/actuat ion breath activated powdr 02/01 completed Not Available Not Available Not Available magnesium 400 mg (as magnesium oxide) tablet Take 1 tablet by mouth daily active Not Available Not Available No t Available Daily-Sariah (with folic acid) 400 mcg tablet TAKE 1 TABLET BY MOUTH EVERY DAY 02/01 completed Not Available Not Available Not Available calcium 1,000 mg (as calcium carbonate 2,500 mg) effervesce nt tablet Take 1 tablet by mouth daily [...] Updated DateTime 5 162.56 cm 49.1 kg/m2 451119. 06 g 92 /min 95 % 95 % 128 mm[Hg] 86 mm[Hg] Elen Carrion [facility] 5 11:16:55 Date Recorded Body height Body mass index (BMI) Body weight Heart rate Oxygen saturation Oxygen saturation in Arterial blood by Pulse oximetry Systolic blood pressure Diastolic blood pressure Provider Name and Address Organization Details Last Updated DateTime 5 162.56 cm 49.3 kg/m2 808016. 37 g 122 /min 95 % 95 % 142 mm[Hg] 102 mm[Hg] Niru Ferraro MA [facility] 5 10:18:42 Date Recorded Body height Body mass index (BMI) Body weight Heart rate Oxygen saturation Oxygen saturation in Arterial blood by Pulse oximetry Systolic blood pressure Diastolic blood pressure Provider Name and Address Organization Details Last Updated DateTime 4 162.56 cm 45.3 kg/m2 972356. 39 g 97 /min 97 % 97 % 120 mm[Hg] 72 mm[Hg] ALBAN Valentine [facility] 4 16:45:38 Date Recorded Body height Body mass index (BMI) Body weight Heart rate Oxygen saturation Oxygen saturation in Arterial blood by Pulse oximetry Systolic blood pressure Diastolic blood pressure Provider Name and Address Organization Details Last Updated DateTime 4 162.56 cm 46.6 kg/m2 466344. 69 g 77 /min 99 % 99 % 138 mm[Hg] 70 mm[Hg] Mariann Harmon MA [facility] 4 13:45:02 Date Recorded Body height Body mass index (BMI) Body weight Heart rate Oxygen saturation Oxygen saturation in Arterial blood by Pulse oximetry Systolic blood pressure Diastolic blood pressure Provider Name and Address Organization Details Last Updated DateTime 4 162.56 cm 48.4 kg/m2 877099. 05 g 84 /min 98 % 98 % 118 mm[Hg] 84 mm[Hg] Brandy Mesa [facility] 4 10:57:57 Date Recorded Body height Body mass index (BMI) Body weight Heart rate Oxygen saturation Oxygen saturation in Arterial blood by Pulse oximetry Systolic blood pressure Diastolic blood pressure Provider Name and Address Organization Details Last Updated DateTime 4 162.56 cm 47.7 kg/m2 609183. 6 g 111 /min 97 % 97 % 128 mm[Hg] 66 mm[Hg] Mariann Harmon [place] [facility] 17:01:24 Social History Question Answer Notes LastModified by Organizat ion Details LastModified Time Tobacco Smoking Status Former Smoker [facility] [place], [place] [facility] 12/22/2024 11:20:30 Do You [...] anxious, or unable to sleep at night)? [id number] Information not available 06/06/2024 Family History Relationship Description Onset Age of this Age Resolved Age Notes LastModified by Organization Details LastModified Time Mother Hypertensive disorder Not available 02/03 16:12:08 Medical History Condition Response Coronary Artery Disease N Other N Atrial Fibrillation N High Blood Pressure Y Blood Clots N COPD Y Depression Y Headaches/Migraines N Anxiety Disorder N Muscle, Joint, or Bone Problems N Polyps N Infertility N Acid Reflux (GERD) N Cancer N Stroke N Headaches Y Kidney or Bladder Problems N Acne N Eating Disorder N Skin Problems N Asthma Y Allergies Y Hepatitis N Breast Cancer N Lung Disease N Breast Problem N Anesthesia Complications N Endometriosis N High Cholesterol N Liver Disease N Thyroid Problems Y GI Problems N Anemia N Heart Attack (ND) N Diabetes N Ovarian Cancer N Blood Transfusions N Seizures/Epilepsy N Abuse/Domestic Violence N Heart Disease N Pre-Eclampsia N Heart [...] SNOMED-CT Code Diagnosis ICD10 Code Diagnosis Note [id number] MD Josep Chun (VALVE INSPECTOR) [address] [place] [address] [phone] 02/03/2017 15:02:05 02/04/2017 14:50:16 Gynecologic examination 51910380 Z01.419 Body mass index 40+ - severely obese 333796662 Z68.41 Essential hypertension 19467495 I10 COUNSELED ABOUT HTN. ADVISED TO GO TO ER.patient refused to go to ER. COUNSELED ABOUT RISK OF STROKE, CEREBRAL HEMORRHAGE , , ND --ETC. SHE VERBALIZED UNDERSTAND ING. Smoker 30212705 F17.200 Pain in pelvis 79052173 R10.2 COUNSELED ABOUT IT. Bacterial vaginosis 4197 72410 N76.0 [id number] MD Josep Chun (VALVE INSPECTOR) [address] [place] [address] [phone] 0 02/22/2017 14:36:59 02/23/2017 16:32:50 Blood in urine 04310003 R31.9 Pain in pelvis 00798000 R10.2 d/w patient ultrasound result which is normal. Since pelvic pain improved will expectant management [id number] MD Josep Chun (VALVE INSPECTOR) [address] [place] [address] [phone] 0 02/02/2018 15:39:15 02/03/2018 11:24:51 Gynecologic examination 14523446 Z01.419 Age appropriat e counseling done. s/p hysterecto my. Venereal d isease screening 879044149 Z11.3 Patient refused. Morbid obesity 445833767 E66.01 Counseled About weight loss, diet and excercise. Patient refused plaster mechanic consult. Bacterial vaginosis 4197 55942 N76.0 Counseled about it Microscopic hematuria 19 1473913 R31.21 Advised to f/u with PCP. Recently treated for UTI. [id number] MD Josep Chun (VALVE INSPECTOR) [address] [place] [address] [phone] 0 02/21/2019 13:45:02 02/22/2019 12:50:57 Gynecologic examination 31069738 Z01.419 Age appropriat e counseling done. s/p hysterecto my. Screening mammography 24 335826 Z12.31 Venereal d isease screening 605865062 Z11.3 Patient refused blood work. Mixed urin alisha incontinence 278195653 N39.46 Counseled about it and kegel exercises. Patient say she is seeing urogyn and scheduled for surgery.Of fered oxybutynin for urge incontinen ce. Patient refused. Morbid obesity 818391233 E66.01 Counseled About weight loss, diet and excercise. Advised patient to f/u with plaster mechanic. Cystocele 015613024 N81. 10 Counseled about it and kegel exercises. Patient say she is seeing urogyn and scheduled for surgery. [id number] [facility] [address] [place] [address] [phone] 03/01/2019 14:42:05 03/02/2019 13:13:07 Vaginal Papanicolaou smear unsatisfactory for evaluation 1106740911 10516 R87.625 Counseled about it. Bacterial vaginosis 4197 69130 N76.0 Counseled about it. Candidiasis of vagina 72 534250 B37.3 Counseled about it. [id number] MD Josep Vasquez (VALVE INSPECTOR) [address] [place] [address] [phone] 0 01/17/2020 15:19:07 01/17/2020 16:39:51 Screening mammography 73641449 Z12.31 Exposure t o sexually transmissible disorder 850152791 Z20.2 Bacterial vaginosis 4197 63838 N76.0 Morbid obesity 835542536 E66.01 Postsurgic al menopause 996170407 E89.41 [id number] [facility] [address] [place] [address] [phone] 0 02/10/2024 15:14:10 02/11/2024 12:59:14 Essential hypertension 32324765 I10 Screening mammography 24 505446 Z12.31 Screening for malignant neoplasm of colon 574956555 Z12.11 Hypothyroidism 34283911 E03.9 Obesity 761070886 E66.9 [id number] Kailee Bryant MD [facility] (Adult Med) [address] [place] [address] [phone] 06/06/2024 13:23:37 06/06/2024 14:19:08 Essential hypertension 23233493 I10 Screening mammography 24 975675 Z12.31 Hypothyroidism 79390148 E03.9 Obesity 264871332 E66.8 Diabetes m ellitus screening 063617372 Z13.1 Smoker 19353474 F17.200 Chronic di astolic heart failure 814160071 I50.32 [id number] MD Josep Max (VALVE INSPECTOR) [address] [place] [address] [phone] 0 07/20/2024 10:02:58 07/25/2024 12:05:30 Menopausal flushing 441987738 N95.1 Assessment :The patient is experienci ng menopausal flushing, and bupropion is being used as part of the management plan.Plan: -Continue taking bupropion 100 mg help manage menopausal flushing.- Follow up if the flushing persists or worsens.- Consider additional therapies if bupropion alone does not adequately control symptoms. Essential hypertension 50419134 I10 Assessment :The patient has a history [...] ensure blood pressure remains controlled . Obesity 283053895 E66.9 Assessment :The patient has a history of obesity. Her BMI today is 48.4Plan:- Continue with lifestyle changes, focusing on diet and exercise to aid weight loss.- Consider seeing a nutritioni st or joining a weight management program.- Follow up regularly to monitor weight and any associated conditions . Hypothyroidism 85034205 E03.9 Assessment :The patient is on levothyrox ine 75 mcg for hypothyroi dism.Plan: -Continue taking levothyrox ine 75 mcg daily on an empty stomach.- Follow up with your primary care provider to adjust dosage if necessary. Anxiety 12659516 F41.9 Assessment :The patient is on bupropion, for anxiety. She reports decreased libido.Nomi n:- Continue taking bupropion 100 mg as prescribed .- Consider discussing with your psychiatri st or primary care provider if the decreased libido persists or worsens.- Follow up with mental health profession als regularly for medication management . Depressive disorder 3547 9006 F32.A Assessment :The patient is on doxepin, [...] management . Chronic ob structive pulmonary disease 04950653 J44.9 Assessment :The patient has a history [...] Low dose chest CT Migraine with aura 49105 06 G43.109 Assessment :The patient has a history of migraine with aura.Plan: -Continue taking prescribed medication s for migraine prevention or treatment. - Avoid known triggers and manage stress levels.- Follow up if migraine frequency or severity increases. Cardiac arrhythmia 24110 7007 I49.9 Assessment : Patient has history of heart arrhythmia .Plan:- Continue healthy practice to manage your BP and body weight- Avoid smoking and any triggers that lead to cardiac problems Gynecologi c examination 45417731 Z01.419 Patient tolerated physical exam very well. Hyperlipidemia 96725262 E78.5 Assessment :The patient is on simvastati n 40 mg for hyperlipid emia.Plan: -Continue taking simvastati n 40 mg as prescribed .- Follow up with lipid panels as advised to monitor cholestero l levels.- Maintain a diet low in saturated fats and cholestero l. Perimenopausal state [id number] 41562 Z78.0 Assessment :Patient reports flushing, irritabili ty and night sweat.Plan :- Continue taking bupropion 100 mg as prescribed to help manage menopausal flushing.- Follow up with your gynecologi st or primary care provider if the flushing persists or worsens. At [facility] risk of sexually transmitted infection [id number] Z20.2 Specimen collected for STD screen. Gastroesop hageal reflux disease 486846298 K21.9 Assessment :The patient is on omeprazole 20 mg for GERD. Patient is going to see GI and have colonoscop y in the upcoming appts.Plan :- Continue taking omeprazole 20 mg daily.- Avoid or minimize triggers like spicy foods, caffeine, and alcohol.- Follow up if symptoms of heartburn or reflux worsen. [id number] Kailee Bryant MD [facility] (Adult Med) [address] [place] [address] 10/10/2024 16:47:18 10/10/2024 17:16:47 Smoker [id number] F17.200 Morbid obesity 808627655 E66.01 Bronchitis 14855734 J40 Essential hypertension 85526771 I10 Hypothyroidism 72288185 E03.9 [id number] Kailee Bryant MD [facility] (Adult Med) [address] [place] [address] 01/30/2025 09:46:47 01/30/2025 11:08:47 Body mass index 40+ - severely obese 710981298 Z68.42 Severe obesity 215378748 1 9104 E66.01 Paresthesi a of lower extremity 682634354 R20.2 Screening for malignant neoplasm of colon 739980756 Z12.11 Essential hypertension 02559506 I10 Health Concerns Section Related Observation LastModified by Organization Detai ls LastModified Time None Recorded Concern Status LastModified by Organization Details LastModified Time None Recorded Advance Directives Directive N: Payers Encounter Date Sequence Insurance Name Policy Number Policy Crenshaw Covered Member ID Crenshaw Member ID Guarantor Name 02/10/2024 1 [facility] (MEDICAID HMO) [id number] Chel Fierro [id number] Chel Fierro 06/06/2024 1 [facility] (MEDICAID HMO) [id number] Chel Fierro [id number] Chel Fierro 07/20/2024 1 [facility] (MEDICAID HMO) [id number] Chel Fierro [id number] Chel Fierro 10/10/2024 1 [facility] (MEDICAID HMO) [id number] Chel Fierro [id number] Chel Fierro 01/30/2025 1 [facility] (MEDICAID HMO) [id number] Chel Fierro [id number] Chel Fierro Notes Date Note Type Note Provider Name and Address Organization Details Recorded Time 4 text/html Bronchitis. ER. Antibiotic steroids. Feeling better. Depression stable sees psychiatry. Headaches have been doing reasonably well. Hypertension no chest pain hypothyroid no heat or cold intolerance hypertension no chest pain no dizzy spells Kailee Bryant MD Attn: Accounting,[address] [facility], [place], [address], [facility] 02/10/2024 21:01:36 4 text/html Several issues obesity [...] stable Kailee Bryant MD Attn: Accounting,[address] [facility], [place], [address], [facility] 06/11/2024 13:23:34 4 text/html Chel is 43 [...] with GI and get colonoscopy done. Qian Rosales MD Attn: Accounting,[address] [facility], [place], [address], [facility] 07/25/2024 10:28:28 4 text/html cough congestion wheezing went to the emergency room Augmentin and prednisone she is feeling a lot better states she is not smokinghypertension no dizziness blood pressure looks goodobesity struggles can not get GLP 1. Hypothyroid no heat or cold intolerance Kailee Bryant MD Attn: Accounting,[address] [facility], [place], [address], [facility] 10/10/2024 20:18:57 5 text/html she was given gabapentin and it works also she is up to b.i.d. on the propranolol Kailee Bryant MD Attn: Accounting,[address] [facility], [place], [address], [facility] 01/30/2025 22:08:22 OBGyn Episode Ob Episode Information Episode Created Date Number of Fetuses Patient Bloodtype Patient rh Status Prepregnancy Weight lbs Domestic Partner Domestic Partner Phone Father Name Dispatch Associate Status 02/04/20 17 1 CLOSED Fetus Data First Name Last Name Admitted to NICU Weight (g) Sex Living Outcome Pediatric Complications Fetus ID Race Codes Race Delivery Type 4365.82 3 M Full Term [id number] Vaginal Zack Calculation Initial Zack Date Initial [...]
--- OUTSIDE RECORDS SUMMARY | 2025-04-23 20:28 | XMS_ITS | CONTINUITY OF CARE DOCUMENT ---
Author Name joel maldonado Address Unknown Organization [facility] Address [address] [facility] [address] [place] [address] Phone [phone] Care Team Providers Care Taping Foreman Name Role Phone Harsha LEGER, Ronald Unavailable KAILEE NICHOLE MD Unavailable [phone] KAILEE NICHOLE MD Unavailable PROBLEMS Condition Status [...] In-person encounter Office Visit Ronald Mcleod MD [facility] Renal disease, chronic, mild;neg us and duplex - In-person encounter Office Visit Ronald Mcleod MD [facility] [place] [facility] ObesityScreeningRenal disease, chronic, mild;neg us and duplex - In-person encounter Office Visit Ronald Mcleod MD [facility] ventral hernia - In-person encounter Office Visit Ronald Mcleod MD [facility] CADScreeningDiastolic CHFRenal disease, chronic, mild;neg us and duplexSinus tachycardia - In-person encounter Office Visit Ronald Mcleod MD [facility] Tobacco use, quitDiastolic CHF - In-person encounter Office Visit Ronald Mcleod MD [facility] ScreeningDiastolic CHF - In-person encounter Office Visit Ronald Mcleod MD [facility] [place] [facility] Tobacco use, quitDiastolic CHFMacrocytosis - In-person encounter Office Visit Ronald Mcleod MD [facility] Office - In-person encounter Office Visit Ronald Mcleod MD [facility] [place] [facility] Renal disease, chronic, mild;neg us and duplex - In-person encounter Office Visit Ronald Mcleod MD [facility] Venous insufficiencyDiastolic CHFExposure to SARS-associated coronavirus;neg swab and igg and had vaccineLong-term (current) use of other medicationsPulmonary hypertensionNeuropathyRenal disease, chronic, mild;neg us and duplex - In-person encounter Office Visit Ronald Mcleod MD [facility] Screening - In-person encounter Office Visit Ronald Mcleod MD [facility] AsthmaTobacco use, quitSLEEP APNEA;on rxVenous insufficiencyCOPD - In-person encounter Office Visit Faheem Sandoval MD [facility] - In-person encounter Office Visit Faheem Sandoval MD [facility] - In-person encounter Office Visit Faheem Sandoval MD [facility] - In-person encounter Office Visit Ronald Mcleod MD [facility] CADDyspnea on exertionScreeningVITAMIN D DEFICIENCY;on rx - In-person encounter Office Visit Ronald Mcleod MD [facility] Depression, chronicHTN essential;NEG DUPLEXTobacco use, quitObesityHyperlipidemia;with [...] oxygen saturation, oximetry 97 % [facility] Last pulse rate 116 /min [facility] Last weight E&M 279.4 [lb_av] [facility] Last height E&M 64 [in_i] [facility] Last Body Mass Index (Ratio) 46.68 kg/m2 Ely Mcleod MD blood pressure, diastolic 90 mm[Hg] Mary nkLog blood pressure, systolic 122 mm[Hg] Ayah kLog blood pressure, cuff size large Brad chakraborty [place] oxygen saturation, oximetry 99 % [facility] pulse rate 89 /min Eleni Mao blood pressure, diastolic 90 mm[Hg] Ta paulha Mao blood pressure, systolic 122 mm[Hg] Tab itha [place] weight E&M 272 [lb_av] Eleni Mao respiratory rate E&M 12 /min Eleni Mao height E&M 64 [in_i] [facility] Body Mass Index (Ratio) 47.37 kg/m2 Ely [...] blood pressure, systolic 97 mm[Hg] Ter i [place] oxygen saturation, oximetry 96 % Phoebe [place] respiratory rate E&M 16 /min Phoebe Pi [facility] pulse rate, standing 96 /min Phoebe [facility] weight E&M 253 [lb_av] Phoebe [place] Body Mass Index (Ratio) 32.95 kg/m2 Ely Mcleod MD blood pressure, diastolic 74 mm[Hg] Tr adam [place] blood pressure, systolic 98 mm[Hg] Try madai [place] oxygen saturation, oximetry 98 % Amarilys [place] respiratory rate E&M 18 /min [facility] [place] pulse rate 95 /min [facility] [place] weight E&M 192 [lb_av] Amarilys [...] Sandoval MD respiratory rate E&M 16 /min [facility] blood pressure, diastolic 88 mm[Hg] [facility], systolic 133 mm[Hg] Ton [facility] oxygen saturation, oximetry 94 % [facility] pulse rate 88 /min [facility] weight E&M 288 [lb_av] [facility] height E&M 64 [in_i] [facility] Body Mass Index (Ratio) 49.43 kg/m2 Joie [...] MD blood pressure, diastolic 70 mm[Hg] [facility] pressure, systolic 120 mm[Hg] Shaggy rojas [place] oxygen saturation, oximetry 97 % [facility] respiratory rate E&M 20 /min [facility] pulse rate 86 /min [facility] blood pressure, resting Yes Kill servando [place] weight E&M 289 [lb_av] [facility] height E&M 64 [in_i] [facility] ALLERGIES Allergy Name Onset Date Reaction Criticality [...] iron binding capacity, unsaturated 310 ug/dL [facility] [phone]/03/ 26 iron binding capacity, total 387 ug/dL [facility] 237-645 1977/03/ 26 free thyroxine index 1.6 [facility] 1.2-4.9 [...] Not Estab. platelet count 214 X10E3/UL [facility] 183-180 3288/03/ 26 red blood cell distribution width 13.7 [...] 0-149 High cholesterol, serum 150 mg/dL [facility] 754-658 9119/03/ 26 alanine aminotransferase (SGPT), serum 20 1/L [...] [employer] 3.5-5.2 sodium, serum 142 mmol/L [facility] 288-950 8588/03/ 26 urea nitrogen/creatinine ratio, serum 14 [employer] [...] iron binding capacity, unsaturated 309 ug/dL [facility] 897-623 5204/07/ 19 iron binding capacity, total 395 ug/dL [facility] 422-400 8308/07/ 19 hemoglobin A1C, blood, as % of [...] 0-149 High cholesterol, serum 184 mg/dL [facility] 320-776 5556/07/ 19 basophil count, absolute 0.0 x10E3/uL [facility] [...] Not Estab. platelet count 205 X10E3/UL [facility] 320-366 1421/07/ 19 red blood cell distribution width 13.9 [...] [facility] 3.5-5.2 sodium, serum 143 mmol/L [facility] 611-874 0402/07/ 19 urea nitrogen/creatinine ratio, serum 10 [employer] [...] every six hours for pain 06/19 Ronald cMleod MD tramadol 50 mg tablet completed TAKE [...] BY MOUTH EVERY DAY 01/07 - 01/04 Ronlad Mcleod MD furosemide 20 mg tablet completed [...] smoking history, tot al pack/year 2000 Amarilys aLwrence smoking history, tot al pack/day 1/2 ppd [...] smoking history, tot al pack/day 1 Suni [place] cigarette use yes Suni [place] smoking status [...] More FAMILY HISTORY Family Member Condition Father ME male <55 Mother ME female <65 INSURANCE PROVIDERS Payer name Policy type / Coverage type Jaquan red libertarian ID [id number] PAY ADVANCE DIRECTIVES Name Date DISCUSSED - NO DECISION MADE TREATMENT PLAN Date Name Performer [id number],SRonald MD [id number],S, Ronald parikh MD [id number],S, 5 .8 Ronald Mcleod MD [id number],C, n eeds narcoties n eg rpr and b12 Ronald Mcleod MD [id number],Ronald Reilly MD [id number],S, n eg dd and crystal and neg aaa n eg monae thjrien Ronald Mcleod MD [id number],S, H er updated medication list for this problem includes: Simvastatin 40 Mg Tablet (Simvastatin) ..... Take 1 tablet by mouth once a day C HOL: 150 (02/14/2021) HDL: 28 (02/14/2021) Ronald Mcleod MD [id number],S, H er updated medication list for this [...] 150 (02/14/2021) HDL: 28 (02/14/2021) Ronald Mcleod [id number],S, n ml pro but high pcwp 22 Ronald Mcleod [id number],S, n eg stress Ronald Mcleod [id number],S, Ronald Serot a [id number],S, Ronald Serot a [id number],S, n eg stress Ronald Mcleod [id number],S, n eg dd and crystal and neg aaa n eg monae thjrien Ronaldnell Perezjl LEGER [id number],B, H er updated medication list for this [...] mouth twice a day Ronaldnell Perezjl LEGER [id number],B, Ronald Serot a [id number],S,n eeds narcoties n eg rpr and b12 Ronald Mcleod [id number],S, Ronald Serot a [id number],S, 4 0 Ronaldnell Mcleod [id number],S, n eg stress Ronald Mcleod [id number],B, Ronald Serot a [id number],S, Ronald parikh MD [id number],S, n eg b12 and folatre Ronaldnell Perezjl LEGER [id number],S, n ml pro but high pcwp 22 Ronald Harsha LEGER [id number],S, n eg b12 and folatre Ronald Mcleod MD [id number],S, 4 0 Ronald Mcleod MD [id number],B, c orrected Ronald Mcleod MD [id number],B, H er updated medication list for this problem includes: Levothyroxine 75 Mcg Tablet (Levothyroxine) ..... Take 1 tablet by mouth once a day Labs Reviewed: T SH: 4.050 (02/14/2021) Total T4: 6.7 (02/14/2021) H gBA1c: 5.5 (02/14/2021) C hol: 150 (02/14/2021) HDL: 28 (02/14/2021) Ronald Mcleod MD [id number],B, H er updated medication list for this problem includes: Simvastatin 40 Mg Tablet (Simvastatin) ..... Take 1 tablet by mouth once a day C HOL: 150 (02/14/2021) HDL: 28 (02/14/2021) Ronald Mcleod MD [id number],B, Ronald Mcleod MD [id number],S, H er updated medication list for this [...] (02/14/2021) HDL: 28 (02/14/2021) Ronald Mcleod MD [id number],S, n ml pro but high pcwp 22 [...] T4 (total): 6.7 (02/14/2021) Ronald Mcleod MD [id number],S, n eg stress Ronald Mcleod MD [id number],S, Ronald Mcleod MD [id number],SRonald MD [id number],SRonald MD [id number],B, Ronald parikh MD [id number],SRonald MD [id number],SRonald MD [id number],S, 4 0 Ronald Mcleod MD [id number],B,n eg monae thrune O N COMPRESSION Ronald Mcleod MD [id number],B, Ronald parikh MD [id number],S, 5 0 DUE TO DIASTOC CHF Ronald Mcleod MD [id number],W, n eg rpr and b12 Ronald Mcleod MD [id number],W, n ml pro but high pcwp 22 Ronald Mcleod MD [id number],B, n eg dd and crystal and neg aaa n eg richard crowleyjrien Ronald Mcleod MD [id number],B, H er updated medication list for this [...] (02/14/2021) HDL: 28 (02/14/2021) Ronald Mcleod MD [id number],B,5.8 Ronald mejía MD [id number],C,neg dd and ab i and neg aaa Ronald Mcleod MD [id number],C,neg dd and ab i Ronald Serota [id number],C,5.8 Ronald Se rota [id number],C,neg rpr and b 12 Ronald Serota [id number],S,NML B12 Harvdavid y Serotjl LEGER [id number],S, n ml pro but high pcwp 22 Ronald Serota [id number],S,50 DUE TO TOYIN STOC CHF Ronald Serota [id number],S,ON COMPRESSIO N Ronald Serotjl LEGER [id number],B, c orrected Ronald Serota [id number],B, 5 .5 on metorfimin Ronald Serotjl LEGER [id number],S, Ronald Serot a [id number],S, Ronald Serot a [id number],S, nmml dd Ronald Serota [id number],S, 4 0 Ronald Serota [id number],S, Ronald Serot a [id number],S, Ronald Serot a [id number],S, n eg b12 and folatre Ronald Serotjl [...] for colon Ronald Mcleod MD Cardiology:mild Ronald Mcledo MD Cardiology Ronald Mcleod MD Cardiology Ronald [...] dd and crystal and neg aaa Ely Mcloed MD :neg dd and crystal Ronald Mcleod [...] enrollment in HepStep trial Madai Alcarazmann JUAREZ [facility] Follow up :Continue diuretics and compression Madaifarnaz Chung ANN [facility] Follow up :Continue current meds H er updated medication list for this problem includes: Simvastatin 40 Mg Oral Tablet (Simvastatin) ..... Take 1 tablet by mouth every day Madaifarnaz Chung ANN [facility] Follow up :Added aldactone H er [...] mouth twice a day Madai Alcarazmann JUAREZ [facility] Follow up :n ml pro but [...] PANEL Holter Monitor 24 Hr DLCO - 06417 FRC - 34816 FVC - 19176 Complete Echo DLCO - 80721 FRC - 74505 FVC - 89158 Complete Echo PROTHROMBIN TIME WIT H INR LIPID PANEL CBC (INCLUDES DIFF/P LT) BASIC METABOLIC PANE L W/EGFR DLCO - 72572 FRC - 42378 FVC - 89428 Complete Echo Holter Monitor 24 Hr DLCO - 37460 FRC - 80101 FVC - 04283 Complete Echo Stress Regadenoson Holter Monitor 24 Hr Complete Echo Vitamin D, 25-Hydrox y IRON AND TOTAL IRON BINDING CAPACITY FERRITIN CBC (INCLUDES DIFF/P LT) HEMOGLOBIN A1c Microalb/Creatinine Urine, Random COMPREHENSIVE METABO LIC PANEL, W/EGFR PROBNP, N TERMINAL Arterial - SENSILASE Complete Echo DLCO - 36775 FRC - 65623 FVC - 01618 PROBNP, N TERMINAL BASIC METABOLIC PANE L W/EGFR Microalb/Creatinine Urine, Random Arterial - SENSILASE Complete Echo DLCO - 22063 FRC - 65930 FVC - 58339 DLCO - 85856 FRC - 50464 FVC - 43700 Arterial - SENSILASE Complete Echo Arterial - SENSILASE DLCO - 13862 FRC - 31080 FVC - 94412 Complete Echo DLCO - 46600 FRC - 16476 FVC - 20184 Complete Echo Complete Echo Complete Echo Renal Artery Duplex Kidney Ultrasound Arterial Duplex Bi-L ower EX Arterial - SENSILASE CT, Coronary Calcium Score DLCO - 86228 FRC - 66253 FVC - 31900 Complete Echo RPR (MONITOR) W/REFL TITER FOLATE, [...] W/EGFR CT, Coronary Calcium Score DLCO - 60425 FRC - 54923 FVC - 34370 CT, Coronary Calcium Score DLCO - 28827 FRC - 76565 FVC - 51368 Venous Doppler Bilat eral LE - Reflux COMPREHENSIVE METABO LIC PANEL, W/EGFR THYROID PANEL WITH T SH, 3RD GENERATION Stress Routine VITAMIN B12 Vitamin D, 25-Hydrox y IRON AND TOTAL IRON BINDING CAPACITY FERRITIN CBC (INCLUDES DIFF/P LT) LIPID PANEL D-DIMER, QUANTITATIV E URINALYSIS, RANDOM, MICROALB/CREATININE HEMOGLOBIN A1c PROBNP, N TERMINAL DLCO - 38318 FRC - 90483 FVC - 74195 Complete Echo HISTORY OF PROCEDURES Procedure Date Procedure Name Provider Procedure Notes S tatus Spirometry Ronald Mcleod MD complete d FVC / MVV with bronchodilator - 33673 Ronald Mcleod MD completed SpO2 w/o 6min walk/titration Ronald Mcleod MD completed SVC - 72908 Ronald Mcleod MD complet ed DLCO - 20861 Ronald Mcleod MD comple john Complex e/m visit add on Ronald Mcleod MD completed EKG Ronald Mcleod MD complete d EKG Mayito Land RN completed EKG Ronald Mcleod MD complete d EKG Ronald Mcleod MD complete d EKG Ronald Mcleod MD complete d EKG Faheem Sandoval MD completed FVC / MVV with bronchodilator - 18782 Ronald Mcleod MD completed BLOOD COUNT HEMOGLOBIN Ronald Mcleod MD completed FRC - 11528 Ronald Mcleod MD complet ed SpO2 w/o 6min walk/titration Ronald Mcleod MD completed DLCO - 17936 Ronald Mcleod MD comple john Stress EKG Ronald Mcleod MD complete d FVC / MVV with bronchodilator - 39982 Ronald Mcleod MD completed BLOOD COUNT HEMOGLOBIN Ronald Mcleod MD completed FRC - 37839 Ronald Mcleod MD complet ed SpO2 w/o 6min walk/titration Ronald Mcleod MD completed DLCO - 54032 Ronald Mcleod MD comple john EKG Ronald Mcleod MD complete d
[2025-04-23 20:33] VITALS: BP 163/116; PULSE 110; RESP 17; TEMP 36.4; O2SAT 97
[2025-04-23 23:38] VITALS: BP 155/99; PULSE 99; RESP 18; O2SAT 98
--- OUTSIDE RECORDS SUMMARY | 2025-04-24 00:19 | XMS_ITS | Clinical Summary ---
Author Organization [facility] Address [address] [place] [address] Phone Care Team Providers Care Supervisor Slate Splitting Name Role Phone Javan Bryant MD Primary Care Provider [phone] Allergies Active Allergy Reactions Criticality Noted Date [...] on file Legal Sex Female 10:45 AM EXPENSE ANALYST Gender Identity Not on file Sexual Orientation Not on file Last Filed Vital Signs Vital Sign Reading Time Taken Comments Blood Pressure 126/92 11/17/2013 10:58 AM EXPENSE ANALYST Pulse 88 11/17/2013 10:58 AM EXPENSE ANALYST Temperature 36.7 C (98.1 F) 11/17/2013 10:58 AM EXPENSE ANALYST Respiratory Rate 20 11/17/2013 10:58 AM EXPENSE ANALYST Oxygen Saturation 99% 11/17/2013 10:58 AM EXPENSE ANALYST Inhaled Oxygen Concentration - - Weight 95.3 kg (210 lb) 11/17/2013 10:58 AM EXPENSE ANALYST Height 162.6 cm (5' 4) 11/17/2013 10:58 AM EXPENSE ANALYST Body Mass Index 36.05 11/17/2013 10:58 AM EXPENSE ANALYST Plan of Treatment Health Maintenance Due Date [...] this topic Insurance [place] Care Teams Supervisor Slate Splitting Relationship Specialty Start Date End Date Javan Bryant MD PCP - General Internal Medicine 01/23/21
--- OUTSIDE RECORDS SUMMARY | 2025-04-24 00:19 | XMS_ITS | Patient Health Record ---
Author Organization [facility] Billing Info Address [address] [place] [id number] Care Team Providers Care Plugger Name Role Phone Andres Taverasuq Primary Care Provider MAHESH Pisano Unavailable [phone] Allergies Allergen (clinical drug ingredient) Drug/Non Drug [...] of un known type) Unknown 08/25/2022 Administered COVID-19 (Past vaccine of un known type) Unknown 12/03/2021 Administered COVID-19 (Past vaccine of un known type) Unknown 04/09/2022 Administered Social History Tobacco Use: Social History Observation Description Date Details (start date - stop date) Current Smoker NA - NA Tobacco Status: Question Answer Notes Patient is a current every day smoker Smoke s 1/2 PPD Problems Problem Type SNOMED Code ICD Code Onset Dates Problem Status W/U Status Risk Notes Problem 164810768 Mixed hyperlipidemia (E78.2) Active confirmed Problem 513958064 Ventral hernia without obstruction or gangrene (K43.9) Active confirmed Problem 87746402 Essential hypertension (I10) Active confirmed Problem 15022617 BRENDON (obstructive sleep apnea) (G47.33) Active confirmed Problem 541151797 Seasonal allergi es (J30.2) Active confirmed Problem 782030323 Plantar fasciiti s (M72.2) Active confirmed Problem History of migraine (530443840) History of migraine (Z86.69) Active confirmed Problem Thyroid disorder (77430551) Thyroid disorder (E07.9) Active confirmed Problem 50759802 Anxiety (F41.9) Active confirmed Problem 57974838 Primary hypertension (I10) Active confirmed Problem 85820732 Hypothyroidism, unspecified type (E03.9) Active confirmed Problem 124591706 Cardiac arrhythmia, unspecified cardiac arrhythmia type (I49.9) Active confirmed Problem 73709681 Chronic gout of multiple sites, unspecified cause (M1A.09X0) Active confirmed Problem 92788307 Intracranial mas s (R90.0) Active confirmed Problem 86860805 Chronic congesti ve heart failure, unspecified heart failure type (I50.9) Active confirmed Problem 68631542 Depression, unspecified depression type (F32.A) Active confirmed Problem 740273101 Acute right-side d low back pain without sciatica (M54.50) Active confirmed Plan Of Treatment Pending Test Test Name Order Date MRI- MR LOWER EXTREMITY JOINT-RT (23087) ([id number]) 02/15/2023 CT- ABD AND PELVIS W/O CONT ()([facility]) 04/13/2023 MRI- MR LOWER EXTREMITY-RT (68921)([facility]) 02/01/2023 MRI HEAD/BRAIN W/WO CONTRAST([facility]) 11/24/2022 SCREENING MAMMO WITH ADDL VIEWS AND/OR U S FOR INCONCLUSIVE MAMMO (G0202) 11/24/2022 CALCIUM, IONIZED([id number]) 12/01/2022 XRAY - KNEE 3 VIEWS RIGHT (48224) 2022 Medical (General) History Medical History History ICD Code Primary hypertension I10 Seasonal allergies J30.2 Anxiety F41.9 Depression Hypothyroidism Hyperlipidemia Cardiac Arrthymias Anxiety Congestive Heart Failure Gout Intracranial Mass Plantar Fascitis BRENDON Surgical History Surgery Date(Month/Year) Cholecystectomy 2001 Tonsillectomy Hysterectomy 2001 Hospitalization History Reason Date(Month/Year)
--- OUTSIDE RECORDS SUMMARY | 2025-04-24 00:19 | XMS_ITS | CONTINUITY OF CARE DOCUMENT ---
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 Role Phone Harsha LEGER, Ronald Unavailable [...] chronic, mild;neg us and duplex active Ronald Mcloed MD neg uacr had reaxaon to arb o n inpefa Sinus tachycardia active Ronald Mcleod MD t sh on rx ok on rx ventral hernia active Ronald Mcleod MD ENCOUNTERS Date Type Provider Location Encounter Diag nosis - In-person encounter Office Visit Ronald Mcleod MD [facility] Renal disease, chronic, mild;neg us and duplex - In-person encounter Office Visit Ronald Mcleod MD [facility] ObesityScreeningRenal disease, chronic, mild;neg us and duplex - In-person encounter Office Visit Ronald Mcleod MD [facility] ventral hernia - In-person encounter Office Visit Ronald Mcleod MD [facility] CADScreeningDiastolic CHFRenal disease, chronic, mild;neg us and duplexSinus tachycardia - In-person encounter Office Visit Ronald Mcleod MD [facility] Tobacco use, quitDiastolic CHF - In-person encounter Office Visit Ronald Mcleod MD [facility] ScreeningDiastolic CHF - In-person encounter Office Visit Ronald Mcleod MD [facility] Tobacco use, quitDiastolic CHFMacrocytosis - In-person encounter Office Visit Ronald Mcleod MD [facility] - In-person encounter Office Visit Ronald Mcleod MD [facility] Renal disease, chronic, mild;neg us and duplex - In-person encounter Office Visit Ronald Mcleod MD [facility] Venous insufficiencyDiastolic CHFExposure to SARS-associated coronavirus;neg swab and igg and had vaccineLong-term (current) use of other medicationsPulmonary hypertensionNeuropathyRenal disease, chronic, mild;neg us and duplex - In-person encounter Office Visit Ronald Mcleod MD [facility] Screening - In-person encounter Office Visit Ronald Mcleod MD [facility] AsthmaTobacco use, quitSLEEP APNEA;on rxVenous insufficiencyCOPD - In-person encounter Office Visit Faheem Sandoval MD [facility] - In-person encounter Office Visit Faheem Sandoval MD [facility] - In-person encounter Office Visit Faheem Sandoval MD [facility] - In-person encounter Office Visit Ronald Mcleod MD [facility] CADDyspnea on exertionScreeningVITAMIN D DEFICIENCY;on rx - In-person encounter Office Visit Ronald Mcleod MD [facility] Depression, chronicHTN essential;NEG DUPLEXTobacco use, quitObesityHyperlipidemia;with [...] pepe Last oxygen [facility], oximetry 97 % [facility] pulse rate 116 /min [facility] weight E&M 279.4 [lb_av] [facility] Last height E&M 64 [in_i] [facility] Last Body Mass Index (Ratio) 46.68 kg/m2 Ely Mcleod MD blood pressure, diastolic 90 mm[Hg] Mary nkLog blood pressure, systolic 122 mm[Hg] Ayah kLog blood pressure, cuff size large Brad chakraborty [place] oxygen saturation, oximetry 99 % [facility] pulse rate 89 /min Eleni Mao blood pressure, diastolic 90 mm[Hg] Ta paulha Mao blood pressure, systolic 122 mm[Hg] Tab itha [place] weight E&M 272 [lb_av] Eleni Mao respiratory rate E&M 12 /min Eleni Mao height E&M 64 [in_i] [facility] Index (Ratio) 47.37 kg/m2 Ely [...] blood pressure, systolic 97 mm[Hg] Ter i [place] oxygen saturation, oximetry 96 % Phoebe [place] respiratory rate E&M 16 /min Phoebe [facility] pulse rate, standing 96 /min Phoebe [facility] weight E&M 253 [lb_av] Phoebe [place] Body Mass Index (Ratio) 32.95 kg/m2 Ely Mcleod MD blood pressure, diastolic 74 mm[Hg] Tr adam [place] blood pressure, systolic 98 mm[Hg] Try madai [place] oxygen saturation, oximetry 98 % Amarilys [place] respiratory rate E&M 18 /min [facility] [place] pulse rate 95 /min [facility] [place] weight E&M 192 [lb_av] Amarilys [place] [...] Sandoval MD respiratory rate E&M 16 /min [facility] blood pressure, diastolic 88 mm[Hg] [facility], systolic 133 mm[Hg] Ton [facility] oxygen saturation, oximetry 94 % [facility] pulse rate 88 /min [facility] weight E&M 288 [lb_av] [facility] height E&M 64 [in_i] [facility] Body Mass Index (Ratio) 49.43 kg/m2 [...] MD blood pressure, diastolic 70 mm[Hg] [facility], systolic 120 mm[Hg] Shaggy rojas [place] oxygen saturation, oximetry 97 % [facility] respiratory rate E&M 20 /min [facility] pulse rate 86 /min [facility] blood pressure, resting Yes Kill servando [place] weight E&M 289 [lb_av] [facility] height E&M 64 [in_i] [facility] ALLERGIES Allergy Name Onset Date Reaction [...] iron binding capacity, unsaturated 310 ug/dL [employer] 565-243 5262/03/ 26 iron binding capacity, total 387 ug/dL [facility] 117-093 3169/03/ 26 free thyroxine index 1.6 [employer] 1.2-4.9 [...] Not Estab. platelet count 214 X10E3/UL [facility] 403-254 3422/03/ 26 red blood cell distribution width 13.7 [...] 0-149 High cholesterol, serum 150 mg/dL [facility] [phone]/03/ 26 alanine aminotransferase (SGPT), serum 20 1/L [...] [employer] 3.5-5.2 sodium, serum 142 mmol/L [employer] 527-811 3217/03/ 26 urea nitrogen/creatinine ratio, serum 14 [employer] [...] iron binding capacity, unsaturated 309 ug/dL [employer] 410-803 6849/07/ 19 iron binding capacity, total 395 ug/dL [facility] 392-879 4364/07/ 19 hemoglobin A1C, blood, as % of [...] 0-149 High cholesterol, serum 184 mg/dL [facility] 218-039 3332/07/ 19 basophil count, absolute 0.0 x10E3/uL [employer] [...] Not Estab. platelet count 205 X10E3/UL [facility] 652-643 2998/07/ 19 red blood cell distribution width 13.9 [...] [employer] 3.5-5.2 sodium, serum 143 mmol/L [facility] 686-641 8860/07/ 19 urea nitrogen/creatinine ratio, serum 10 [employer] [...] #13, 30 days supply, Prescribed by CANDELARIO DIERTICH, Filled 01/24/2021 MELOXICAM 15 MG ORAL TABLET [...] by mouth every night 06/08 - 07/24 Ronlad Mcleod MD Ventolin HFA 90 mcg/actuation HFA [...] Qian [place] smoking, date started 20 Qian Ndaya smoking history, tot al pack/year 2000 Qian [...] smoking history, tot al pack/day 1 Suni [place] cigarette use yes Suni Taylor smoking status [...] More FAMILY HISTORY Family Member Condition Father [place] male <55 Mother [place] female <65 INSURANCE PROVIDERS Payer name Policy type / Coverage type Jaquan red constitution party ID SELF PAY ADVANCE DIRECTIVES Name Date DISCUSSED - NO DECISION MADE TREATMENT PLAN Date Name Performer [id number],SRonald MD [id number],S, Ronald parikh MD [id number],S, 5 .8 Ronald Mcleod MD [id number],C, n eeds narcoties n eg rpr and b12 Ronald Mcleod MD [id number],Ronald Reilly MD [id number],S, n eg dd and crystal and neg aaa n eg monae thjrien Ronald Mcleod MD [id number],S, H er updated medication list for this problem includes: Simvastatin 40 Mg Tablet (Simvastatin) ..... Take 1 tablet by mouth once a day C HOL: 150 (02/14/2021) HDL: 28 (02/14/2021) Ronald Mcleod MD [id number],S, H er updated medication list for this [...] 150 (02/14/2021) HDL: 28 (02/14/2021) Ronald Mcleod [id number],S, n ml pro but high pcwp 22 Ronald Mcleod [id number],S, n eg stress Ronald Mcleod [id number],S, Ronald Serot a [id number],S, Ronald Serot a [id number],S, n eg stress Ronald Mcleod [id number],S, n eg dd and crystal and neg aaa n eg monae thjrien Ronaldnell Perezjl LEGER [id number],B, H er updated medication list for this [...] mouth twice a day Ronaldnell Perezjl LEGER [id number],B, Ronald Serot a [id number],S,n eeds narcoties n eg rpr and b12 Ronald Mcleod [id number],S, Ronald Serot a [id number],S, 4 0 Ronaldnell Mcleod [id number],S, n eg stress Ronald Mcleod [id number],B, Ronald Serot a [id number],S, Ronald parikh MD [id number],S, n eg b12 and folatre Ronaldnell Perezjl LEGER [id number],S, n ml pro but high pcwp 22 Ronald Harsha LEGER [id number],S, n eg b12 and folatre Ronald Mcleod MD [id number],S, 4 0 Ronald Mcleod MD [id number],B, c orrected Ronald Mcleod MD [id number],B, H er updated medication list for this problem includes: Levothyroxine 75 Mcg Tablet (Levothyroxine) ..... Take 1 tablet by mouth once a day Labs Reviewed: T SH: 4.050 (02/14/2021) Total T4: 6.7 (02/14/2021) H gBA1c: 5.5 (02/14/2021) C hol: 150 (02/14/2021) HDL: 28 (02/14/2021) Ronald Mcleod MD [id number],B, H er updated medication list for this problem includes: Simvastatin 40 Mg Tablet (Simvastatin) ..... Take 1 tablet by mouth once a day C HOL: 150 (02/14/2021) HDL: 28 (02/14/2021) Ronald Mcleod MD [id number],B, Ronald Mcleod MD [id number],S, H er updated medication list for this [...] (02/14/2021) HDL: 28 (02/14/2021) Ronald Mcleod MD [id number],S, n ml pro but high pcwp 22 [...] T4 (total): 6.7 (02/14/2021) Ronald Mcleod MD [id number],S, n eg stress Ronald Mcleod MD [id number],S, Ronald Mcleod MD [id number],SRonald MD [id number],SRonald MD [id number],B, Ronald parikh MD [id number],SRonald MD [id number],SRonald MD [id number],S, 4 0 Ronald Mcleod MD [id number],B,n eg monae thrune O N COMPRESSION Ronald Mcleod MD [id number],B, Ronald parikh MD [id number],S, 5 0 DUE TO DIASTOC CHF Ronald Mcleod MD [id number],W, n eg rpr and b12 Ronald Mcleod MD [id number],W, n ml pro but high pcwp 22 Ronald Mcleod MD [id number],B, n eg dd and crystal and neg aaa n eg richard crowleyjrien Ronald Mcleod MD [id number],B, H er updated medication list for this [...] (02/14/2021) HDL: 28 (02/14/2021) Ronald Mcleod MD [id number],B,5.8 Ronald mejía MD [id number],C,neg dd and ab i and neg aaa Ronald Mcleod MD [id number],C,neg dd and ab i Ronald Serota [id number],C,5.8 Ronald Se rota [id number],C,neg rpr and b 12 Ronald Serota [id number],S,NML B12 Harvdavid y Serotjl LEGER [id number],S, n ml pro but high pcwp 22 Ronald Serota [id number],S,50 DUE TO TOYIN STOC CHF Ronald Serota [id number],S,ON COMPRESSIO N Ronald Serotjl LEGER [id number],B, c orrected Ronald Serota [id number],B, 5 .5 on metorfimin Ronald Serotjl LEGER [id number],S, Ronald Serot a [id number],S, Ronald Serot a [id number],S, nmml dd Ronald Serota [id number],S, 4 0 Ronald Serota [id number],S, Ronald Serot a [id number],S, Ronald Serot a [id number],S, n eg b12 and folatre Ronald Serotjl [...] MD Cardiology:mild Ronald Mcleod MD Cardiology Ronald Mcledo MD Cardiology Ronald Mcleod MD Cardiology: 4 03/20 mean 36 Ronald Mcleod MD Cardiology: n eg rpr and b12 Ronald Mcleod MD Cardiology: 4 5 Ronald Mcleod MD Cardiology: 5 .7 Ronadl Mcleod MD Cardiology Ronald Mcleod MD Cardiology [...] Mcleod MD TeleHealth: n eg dd and cyrstal and neg aaa n eg monae carlinejioana [...] enrollment in HepStep trial Madai Alcarazmann JUAREZ [facility] Follow up :Continue diuretics and compression Madaifarnaz Chung ANN [facility] Follow up :Continue current meds H er updated medication list for this problem includes: Simvastatin 40 Mg Oral Tablet (Simvastatin) ..... Take 1 tablet by mouth every day Madaifarnaz Chung ANN [facility] Follow up :Added aldactone H [...] mouth twice a day Madai Alcarazmann JUAREZ [facility] Follow up :n ml pro [...] PANEL Holter Monitor 24 Hr DLCO - 16903 FRC - 86996 FVC - 73800 Complete Echo DLCO - 33829 FRC - 23421 FVC - 69427 Complete Echo PROTHROMBIN TIME WIT H INR LIPID PANEL CBC (INCLUDES DIFF/P LT) BASIC METABOLIC PANE L W/EGFR DLCO - 76619 FRC - 54928 FVC - 21089 Complete Echo Holter Monitor 24 Hr DLCO - 97016 FRC - 77422 FVC - 85376 Complete Echo Stress Regadenoson Holter Monitor 24 Hr Complete Echo Vitamin D, 25-Hydrox y IRON AND TOTAL IRON BINDING CAPACITY FERRITIN CBC (INCLUDES DIFF/P LT) HEMOGLOBIN A1c Microalb/Creatinine Urine, Random COMPREHENSIVE METABO LIC PANEL, W/EGFR PROBNP, N TERMINAL Arterial - SENSILASE Complete Echo DLCO - 06125 FRC - 18876 FVC - 81074 PROBNP, N TERMINAL BASIC METABOLIC PANE L W/EGFR Microalb/Creatinine Urine, Random Arterial - SENSILASE Complete Echo DLCO - 25826 FRC - 45002 FVC - 47386 DLCO - 39746 FRC - 68079 FVC - 45488 Arterial - SENSILASE Complete Echo Arterial - SENSILASE DLCO - 33369 FRC - 35478 FVC - 77872 Complete Echo DLCO - 98431 FRC - 02968 FVC - 04042 Complete Echo Complete Echo Complete Echo Renal Artery Duplex Kidney Ultrasound Arterial Duplex Bi-L ower EX Arterial - SENSILASE CT, Coronary Calcium Score DLCO - 25598 FRC - 15075 FVC - 39552 Complete Echo RPR (MONITOR) W/REFL TITER FOLATE, [...] W/EGFR CT, Coronary Calcium Score DLCO - 01964 FRC - 87894 FVC - 02718 CT, Coronary Calcium Score DLCO - 56524 FRC - 45647 FVC - 13906 Venous Doppler Bilat eral LE - Reflux COMPREHENSIVE METABO LIC PANEL, W/EGFR THYROID PANEL WITH T SH, 3RD GENERATION Stress Routine VITAMIN B12 Vitamin D, 25-Hydrox y IRON AND TOTAL IRON BINDING CAPACITY FERRITIN CBC (INCLUDES DIFF/P LT) LIPID PANEL D-DIMER, QUANTITATIV E URINALYSIS, RANDOM, MICROALB/CREATININE HEMOGLOBIN A1c PROBNP, N TERMINAL DLCO - 29656 FRC - 40870 FVC - 77552 Complete Echo HISTORY OF PROCEDURES Procedure Date Procedure Name Provider Procedure Notes S tatus Spirometry Ronald Mcleod MD complete d FVC / MVV with bronchodilator - 02155 Ronald Mcleod MD completed SpO2 w/o 6min walk/titration Ronald Mcleod MD completed SVC - 50417 Ronald Mcleod MD complet ed DLCO - 89087 Ronald Mcleod MD comple john Complex e/m visit add on Ronald Mcleod MD completed EKG Ronald Mcleod MD complete d EKG Mayito Land RN completed EKG Ronald Mcleod MD complete d EKG Ronald Mcleod MD complete d EKG Ronald Mcleod MD complete d EKG Faheem Sandoval MD completed FVC / MVV with bronchodilator - 40894 Ronald Mcleod MD completed BLOOD COUNT HEMOGLOBIN Ronald Mcleod MD completed FRC - 54659 Ronald Mcleod MD complet ed SpO2 w/o 6min walk/titration Ronald Mcleod MD completed DLCO - 03085 Ronald Mcleod MD comple john Stress EKG Ronald Mcleod MD complete d FVC / MVV with bronchodilator - 82964 Ronald Mcleod MD completed BLOOD COUNT HEMOGLOBIN Ronald Mcleod MD completed FRC - 22558 Ronald Mcleod MD complet ed SpO2 w/o 6min walk/titration Ronald Mcleod MD completed DLCO - 16413 Ronald Mcleod MD comple john EKG Ronald Mcleod MD complete d
--- NOTE | 2025-04-24 00:27 | ED_ITS ---
HPI - Extremity Injury (Upper) General Chief Complaint: Extremity Injury, Upper Stated Complaint: Fall-injury to right shoulder/elbow Time Seen by Provider: 04/23/25 23:39 Source: patient Mode of arrival: ambulatory Limitations: no limitations History of Present Illness HPI narrative: Patient is a 44-year-old female who presents the ED with report of right arm pain. Patient was seen in the ED here after a fall on 04/15. There was concern for a right clavicular fracture. She was placed in a sling. She followed up with orthopedics on 04/19 and diagnosed with AC joint type 1 injury. No acute fracture. Patient reports she slipped and fell again today, trying to walk over her Labrador dog. She states she landed on her right shoulder. Complains of pain to her right shoulder and elbow since the fall. She took Tylenol earlier today without improvement. Denies numbness. Denies head injury or LOC. Related Data Allergies Allergy/AdvReac Type Severity Reaction Status Date / Time ibuprofen Allergy Swelling Verified 04/23/25 20:26 Review of Systems Review of Systems: All systems reviewed & are unremarkable except as noted in HPI. All systems reviewed & are unremarkable except as noted in HPI and below PMFSH Past Medical History Medical History History of diabetes mellitus History of hypertension History of hyperlipidemia History of hypothyroidism Social History Social History Smoking status: Smoker, status unknown Substance use: never Living arrangements: with family Gender identity (if verbalized by the patient): Female Exam Narrative: GENERAL: Well appearing, morbidly obese with BMI of 43.0, non-toxic, in no acute distress. HEAD: Normocephalic, atraumatic. ENT: Edentulous. RESPIRATORY: Airway patent, respirations nonlabored. CARDIOVASCULAR: Regular rate and rhythm. Radial pulses strong and intact. MUSCULOSKELETAL: No gross deformities. Slightly decreased range of motion of right shoulder and elbow due to pain. Mild tenderness palpation over medial right elbow epicondyle, right anterior shoulder, along distal clavicular region. Sensation intact. SKIN: Warm, dry, normal color. NEURO: A&O X3. Speech clear. No ataxic movements. PSYCHIATRIC: Appropriate mood and affect. Normal interaction. Course Vital Signs Vital signs: Vital Signs Temperature 97.5 F L 04/23/25 20:33 Pulse Rate 110 H 04/23/25 20:33 Respiratory Rate 17 04/23/25 20:33 Blood Pressure 163/116 H 04/23/25 20:33 Pulse Oximetry 97 04/23/25 20:33 Oxygen Delivery Room Air 04/23/25 20:33 Temperature 97.5 F L 04/23/25 20:33 Pulse Rate 91 04/24/25 00:40 Respiratory Rate 16 04/24/25 00:40 Blood Pressure 150/89 H 04/24/25 00:40 Pulse Oximetry 99 04/24/25 00:40 Oxygen Delivery Room Air 04/23/25 20:33 MDM - Extremity Injury (Upper) MDM Narrative Medical decision making narrative: Patient?s injury is consistent with musculoskeletal etiology. No signs of neurologic or vascular compromise on physical examination. Compartments are soft without signs of compartment syndrome. XR of right shoulder and right elbow negative for acute fracture. Pain is consistent with extremity sprain. Patient advised to continue to wear her sling. Continue Tylenol as needed for pain. Advised to continue to follow-up with orthopedics as needed. Given return precautions. She agrees with plan. Discharged in stable condition. No other injuries. No head injury or LOC. Medical Records Attestation: I reviewed the patient's medical records. Imaging Data Attestation: I personally reviewed and interpreted this imaging study as follows: Radiologist's impression: ITS Impressions Elbow X-Ray 04/23/25 21:17 IMPRESSION: No acute osseous finding in the right elbow. Shoulder X-Ray 04/23/25 21:18 IMPRESSION: No acute osseous finding in the right shoulder. Discharge Plan Discharge Clinical Impression: Strain of right shoulder, Acromioclavicular separation, type 1, Strain of right elbow Patient Disposition: Home Condition: Stable Instructions: Antibiotic Form, How to Use a Sling (ED), Shoulder Sprain (ED) Additional Instructions: Wear sling as directed. Continue Tylenol as needed for pain. Recommend frequent icing to shoulder and elbow. Utilize lidocaine patches to areas of pain. Continue to follow-up with orthopedics for further evaluation as needed. Return to the ED for new or worsening concerns. Patient Language: Spanish Prescriptions: New lidocaine 5 % adhesive patch,medicated 1 patch topical DAILY Qty: 15 0RF Rx Instructions: leave on most painful area for up to 12 hrs No Action cyclobenzaprine 5 mg tablet 5 mg PO TID PRN (Reason: muscle spasm) Qty: 15 0RF lidocaine 5 % adhesive patch,medicated 1 patch topical DAILY Qty: 15 0RF Rx Instructions: leave on most painful area for up to 12 hrs cyclobenzaprine 10 mg tablet 10 mg PO TID PRN (Reason: muscle spasm) Qty: 14 0RF hydrocodone-acetaminophen 5-325 mg tablet 1 tablet PO Q6H PRN (Reason: pain) Qty: 14 0RF Follow-up/Referrals: Manny,MD Javan [Primary Care Provider] - Ranjit Espinoza MD [Physician] - (ORTHOPEDICS) Time of Disposition: 00:30
[2025-04-24] MEDS: HYDROcodone/acetaminophen (*CRX) 5-325 MG TABLET 1 TAB PO (00:32)
[2025-04-24] MEDS: ACETAMINOPHEN 325 MG TABLET 650 MG PO (00:32)
[2025-04-24 00:39] VITALS: BP 150/89; PULSE 91; RESP 16; O2SAT 99
[2025-04-24 00:40] VITALS: BP 150/89; PULSE 91; RESP 16; O2SAT 99
== END 2025-04-24 00:43 | disposition home or self-care (01) ==
PROVIDERS: Emergency Provider Physician Assistant; PCP Internal Medicine
DX: S43.101A Unspecified dislocation of right acromioclavicular joint, initial encounter (principal); S46.911A Strain of unspecified muscle, fascia and tendon at shoulder and upper arm level, right arm, initial encounter; E11.9 Type 2 diabetes mellitus without complications; I10 Essential (primary) hypertension; E78.5 Hyperlipidemia, unspecified; E03.9 Hypothyroidism, unspecified; W01.0XXA Fall on same level from slipping, tripping and stumbling without subsequent striking against object, initial encounter
CPT/HCPCS: 73030; 73070; 99284; A9270

== ENCOUNTER 2025-07-22 20:45 | Emergency (ER) | payer OTHER, SELFPAY ==
--- NOTE | ~2025-07-22 | XR_ITS ---
EXAMINATION: XR lumbar spine 2-3V DATE: 07/22/2025 21:15 INDICATION: Back pain TECHNIQUE: Anteroposterior and lateral views of the lumbar spine, and cone-down lateral view of the lumbosacral junction were obtained. COMPARISON: None. FINDINGS: Alignment is normal. Vertebral body heights are normal. Mild disc height loss at L3-L4. Bilateral sacroiliac joints are normal. Cholecystectomy clips in right upper quadrant. Visualized posterior lung bases are clear with no pleural effusion. IMPRESSION: 1. Mild lumbar spondylosis. Reviewed, dictated and finalized at location A. IMPRESSION: 1. Mild lumbar spondylosis.
[2025-07-22 20:48] VITALS: BP 167/105; PULSE 109; RESP 20; TEMP 36.3; O2SAT 98
[2025-07-22 23:16] VITALS: BP 129/95; PULSE 90; RESP 14; O2SAT 97
[2025-07-23 00:21] VITALS: BP 158/99; PULSE 77; RESP 11; O2SAT 98
--- NOTE | 2025-07-23 00:29 | ED_ITS ---
HPI - General Adult General Chief complaint: Back Pain/Injury Stated complaint: LOW BACK PAIN Time Seen by Provider: 07/23/25 00:24 History of Present Illness HPI narrative: Patient 44-year-old female who presents emergency department chief complaint of low back pain. Patient reports that she started having pain yesterday reports the pain does down her back patient does report that she has little bit of tingling in her thighs but denies saddle anesthesia denies bowel or bladder inco ntinence the patient reports she does have history of neuropathy in her feet patient reports no trauma Related Data Home Medications ?Medication ?Instructions ?Recorded ?Confirmed ?Last Taken ?Type albuterol sulfate 90 mcg/actuation inhalation 07/22/25 Unknown History aerosol inhaler bupropion HCl 100 mg tablet,12 hr mg PO 07/22/25 Unkn own History sustained-release doxepin 50 mg capsule mg 07/22/25 Unknown History duloxetine 20 mg capsule,delayed mg PO 07/22/25 Unkno wn History release ergocalciferol (vitamin D2) 1,250 07/22/25 Unknown H istory mcg (50,000 unit) capsule fluoxetine 20 mg capsule mg 07/22/25 Unknown History gabapentin 300 mg capsule mg 07/22/25 Unknown History levothyroxine 75 mcg tablet mcg 07/22/25 Unknown Hist ory propranolol 20 mg tablet mg 07/22/25 Unknown History rosuvastatin 40 mg tablet mg 07/22/25 Unknown History topiramate 25 mg tablet mg 07/22/25 Unknown History ziprasidone HCl 40 mg capsule mg PO 07/22/25 Unknown History Allergies Allergy/AdvReac Type Severity Reaction Status Date / Time ibuprofen Allergy Swelling Verified 07/22/25 23:13 Review of Systems Review of Systems: A 10 system review of systems was completed on the patient and is negative except for what is stated in the HPI. Nursing and ancillary documentation was reviewed. [facility] Past Medical History Medical History History of diabetes mellitus History of hypertension History of hyperlipidemia History of hypothyroidism Social History Social History Smoking status: Smoker, status unknown Substance use: never Living arrangements: with family Gender identity (if verbalized by the patient): Female Exam Narrative: GENERAL: Well-appearing, well-nourished, and in no acute distress. HEAD: Normocephalic, atraumatic. EYES: PERRLA and EOMI. ENT: Nares clear, no rhinorrhea or epistaxis. Mucous membranes moist. NECK: Supple. CHEST: Clear to auscultation. No respiratory distress. HEART: Regular rate and rhythm. No murmur heard. Normal peripheral pulses. ABDOMEN: Soft, nontender, nondistended, normal active bowel sounds. EXTREMITIES: Normal range of motion. No edema. SKIN: Warm, dry, no rash. NEURO: No focal deficits. Alert and oriented x3. No saddle anesthesia no footdrop PSYCH: Normal mood and affect. Course Vital Signs Vital signs: Vital Signs Temperature 36.3 C L 07/22/25 20:48 Pulse Rate 109 H 07/22/25 20:48 Respiratory Rate 20 07/22/25 20:48 Blood Pressure 167/105 H 07/22/25 20:48 Pulse Oximetry 98 07/22/25 20:48 Oxygen Delivery Room Air 07/22/25 20:48 Temperature 36.3 C L 07/22/25 20:48 Pulse Rate 77 07/23/25 00:21 Respiratory Rate 11 L 07/23/25 00:21 Blood Pressure 158/99 H 07/23/25 00:21 Pulse Oximetry 98 07/23/25 00:21 Oxygen Delivery Room Air 07/22/25 20:48 Medical Decision Making [facility] Narrative Medical decision making narrative: Differential diagnosis includes musculoskeletal low back pain, fracture, Plain film x-rays lumbar spine showed no abnormality The patient will be given Lidoderm patch steroids and muscle relaxers Vital Signs Vital Signs: Vital Signs Temperature 36.3 C L 07/22/25 20:48 Pulse Rate 109 H 07/22/25 20:48 Respiratory Rate 20 07/22/25 20:48 Blood Pressure 167/105 H 07/22/25 20:48 Pulse Oximetry 98 07/22/25 20:48 Oxygen Delivery Room Air 07/22/25 20:48 Temperature 36.3 C L 07/22/25 20:48 Pulse Rate 77 07/23/25 00:21 Respiratory Rate 11 L 07/23/25 00:21 Blood Pressure 158/99 H 07/23/25 00:21 Pulse Oximetry 98 07/23/25 00:21 Oxygen Delivery Room Air 07/22/25 20:48 Discharge Plan Discharge Clinical Impression: Low back pain Patient Disposition: Home Condition: Stable Instructions: Antibiotic Form, Acute Low Back Pain (ED) Patient Language: Korean Prescriptions: New cyclobenzaprine 10 mg tablet 10 mg PO TID PRN (Reason: muscle spasm) Qty: 21 0RF prednisone 20 mg tablet 40 mg PO DAILY 5 Days Qty: 10 0RF lidocaine [Lidoderm] 5 % adhesive patch,medicated 1 patch topical DAILY Qty: 15 0RF Rx Instructions: leave on most painful area for up to 12 hrs No Action cyclobenzaprine 5 mg tablet 5 mg PO TID PRN (Reason: muscle spasm) Qty: 15 0RF lidocaine 5 % adhesive patch,medicated 1 patch topical DAILY Qty: 15 0RF Rx Instructions: leave on most painful area for up to 12 hrs cyclobenzaprine 10 mg tablet 10 mg PO TID PRN (Reason: muscle spasm) Qty: 14 0RF hydrocodone-acetaminophen 5-325 mg tablet 1 tablet PO Q6H PRN (Reason: pain) Qty: 14 0RF lidocaine 5 % adhesive patch,medicated 1 patch topical DAILY Qty: 15 0RF Rx Instructions: leave on most painful area for up to 12 hrs doxepin 50 mg capsule topiramate 25 mg tablet bupropion HCl 100 mg tablet sustained-release 12 hr PO levothyroxine 75 mcg tablet gabapentin 300 mg capsule ziprasidone HCl 40 mg capsule PO ergocalciferol (vitamin D2) 1,250 mcg (50,000 unit) capsule albuterol sulfate 90 mcg/actuation HFA aerosol inhaler INHALATION propranolol 20 mg tablet fluoxetine 20 mg capsule rosuvastatin 40 mg tablet duloxetine 20 mg capsule,delayed release(DR/EC) PO Follow-up/Referrals: Manny,MD Javan [Primary Care Provider] Stand Alone Forms: Work/School Release IP Time of Disposition: 00:32
[2025-07-23] MEDS: LIDOCAINE 5% PATCH 1 PATCH TRANSDERM (00:55)
[2025-07-23] MEDS: CYCLOBENZAPRINE HCL 10 MG TABLET PO (01:05)
[2025-07-23] MEDS: dexAMETHasone SOD PHOS INJ 10 MG/ML 1 ML VIAL IM (01:05)
[2025-07-23] MEDS: HYDROcodone/acetaminophen (*CRX) 5-325 MG TABLET 1 TAB PO (01:35)
[2025-07-23 01:44] VITALS: BP 163/93; PULSE 77; RESP 18; O2SAT 100
== END 2025-07-23 01:45 | disposition home or self-care (01) ==
LOC: ANHED 07-23 00:32
PROVIDERS: Emergency Provider Emergency Medicine; PCP Internal Medicine
DX: M54.50 Low back pain, unspecified (principal); E11.9 Type 2 diabetes mellitus without complications; I10 Essential (primary) hypertension; E78.5 Hyperlipidemia, unspecified; E03.9 Hypothyroidism, unspecified
CPT/HCPCS: 72100; 96372; 99283; A9270; J1100

== ENCOUNTER 2025-09-06 09:39 | Outpatient (CLI) | payer OTHER, SELFPAY ==
--- NOTE | 2025-09-06 10:00 | NEURO_ITS ---
Impression: # Complains of leg pain. ? # Axonal Neuropathy, motor and sensory. ? # Needle/ EMG exam neurogenic. Nerve Conduction Studies ?Stim Site NR Peak (ms) P-T Amp (?V) Site1 Site2 Delta-P (ms) Dist (cm) Tesfaye (m/s) Left Sup Fibular Anti Sensory (Ant Lat Mall)??? NO RESPONSE 14 cm NR 14 cm Ant Lat Mall 16.0 Right Sup Fibular Anti Sensory (Ant Lat Mall)??? NO RESPONSE 14 cm NR 14 cm Ant Lat Mall 16.0 Left Sural Anti Sensory (Lat Mall)??? NO RESPONSE Calf NR Calf Lat Mall 16.0 Right Sural Anti Sensory (Lat Mall)??? NO RESPONSE Calf NR Calf Lat Mall 16.0 ?Stim Site NR Onset (ms) O-P Amp (mV) Site1 Site2 Delta-0 (ms) Dist (cm) Tesfaye (m/s) Left Peroneal Motor (Vastus Med) Ankle ? 3.6 1.6 Popit Ankle 8.7 39.0 45 Popit ? 12.3 1.6 Right Peroneal Motor (Vastus Med) Ankle ? 3.3 4.2 Popit Ankle 7.2 36.0 50 Popit ? 10.5 4.2 Left Tibial Motor (Abd Mcintosh Brev) Ankle ? 3.8 0.2 Knee Ankle 10.3 41.0 40 Knee ? 14.1 0.2 Right Tibial Motor (Abd Mcintosh Brev) Ankle ? 3.9 1.2 Knee Ankle 10.1 40.0 40 Knee ? 14.0 0.6 F Wave Studies ?NR F-Lat (ms) L-R F-Lat (ms) Left Peroneal (Mrkrs) (EDB) ? 48.68 0.32 Right Peroneal (Mrkrs) (EDB) ? 48.36 0.32 Left Tibial (Mrkrs) (Abd Hallucis) ? 50.88 0.12 Right Tibial (Mrkrs) (Abd Hallucis) ? 50.76 0.12 Electromyography ?Side Muscle Nerve Root Ins Act Fibs Amp Dur Recrt Comment Right AntTibialis Dp Br Fibular L4-5 Nml Nml Decr >12ms +1 Left AntTibialis Dp Br Fibular L4-5 Nml Nml Decr >12ms +1 Right Ext Dig Brev Dp Br Fibular L5, S1 Nml Nml Decr >12ms +2 Left Ext Dig Brev Dp Br Fibular L5, S1 Nml Nml Decr >12ms +2 Left Fibularis Long Sup Br Fibular L5-S1 Nml Nml Decr >12ms +1 Right Fibularis Long Sup Br Fibular L5-S1 Nml Nml Decr >12ms +1 Right Flex Dig Long Tibial L5-S2 Nml Nml Decr >12ms +1 Left Flex Dig Long Tibial L5-S2 Nml Nml Decr >12ms +1 Right Gastroc Tibial S1-2 Nml Nml Decr >12ms +1 Left Gastroc Tibial S1-2 Nml Nml Decr >12ms +1 Right QuadratusFem QuadFemoris L4-5, S1 Nml Nml Decr >12ms Nml Left QuadratusFem QuadFemoris L4-5, S1 Nml Nml Decr >12ms Nml
--- OUTSIDE RECORDS SUMMARY | 2025-09-06 10:44 | XMS_ITS | Data Portability ---
Author Organization [place] - [facility], [employer] Address [address] [facility] [address] [place] [address] Assessment No assessment recorded. Plan of Treatment Reminders Order Date Submit Date Provider Last Modified By Organization Details Last Modified Time Details Appointments None record ed. Lab None record ed. Referral None record ed. Procedures None record ed. Surgeries None record ed. Imaging XR, foot 023 12/11/19 [email or web address] In-House Results, For Internal Use Only, Do Not Delete/merge, [id number] 11:52:08 XR, foot 023 12/11/19 23 [email or web address] In-House Results, For Internal Use Only, Do Not Delete/merge, [id number] 11:52:14 Medication Orders None record ed. Patient TargetsNo targets recorded. Patient Instructions Encounter Date Encounter Id Patient Instructions Last Modified By Organization Details Last Modified Time 12/11/2022 [id number] plantar fasciitis: care instructions [email or web address] Not available 12/11/2022 11:39:02 plantar fasciitis: exercises [email or web address] Not available 12/11/2022 11:39:02 Reason for Referral None Reported. Results Created Date Observation Date Name Description Value Unit Range Abnormal Flag Note LastModifiedBy Organization Detail LastModifiedTime 12/11/19 [email or web address] AP No observ ation record ed. [email or web address] [employer] [address] [place], [address] 12/11/2022 11:00:09 12/11/19 [email or web address] AP No observ ation record ed. [email or web address] [address], [place], [address] 12/11/2022 11:00:10 12/11/19 23 [email or web address] AP No observ ation record ed. [address], [place], [address] 12/11/2022 11:00:10 12/11/19 23 [email or web address] AP No observ ation record ed. [address], [place], [address] 12/11/2022 11:00:11 12/11/19 23 [email or web address] No observ ation record ed. [address], [place], [address] 12/11/2022 11:00:11 12/11/19 23 12/11/2022 XR, foot No observ ation record ed. [email or web address] In-House Results For Internal Use Only, Do Not Delete/merge, [id number] 12/11/2022 11:37:45 12/11/19 23 12/11/2022 XR, foot No observ ation record ed. [email or web address] In-House Results For Internal Use Only, Do Not Delete/merge, [id number] 12/11/2022 11:39:03 Result Notes None recorded. Problems Name Problem SNOMED Code Status Onset Date Resolution Date Notes Provider Name and Address Organization Details Recorded Time Plantar fasciitis [id number] Active 2022 Tenzin Richey DPM [address] [facility],[address], [place], [address], [place] [facility] 11:35:21 Acquired short right Achilles tendon 35567788191590 0 Active 2022 Tenzin Richey DPM [address], [place], [address], [place] [facility] 11:35:26 Acquired short left Achilles tendon 73258116174753 6 Active 2022 Tenzin Richey DPM [address] [facility],[address], [place], [address], [place] - [facility] 3 11:35:30 Pain in left foot 07112431573582 7 Active 2022 Tenzin Richey, DPM [address] [facility],[address], [place], [address], [place] [facility] 3 11:35:38 Pain in right foot 48241748481968 7 Active 2022 Tenzin Richey, DPM [address] [facility],[address], [place], [address], [place] [facility] 3 11:35:38 Problem Notes None recorded. Medical Equipment None Reported. Medications Name Sig Start Date Stop Date Status Note LastModified by Organization Details LastModified Time azithromycin 250 mg tablet TAKE 2 TABLETS BY MOUTH TODAY, THEN TAKE 1 TABLET DAILY FOR 4 DAYS active Not Available Not Available No t Available doxepin 75 mg capsule active Not Available Not Available N ot Available sumatriptan 50 mg tablet TAKE 1 TABLET BY MOUTH AT ONSET FOR HEADACHE MAY REPEAT IN 2 HOURS IF NEEDED. MAX 2TABS/24 HOURS. active Not Available Not Available No t Available metronidazol e 500 mg tablet TAKE 1 TABLET BY MOUTH EVERY 12 HOURS active Not Available Not Available No t Available aspirin 81 mg tablet,delay ed release TAKE 1 TABLET BY MOUTH EVERY DAY active Not Available Not Available No t Available tramadol 50 mg tablet TAKE 1 TABLET BY MOUTH EVERY 6 HOURS NEEDED active Not Available Not Available No t Available triamcinolon e acetonide 0.1 % topical cream APPLY TO RASH ON LEGS ONCE DAILY active Not Available Not Available No t Available spironolacto ne 25 mg tablet TAKE 1 TABLET BY MOUTH EVERY DAY FOR 90 DAYS active Not Available Not Available No t Available simvastatin 40 mg tablet TAKE 1 TABLET BY MOUTH EVERY DAY IN THE EVENING FOR 90 DAYS active Not Available Not Available No t Available levothyroxin e 75 mcg tablet TAKE 1 TABLET BY MOUTH EVERY DAY active Not Available Not Available No t Available ziprasidone 20 mg capsule TAKE 1 CAPSULE BY MOUTH EVERY DAY WITH FOOD FOR 30 DAYS active Not Available Not Available No t Available famotidine 20 mg tablet TAKE 1 TABLET BY MOUTH EVERY DAY active Not Available Not Available No t Available dicyclomine 20 mg tablet TAKE 1 TABLET BY MOUTH EVERY 6 HOURS NEEDED DIRECTED FOR ABDOMINAL PAIN active Not Available Not Available No t Available hydrocodone 7.5 mg-acetamino phen 325 mg tablet TAKE 1 AND 1/2 TABLETS BY MOUTH EVERY 4 HOURS NEEDED active Not Available Not Available No t Available ferrous sulfate 325 mg (65 mg iron) tablet TAKE 1 TABLET BY MOUTH EVERY DAY active Not Available Not Available No t Available gabapentin 300 mg capsule TAKE 1 CAPSULE BY MOUTH THREE TIMES A DAY active Not Available Not Available Not Available allopurinol 300 mg tablet TAKE 1 TABLET BY MOUTH EVERY DAY FOR 90 DAYS active Not Available Not Available No t Available mupirocin 2 % topical ointment APPLY OINTMENT EXTERNALLY TO AFFECTED AREA TWICE DAILY active Not Available Not Available No t Available ergocalcifer ol (vitamin D2) 1,250 mcg (50,000 unit) capsule TAKE 1 CAPSULE BY MOUTH ONE TIME PER WEEK active Not Available Not Available No t Available propranolol 20 mg tablet TAKE 1/2 TABLET BY MOUTH TWICE A DAY active Not Available Not Available No t Available ondansetron 4 mg disintegrati ng tablet DISSOLVE 1 TABLET IN MOUTH TWICE DAILY FOR NAUSEA active Not Available Not Available No t Available irbesartan 300 mg tablet TAKE 1 TABLET BY MOUTH EVERY DAY FOR 90 DAYS active Not Available Not Available No t Available nitrofuranto in monohydrate/ macrocrystal s 100 mg capsule TAKE 1 CAPSULE BY MOUTH EVERY 12 HOURS FOR 5 DAYS active Not Available Not Available N ot Available solifenacin 5 mg tablet TAKE 1 TABLET BY MOUTH EVERY DAY active Not Available Not Available No t Available calcium 600 mg (as carbonate)-v itamin D3 10 mcg (400 unit) tablet TAKE 1 TABLET BY MOUTH TWICE A DAY active Not Available Not Available No t Available Dulera 100 mcg-5 mcg/actuatio n HFA aerosol inhaler TAKE 2 PUFFS BY MOUTH TWICE A DAY active Not Available Not Available No t Available Farxiga 10 mg tablet TAKE 1 TABLET BY MOUTH EVERY DAY active Not Available Not Available No t Available Jardiance 10 mg tablet TAKE 1 TABLET BY MOUTH EVERY DAY active Not Available Not Available No t Available bupropion HCl 150 mg tablet,12 hr sustained-re lease(smokin g deterrent) active Not Available Not Available Not Available Daily-Sariah (with folic acid) 400 mcg tablet TAKE 1 TABLET BY MOUTH EVERY DAY active Not Available Not Available No t Available Vitals Date Recorded Body height Body mass index (BMI) Body weight Provider Name and Address Organization Details Last Updated DateTime 12/11/2022 162.56 cm 40 kg/m2 418398.02 g Robyn Martines [place] - [facility] 12/11/2022 10:44:54 Social History None recorded. Functional Status None recorded. Mental Status None recorded. Family History Relationship Description Onset Age of this Age Resolved Age Notes LastModified by Organization Details LastModified Time Maternal Grandmother Arthritis 89 [email or web address] Not available 11/23 10:44:59 Mother Arthritis [email or web address] Not available 12/11/2022 10:44:59 Maternal Grandfather Arthritis 86 [email or web address] Not available 11/23 10:44:59 Maternal Grandfather Heart disease 86 [email or web address] Not available 2022 10:44:59 Medical History No medical history recorded. Gynecological HistoryNo gynecological history recorded. Obstetrics History GPAL:G 0 P 0 0 0 0 Past Encounters Encounter ID Performer Location Encounter Start Date Encounter Closed Date Diagnosis/Indication Diagnosis SNOMED-CT Code Diagnosis ICD10 Code Diagnosis IMO Codes Diagnosis Note [id number] Tenzin Richey DPM [facility] [address] [facility] [address] [place] [address] 12/11/2022 10:28:11 12/14/2022 13:52:33 Pain in right foot [id number] 85970 M79.671 Pain in left foot 139473 6503 96799 M79.672 Plantar fasciitis 242077 003 M72.2 - B/L PLantar Fasciitis - Pt evaluated and chart reviewed - Xrays taken and findings discussed w/ pt - Advised on stretching exercises - Advised on proper shoe gear and insoles - Possible Custom orthotics - Possible night splint - Possible Injection heel if pain persists - Follow up 1 week I have spent more than 50% of this 30 minute encounter in counseling and/or coordinati on of care with the patient which includes, but not limited to: preparing to see the patient (review of previous notes, consult notes, medication s, tests results, ect.) obtaining and/or reviewing separately obtained history performing a medically appropriat e examinatio n and/or evaluation counseling and educating the patient/diamante rainey/tawanna amato ordering medication s, imaging, tests, and/or procedures referring and communicat ing with the patients other health care profession als documentin g clinical informatio n in the electronic or other health record independen tly interpreti ng results and communicat ing results to the patient/fa brigid/tawanna amato medical treatment and care plan has been discussed and coordinate d with the patient Acquired s hort right Achilles tendon 4314514363 89222 M67.01 Acquired s hort left Achilles tendon [id number] 80861 M67.02 Health Concerns Section Related Observation LastModified by Organization Detai ls LastModified Time None Recorded Concern Status LastModified by Organization Details LastModified Time None Recorded Advance Directives Directive None Recorded Payers Insurance Date Sequence Insurance Name Policy Number Policy Crenshaw Covered Member ID Crenshaw Member ID Guarantor Name 12/22/2022 1 *SELF PAY* Da madhu Fierro 12/18/2022 1 [facility] [employer]ON[employer] Chel Fierro [id number] Chel Fieror Notes Date Note Type Note Provider Name and Address Organization Details Recorded Time 12/11/19 23 text/ht ml Podiatry FootReported by PatientHPIFor associated symptoms, patient reportsswellingandthrobbingbut reportsno weakness,no numbness,no tingling,no redness,no warmth,no radiation down leg,no drainage,no aching, andno throbbing. For location, patient reportsbilateralanddorsal. For quality, patient reportsstabbing,sharp,constant, andworsening. For severity, patient reportssevere. For timing, patient reportschronic. For context, patient reportscannot identify. For alleviating factors, patient reportsnothing helps. For aggravating factors, patient reportsstanding,walking, andweightbearing.42 y/o female in for bilateral plantar fascitis and possible gout. Pt states she has been dealing with it off and on for 3 years and it has gotten very bad recently. She states a doctor put her on gabapentin to help. Pt says it is very painful in her arch and heel, but has pain throughout bilateral feet. 6 VIEWS TAKEN. Tenzin Richey, MRYA [address] [facility],[address], [place], [address], [place] - [facility] 12/11/2022 11:40:30 OBGyn Episode No OBEpisode recorded.
--- OUTSIDE RECORDS SUMMARY | 2025-09-06 10:44 | XMS_ITS | Clinical Summary ---
Author Organization [facility] Address [address] [place] [address] Phone Care Team Providers Care Tankage Grinder Operator Name Role Phone Javan Bryant MD Primary Care Provider [phone] Allergies Active Allergy Reactions Criticality Noted Date [...] on file Legal Sex Female 10:45 AM SENIOR ANALYST DEVELOPER Gender Identity Not on file Sexual Orientation Not on file Last Filed Vital Signs Vital Sign Reading Time Taken Comments Blood Pressure 126/92 11/17/2013 10:58 AM SENIOR ANALYST DEVELOPER Pulse 88 11/17/2013 10:58 AM SENIOR ANALYST DEVELOPER Temperature 36.7 C (98.1 F) 11/17/2013 10:58 AM SENIOR ANALYST DEVELOPER Respiratory Rate 20 11/17/2013 10:58 AM SENIOR ANALYST DEVELOPER Oxygen Saturation 99% 11/17/2013 10:58 AM SENIOR ANALYST DEVELOPER Inhaled Oxygen Concentration - - Weight 95.3 kg (210 lb) 11/17/2013 10:58 AM SENIOR ANALYST DEVELOPER Height 162.6 cm (5' 4) 11/17/2013 10:58 AM SENIOR ANALYST DEVELOPER Body Mass Index 36.05 11/17/2013 10:58 AM SENIOR ANALYST DEVELOPER Plan of Treatment Health Maintenance Due Date Last Done Comments Hepatitis C Virus (HCV) Screening 1980 Hepatitis B Immunization (1 of 3 - 19+ 3-dose series) 1997 Cologuard 2023 Colonoscopy 2023 Colorectal Cancer Screening 2023 Immunochemical Fecal Occult Blood 2023 Influenza Immunization (#1) 2025 1202/2021, 10/25/2021 SARS-COV-2 Immunization ( season) 2025 10/25/2021, 04/01/2021, 03/04/2021 Respiratory Syncytial Virus (RSV) Immunization (Adult) (1 - 1-dose 75+ series) 2053 Pneumococcal Immunization Combined Aged Out 10/11/2021 No longer eligible based on patient's age to complete this topic DTaP/Tdap/Td Immunization Discontinued 01/28/2022 TdaP Immunization Completed 01/28/2022 Human Papillomavirus (HPV) Immunization Aged Out No longer eligible based on patient's age to complete this topic Meningococcal Immunization (ACWY) Aged Out No longer eligible based on patient's age to complete this topic Rotavirus Immunization Aged Out No lo nger eligible based on patient's age to complete this topic Insurance [place]ICAID [place] Care Teams Tankage Grinder Operator Relationship Specialty Start Date End Date Javan Bryant MD PCP - General Internal Medicine 01/23/21
--- OUTSIDE RECORDS SUMMARY | 2025-09-06 10:44 | XMS_ITS | Patient Health Record ---
Author Organization [facility] Billing Info Address [address] [place] [id number] Care Team Providers Care Barrel Rib Matting Machine Operator Name Role Phone Andres Taverasuq Primary Care Provider MAHESH Pisano Unavailable [phone] Allergies Allergen (clinical drug ingredient) Drug/Non Drug [...] Problem Status W/U Status Risk Notes Problem 156154005 Mixed hyperlipidemia (E78.2) Active confirmed Problem 659944049 Ventral hernia without obstruction or gangrene (K43.9) Active confirmed Problem 09006276 Essential hypertension (I10) Active confirmed Problem 36668650 BRENDON (obstructive sleep apnea) (G47.33) Active confirmed Problem 864221216 Seasonal allergi es (J30.2) Active confirmed Problem 510124817 Plantar fasciiti s (M72.2) Active confirmed Problem History of migraine (098231412) History of migraine (Z86.69) Active confirmed Problem Thyroid disorder (76333925) Thyroid disorder (E07.9) Active confirmed Problem 86427108 Anxiety (F41.9) Active confirmed Problem 64838595 Primary hypertension (I10) Active confirmed Problem 35511671 Hypothyroidism, unspecified type (E03.9) Active confirmed Problem 975611738 Cardiac arrhythmia, unspecified cardiac arrhythmia type (I49.9) Active confirmed Problem 37137524 Chronic gout of multiple sites, unspecified cause (M1A.09X0) Active confirmed Problem 02349881 Intracranial mas s (R90.0) Active confirmed Problem 51125168 Chronic congesti ve heart failure, unspecified heart failure type (I50.9) Active confirmed Problem 76461221 Depression, unspecified depression type (F32.A) Active confirmed Problem 341935331 Acute right-side d low back pain without sciatica (M54.50) Active confirmed Plan Of Treatment Pending Test Test Name Order Date MRI- MR LOWER EXTREMITY JOINT-RT (63547) ([id number]) 02/15/2023 CT- ABD AND PELVIS W/O CONT ()([facility] [place]) 04/13/2023 MRI- MR LOWER EXTREMITY-RT ([id number])([facility] [place] [place]-RT) 02/01/2023 MRI HEAD/BRAIN W/WO CONTRAST([facility]) 11/24/2022 SCREENING MAMMO WITH ADDL VIEWS AND/OR U S FOR INCONCLUSIVE MAMMO (G0202) 11/24/2022 CALCIUM, IONIZED([id number]) 12/01/2022 XRAY - KNEE 3 VIEWS RIGHT ([id number]) 2022 Medical (General) History Medical History History ICD Code Primary hypertension I10 Seasonal allergies J30.2 Anxiety F41.9 Depression Hypothyroidism Hyperlipidemia Cardiac Arrthymias Anxiety Congestive Heart Failure Gout Intracranial Mass Plantar Fascitis BRENDON Surgical History Surgery Date(Month/Year) Cholecystectomy 2001 Tonsillectomy Hysterectomy 2001 Hospitalization History Reason Date(Month/Year)
--- OUTSIDE RECORDS SUMMARY | 2025-09-06 10:44 | XMS_ITS | Clinical Summary ---
Author Organization [facility] Address [facility] [place] [address] Care Team Providers Care Sales Porter Name Role Phone Javan Bryant MD Primary Care Provider [phone] Allergies Active Allergy Reactions Criticality Noted Date Comments Amlodipine Angioedema 06/22/2019 Ibuprofen Swelling 06/19/2019 Foot swelling Medications HYDROcodone-acet aminophen (NORCO) 5-325 MG tabletIndication s:Acute Pain < 3 Day Supply Take 1 tablet by mouth every 6 (six) hours as needed for Pain. Indications : Acute Pain < 3 Day Supply 5 tablet 05/25/2025 Active Immunizations Immunization Administration Dates Next Due Tdap (Boostrix) 01/28/2022 Social History Tobacco Use Types Packs/Day Years Used Date Smoking Tobacco: Every Day Cigarettes Passive Smoke Exposure: Past Smokeless Tobacco: Never Tobacco Cessation:Ready to Q uit: Not Asked; Counseling Given: Not Answered Alcohol Use Standard Drinks/Week Comments Never 0 (1 standard drink = 0.6 oz pur e alcohol) Comments No Sex and Gender Information Value Date Recorded Sex Assigned at Female 05/25/2025 2:07 PM CDT Legal Sex Female 7:19 PM CDT Gender Identity Not on file Sexual Orientation Not on file Last Filed Vital Signs Vital Sign Reading Time Taken Comments Blood Pressure 120/88 05/25/2025 3:00 PM CDT Pulse 90 05/25/2025 3:00 PM CDT Temperature 36.9 C (98.5 F) 05/25/2025 1:59 PM CDT Respiratory Rate 19 05/25/2025 3:00 PM CDT Oxygen Saturation 99% 05/25/2025 3:00 PM CDT Inhaled Oxygen Concentration - - Weight 124.7 kg (275 lb) 05/25/2025 1:59 PM CDT Height 162.6 cm (5' 4) 05/25/2025 1:59 PM CDT Body Mass Index 47.2 05/25/2025 1:59 PM CDT Plan of Treatment Health Maintenance Due Date Last Done Comments Colorectal Cancer Screening Colonoscopy (10 Years) 1978 Annual Physical 1981 Hepatitis C 1996 Hepatitis B Vaccines (1 of 3 - 19+ 3-dose series) 1997 Mammogram Screening 2018 Pneumococcal Vaccine: Pediatrics (0 to 5 Years) and At-Risk Patients (6 to 49 Years) (2 of 2 - PCV) 08/12/2023 08/12/2022, 10/11/2021 COVID-19 Vaccine (2024- season) 2025 08/25/2022, 04/09/2022, 12/03/2021, Additional history exists Influenza Adult (#1) 2025 10/25/2021 DTaP, Tdap and Td Vaccines (2 - Td or Tdap) 01/29/2032 01/28/2022 Meningococcal B Vaccine Aged Out No l onger eligible based on patient's age to complete this topic Meningococcal Vaccine Aged Out No terence juanito eligible based on patient's age to complete this topic RSV Immunizations Under 20 Months Aged Out No longer eligible based on patient's age to complete this topic Insurance [employer] OF [facility] Care Teams Sales Porter Relationship Specialty Start Date End Date Javan Bryant MD PCP - General INTERNAL MEDICINE 06/19/19
== END 2025-09-06 09:40 | disposition home or self-care (01) ==
LOC: ANHNEURO 09:42
PROVIDERS: PCP Internal Medicine; Visit Provider Internal Medicine
DX: R20.2 Paresthesia of skin (principal)
CPT/HCPCS: 95886; 95910